=== PATIENT | male | born 1955 | race Caucasian/White ===

== ENCOUNTER → 2017-09-24 09:44 | Outpatient (CLI) | payer OTHER, SELFPAY ==
--- NOTE | 2017-09-24 09:49 | RAD_ITS ---
STUDY: X-RAY - ABDOMEN/PELVIS REASON FOR EXAM: Male, 62 years old. Follow-up of bilateral kidney stones. TECHNIQUE: Single AP view of the abdomen / pelvis. COMPARISON: Abdomen/pelvis CT dated August 07, 2017. FINDINGS: Normal visualized lung bases. There is an unremarkable bowel gas pattern. There is no demonstrated free abdominal air. The visualized liver, spleen and kidneys are grossly normal in size and morphology. The 16 mm in diameter calcification in the inferior pole of the right kidney is stable. The small calcifications in the left kidney are not visualized. There is severe arthrosis of the left hip. There is a right total hip arthroplasty. RAD/Abdomen Single View IMPRESSION: Stable right renal calculus. Left calcifications not seen because they're so small. Moderate to severe arthrosis of the left hip. Electronically Signed: Aurelio Verduzco MD at 10:52 EST , Service support ,
== END ==
LOC: RAD.FUTURE 09:46 → RAD 09:48
PROVIDERS: Family Provider Internal Medicine; PCP Internal Medicine; Visit Provider Urology
DX: N20.0 Calculus of kidney (principal)
CPT/HCPCS: 74018

== ENCOUNTER → 2017-10-23 13:55 | Outpatient (CLI) | payer OTHER, SELFPAY ==
[2017-10-23 16:34] LABS: M R Staph aureus DNA By PCR POSITIVE (Negative); Probe Check PASS
== END ==
PROVIDERS: Family Provider Internal Medicine; PCP Internal Medicine; Visit Provider Internal Medicine
DX: Z86.14 Personal history of Methicillin resistant Staphylococcus aureus infection (principal)
CPT/HCPCS: 87641

== ENCOUNTER 2018-02-09 05:39 | Emergency (ER) | payer OTHER, SELFPAY ==
[2018-02-09 05:41] VITALS: BP 158/95; PULSE 79; RESP 17; TEMP 36.9; O2SAT 92; BMI 29.0
--- NOTE | 2018-02-09 05:52 | CT_ITS ---
STUDY: CT ABDOMEN AND PELVIS WITHOUT CONTRAST REASON FOR EXAM: Male, 62 years old. Right lower quadrant abdominal pain since last night, with nausea and vomitings. RADIATION DOSAGE (If Supplied By Facility): CTDIvol = ( 16.64 ) mGy, DLP = ( 896.18 ) mGycm TECHNIQUE: Transaxial images were obtained from the dome of the diaphragm to the symphysis pubis without oral contrast, and without intravenous contrast. Sagittal and coronal images were reconstructed. Individualized dose optimization techniques were used for this CT. COMPARISON: CT abdomen/pelvis: 08/07/2017 FINDINGS: The visualized lung bases demonstrate posteriorly linear areas of fibrotic atelectasis in both visualized lower lung lobes. There is a 7 mm noncalcified/nonspecific nodule present peripherally in the left lateral lower lobe. The visualized portion of the heart appears top normal in size. Superiorly in the right hepatic lobe and a 5 mm small low-density structures is seen, too small to characterize. There is diffuse mild fatty hepatic infiltration. There is non-visualization of the gallbladder, which may be secondary to either contraction or a prior cholecystectomy. Normal unenhanced spleen and pancreas. Normal bilateral adrenal glands. Again demonstrated multiple bilateral renal calculi, largest is 6.1 mm in the lower pole calyx of the right kidney. There is a 10.7 mm obstructing calculus seen in the proximal right ureter with moderate right hydronephrosis and with right perinephric stranding of the fat. There is no left hydronephrosis. There is a moderate size hiatal hernia. Normal small intestine. There is a left inguinoscrotal hernia with mild wall thickening of the distal descending herniated colon, possibly an incarcerated bowel. There are a few small sigmoid diverticula consistent with mild diverticulosis. There is non-visualization of the appendix. There is moderate atherosclerotic calcification of the abdominal aorta and branch vessels, without a demonstrated aneurysm. Normal inferior vena cava. Normal retroperitoneum. There are multiple small subcentimeter reactive mesenteric lymph nodes. Evaluation of the pelvis is hampered by metallic beam hardening artifact from patient's total right hip arthroplasty. There is a right side deviated urinary bladder. There is enlargement of the prostate gland(5.7 x 5.5 x 5.8 cm) with mass effect on the bladder.. There are bilateral inguinal hernias containing right side adipose tissue and left side larger hernia containing herniated distal descending and proximal sigmoid colon with wall thickening, increased in size since the prior exam with possible bowel incarceration. Moderately advanced degenerative disc/endplate disease changes are seen at L3-L4. Multilevel degenerative lumbar facet arthrosis. Moderately severe left hip osteoarthritis. Total right hip arthroplasty. CT/Abdomen/Pelvis without Cont IMPRESSION: 1. Bilateral nephrolithiasis. A right proximal ureter 10.7 mm obstructing calculus with moderate right hydronephrosis and right perinephric stranding of fat. 2. Moderate size hiatal hernia. 3. Bilateral inguinal hernias. Large-size left inguinoscrotal hernia containing colon with wall thickening is suggestive of incarceration. Clinical correlation is advised. 4. Enlarged prostrate gland. Correlation with serum PSA values is recommended. 5. Moderately severe left hip osteoarthritis. Total right hip arthroplasty. Electronically Signed: Yarelis Pepe MD at 7:21 EDT Tel , Service support ,
--- NOTE | 2018-02-09 05:54 | ED.DCSUM_ITS ---
- ER Visit Summary Date of Service: 02/09/18 Chief Complaint: [] Right lower abdominal pain History of Present Illness: The patient is a 62 M complaining of right lower abdominal pain since 930 suddenly last night continuous sharp pain. He has history of 2 kidney stones on the opposite side within the last year. He is 6 episodes of emesis. Still has his appendix but this came on quite suddenly. He tried Tylenol last night with minimal relief. His last 2 kidney stones had to be resected. Physical Examination: Vital signs reviewed General: Well-nourished well-developed Head: Normocephalic atraumatic Eyes: Pupils equal round and reactive to light extraocular movements intact ENT: TMs clear no hemotympanum no trauma Neck: Nontender full range of motion Cardiovascular: Regular rate rhythm no murmurs normal S1-S2 Respiratory: No distress clear to auscultation bilaterally chest nontender Abdomen: Soft very mild tenderness right lower quadrant without guarding or rebound. Nonsurgical abdomen. No significant tenderness over the appendix nondistended normal bowel sounds no masses Back: Nontender no CVA tenderness Extremities: Nontender active range of motion ?4 extremities no trauma Skin: Normal color no trauma Neuro alert oriented cranial nerves II through XII intact normal strength sensation reflexes Test Results: [] Emergency Department Course and Treatment: [] Patient given IV fluids Toradol Zofran and morphine. Lab work and CT abdomen pelvis obtained. Treatment Plan: [] Disposition: [] Impression: [] This note was generated with [employer] dictation software. It may contain incorrect words, spelling, and punctuation that were not noted in review of the chart prior to signing ED Disposition - Plan for ED Patient: Chief Complaint: Abd Pain Referrals: Linette Soares DO [Primary Care Provider] -
[2018-02-09] MEDS: morphine 8 MG/ML Syringe IV (06:01)
[2018-02-09] MEDS: Ondansetron 4 MG/2 ML Vial IV (06:01)
[2018-02-09] MEDS: Ketorolac 30 MG/ML Syringe IV (06:01)
[2018-02-09] MEDS: 0.9% Normal Saline 1,000 ML 1000 ML IV ×2 (06:01→07:37)
[2018-02-09 06:12] LABS: Absolute Lymphocyte Count 0.93 X10^3/ul (0.83-4.51); Absolute Neutrophil Count 11.3 X10^3/uL (2.0-7.7); Anion Gap 8 (5-15); BUN 20 mg/dL (7-18); BUN/Creat Ratio 13.2 RATIO (10-20); Basophil# 0.03 X10^3/uL; Basophil% 0.2 % (0-1); Calcium,Total 9.2 mg/dL (8.5-10.1); Chloride 109 mmol/L (98-107); Creatinine, Serum 1.51 mg/dL (0.70-1.30); EST Glomerular Filtration Rate 50 mL/min (>60); Est Glom Filt Rate - Afr Amer 60 mL/min (>60); Estimated Creatinine Clearance 54.96 ml/min; Glucose 146 mg/dL (74-106); Hemoglobin 16.3 g/dl (13.0-16.5); Lymphocyte # 0.93 X10^3/ul (4.0); Lymphocyte % 7.2 % (19-41); Mean Corp Hgb Conc 33.3 g/gl (32-36); Mean Corpuscular Volume 78.1 fL (80-94); Mean Platelet Vol. 10.3 fl (6.2-12.0); Monocyte# 0.58 X10^3/uL; Monocyte% 4.5 % (0-10); Neutrophil # 11.27 X10^3/uL (2.7-7.7); Neutrophil % 87.8 % (47-70); Platelet Count 338 K/mm3 (150-450); Potassium 4.3 mmol/L (3.5-5.1); RBC Distribution Width CV 17.6 % (11.6-14.6); RBC Distribution Width SD 49.2 fl (35.1-43.9); Red Blood Count 6.27 M/mm3 (4.6-6.2); Sodium Level 143 mmol/L (136-145); White Blood Count 12.9 K/mm3 (4.4-11.0)
[2018-02-09 06:21] LABS: POSITIVE COUNT NO; POSITIVE DIFFERENTIAL NO; POSITIVE MORPHOLOGY NO
--- NOTE | 2018-02-09 06:48 | DCINST.ED_ITS ---
ED Disposition - Plan for ED Patient: Disposition: Home or Assisted Living Chief Complaint: Abd Pain Instructions: ED Stone Renal W Colic Prescriptions: Oxycodone HCl/Acetaminophen [Percocet 5/325] 1 - 2 tab PO Q6H PRN PRN 5 Days # 15 tab PRN Reason: Pain Ondansetron [Zofran Odt] 4 mg PO Q8H PRN PRN #10 tab PRN Reason: Nausea Referrals: Linette Soares DO [Primary Care Provider] - Chris Jara MD [STAFF PHYSICIAN] - Willy Awad MD [STAFF PHYSICIAN] -
[2018-02-09 07:58] VITALS: BP 133/74; PULSE 66; O2SAT 95
[2018-02-09 08:24] LABS: Bacteria 0 SEEN /hpf (None Seen); Mucous, Urine 0 SEEN /hpf (<or=2+); Red Blood Cells-Urine 0 SEEN /hpf (0-5); Squamous Epithelial Cells - UA 0 SEEN /hpf (0-5); White Blood Cells 0 SEEN /hpf (0-5)
[2018-02-09] MEDS: Morphine 4 MG/ML Syringe IV (08:26)
[2018-02-09 08:29] VITALS: BP 145/86; PULSE 67; RESP 20; O2SAT 94
[2018-02-09 08:53] LABS: Color, Urine Yellow (Yellow); Glucose, Dipstick 1000 mg/dl (Normal); Ketone-Dipstick 5 mg/dl (Negative); Leukocyte Esterase-Dipstick Negative /ul (Negative); Nitrite-Dipstick Negative (Negative); Occult Blood-Urine 10 /ul (Negative); Protein-Dipstick 15 mg/dl (Negative); Specific Gravity, Urine 1.015 (1.002-1.030); Urine Bilirubin Dipstick Negative (Negative); Urine Clarity Clear (Clear); Urine Urobilinogen Normal (Normal)
[2018-02-09 09:10] VITALS: BP 135/76; PULSE 61; RESP 18; O2SAT 97
--- NOTE | 2018-02-09 09:20 | ED.RN ---
THIS NURSE REVIEWED D/C INSTRUCTIONS WITH PT. PT VERBALIZED UNDERSTANDING OF INSTRUCTIONS. IV D/C. IV CATHETER INTACT. PT TOLERATED WELL. PT DENIES FURTHER NEEDS OR QUESTIONS AT THIS TIME. PT AMBULATES FROM ROOM ON OWN WITHOUT ASSISTANCE FROM STAFF
== END 2018-02-09 09:21 | disposition home or self-care (01) ==
PROVIDERS: Emergency Medicine; Emergency Provider Emergency Medicine; Family Provider Internal Medicine; PCP Internal Medicine
DX: N13.2 Hydronephrosis with renal and ureteral calculous obstruction (principal); K40.20 Bilateral inguinal hernia, without obstruction or gangrene, not specified as recurrent; K44.9 Diaphragmatic hernia without obstruction or gangrene; N40.0 Benign prostatic hyperplasia without lower urinary tract symptoms; Z87.442 Personal history of urinary calculi; Z86.79 Personal history of other diseases of the circulatory system; Z90.49 Acquired absence of other specified parts of digestive tract
CPT/HCPCS: 74176; 80048; 81001; 85025; 96361; 96374; 96375; 96376; 99282; J7030; J2405

== ENCOUNTER → 2018-02-11 15:09 | Outpatient (CLI) | payer OTHER, SELFPAY ==
[2018-02-11 20:14] LABS: M R Staph aureus DNA By PCR POSITIVE (Negative); Probe Check PASS
== END ==
PROVIDERS: Family Provider Internal Medicine; PCP Internal Medicine; Visit Provider Internal Medicine
DX: Z86.14 Personal history of Methicillin resistant Staphylococcus aureus infection (principal)
CPT/HCPCS: 87641

== ENCOUNTER → 2018-02-13 14:01 | Outpatient (CLI) | payer OTHER, SELFPAY ==
--- NOTE | 2018-02-13 14:04 | RAD_ITS ---
STUDY: X-RAY STERNUM REASON FOR EXAM: Male, 62 years old. Sternal chest pain TECHNIQUE: 4 view(s) of the sternum were obtained. COMPARISON: None. FINDINGS: Normal bilateral sternoclavicular articulations. Normal manubrium. Normal sternomanubrial joint. There is a subacute healing fracture in the mid sternum best seen on the lateral films. Normal visualized anterior ribs. Normal visualized lungs. The soft tissue structures are unremarkable. RAD/Sternum min 2 Views IMPRESSION: Nondisplaced subacute healing fracture in the mid sternum with soft tissue swelling Electronically Signed: Bryon Lai MD at 14:51 EDT , Service support ,
== END ==
PROVIDERS: Family Provider Internal Medicine; PCP Internal Medicine; Visit Provider Internal Medicine
DX: R07.89 Other chest pain (principal)
CPT/HCPCS: 71120

== ENCOUNTER 2018-02-15 10:31 | Day surgery (SDC) | payer OTHER, SELFPAY ==
[2018-02-15] VITALS (7 sets, daily range): BP systolic 116–130; BP diastolic 75–86; PULSE 60–66; RESP 16–18; TEMP 36.2–36.7; O2SAT 92–96; BMI 28.0
--- NOTE | 2018-02-15 10:35 | RAD_ITS ---
STUDY: X-RAY - ABDOMEN/PELVIS REASON FOR EXAM: Male, 62 years old. Preoperative evaluation for lithotripsy. TECHNIQUE: Two AP supine views of the abdomen and pelvis. COMPARISON: Comparison is made with prior study dated February 09, 2018. FINDINGS: There is a moderate amount of colonic fecal material. There is a 1.1 cm triangular-shaped calcification overlying the transverse processes of the L3 vertebrae on the right side. This is suggestive of a right mid ureteral calculus. Tiny nonobstructive bilateral intrarenal calculi are seen. Normal soft tissue structures. There are diffuse degenerative changes of the visualized lumbar spine. Status post right total hip replacement. Marked degree of degenerative changes of the left hip joint. RAD/Abdomen Single View IMPRESSION: 1.1 cm triangular shaped calculus in the midportion of the right ureter. Nonobstructive bilateral intrarenal calculi. Electronically Signed: [employer] MD at 10:59 EDT Tel [phone], Service support ,
[2018-02-15 11:30] LABS: Bedside Glucose 98 mg/dL (70-110)
[2018-02-15] MEDS: Cefazolin 2 GM in 0.9% Normal Saline 100 ML IV (14:14)
--- NOTE | 2018-02-15 14:32 | CHAPLAIN ---
Type of Pastoral Visit _x__ Initial Visit ___ Follow-up Visit ___ On-call Visit ___ General Patient Visit ___ Spiritual Assessment ___ Family Conference ___ Bereavement ___ Rapid Response ___ Code Blue ___ Other (describe below) Pastoral Care Referral From _x__ Patient ___ Family ___ Nurse ___ Physician ___ Filler Mixer ___ [place] Boatman ___ Other (describe below) Sacrament/Intervention _x__ Active listening ___ Anointing ___ Denominational ___ Bereavement ___ Communion ___ Sun exploration ___ _x__ Life review _x__ Prayer ___ Reconciliation ___ Sacrament of Sick ___ Supportive presence ___ Wedding ___ Other (describe below) Pastoral Comments
--- NOTE | 2018-02-15 14:40 | PCM.DC.URO ---
Discharge Diet: Light diet - advance as tolerated Discharge Activity: Return to Normal Activity, May not drive while taking narcotic pain medications. Call your doctor if your incision/area has: Continuous Slow Oozing, Sudden Increased Bleeding, Increased Pain/ Swelling, Increased Redness, Foul Smelling Discharge, Swelling at the incision site Suture Line Care: Avoid Pulling/Pushing, Avoid Pinching/Bending Instructions: Shock Wave Lithotripsy Allergies/Adverse Reactions: Allergies hydrocodone bitartrate [From Vicodin] Adverse Reaction (Verified 02/09/18 05:40) Other Medications to take at Discharge Ondansetron [Zofran Odt] 4 mg PO Q8H PRN PRN #10 tab 02/09/18 Oxycodone HCl/Acetaminophen [Percocet 5/325] 1 - 2 tab PO Q6H PRN PRN 5 Days #15 tab 02/09/18 Ciprofloxacin [Cipro] 500 mg PO BID #6 tab 02/15/18 Hydrocodone/Acetaminophen [Anthony 5-325 Tablet] 1 ea PO Q4H PRN PRN 7 Days #14 tab 02/15/18 The following prescriptions were given: Hydrocodone/Acetaminophen [Anthony 5-325 Tablet] 1 ea PO Q4H PRN PRN 7 Days #14 tab PRN Reason: Pain Ciprofloxacin [Cipro] 500 mg PO BID #6 tab Primary Care Physician: Linette Soares DO [Primary Care Provider] - Please Follow Up With: Chris Jara MD When: call for an appt next week with xray to remove stent.
--- NOTE | 2018-02-15 15:18 | PCM.OPRPT ---
Report of Operation Date of Procedure: 02/15/18 Pre-Operative Diagnosis: Right ureteral calculi, proximal ureter and right renal calculi Post-Operative Diagnosis: Same Surgery/Procedure Performed:: Cystoscopy, right stent placement, right extracorporeal shockwave lithotripsy. Description of Surgical Findings:: 62-year-old male taken back to the operating room at the smooth induction of general anesthesia he is placed supine on the table in the in the dorsal lithotomy position the penis and testicles were prepped and draped in the usual sterile fashion went into the bladder with a 21 Chinese rigid cystourethroscope identified the right ureteral orifice with a Glidewire advanced a wire up into the kidney was a wire was in good position advanced stent and the stent coiled in the kidney and bladder good position left the string of the stent for easy extraction then drained the bladder and removed the cystoscope, we then positioned the lithotripter table and found the first on the proximal ureter total 3000 shockwaves were delivered to the stone up the power of 9 and then there is another 5 mm fragment in the kidney and another thousand shockwaves were delivered to the small fragment that broke up fairly well. At the end of the stones broke up fairly well left the stent in place plan to see him next week with an x-ray or prior remove the stent patient anesthetic is currently being reversed. Type of Anesthesia:: General Drains: stent. - Admit VTE Documentation VTE Present on Admission: No VTE Mechan Device Prophylaxis: SCD's VTE Pharm Prophylaxis ordered?: No
== END 2018-02-15 17:05 | disposition home or self-care (01) ==
LOC: SDC 10:33 → AC 10:34
PROVIDERS: Family Provider Internal Medicine; PCP Internal Medicine; Visit Provider Urology
PROC: (CPT 50590; principal; 2018-02-15 12:40)
DX: N20.1 Calculus of ureter (principal); N20.0 Calculus of kidney; N40.1 Benign prostatic hyperplasia with lower urinary tract symptoms; R35.1 Nocturia; Z87.442 Personal history of urinary calculi; Z79.82 Long term (current) use of aspirin; Z79.891 Long term (current) use of opiate analgesic; Z79.899 Other long term (current) drug therapy
CPT/HCPCS: 52325; 52332; 74018; 82962; J7120; C1769; C2617

== ENCOUNTER → 2018-02-20 15:58 | Outpatient (CLI) | payer OTHER, SELFPAY ==
--- NOTE | 2018-02-20 16:01 | RAD_ITS ---
STUDY: X-RAY - ABDOMEN/PELVIS REASON FOR EXAM: Male, 62 years old. Right kidney stones TECHNIQUE: Two AP supine views of the abdomen and pelvis. COMPARISON: 02/15/2018 FINDINGS: There is moderate stool within the right colon. There is no demonstrated free abdominal air. The visualized liver, spleen and kidneys are grossly normal in size and morphology. There is a new right ureteral stent in place. There is a 5 mm calcification adjacent to the proximal ureteral stent. A 6 mm calcification overlying the inferior pole of the right kidney. There are diffuse degenerative changes of the visualized lumbar spine. There has been a right total hip arthroplasty. Degenerative changes are seen within the left hip. RAD/Abdomen Single View IMPRESSION: New right ureteral stent. There is a calcification along the proximal aspect of the stent, and a right inferior pole calculus. Electronically Signed: Zeferino Wilburn DO at 10:00 EDT Tel , Service support ,
== END ==
PROVIDERS: Family Provider Internal Medicine; PCP Internal Medicine; Visit Provider Urology
DX: N20.0 Calculus of kidney (principal)
CPT/HCPCS: 74018

== ENCOUNTER → 2018-02-20 16:17 | Outpatient (CLI) | payer OTHER, SELFPAY ==
--- NOTE | 2018-02-20 16:19 | VDLE_ITS ---
Reason For Study: Swelling RIGHT LEFT GSV is normal. GSV is normal. CFV is compressible, spontaneous, phasic, CFV is compressible, spontaneous, phasic, competent and demonstrates normal competent, and demonstrates normal augmentation. augmentation. FV is compressible, spontaneous, phasic, FV is compressible, spontaneous, phasic, competent and demonstrates normal competent and demonstrates normal augmentation. augmentation. POP V is compressible, spontaneous, phasic, POP V is compressible, spontaneous, phasic, competent and demonstrates normal competent and demonstrates normal augmentation. augmentation. T/P Trunk is compressible. T/P Trunk is compressible. PTV is compressible. LT PerV is compressible. RT PerV is compressible. Lt PTV distal and Lt SoleusV are dilated and Rt anterior calf varicosity is dilated and non compressible consistent with acute DVT. non compressible consistent with acute SVT. Procedure Exam performed in department. A preliminary report was called and/or faxed to Dr. Awad. Patient sent for treatment in ED per Dr. Awad. Interpretation Summary Superficial thrombophlebitis right anterior calf varicosity. Left posterior tibial and soleus deep venous thrombosis. No evidence for proximal progression on the left Patent and compressible bilateral great saphenous veins. Ordering Physician: Willy Awad Referring Physician: Linette Soares Performed By: Evelyn Carson, RDCS, RVT
== END ==
PROVIDERS: Family Provider Internal Medicine; PCP Internal Medicine; Visit Provider Surgery
DX: I82.890 Acute embolism and thrombosis of other specified veins (principal); M79.606 Pain in leg, unspecified
CPT/HCPCS: 93970

== ENCOUNTER 2018-02-20 17:21 | Emergency (ER) | payer OTHER, SELFPAY ==
[2018-02-20 17:23] VITALS: BP 145/73; PULSE 73; RESP 18; TEMP 36.6; O2SAT 96; BMI 27.1
--- NOTE | 2018-02-20 17:59 | ED.VISSUMM ---
- ER Visit Summary Date of Service: 02/20/18 Chief Complaint: Patient sent from vascular lab because of DVT. History of Present Illness: The patient is a 62 M who is status post lithotripsy Thursday, February 15, [address] Jara. He had a outpatient venous Doppler to evaluate his bilateral leg pain to rule out DVT. Report indicates he has a superficial clot right leg and distal DVT left leg involving the posterior tibial and soleus vein. He denies fever, chills night sweats. He denies chest pain, palpitations or rapid heartbeat. He denies shortness of breath, cough, hemoptysis or dyspnea on exertion. He denies any paresthesia, anesthesia motor weakness of the right or left lower extremity. 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 Physical Examination: Vital signs are unremarkable. HEENT exam is unremarkable. Heart is regular without murmur, gallop or rub. S1 and S2 are normal. Lungs are clear to auscultation with good movement of air bilaterally. There is pain to palpation over the superficial clot right leg. There is minimal discomfort left calf. DP and PT pulses are palpable bilaterally. There is no evidence of cellulitis. 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 Literature would support not place him on an anticoagulation therapy since they are distal clots. Venous duplex study was ordered for February 23, February 28 and March 07. Reports to go to both Dr. Jara and Dr. Soares. Treatment Plan: Outpatient venous duplex studies Disposition: Discharged home with appropriate home-going instructions Impression: 1. DVT right lower extremity below the trifurcation 2. Superficial phlebitis right leg This note was generated with [employer] dictation software. It may contain incorrect words, spelling, and punctuation that were not noted in review of the chart prior to signing ED Disposition - Plan for ED Patient: Disposition: Home or Assisted Living Chief Complaint: Other, Pain/Inj Instructions: ED DVT Referrals: Linette Soares DO [Primary Care Provider] - As Needed Additional Instructions: You will need to call the vascular lab to set up outpatient venous duplex study for February 23, February 28 and March 07. If you develop chest pain and shortness of breath return to the emergency department immediately.
--- NOTE | 2018-02-20 18:03 | ED.DCSUM_ITS ---
- ER Visit Summary Date of Service: 02/20/18 Chief Complaint: Patient sent from vascular lab because of DVT. History of Present Illness: The patient is a 62 M who is status post lithotripsy Thursday, February 15, [address] Jara. He had a outpatient venous Doppler to evaluate his bilateral leg pain to rule out DVT. Report indicates he has a superficial clot right leg and distal DVT left leg involving the posterior tibial and soleus vein. He denies fever, chills night sweats. He denies chest pain, palpitations or rapid heartbeat. He denies shortness of breath, cough, hemoptysis or dyspnea on exertion. He denies any paresthesia, anesthesia motor weakness of the right or left lower extremity. 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 Physical Examination: Vital signs are unremarkable. HEENT exam is unremarkable. Heart is regular without murmur, gallop or rub. S1 and S2 are normal. Lungs are clear to auscultation with good movement of air bilaterally. There is pain to palpation over the superficial clot right leg. There is minimal discomfort left calf. DP and PT pulses are palpable bilaterally. There is no evidence of cellulitis. 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 Literature would support not place him on an anticoagulation therapy since they are distal clots. Venous duplex study was ordered for February 23, February 28 and March 07. Reports to go to both Dr. Jara and Dr. Soares. Treatment Plan: Outpatient venous duplex studies Disposition: Discharged home with appropriate home-going instructions Impression: 1. DVT right lower extremity below the trifurcation 2. Superficial phlebitis right leg This note was generated with [employer] dictation software. It may contain incorrect words, spelling, and punctuation that were not noted in review of the chart prior to signing ED Disposition - Plan for ED Patient: Disposition: Home or Assisted Living Chief Complaint: Other, Pain/Inj Instructions: ED DVT Referrals: Linette Soares DO [Primary Care Provider] - As Needed Additional Instructions: You will need to call the vascular lab to set up outpatient venous duplex study for February 23, February 28 and March 07. If you develop chest pain and shortness of breath return to the emergency department immediately.
[2018-02-20 18:15] VITALS: BP 132/90; PULSE 71; RESP 16; O2SAT 94
== END 2018-02-20 18:18 | disposition home or self-care (01) ==
LOC: ED 18:13
PROVIDERS: Emergency Provider Emergency Medicine; Family Provider Internal Medicine; PCP Internal Medicine
DX: I82.4Z1 Acute embolism and thrombosis of unspecified deep veins of right distal lower extremity (principal); I80.01 Phlebitis and thrombophlebitis of superficial vessels of right lower extremity; E11.9 Type 2 diabetes mellitus without complications
CPT/HCPCS: 99282

== ENCOUNTER → 2018-02-22 11:29 | Outpatient (CLI) | payer OTHER, SELFPAY ==
--- NOTE | 2018-02-22 11:33 | VDLE_ITS ---
Reason For Study: F/U LLE DVT Procedure LEFT Exam performed in department. GSV is normal. CFV is compressible, spontaneous, phasic, competent, and demonstrates normal augmentation. FV is compressible, spontaneous, phasic, competent and demonstrates normal augmentation. POP V is compressible, spontaneous, phasic, competent and demonstrates normal augmentation. T/P Trunk is compressible. LT PerV is compressible. Distal PTV is dilated and non-compressible for short segment Soleus v is now compressible. Interpretation Summary Persistent deep venous thrombosis left posterior tibial vein Patent and compressible left soleus vein Patent and compressible left great saphenous vein. Ordering Physician: Linus Swift Referring Physician: Linette Soares D.O. Performed By: Gricelda Escalante RVT
== END ==
PROVIDERS: Family Provider Internal Medicine; PCP Internal Medicine; Visit Provider Emergency Medicine
DX: I82.492 Acute embolism and thrombosis of other specified deep vein of left lower extremity (principal); I80.01 Phlebitis and thrombophlebitis of superficial vessels of right lower extremity
CPT/HCPCS: 93971

== ENCOUNTER → 2018-02-26 13:07 | Outpatient (CLI) | payer OTHER, SELFPAY ==
--- NOTE | 2018-02-26 13:10 | VDLE_ITS ---
Reason For Study: DVT Procedure LEFT Exam performed in department. GSV is normal. The exam was diagnostic. CFV is compressible, spontaneous, phasic, A preliminary report was called and/or competent, and demonstrates normal faxed to [facility] nurses voicemail. augmentation. FV is compressible, spontaneous, phasic, competent and demonstrates normal augmentation. POP V is compressible, spontaneous, phasic, competent and demonstrates normal augmentation. T/P Trunk is compressible. LT PerV is compressible. Soleus V is compressible. Distal PTV is still dilated and noncompressible. No significant change from previous study done 02/22/18. Interpretation Summary Persistent deep venous thrombosis left posterior tibial vein with no change from the previous exam of 02/22/18. Patent and compressible left great saphenous vein. Ordering Physician: Linette Soares Performed By: Charles Stone RVT
== END ==
PROVIDERS: Family Provider Internal Medicine; PCP Internal Medicine; Visit Provider Internal Medicine
DX: I82.409 Acute embolism and thrombosis of unspecified deep veins of unspecified lower extremity (principal)
CPT/HCPCS: 93971

== ENCOUNTER → 2018-03-07 10:17 | Outpatient (CLI) | payer OTHER, SELFPAY ==
--- NOTE | 2018-03-07 10:19 | VDLE_ITS ---
Reason For Study: F/U LLE DVT Procedure LEFT Exam performed in department. GSV is normal. A preliminary report was called and/or faxed CFV is compressible, spontaneous, phasic, to Dr. Soares. competent, and demonstrates normal augmentation. FV is compressible, spontaneous, phasic, competent and demonstrates normal augmentation. POP V is compressible, spontaneous, phasic, competent and demonstrates normal augmentation. T/P Trunk is compressible. LT PerV is compressible. PTV remains non-compressible for short segment distal calf. Interpretation Summary Deep venous thrombosis left posterior tibial vein. No evidence for proximal progression Patent and antegrade left great saphenous vein No change from 02/26/18 Ordering Physician: Linus Swift Referring Physician: Linette Soares D.O. Performed By: Gricelda Escalante RVT
== END ==
PROVIDERS: Family Provider Internal Medicine; PCP Internal Medicine; Visit Provider Emergency Medicine
DX: I82.402 Acute embolism and thrombosis of unspecified deep veins of left lower extremity (principal)
CPT/HCPCS: 93971

== ENCOUNTER → 2018-04-11 14:09 | Outpatient (CLI) | payer OTHER, SELFPAY | PROVIDERS: Family Provider Internal Medicine; PCP Internal Medicine; Visit Provider Urology | DX: N20.0 Calculus of kidney (principal) | CPT/HCPCS: 74018 ==

== ENCOUNTER → 2018-04-15 10:04 | Outpatient (CLI) | payer OTHER, SELFPAY | PROVIDERS: Family Provider Internal Medicine; PCP Internal Medicine; Visit Provider Internal Medicine | DX: I82.409 Acute embolism and thrombosis of unspecified deep veins of unspecified lower extremity (principal) | CPT/HCPCS: 93971 ==

== ENCOUNTER → 2018-07-04 12:47 | Outpatient (CLI) | payer SELFPAY ==
[2018-07-04 13:00] VITALS: BP 120/66; PULSE 62; RESP 14; TEMP 37.1; O2SAT 97; BMI 27.1
--- NOTE | 2018-07-04 13:09 | CT_ITS ---
STUDY: CARDIAC CALCIUM SCORING - CT CHEST REASON FOR EXAM: Male, 62 years old. SCREENING, HX-HTN,DB,NON SMOKER RADIATION DOSAGE (If Supplied By Facility): CTDIvol = ( 12.19 ) mGy, DLP = ( 292.55 ) mGycm TECHNIQUE: Axial non-enhanced images were acquired through the heart for the sole purpose of measuring coronary artery calcium. Individualized dose optimization techniques were used for this CT. COMPARISON: None. FINDINGS: Visualized surrounding anatomy: Normal. Left Main Coronary Artery: 13.7 Left Anterior Descending Artery: 145 Left Circumflex Artery: 13.1 Right Coronary Artery: 0 Other: 0 Total Calcium Score: 122 CT/Limited Chest CT w/CCTA IMPRESSION: A Calcium Score of 172 places the patient in the approximate 69 percentile, based on the EL data calculator. Please go to: [email or web address]-nhlbi.org/Calcium/input.aspx , for a description of the calculator. Electronically Signed: Letitia Edmond MD at 8:03 EST Tel , Service support ,
--- NOTE | 2018-07-06 08:53 | CA.SCORE ---
Calcium Scoring Date of Study:: 07/04/18 Coronary Calcium Scoring: Coronary calcium score. High-resolution computed tomographic images of the chest were performed on 07/04/2018. Particular attention was paid to the coronary arteries. Images from the examination were analyzed for the presence and extent of coronary artery calcification using the coronary calcifications software. The patient tolerated the procedure well there were no complications. The results of the calcification analysis demonstrated the following. Left main coronary calcium score 13.7. Left anterior descending artery calcium score 145. Left circumflex calcium score of 13. Right coronary calcium score of 0. Total Agagston score 172. The above suggest mild coronary calcification along the left anterior descending artery territory. This places the patient at a moderate plaque burden range.
== END ==
PROVIDERS: Family Provider Internal Medicine; PCP Internal Medicine; Referring Provider Internal Medicine; Visit Provider Internal Medicine
DX: I10 Essential (primary) hypertension (principal); Z13.9 Encounter for screening, unspecified
CPT/HCPCS: 75571; 76380

== ENCOUNTER → 2019-09-24 08:55 | Outpatient (CLI) | payer OTHER, SELFPAY ==
--- NOTE | 2019-09-24 09:13 | US_ITS ---
STUDY: THYROID ULTRASOUND REASON FOR EXAM: Male, 64 years old. Possible nodule TECHNIQUE: Ultrasound evaluation of the thyroid was performed with real-time and static jones-scale imaging. COMPARISON: None. FINDINGS: RIGHT LOBE: The right lobe of the thyroid gland measures 4.6 cm x 1.9 cm -1.4 cm. There is a homogeneous echotexture. There are no demonstrated solid, cystic or complex lesions. LEFT LOBE: The left lobe of the thyroid gland measures 4.2 cm x 1.4 cm x 1.5 cm. There is a homogeneous echotexture. There are no demonstrated solid, cystic or complex lesions. ISTHMUS: The isthmus measures 3 mm. The regional lymph nodes are normal. US/Thyroid IMPRESSION: Normal ultrasound examination of the thyroid. Electronically Signed: [facility] [employer], at 15:31 EST , Service support ,
== END ==
PROVIDERS: PCP Internal Medicine; Referring Provider Internal Medicine; Visit Provider Internal Medicine
DX: E04.1 Nontoxic single thyroid nodule (principal)
CPT/HCPCS: 76536

== ENCOUNTER 2020-02-02 11:42 | Day surgery (SDC) | payer MEDICARE, OTHER, SELFPAY ==
[2020-01-26 14:29] VITALS: BMI 27.1
[2020-02-02] VITALS (10 sets, daily range): BP systolic 113–141; BP diastolic 70–83; PULSE 55–87; RESP 15–18; TEMP 36.1–37; O2SAT 93–100; BMI 29.5
--- NOTE | 2020-02-02 12:17 | EKG12_ITS ---
Test Reason : ABD PAIN Blood Pressure : / mmHG Vent. Rate : 060 BPM Atrial Rate : 060 BPM P-R Int : 146 ms QRS Dur : 108 ms QT Int : 438 ms P-R-T Axes : 018 064 052 degrees QTc Int : 438 ms Normal sinus rhythm Incomplete right bundle branch block Nonspecific T wave abnormality Abnormal ECG Confirmed by TROY NICKERSON, GARDENIA ([id number]), editor book TANIA SMITH ([id number]) on 02/03/2020 10:00:33 AM Referred By: PILAR Confirmed By:GARDENIA SIMMONS MD
--- NOTE | 2020-02-02 12:18 | ED.DCSUM_ITS ---
History of Present Illness Chief Complaint: Abd Pain Informant: Patient Narrative: Patient has a history of left inguinal hernia, over the past 2 days he has had worsening pain in his left inguinal and scrotal region, now he has abdominal pain and an episode of vomiting. He was scheduled for an elective hernia repair in a few weeks. He denies any fever chills no diarrhea or constipation. He has been n.p.o. for 6 hours. No urinary symptoms Past Medical History - Allergies and Home Meds Allergies/Adverse Reactions: Allergies acetaminophen [From Percocet] Allergy (Severe, Verified 02/02/20 11:45) unknown oxycodone [From Percocet] Allergy (Severe, Verified 02/02/20 11:45) unknown hydrocodone bitartrate [From Vicodin] Adverse Reaction (Verified 02/02/20 11:45) Other Primary Care Physician: Linette Soares DO [Primary Care Provider] - Past Medical History: - - Hypertension, hypercholesterolemia Smoking Status: Never smoker Review of Systems All systems negative except as indicated General: Denies: Fever Cardiovascular: Denies: Chest pain Respiratory: Denies: Dyspnea, Cough Gastrointestinal: Reports: Abdominal pain, Nausea, Vomiting Genitourinary: Reports: - - Left scrotal pain Musculoskeletal: Denies: Myalgias, Arthralgias Skin: Denies: Rash Neurological: Denies: Headache Psych: Denies: Depression Hematologic: Denies: Easy bruising Allergy: Denies: Swelling of the mouth Physical Exam Vital Signs/Narrative: Vital Signs Temp Pulse Resp BP Pulse Ox 02/02/20 11:43 98.6 F 64 18 141/83 H 95 General: - - He appears in some distress Head: Normocephalic ENT: Moist mucous membranes Neck: Supple Cardiovascular: Regular rate, Regular rhythm Respiratory: No distress, CTA bilaterally Abdomen: Soft, - - There is tenderness throughout but mostly lower abdomen. There is a bulging inguinal hernia and to the left scrotal region. I cannot reduce it. : - - Hernia as above Back: Normal Inspection. Negative for: CVA tenderness Extremities: Nontender, No edema Skin: Normal color Neurological: Normal Strength, Normal Sensation Diagnostic/Tx/Re-eval - Medical Decision Making I cannot reduce the hernia I called surgery, they will evaluate the patient at the bedside. Blood work and EKG were obtained patient was given an analgesia. He will be made n.p.o. He will go to the operating room. ED Disposition - Plan for ED Patient: Disposition: [facility] Diagnosis: Incarcerated hernia Referrals: Linette Soares DO [Primary Care Provider] -
--- NOTE | 2020-02-02 12:42 | PCM.HP.STD ---
Problem List (1) Incarcerated hernia Status: Acute History of Present Illness Date of Admission: 02/02/20 The patient is a 64 year old M who presents to the emergency department with an incarcerated strangulated left inguinal hernia with nausea and vomiting. Patient states that when he woke up this morning it was quite a bit more tender swollen started developed nausea and vomiting the car ride and was extremely painful. While being in the emergency department he was given some analgesics he no longer feels nauseated and he says the firmness has gone down. Patient has had this for many years and was actually going to get treatment for it but then developed a pulmonary and embolus and was needing treatment for that. He presents today for further evaluation and definitive treatment of his left inguinal hernia. Bulge will go out to be very hard at times at nighttime it will partially reduce. The total time that it was strangulated was probably in the vicinity of 6 hours. Past Medical History Past Medical History (Chronic Problems): Chronic Problems (Last Reviewed 02/02/20 @ 12:[address] Maurilio De Paz MD) Ventricular premature depolarization (Chronic) Nonrheumatic mitral (valve) insufficiency (Chronic) Hypertension (Chronic) Recurrent right inguinal hernia (Chronic) Superficial thrombophlebitis of right leg (Chronic) Left inguinal hernia (Chronic) Calculus of kidney and ureter (Chronic) Diabetes mellitus (Chronic) BPH w urinary obs/LUTS (Chronic) Medical History: Medical History (Last Reviewed 02/02/20 @ 12:[address] Maurilio De Paz MD) Ventricular premature depolarization (Chronic) I49.3 Nonrheumatic mitral (valve) insufficiency (Chronic) I34.0 Hypertension (Chronic) I10 Ventricular tachycardia, non-sustained (Resolved) I47.2 Recurrent right inguinal hernia (Chronic) K40.91 Superficial thrombophlebitis of right leg (Chronic) I80.01 Left inguinal hernia (Chronic) K40.90 Calculus of kidney and ureter (Chronic) N20.2 Diabetes mellitus (Chronic) E11.9 BPH w urinary obs/LUTS (Chronic) N40.1, N13.8 Allergies acetaminophen [From Percocet] Allergy (Severe, Verified 02/02/20 11:45) unknown oxycodone [From Percocet] Allergy (Severe, Verified 02/02/20 11:45) unknown hydrocodone bitartrate [From Vicodin] Adverse Reaction (Verified 02/02/20 11:45) Other Home Medications: Ambulatory Orders Medication Instructions Recorded naproxen sodium 220 mg tablet 220 mg PO BID PRN 03/28/18 amlodipine 5 mg tablet 5 mg PO DAILY 01/26/20 aspirin 81 mg tablet,delayed 81 mg PO DAILY 01/26/20 release cholecalciferol (vitamin D3) 100 100 mcg PO DAILY 01/26/20 mcg (4,000 unit) capsule rosuvastatin 5 mg tablet 5 mg PO DAILY 01/26/20 Surgical History: Surgical History (Last Reviewed 02/02/20 @ 12:[address] Maurilio De Paz MD) History of colonoscopy (Resolved) Z98.890 History of open reduction and internal fixation (ORIF) procedure (Resolved) Z98.890 left foot History of back surgery (Resolved) Z98.890 lumbar disc History of tonsillectomy (Resolved) Z90.89 Hx of cholecystectomy (Resolved) Onset Date: 02/09/17 Z90.49 01/2017 Hx of lithotripsy (Resolved) Z98.890 X2 - 07/2017 & 02/15/18 History of right hip replacement (Resolved) Z96.641 06/2017 Smoking Status: Never smoker Review of Systems Constitutional: Reports: Anorexia Cardiovascular: Denies: Chest Pain, Chest Pressure, Chest Tightness, Palpitations Respiratory: Denies: Cough, Hemoptysis, Shortness of breath at rest, Shortness of breath upon exertion, Wheezing Gastrointestinal: Reports: Abdominal Pain, Nausea, Vomiting VTE Information - Inpt Only VTE Present on Admission: No VTE Mechan Device Prophylaxis: SCD's VTE Pharm Prophylaxis ordered?: No Reason prophylaxis not ordered:: Treatment Not Indicated Patient Problems: Active and Suspected Problems (Last Reviewed 02/02/20 @ 12:[address] Maurilio De Paz MD) Incarcerated hernia (Acute) - Physical Exam Vitals/I&O's: Vital Signs Temp Pulse Resp BP Pulse Ox 98.6 F 64 18 141/83 H 95 02/02/20 11:43 02/02/20 11:43 02/02/20 11:43 02/02/20 11:43 02/02/20 11:43 Oxygen Delivery Method Room Air Weight: 217 lb 9.54 oz Body Mass Index (BMI) 29.5 General: Alert, Oriented x3 Neck: Supple, No JVD Lungs: Clear to auscultation Cardiovascular: Regular rate, Regular Rhythm, No murmurs Abdomen: Distended, Tender - No rebound or guarding or peritoneal signs are identified but he has generalized tenderness to touch. His hernia feels soft I cannot reduce it , he is tender to touch over the area. Extremities: No clubbing, No cyanosis, No edema Skin: No rashes, No breakdown Laboratory Results 02/02/20 12:04: WBC Pending, RBC Pending, Hgb Pending, Hct Pending, MCV Pending, MCH Pending, MCHC Pending, RDW Std Deviation Pending, RDW Coeff of Carlos A Pending, Plt Count Pending, Neut % (Auto) Pending, Absolute Neuts (auto) Pending 02/02/20 12:04: Sodium Pending, Potassium Pending, Chloride Pending, Carbon Dioxide Pending, Anion Gap Pending, BUN Pending, Creatinine Pending, Est GFR (MDRD) Af Amer Pending, Est GFR (MDRD) Non-Af Pending, BUN/Creatinine Ratio Pending, Glucose Pending, Calcium Pending, Total Bilirubin Pending, AST Pending, ALT Pending, Alkaline Phosphatase Pending, Total Protein Pending, Albumin Pending, Lipase Pending Assessment/Plan All Active Problems (Last Reviewed 02/02/20 @ 12:[address] Maurilio De Paz MD) Incarcerated hernia (Acute) History of colonoscopy (Resolved) History of open reduction and internal fixation (ORIF) procedure (Resolved) History of back surgery (Resolved) History of tonsillectomy (Resolved) Ventricular tachycardia, non-sustained (Resolved) Hx of cholecystectomy (Resolved 02/09/17) Hx of lithotripsy (Resolved) History of right hip replacement (Resolved) He has an incarcerated hernia and I believe that it was probably strangulated this morning. I am concerned that he may have some underlying ischemia of small intestine that has reduced back into the abdominal area. In this setting I believe the best course of action is to do a laparoscopic left inguinal hernia repair and inspect the small bowel at the same time. This is a larger hernia he does understand that he does have a higher incidence of #1 recurrence #2 bleeding postoperatively. And this being done in an emergent case with his previous history of blood clots those are certainly a risk at this setting as well. I have discussed with him again blood clots heart attacks pneumonia strokes up to and including . I do not think observation in this setting is in his best interest. Procedure Criteria Procedure Type: Essential Procedure Essential: Yes Criteria Statement: On 11/11/2019 the [facility] [place] of [facility] ([facility]) Public Order signed by [facility] Director Dunia Gorman M.D., regarding the Management of Non-Essential Surgeries and Procedures for the purpose of preserving Personal Protective Equipment (PPE) and critical hospital capacity and resources within [place] went into effect as of 11/12/2019 at 5:00PM. According to the [facility] Public Order: This action will remain in full force and effect until the State of Emergency declared by the Governor no longer exists or the Director of the [facility] rescinds or modifies this Order. This [facility] order stated all non-essential or elective surgeries and procedures that utilize PPE should be delayed unless there is undue risk to the current or future health of a patient. After reviewing the aforementioned [facility] Public Order and the patient's clinical case, I have determined that the scheduled procedure meets the criteria to go forward. Risk to Patient if Procedure Delayed: Risk of rapidly worsening to severe symptoms if delayed Office Visits / Consults: [id number] IP Consult L4 - Modifier 57
[2020-02-02 12:43] LABS: AST(SGOT) 23 U/L (15-37); Alanine Aminotransfer ALT/SGPT 37 U/L (16-61); Albumin, Serum 3.9 g/dL (3.2-5.0); Alkaline Phosphatase 59 U/L (45-117); Anion Gap 6 (5-15); BUN 19 mg/dL (7-18); BUN/Creat Ratio 16.1 RATIO (10-20); Chloride 110 mmol/L (98-107); Creatinine, Serum 1.18 mg/dL (0.70-1.30); EST Glomerular Filtration Rate 66 mL/min (>60); Est Glom Filt Rate - Afr Amer 80 mL/min (>60); Glucose 136 mg/dL (74-106); Lipase 102 U/L (73-393); Potassium 4.5 mmol/L (3.5-5.1); Protein, Total 7.9 g/dL (6.4-8.2); Sodium Level 142 mmol/L (136-145)
[2020-02-02 12:48] LABS: Absolute Lymphocyte Count 0.98 X10^3/uL (0.83-4.51); Absolute Neutrophil Count 9.1 X10^3/uL (2.0-7.7); Basophil# 0.03 X10^3/uL; Basophil% 0.3 % (0-1); Eosinophil# 0.02 X10^3/uL; Eosinophils% 0.2 % (0-5); Hematocrit 53.5 % (40-54); Hemoglobin 16.5 g/dL (13.0-16.5); Lymphocyte # 0.98 X10^3/ul (4.0); Lymphocyte % 9.3 % (19-41); Mean Corp Hgb Conc 30.8 g/dL (32-36); Mean Corpuscular Volume 84.3 fL (80-94); Mean Platelet Vol. 10.4 fl (6.2-12.0); Monocyte# 0.38 X10^3/uL; Monocyte% 3.6 % (0-10); NRBC Flagged by Analyzer 0 % (0-5); Neutrophil # 9.14 X10^3/uL (2.7-7.7); Neutrophil % 86.2 % (47-70); Platelet Count 305 K/mm3 (150-450); RBC Distribution Width CV 17.3 % (11.6-14.6); RBC Distribution Width SD 48.8 fl (35.1-43.9); Red Blood Count 6.35 M/mm3 (4.6-6.2); White Blood Count 10.6 K/mm3 (4.4-11.0)
[2020-02-02] MEDS: Ondansetron 4 MG/2 ML Vial IV (13:00)
[2020-02-02] MEDS: Morphine 4 MG/ML Syringe IV (13:00)
--- NOTE | 2020-02-02 13:59 | PCM.OPRPT ---
Problem List (1) Incarcerated hernia Status: Acute Report of Operation Date of Procedure: 02/02/20 Pre-Operative Diagnosis: Incarcerated left inguinal hernia Post-Operative Diagnosis: Same Surgery/Procedure Performed:: Laparoscopic repair of an incarcerated left inguinal hernia Type of Anesthesia:: General Anesthesiologist: Kris Zheng Specimen's removed: none Estimated Blood Loss (mL): <25cc Description of Procedure: Patient was brought into the operating room. Placed in the supine position. Under excellent general trach intubation Holder catheter was placed the abdomen was sterilely prepped and draped in usual fashion. Local was injected supraumbilically. Dissection was carried down to the fascia the fascia grasped with a Sarah. Varies needle was placed inside the abdomen. The abdomen was insufflated 15 torr. A 10/12 trocar was placed. It was flank by 2 #5 trochars placed under direct visualization without injury to underlying structures. The patient was placed in the headdown and rotated to the right position. With the induction of anesthesia incarceration reduced itself spontaneously. I scored the peritoneum on the left. I dissected down to Duncan's ligament. I dissected laterally dissecting the cord and vessel structures free. And I dissected further laterally. I placed a 3D max mesh into the wound. I tacked it to Duncan's ligament with a pro-tacker. I tacked it superiorly and laterally with some sparing tacks. I reperitonealized the area covering the mesh completely. Right side appeared to be stable. I remove the trochars under direct visualization good mistakes was noted. To close the fascia the umbilical port with a [id number] stitch of 0 Vicryl. Skin incisions were closed with subcuticular stitches of 4-0 Monocryl. Steri-Strips were applied. Sterile dressings were applied. The patient tolerated the procedure well. - Admit VTE Documentation VTE Present on Admission: No VTE Mechan Device Prophylaxis: SCD's VTE Pharm Prophylaxis ordered?: No Reason prophylaxis not ordered:: Treatment Not Indicated [id number]: [id number] Lap ing hernia repair init
[2020-02-02] MEDS: Bupivacaine Mpf 0.5% 30 ML VIAL (14:19)
--- NOTE | 2020-02-02 15:13 | DCINST_ITS ---
Discharge Diet: Light diet - advance as tolerated Discharge Activity: Return to Normal Activity, May Drive - when you are no longer taking narcotic pain medications., May Shower - with the bandage in place 1-2 days after surgery. Lifting Restrictions: 20 pounds for 8 weeks. Additional Activity Instructions:: Climbing stairs is fine, walking is encouraged. Sitting in bed may be uncomfortable. Sitting up using your lateral muscles (sitting up sideways) is usually more comfortable. Do not drive, work heavy equipment of sign legal documents for 24 hours. If your hernia repair was an ingunial repair, you may have scrotal swelling, an ice pack and/or athletic support can provide more comfort. Pain medications may cause nausea, you should typically eat light foods as you take your pain medications. Pain medications may also cause constipation. If you have difficulty with this, discuss with your doctor. Call your doctor if your incision/area has: Continuous Slow Oozing, Sudden Increased Bleeding, Increased Pain/ Swelling, Increased Redness, Foul Smelling Discharge Call your doctor if you observe: Fever of 101 or Higher Suture Line Care: Avoid Pulling/Pushing, Avoid Pinching/Bending Additional Dressing/Incision Instructions:: Leave the operative bandage on for 2-3 days. When you remove the bandage, leave the steri-strips on place until your follow up appointment or they fall off. Allergies/Adverse Reactions: Allergies acetaminophen [From Percocet] Allergy (Severe, Verified 02/02/20 11:45) unknown oxycodone [From Percocet] Allergy (Severe, Verified 02/02/20 11:45) unknown hydrocodone bitartrate [From Vicodin] Adverse Reaction (Verified 02/02/20 11:45) Other Medications to take at Discharge naproxen sodium 220 mg tablet 220 mg PO BID PRN 03/28/18 amlodipine 5 mg tablet 5 mg PO DAILY 01/26/20 aspirin 81 mg tablet,delayed release 81 mg PO DAILY 01/26/20 cholecalciferol (vitamin D3) 100 mcg (4,000 unit) capsule 100 mcg PO DAILY 01/26/20 rosuvastatin 5 mg tablet 5 mg PO DAILY 01/26/20 Acetaminophen/Codeine #3 [Tylenol#3] 1 - 2 tablet PO Q4H PRN PRN 6 Days #30 tablet 02/02/20 The following prescriptions were given: Acetaminophen/Codeine #3 [Tylenol#3] 1 - 2 tablet PO Q4H PRN PRN 6 Days #30 tablet PRN Reason: Pain Transmission Status: Sent to [id number] Primary Care Physician: Linette Soares DO [Primary Care Provider] - Test Results: Test results from this visit will be discussed in further detail at your follow- up appointment, if applicable. Please Follow Up With: Maurilio De Paz MD - [phone] When: Plan to have a follow up appointment in 7 days. Call to schedule.
[2020-02-02] MEDS: Lactated Ringers 1,000 ML 100 ML IV (15:48)
--- NOTE | 2020-02-02 15:55 | CHAPLAIN ---
Type of Pastoral Visit _x__ Initial Visit ___ Follow-up Visit ___ On-call Visit ___ General Patient Visit ___ Spiritual Assessment ___ Family Conference ___ Bereavement ___ Rapid Response ___ Code Blue ___ Other (describe below) Pastoral Care Referral From _x__ Patient ___ Family ___ Nurse ___ Physician ___ Cleaner Laboratory Equipment ___ Marketing Designer ___ Other (describe below) Sacrament/Intervention _x__ Active listening ___ Anointing ___ Advent ___ Bereavement ___ Communion ___ Sun exploration ___ ___ Life review _x__ Prayer ___ Reconciliation ___ Sacrament of Sick ___ Supportive presence ___ Wedding ___ Other (describe below) Pastoral Comments pre surgery prayer
== END 2020-02-02 18:11 | disposition home or self-care (01) ==
LOC: ED 12:31 → SDC 12:36 → ACINP 12:37
PROVIDERS: Emergency Provider Emergency Medicine; PCP Internal Medicine; Visit Provider Surgery
PROC: (CPT 49650; principal; 2020-02-02 13:25)
DX: K40.30 Unilateral inguinal hernia, with obstruction, without gangrene, not specified as recurrent (principal); N40.0 Benign prostatic hyperplasia without lower urinary tract symptoms; I10 Essential (primary) hypertension; I34.0 Nonrheumatic mitral (valve) insufficiency; E11.9 Type 2 diabetes mellitus without complications; E78.00 Pure hypercholesterolemia, unspecified; Z87.442 Personal history of urinary calculi; Z86.711 Personal history of pulmonary embolism; Z79.82 Long term (current) use of aspirin; Z79.899 Other long term (current) drug therapy
CPT/HCPCS: 00840; 49650; 80053; 83690; 85025; 93005; 99284; J7030; J7120; A4216; C1781; J2405; J3490

== ENCOUNTER → 2020-04-20 12:40 | Outpatient (CLI) | payer MEDICARE, OTHER, SELFPAY ==
[2020-02-02 12:49] VITALS: BMI 29.5
--- NOTE | 2020-04-20 12:47 | CT_ITS ---
STUDY: CT ABDOMEN AND PELVIS WITHOUT CONTRAST REASON FOR EXAM: Male, 64 years old. HEMATURIA and low abd pain. Hx of kidney stones, cholecystectomy and HTN RADIATION DOSAGE (If Supplied By Facility): CTDIvol = ( 17.09 ) mGy, DLP = ( 837.09 ) mGycm TECHNIQUE: Transaxial images were obtained from the dome of the diaphragm to the symphysis pubis without oral contrast, and without intravenous contrast. Sagittal and coronal images were reconstructed. Individualized dose optimization techniques were used for this CT. COMPARISON: Comparison is made with prior study dated 02/09/2018. FINDINGS: Stable noncalcified 7 mm nodule in the peripheral lateral aspect of the left lower lobe. The visualized portions of the heart are within normal limits. There is decreased attenuation of the liver consistent with steatosis. Normal gallbladder and extrahepatic biliary system. Normal spleen. Normal pancreas. Stable nodularity of the adrenal glands bilaterally. Stable bilateral nonobstructive intrarenal calculi. There is a moderate-sized hiatal hernia. Normal small intestine. There is diverticulosis, with thickening of the colon wall, and pericolonic inflammation changes consistent with acute diverticulitis. The appendix is visualized and appears normal. There is diffuse atherosclerotic calcification of the abdominal aorta, without a demonstrated aneurysm. Normal inferior vena cava. Normal retroperitoneum. Normal urinary bladder. Prior left inguinal hernia repair. There are diffuse degenerative changes of the visualized lumbar spine. Stable 1.2 cm sclerotic focus along the superior posterior aspect of the L4 vertebrae on the left side. Prior right total hip replacement. CT/Abdomen/Pelvis without Cont IMPRESSION: Findings in keeping with a noncomplicated acute sigmoid diverticulitis. The remainder of the examination is unchanged. Electronically Signed: [employer], at 13:59 EDT , Service support ,
[2020-04-20 13:24] LABS: Squamous Epithelial Cells - UA 0 SEEN /hpf (0-5)
[2020-04-20 13:34] LABS: Absolute Lymphocyte Count 2.43 X10^3/uL (0.83-4.51); Absolute Neutrophil Count 10.1 X10^3/uL (2.0-7.7); Basophil# 0.05 X10^3/uL; Basophil% 0.4 % (0-1); Color, Urine Amber (Yellow); Eosinophil# 0.12 X10^3/uL; Eosinophils% 0.9 % (0-5); Glucose, Dipstick Normal (Normal); Hematocrit 50.4 % (40-54); Ketone-Dipstick 5 mg/dl (Negative); Leukocyte Esterase-Dipstick 25 /ul (Negative); Lymphocyte # 2.43 X10^3/ul (4.0); Lymphocyte % 17.5 % (19-41); Mean Corp Hgb Conc 31.7 g/dL (32-36); Monocyte# 1.13 X10^3/uL; Monocyte% 8.1 % (0-10); NRBC Flagged by Analyzer 0 % (0-5); Neutrophil # 10.07 X10^3/uL (2.7-7.7); Neutrophil % 72.3 % (47-70); Nitrite-Dipstick Negative (Negative); Occult Blood-Urine 25 /ul (Negative); Platelet Count 396 K/mm3 (150-450); Protein-Dipstick 15 mg/dl (Negative); RBC Distribution Width CV 15.6 % (11.6-14.6); RBC Distribution Width SD 44.8 fl (35.1-43.9); Red Blood Count 6.15 M/mm3 (4.6-6.2); Specific Gravity, Urine 1.025 (1.002-1.030); Urine Clarity Clear (Clear); Urine Urobilinogen 4 mg/dl (Normal); White Blood Count 13.9 K/mm3 (4.4-11.0)
[2020-04-20 13:39] LABS: Urine Bilirubin Dipstick 1 mg/dL (Negative)
[2020-04-20 13:40] LABS: Bacteria 2+ /hpf (None Seen); Mucous, Urine 3+ /hpf (<or=2+); Red Blood Cells-Urine 0-5 SEEN /hpf (0-5); White Blood Cells 0-5 SEEN /hpf (0-5)
[2020-04-20 13:41] LABS: Amorphous Sediment 1+; Hyaline Cast 0-5 SEEN /lpf (0-5)
[2020-04-20 14:10] LABS: ALB/GLOB Ratio 0.9 RATIO (0.9-2.4); AST(SGOT) 16 U/L (15-37); Alanine Aminotransfer ALT/SGPT 26 U/L (16-61); Albumin, Serum 3.7 g/dL (3.2-5.0); Alkaline Phosphatase 72 U/L (45-117); Anion Gap 7 (5-15); BUN 21 mg/dL (7-18); BUN/Creat Ratio 17.4 RATIO (10-20); Chloride 105 mmol/L (98-107); Creatinine, Serum 1.21 mg/dL (0.70-1.30); EST Glomerular Filtration Rate 64 mL/min (>60); Est Glom Filt Rate - Afr Amer 77 mL/min (>60); Globulin 4.2 g/dL (2.2-4.2); Glucose 89 mg/dL (74-106); Potassium 4.5 mmol/L (3.5-5.1); Protein, Total 7.9 g/dL (6.4-8.2); Sodium Level 137 mmol/L (136-145); Thyroid Stim Hormone (TSH) 1.54 uIU/mL (0.358-3.74)
== END ==
PROVIDERS: PCP Internal Medicine; Referring Provider Internal Medicine; Visit Provider Internal Medicine
DX: R31.9 Hematuria, unspecified (principal); R35.0 Frequency of micturition; K59.00 Constipation, unspecified
CPT/HCPCS: 74176; 80053; 81001; 84443; 85025; 87086; 87088

== ENCOUNTER → 2020-10-06 14:14 | Outpatient (CLI) | payer MEDICARE, SELFPAY ==
[2020-02-02 12:49] VITALS: BMI 29.5
--- NOTE | 2020-10-06 14:18 | CT_ITS ---
STUDY: CT CHEST WITHOUT CONTRAST REASON FOR EXAM: Male, 65 years old. LUNG NODULE FOLLOW UP RADIATION DOSAGE (If Supplied By Facility): CTDIvol = ( 15.76 ) mGy, DLP = ( 586.65 ) mGycm TECHNIQUE: Transaxial imaging was performed without the administration of intravenous contrast material. Multiplanar coronal and sagittal images were reformatted. Individualized dose optimization techniques were used for this CT. COMPARISON: Comparison is made with prior examination 04/20/2020 and 07/04/2018. FINDINGS: Stable 7 mm nodule in the peripheral lateral aspect of the left lower lobe as seen on axial image #93. There is no demonstrated pleural abnormality. There are calcifications of the coronary arteries. There are multiple small lymph nodes within the mediastinum, which are normal in size and morphology most compatible with reactive lymph hyperplasia. Normal hilar regions. Normal unenhanced pulmonary arteries. There is atherosclerotic calcification of the aortic arch . There are mild degenerative changes of the thoracic spine. There is no demonstrated abnormality of the visualized upper abdomen. CT/Chest without Contrast IMPRESSION: Stable examination. Routine follow-up is recommended. Electronically Signed: [employer] MD at 14:40 EST , Service support ,
== END ==
PROVIDERS: PCP Internal Medicine; Referring Provider Internal Medicine; Visit Provider Internal Medicine
DX: R91.1 Solitary pulmonary nodule (principal)
CPT/HCPCS: 71250

== ENCOUNTER → 2021-07-04 | Outpatient (CLI) | payer MEDICARE, SELFPAY ==
[2021-07-04 13:29] LABS: Absolute Lymphocyte Count 1.62 X10^3/uL (0.83-4.51); Absolute Neutrophil Count 6.1 X10^3/uL (2.0-7.7); Basophil# 0.06 X10^3/uL; Basophil% 0.7 % (0-1); Eosinophil# 0.24 X10^3/uL; Eosinophils% 2.7 % (0-5); Hematocrit 46.9 % (40-54); Hemoglobin 15.6 g/dL (13.0-16.5); Lymphocyte # 1.62 X10^3/ul (0.83-4.51); Lymphocyte % 18.3 % (19-41); Mean Corp Hgb Conc 33.3 g/dL (32-36); Mean Corpuscular Hgb 25.7 pg (27.0-32.0); Mean Corpuscular Volume 77.3 fL (80-94); Mean Platelet Vol. 11.7 fl (6.2-12.0); Monocyte# 0.79 X10^3/uL; Monocyte% 8.9 % (0-10); NRBC Flagged by Analyzer 0 % (0-5); Neutrophil # 6.12 X10^3/uL (2.7-7.7); Neutrophil % 68.9 % (47-70); Platelet Count 361 K/mm3 (150-450); RBC Distribution Width CV 15.6 % (11.6-14.6); RBC Distribution Width SD 41.6 fl (35.1-43.9); Red Blood Count 6.07 M/mm3 (4.6-6.2); White Blood Count 8.9 K/mm3 (4.4-11.0)
[2021-07-04 13:42] LABS: Erythrocyte Sedimentation Rate 53 mm/hr (0-20)
[2021-07-04 13:52] LABS: ALB/GLOB Ratio 0.9 RATIO (0.9-2.4); AST(SGOT) 458 U/L (15-37); Alanine Aminotransfer ALT/SGPT 1085 U/L (16-61); Albumin, Serum 3.5 g/dL (3.2-5.0); Alkaline Phosphatase 756 U/L (45-117); Amylase 148 U/L (25-115); Anion Gap 6 (5-15); BUN 29 mg/dL (7-18); BUN/Creat Ratio 25.7 RATIO (10-20); Calcium,Total 10.1 mg/dL (8.5-10.1); Chloride 98 mmol/L (98-107); Creatinine, Serum 1.13 mg/dL (0.70-1.30); EST Glomerular Filtration Rate 69 mL/min (>60); Est Glom Filt Rate - Afr Amer 83 mL/min (>60); Globulin 3.9 g/dL (2.2-4.2); Glucose 162 mg/dL (74-106); Lipase 2491 U/L (73-393); Potassium 4.3 mmol/L (3.5-5.1); Protein, Total 7.4 g/dL (6.4-8.2); Sodium Level 135 mmol/L (136-145)
== END | disposition home or self-care (01) ==
LOC: LABSPEC 13:07
PROVIDERS: PCP Internal Medicine; Referring Provider Internal Medicine; Visit Provider Internal Medicine
DX: R10.13 Epigastric pain (principal)
CPT/HCPCS: 80053; 82150; 83690; 85025; 85652; 86140

== ENCOUNTER → 2021-07-05 11:13 | Outpatient (CLI) | payer MEDICARE, SELFPAY ==
--- NOTE | 2021-07-05 11:18 | CT_ITS ---
STUDY: CT ABDOMEN AND PELVIS WITH CONTRAST REASON FOR EXAM: Male, 65 years old. ELEVATED PANCREATIC ENZ/WT LOSS/ELEVATED LIVER ENZYMES. 20 pound weight loss. Loss of appetite. RADIATION DOSAGE (If Supplied By Facility): CTDIvol = ( 14.31 ) mGy, DLP = ( 1985.83 ) mGycm TECHNIQUE: Transaxial images were obtained from the dome of the diaphragm to the symphysis pubis with oral contrast. Oral and amp; IV Gastrografin and amp; 100mL Isovue-300 was administered. Sagittal and coronal images were reconstructed. Individualized dose optimization techniques were used for this CT. COMPARISON: Comparison is made with prior examination dated 04/20/2020. FINDINGS: The visualized lung bases are unremarkable. The visualized portions of the heart are within normal limits. There now is evidence of dilated intrahepatic biliary ducts both in the right and left lobes of the liver. The patient is status post cholecystectomy. Normal spleen. There now is evidence of a new 3.4 cm x 3.3 cm x 5.7 cm complex solid and cystic mass in the head and uncinate process of the pancreas. Mild dilatation of the pancreatic duct. There is also dilatation of the common bile duct with a transverse dimension of 1.7 cm. A pancreatic neoplastic process should be ruled out. Normal bilateral adrenal glands. There is a 1.4 cm cyst in the mid aspect of the right kidney. Stable 6 mm nonobstructive calculus in the lower pole calyx of the right kidney. Stable tiny cysts in the left kidney with stable left intrarenal calculi. There is a moderate-sized hiatal hernia. Normal small intestine. Normal colon. The appendix is visualized and appears normal. There is diffuse atherosclerotic calcification of the abdominal aorta, without a demonstrated aneurysm. Normal inferior vena cava. There is borderline retroperitoneal lymphadenopathy with enlarged nodes no greater than 10mm in the short axis diameter. Normal urinary bladder. There is enlargement of the prostate gland. The prostate measures 5.3 cm by 6 cm. This causes an indentation at the bladder base. Normal abdominal wall. There are degenerative changes of the visualized lumbar spine. Stable 1.2 cm sclerotic focus along the superior posterior aspect of the L4 vertebrae. Status post right total hip replacement. CT/Abdomen/Pelvis WITH Contrast IMPRESSION: New 3.4 cm x 3.3 cm x 5.7 ERIN COPPOCK solid and cystic mass in the head and uncinate process of the pancreas causing intrahepatic and extrahepatic biliary ductal dilatation. There is also evidence of dilatation of the pancreatic duct. A neoplastic process should BE ruled out. Stable small bilateral renal cysts and nonobstructive bilateral intrarenal calculi. Prostatic enlargement. Electronically Signed: Home Live MD at 14:28 EST , Service support ,
[2021-07-05 12:50] LABS: ALB/GLOB Ratio 0.7 RATIO (0.9-2.4); AST(SGOT) 378 U/L (15-37); Alanine Aminotransfer ALT/SGPT 948 U/L (16-61); Albumin, Serum 3.3 g/dL (3.2-5.0); Alkaline Phosphatase 755 U/L (45-117); Anion Gap 10 (5-15); BUN 20 mg/dL (7-18); BUN/Creat Ratio 19.8 RATIO (10-20); Chloride 96 mmol/L (98-107); Creatinine, Serum 1.01 mg/dL (0.70-1.30); EST Glomerular Filtration Rate 78 mL/min (>60); Est Glom Filt Rate - Afr Amer 95 mL/min (>60); Globulin 4.6 g/dL (2.2-4.2); Glucose 187 mg/dL (74-106); Lipase 2842 U/L (73-393); Potassium 3.3 mmol/L (3.5-5.1); Protein, Total 7.9 g/dL (6.4-8.2); Sodium Level 135 mmol/L (136-145)
== END ==
PROVIDERS: PCP Internal Medicine; Referring Provider Internal Medicine; Visit Provider Internal Medicine
DX: R79.89 Other specified abnormal findings of blood chemistry (principal); R10.9 Unspecified abdominal pain
CPT/HCPCS: 36415; 74177; 80053; 83690; Q9967

== ENCOUNTER → 2021-07-06 13:19 | Outpatient (CLI) | payer MEDICARE, SELFPAY ==
[2021-07-06 14:13] LABS: ALB/GLOB Ratio 0.8 RATIO (0.9-2.4); AST(SGOT) 307 U/L (15-37); Alanine Aminotransfer ALT/SGPT 847 U/L (16-61); Albumin, Serum 3.5 g/dL (3.2-5.0); Alkaline Phosphatase 834 U/L (45-117); Anion Gap 10 (5-15); BUN 20 mg/dL (7-18); BUN/Creat Ratio 19.6 RATIO (10-20); Calcium,Total 10.3 mg/dL (8.5-10.1); Chloride 94 mmol/L (98-107); Creatinine, Serum 1.02 mg/dL (0.70-1.30); EST Glomerular Filtration Rate 78 mL/min (>60); Est Glom Filt Rate - Afr Amer 94 mL/min (>60); Globulin 4.2 g/dL (2.2-4.2); Glucose 163 mg/dL (74-106); Lipase 2481 U/L (73-393); Potassium 4.1 mmol/L (3.5-5.1); Protein, Total 7.7 g/dL (6.4-8.2); Sodium Level 135 mmol/L (136-145)
[2021-07-08 13:48] LABS: AFP, Tumor Marker 4.5 ng/mL (0.0-8.3); ANTINUCLEAR ANTIBODIES DIRECT Negative (Negative); Carbohydrate AG 19-9 1105 U/mL (0-35); Carcinoembryonic Antigen 10.2 ng/mL (0.0-4.7); Immunoglobulin G 1422 mg/dL (603-1613)
== END ==
PROVIDERS: PCP Internal Medicine; Visit Provider Internal Medicine
DX: R10.9 Unspecified abdominal pain (principal); K86.89 Other specified diseases of pancreas
CPT/HCPCS: 80053; 82105; 82378; 82784; 83690; 86038; 86301

== ENCOUNTER 2021-07-12 14:05 | Day surgery (SDC) | payer MEDICARE, SELFPAY ==
--- NOTE | 2021-07-12 14:23 | EKG12_ITS ---
Test Reason : PRE OP Blood Pressure : / mmHG Vent. Rate : 084 BPM Atrial Rate : 084 BPM P-R Int : 130 ms QRS Dur : 114 ms QT Int : 426 ms P-R-T Axes : 053 019 065 degrees QTc Int : 503 ms Sinus rhythm with Premature atrial complexes or Fusion complexes Nonspecific ST abnormality Prolonged QT Abnormal ECG Confirmed by MARIAM NICKERSON, POP ([id number]), content editor PARIS LAW ([id number]) on 07/15/2021 2:24:55 P M Referred By: Linette Soares Confirmed By:NICHO BECERRA MD
[2021-07-12 14:38] VITALS: BP 121/77; PULSE 71; RESP 16; TEMP 36.4; O2SAT 98; BMI 26.2
[2021-07-12 14:41] LABS: Bedside Glucose 139 mg/dL (70-110)
[2021-07-12] MEDS: Lactated Ringers 1,000 ML 15 ML IV (15:09)
[2021-07-12] MEDS: Metoclopramide 10 MG/2 ML Vial IV (15:21)
--- NOTE | 2021-07-12 15:30 | FLU_PTH ---
PATIENT: SVITLANA SOMERS LOC: EN U#:[id number] AGE/SX: 65/M ROOM: RE07/12/[address]: Dr. Farrukh Kelsey DO : 1955 BED: DIS: 07/12/2021 SPEC #: [id number] RECD: 07/12/21 18:48 STATUS: TIP REBobby #: [id number] KAILA: 07/12/21 15:[address]: Farrukh Kelsey DEPT: CYTOLOGY RECD BY: Viky Marshall ENTERED: 07/13/21 13:07 SP TYPE: Fluid OTHR DR: Dr. Linette Soares DO Tissues: A - Bile duct, NOS B - Bile duct, NOS C - Bile duct, NOS Procedures: Special Stain Group II Surgery Specimen Level IV Cytospin Fluid Cytology Other HEADER OPERATION: ERCP with spyglass PRE-OP DIAGNOSIS: Biliary obstruction, pancreatic head mass, jaundice, pancreatitis TISSUE SUBMITTED: A - Bile duct aspirate, B - Biliary/bile duct brush tip, C - Biliary/bile duct brushings DIAGNOSIS CYTOLOGY A. Aspiration of bile duct (cytospin and cell block): Negative for malignant cells. B. Biliary duct brushings: Negative for malignant cells. C. Biliary duct brushings (smears): Negative for malignant cells. AM:skyla 07/14/2021 COMMENT Please refer to corresponding biopsy [id number]. CYTOLOGY STUDY Slides are reviewed. CYTOLOGY GROSS A - Received is 70 ml of red cloudy fluid labeled with the patient's name and and designated per the requisition as bile duct. Submitted for cytology preparation including cell block. B - Received is a metallic endoscopic cytobrush with adherent minute fragments of esquivel-red tissue brush in 2 ml of clear red fluid and labeled with the patient's name and and designated per the requisition as brush. The material is dislodged from the brush and submitted for cytology preparation including cell block. C - Received are three smears labeled with the patient's name and designated per the requisition as biliary/bile duct. Submitted for staining. / rg 07/13/2021 TC:5 CPT: 31988 o1, 01552, 64721 ADDENDUM ADDENDUM ADDENDUM ADDENDUM ADDENDUM ADDENDUM ADDENDUM ADDENDUM ADDENDUM ADDENDUM ADDENDUM ADDENDUM ADDENDUM ADDENDUM ADDENDUM ADDENDUM 07/22/2021 13:16 ADDENDUM 07/22/2021 13:16 ADDENDUM 07/22/2021 13:16 ADDENDUM 07/22/2021 13:16 ADDENDUM 07/22/2021 13:16 This addendum is added to incorporate an outside pathology consultation report. The case was examined at [facility] (#[id number]) and the following diagnosis was rendered. A. Aspiration of bile duct (cytospin and cell robin): Negative for malignant cells B and C. Biliary duct brushing and biliary duct smears: Rare atypical cells present. See comment Comment Part B. Optimal interpretation is limited due to presences of air-drying artifact. Case was reviewed in consultation with /dr. Trell Griffiths, who concurs. Please see complete above mentioned consultation report in EMR
--- NOTE | 2021-07-12 15:30 | TISS_PTH ---
PATIENT: SVITLANA SOMERS LOC: EN U#:[id number] AGE/SX: 65/M ROOM: RE07/12/[address]: Dr. Farrukh Kelsey DO : 1955 BED: DIS: 07/12/2021 SPEC #: [id number] RECD: 07/12/21 18:48 STATUS: TIP MODESTA #: [id number] KAILA: 07/12/21 15:[address]: Farrukh Kelsey DEPT: SURGICAL PATHOLOGY RECD BY: Viky Marshall ENTERED: 07/13/21 13:06 SP TYPE: Tissue Bx SUKH DR: Dr. Linette Soares DO Tissues: Bile duct, NOS Procedures: Surgery Specimen Level IV HEADER OPERATION: ERCP with spyglass PRE-OP DIAGNOSIS: Biliary obstruction, pancreatic head mass, jaundice, pancreatitis TISSUE SUBMITTED: Biliary stricture spyglass biopsy MICROSCOPIC DIAGNOSIS Biliary stricture, biopsy: Strips of benign glandular tissue. Fibrous tissue with minimal chronic inflammation. No evidence of malignancy. AM:skyla 07/14/2021 COMMENT Please refer to corresponding cytology [id number]. MICROSCOPIC DESCRIPTION Slides are reviewed. GROSS DESCRIPTION Received in fixative is one container labeled with the patient's name and designated biliary stricture spyglass biopsy. The specimen consists of multiple irregular fragments of esquivel soft tissue that in aggregate measure 0.5 x 0.1 x 0.1 cm. The specimen is totally submitted in one cassette. / SJ:skyla 07/13/21 TC:5 CPT: 19448 ADDENDUM ADDENDUM ADDENDUM ADDENDUM ADDENDUM ADDENDUM ADDENDUM ADDENDUM ADDENDUM ADDENDUM ADDENDUM 07/22/2021 13:19 ADDENDUM 07/22/2021 13:19 ADDENDUM 07/22/2021 13:19 ADDENDUM 07/22/2021 13:19 ADDENDUM 07/22/2021 13:19 This addendum is added to incorporate an outside pathology consultation report. The case was examined at [facility] (#[id number]) and the following diagnosis was rendered. Biliary stricture, biopsy: Inflamed bile duct with benign biliary epithelium -No evidence of malignancy Please see complete above mentioned consultation report in EMR
--- NOTE | 2021-07-12 15:30 | RAD_ITS ---
CLINICAL HISTORY: Male, 65 years old. PROCEDURE: ERCP. FLUOROSCOPY TIME (if supplied): 8 seconds TECHNIQUE: Fluoroscopic guidance was provided in the OR during the performance of an ERCP. 11 images were presented for interpretation. The study demonstrates an endoscope in the duodenum with cannulization of the cystic duct. Injection of contrast demonstrates irregular area of narrowing in the mid duct with dilatation proximally. There is narrowing near the confluence of right and left intrahepatic ducts with marked dilatation proximally. Images demonstrate balloon dilatation of the area of stenosis with placement of a stent. Last image demonstrates the metal stent in the distal talk with complete drainage of the proximal ductal system. Please refer to the procedural report for further details. RAD/ERCP Biliary Only IMPRESSION: Fluoroscopy provided in the OR during an ERCP. Electronically Signed: Edi Angelo DO at 20:56 EST Tel [phone], Service support ,
--- NOTE | 2021-07-12 16:07 | PCM.HP.BLA ---
History and Physical Date of Admission: 07/12/21 65 yo gentleman who presented as an outpatient with worsening abdominal pain and discovered to have significant jaundice. His bilirubin initially was 8. He had rechecked approximately 5 days later and it went up to 15.8. I was called for management after a CT scan had shown a pancreatic head mass along with severe intra and extrahepatic ductal dilation. There was also pancreatic ductal dilation. He has no previous history of pancreatitis. Past Medical History Past Medical History (Chronic Problems): Chronic Problems (Last Reviewed 02/02/20 @ 12:[address] Maurilio De Paz MD) Ventricular premature depolarization (Chronic) Nonrheumatic mitral (valve) insufficiency (Chronic) Hypertension (Chronic) Recurrent right inguinal hernia (Chronic) Superficial thrombophlebitis of right leg (Chronic) Left inguinal hernia (Chronic) Calculus of kidney and ureter (Chronic) Diabetes mellitus (Chronic) BPH w urinary obs/LUTS (Chronic) Medical History: Medical History (Last Reviewed 02/02/20 @ 12:[address] Maurilio De Paz MD) Ventricular premature depolarization (Chronic) I49.3 Nonrheumatic mitral (valve) insufficiency (Chronic) I34.0 Hypertension (Chronic) I10 Ventricular tachycardia, non-sustained (Resolved) I47.2 Recurrent right inguinal hernia (Chronic) K40.91 Superficial thrombophlebitis of right leg (Chronic) I80.01 Left inguinal hernia (Chronic) K40.90 Calculus of kidney and ureter (Chronic) N20.2 Diabetes mellitus (Chronic) E11.9 BPH w urinary obs/LUTS (Chronic) N40.1, N13.8 Allergies acetaminophen [From Percocet] Allergy (Severe, Verified 02/02/20 11:45) unknown oxycodone [From Percocet] Allergy (Severe, Verified 02/02/20 11:45) unknown hydrocodone bitartrate [From Vicodin] Adverse Reaction (Verified 02/02/20 11:45) Other Home Medications: Ambulatory Orders Medication Instructions Recorded naproxen sodium 220 mg tablet 220 mg PO BID PRN 03/28/18 amlodipine 5 mg tablet 5 mg PO DAILY 01/26/20 aspirin 81 mg tablet,delayed 81 mg PO DAILY 01/26/20 release cholecalciferol (vitamin D3) 100 100 mcg PO DAILY 01/26/20 mcg (4,000 unit) capsule rosuvastatin 5 mg tablet 5 mg PO DAILY 01/26/20 Surgical History: Surgical History (Last Reviewed 02/02/20 @ 12:[address] Maurilio De Paz MD) History of colonoscopy (Resolved) Z98.890 History of open reduction and internal fixation (ORIF) procedure (Resolved) Z98.890 left foot History of back surgery (Resolved) Z98.890 lumbar disc History of tonsillectomy (Resolved) Z90.89 Hx of cholecystectomy (Resolved) Onset Date: 02/09/17 Z90.49 01/2017 Hx of lithotripsy (Resolved) Z98.890 X2 - 07/2017 & 02/15/18 History of right hip replacement (Resolved) Z96.641 06/2017 Smoking Status: Never smoker Review of Systems Constitutional: Reports: Anorexia Cardiovascular: Denies: Chest Pain, Chest Pressure, Chest Tightness, Palpitations Respiratory: Denies: Cough, Hemoptysis, Shortness of breath at rest, Shortness of breath upon exertion, Wheezing Gastrointestinal: Reports: Abdominal Pain, Nausea, Vomiting VTE Information - Inpt Only VTE Present on Admission: No VTE Mechan Device Prophylaxis: SCD's VTE Pharm Prophylaxis ordered?: No Reason prophylaxis not ordered:: Treatment Not Indicated Patient Problems: Active and Suspected Problems (Last Reviewed 02/02/20 @ 12:[address] Maurilio De Paz MD) Incarcerated hernia (Acute) - Physical Exam Vitals/I&O's: Vital Signs Temp Pulse Resp BP Pulse Ox 98.6 F 64 18 141/83 H 95 02/02/20 11:43 02/02/20 11:43 02/02/20 11:43 02/02/20 11:43 02/02/20 11:43 Oxygen Delivery Method Room Air Weight: 217 lb 9.54 oz Body Mass Index (BMI) 29.5 General: Alert, Oriented x3 Neck: Supple, No JVD Lungs: Clear to auscultation Cardiovascular: Regular rate, Regular Rhythm, No murmurs Abdomen: Distended, Tender - No rebound or guarding or peritoneal signs are identified but he has generalized tenderness to touch. His hernia feels soft I cannot reduce it , he is tender to touch over the area. Extremities: No clubbing, No cyanosis, No edema Skin: No rashes, No breakdown Laboratory Results 02/02/20 12:04: WBC Pending, RBC Pending, Hgb Pending, Hct Pending, MCV Pending, MCH Pending, MCHC Pending, RDW Std Deviation Pending, RDW Coeff of Carlos A Pending, Plt Count Pending, Neut % (Auto) Pending, Absolute Neuts (auto) Pending 02/02/20 12:04: Sodium Pending, Potassium Pending, Chloride Pending, Carbon Dioxide Pending, Anion Gap Pending, BUN Pending, Creatinine Pending, Est GFR (MDRD) Af Amer Pending, Est GFR (MDRD) Non-Af Pending, BUN/Creatinine Ratio Pending, Glucose Pending, Calcium Pending, Total Bilirubin Pending, AST Pending, ALT Pending, Alkaline Phosphatase Pending, Total Protein Pending, Albumin Pending, Lipase Pending Assessment/Plan All Active Problems Biliary obstruction Pancreatic head mass Jaundice Pancreatitis I suspect that all of his symptoms at this time are secondary to a pancreatic head mass. He will need to undergo ERCP with decompression of the common bile duct stent placement. We will also do biopsies of the biliary stricture and hopefully get a tissue diagnosis. He was explained alternatives, risk, benefits including not withstanding bleeding, infection, sepsis, perforation, need for emergency to . He would have an ASA of 3.
--- NOTE | 2021-07-12 17:20 | CHAPLAIN ---
Type of Pastoral Visit _x__ Initial Visit ___ Follow-up Visit ___ On-call Visit ___ General Patient Visit ___ Spiritual Assessment ___ Family Conference ___ Bereavement ___ Rapid Response ___ Code Blue ___ Other (describe below) Pastoral Care Referral From _x__ Patient _x__ Family ___ Nurse ___ Physician ___ Business Teacher ___ Account Executive [employer] ___ Other (describe below) Sacrament/Intervention _x__ Active listening ___ Anointing ___ Pentecostalism ___ Bereavement ___ Communion ___ Sun exploration ___ _x__ Life review _x__ Prayer ___ Reconciliation ___ Sacrament of Sick _x__ Supportive presence ___ Wedding ___ Other (describe below) Pastoral Comments patient is known to this community engagement specialist; patient and family requested support prior to biopsy; met with patient and spouse prior and offered support and prayer; later met with spouse in waiting area to offer presence and support;
[2021-07-12 18:20] VITALS: BP 121/77; BP 129/77; PULSE 64; RESP 16; TEMP 36.1; O2SAT 95
--- NOTE | 2021-07-12 18:26 | OP.ERCP_ITS ---
Patient Name: Dada Lawrence Procedure Date: 07/12/2021 4:30 PM Date of : 1955 Age: 65 Procedure: ERCP Indications: Jaundice, Elevated liver enzymes, Acute pancreatitis Providers: Farrukh Kelsey DO Medicines: See the Anesthesia note for documentation of the administered medications Patient Profile: This is a 65 year old male. Refer to note in patient chart for documentation of history and physical. Patient has symptoms of acute jaundice. The symptoms first began June. This patient has no history of previous ERCP. Complications: No immediate complications. Procedure: Pre-Anesthesia Assessment: - Prior to the procedure, a History and Physical was performed, and patient medications and allergies were reviewed. The patient is competent. The risks and benefits of the procedure and the sedation options and risks were discussed with the patient. All questions were answered and informed consent was obtained. Patient identification and proposed procedure were verified by the physician in the pre-procedure area. Mental Status Examination: alert and oriented. Airway Examination: normal oropharyngeal airway and neck mobility. Respiratory Examination: clear to auscultation. CV Examination: normal. Prophylactic Antibiotics: The patient does not require prophylactic antibiotics. Prior Anticoagulants: The patient has taken no previous anticoagulant or antiplatelet agents. ASA Grade Assessment: II - A patient with mild systemic disease. After reviewing the risks and benefits, the patient was deemed in satisfactory condition to undergo the procedure. The anesthesia plan was to use moderate sedation / analgesia (conscious sedation). Immediately prior to administration of medications, the patient was re-assessed for adequacy to receive sedatives. The heart rate, respiratory rate, oxygen saturations, blood pressure, adequacy of pulmonary ventilation, and response to care were monitored throughout the procedure. The physical status of the patient was re-assessed after the procedure. After obtaining informed consent, the scope was passed under direct vision. Throughout the procedure, the patient's blood pressure, pulse, and oxygen saturations were monitored continuously. The duodenoscope was introduced through the mouth, and advanced to the duodenum and used to inject contrast into the bile duct. The ERCP was accomplished without difficulty. The ERCP was somewhat difficult due to challenging cannulation. The patient tolerated the procedure well. Moderate Sedation: Moderate (conscious) sedation was administered by the endoscopy nurse and supervised by the endoscopist. The patient's oxygen saturation, heart rate, blood pressure and response to care were monitored. Total physician intraservice time was 15 minutes. Scope In: 4:40:12 PM Scope Out: 6:04:34 PM Total Procedure Duration Time 1 hour 24 minutes 22 seconds Findings: The marketing content specialist film was normal. The scope was advanced to a normal major papilla in the descending duodenum. Examination of the pharynx, larynx and associated structures, and upper GI tract was normal. The minor papilla was not seen. The major papilla was normal. A straight Roadrunner wire was passed into the biliary tree. The bile duct was then deeply cannulated over the guidewire. Contrast was injected. I personally interpreted the bile duct images. There was brisk flow of contrast through the ducts. Image quality was excellent. Contrast extended to the hepatic ducts. The common bile duct, common hepatic duct and right and left intrahepatic branches (but not the right or left hepatic ducts) were markedly dilated, with an obstruction. The largest diameter was 18 mm. The middle third of the main bile duct was [Completeness] obstructed by extrinsic compression with the biliary stricture [Appearance]. The upper third of the main bile duct contained a single segmental stenosis 5 mm in length. The biliary sphincterotomy was extended to a total of 4 mm in length with a monofilament sphincterotome using ERBE electrocautery. Severe bleeding from the sphincterotomy continued for over 5 minutes. To discover objects, the biliary tree was swept with a 15 mm balloon starting at the upper third of the main bile duct. Clots were swept from the duct. Debris was swept from the duct. Mucus was swept from the duct. Sludge was swept from the duct. Dilation of the lower third of the main bile duct with a 6-7-8 mm balloon (to a maximum balloon size of 8 mm) dilator resulted in 90 percent obliteration of the waist. The lower third of the main bile duct was biopsied with a cold forceps for histology. Cells for cytology were obtained by brushing in the middle third of the main bile duct. Fluid aspiration for cytology and histology was performed in the entire biliary tree. One 10 mm by 6 cm covered metal stent was placed 6 cm into the common bile duct. Bile flowed through the stent. The stent was in good position. Impression: - Minor papilla not seen. - The major papilla appeared normal. - A single segmental biliary stricture was found in the upper third of the main bile duct. The stricture was indeterminate. - The right and left intrahepatic branches (but not the right or left hepatic ducts), common bile duct and common hepatic duct were markedly dilated, with an obstruction. - A biliary sphincterotomy was performed. - The biliary tree was swept and clots, debris, mucus and sludge were found. - The lower third of the main bile duct was successfully dilated. - Biopsy was performed in the lower third of the main duct. - Cells for cytology obtained in the middle third of the main bile duct. - Fluid aspiration was performed. - One covered metal stent was placed into the common bile duct. - Acute duodenitis with hemorrhage. Injected. - - One non-obstructing oozing duodenal ulcer with a visible vessel. Pancreatitis induced etiology. [All Maneuvers]. Recommendation: - Clear liquid diet today. - Avoid aspirin and nonsteroidal anti-inflammatory medicines for 13 days. - Use a proton pump inhibitor PO BID for 4 weeks. - Await cytology results, await path results and await tumor markers. - Return to my office in 2 weeks. Procedure Code(s): --- Professional --- 10843, 59, Endoscopic retrograde cholangiopancreatography (ERCP); with placement of endoscopic stent into biliary or pancreatic duct, including pre- and post-dilation and guide wire passage, when performed, including sphincterotomy, when performed, each stent [id number], Endoscopic retrograde cholangiopancreatography (ERCP); with removal of calculi/debris from biliary/pancreatic duct(s) 06652, 59, Endoscopic retrograde cholangiopancreatography (ERCP); with biopsy, single or multiple G0500, Moderate sedation services provided by the same physician or other qualified health care manager cna performing a gastrointestinal endoscopic service that sedation supports, requiring the presence of an independent trained observer to assist in the monitoring of the patient's level of consciousness and physiological status; initial 15 minutes of intra-service time; patient age 5 years or older (additional time may be reported with 28246, as appropriate) Diagnosis Code(s): --- Professional --- K83.1, Obstruction of bile duct K29.81, Duodenitis with bleeding K26.4, Chronic or unspecified duodenal ulcer with hemorrhage R17, Unspecified jaundice R74.8, Abnormal levels of other serum enzymes K85.90, Acute pancreatitis without necrosis or infection, unspecified CPT copyright 2017 [employer]. All rights reserved. The codes documented in this report are preliminary and upon flower stripper review may be revised to meet current compliance requirements. Farrukh Kelsey DO 07/12/2021 6:25:37 PM This report has been signed electronically. Number of Addenda: 0 Note Initiated On: 07/12/2021 4:30 PM
--- NOTE | 2021-07-12 18:26 | OP.CCLET_ITS ---
07/12/2021 Linette Soares Re : ERCP procedure for Dada Soares This procedure was performed on Monday, July 12, 2021. My impressions and recommendations are as follows: Impressions : - Minor papilla not seen. - The major papilla appeared normal. - A single segmental biliary stricture was found in the upper third of the main bile duct. The stricture was indeterminate. - The right and left intrahepatic branches (but not the right or left hepatic ducts), common bile duct and common hepatic duct were markedly dilated, with an obstruction. - A biliary sphincterotomy was performed. - The biliary tree was swept and clots, debris, mucus and sludge were found. - The lower third of the main bile duct was successfully dilated. - Biopsy was performed in the lower third of the main duct. - Cells for cytology obtained in the middle third of the main bile duct. - Fluid aspiration was performed. - One covered metal stent was placed into the common bile duct. - Acute duodenitis with hemorrhage. Injected. - - One non-obstructing oozing duodenal ulcer with a visible vessel. Pancreatitis induced etiology. [All Maneuvers]. Recommendations : - Clear liquid diet today. - Avoid aspirin and nonsteroidal anti-inflammatory medicines for 13 days. - Use a proton pump inhibitor PO BID for 4 weeks. - Await cytology results, await path results and await tumor markers. - Return to my office in 2 weeks. My findings are described in the full procedure note, which is enclosed. If I can be of further assistance, please feel free to contact me at . Sincerely, Farrukh Kelsey DO 07/12/2021 6:25:37 PM This report has been signed electronically.
[2021-07-12 18:30] VITALS: BP 121/77; BP 123/82; PULSE 66; RESP 16; O2SAT 100
[2021-07-12 18:45] VITALS: BP 121/77; BP 138/83; PULSE 66; RESP 16; O2SAT 100
[2021-07-12 19:03] VITALS: BP 121/77; BP 140/85; PULSE 66; RESP 16; TEMP 36.1; O2SAT 98
[2021-07-12 19:35] VITALS: BP 121/77; BP 143/82; PULSE 68; RESP 16; TEMP 36.2; O2SAT 97
--- NOTE | 2022-11-10 16:51 | OP.CCLET_ITS ---
11/10/2022 Linette Soares Re : ERCP procedure for Dada Soares This procedure was performed on Thursday, November 10, 2022. My impressions and recommendations are as follows: Impressions : - Malignant duodenal mass. - A biliary tract obstruction secondary to what appeared to be a mass was found in the common hepatic duct. - A biliary sphincterotomy was performed. - The biliary tree was swept and mucus, debris, sludge and clots were found. - Common bile duct was successfully dilated. Recommendations : My findings are described in the full procedure note, which is enclosed. If I can be of further assistance, please feel free to contact me at . Sincerely, Farrukh Kelsey, 11/10/2022 4:51:13 PM This report has been signed electronically.
--- NOTE | 2022-11-10 16:51 | OP.ERCP_ITS ---
Patient Name: Dada Lawrence Procedure Date: 11/10/2022 2:24 PM Date of : 1955 Age: 67 Procedure: ERCP Indications: Jaundice, Malignant tumor of the head of pancreas Providers: Farrukh Kelsey DO Medicines: Monitored Anesthesia Care Patient Profile: This is a 67 year old male. Refer to note in patient chart for documentation of history and physical. Patient has symptoms of acute dyspepsia and acute jaundice. He is status post EGD for stent placement, ERCP for biliary evaluation, ERCP for ductoscopy and ERCP for stent one year ago. Complications: No immediate complications. Procedure: Pre-Anesthesia Assessment: - Prior to the procedure, a History and Physical was performed, and patient medications and allergies were reviewed. The patient is competent. The risks and benefits of the procedure and the sedation options and risks were discussed with the patient. All questions were answered and informed consent was obtained. Patient identification and proposed procedure were verified by the physician. Mental Status Examination: normal. Airway Examination: normal oropharyngeal airway and neck mobility. Respiratory Examination: clear to auscultation. Prophylactic Antibiotics: The patient does not require prophylactic antibiotics. Prior Anticoagulants: The patient has taken no previous anticoagulant or antiplatelet agents. After reviewing the risks and benefits, the patient was deemed in satisfactory condition to undergo the procedure. The anesthesia plan was to use general anesthesia. Immediately prior to administration of medications, the patient was re-assessed for adequacy to receive sedatives. The heart rate, respiratory rate, oxygen saturations, blood pressure, adequacy of pulmonary ventilation, and response to care were monitored throughout the procedure. The physical status of the patient was re-assessed after the procedure. After obtaining informed consent, the scope was passed under direct vision. Throughout the procedure, the patient's blood pressure, pulse, and oxygen saturations were monitored continuously. The Duodenoscope was introduced through the mouth, and advanced to the duodenum and used to inject contrast into the bile duct. The ERCP was accomplished without difficulty. The patient tolerated the procedure well. Scope In: 2:49:37 PM Scope Out: 4:11:24 PM Total Procedure Duration Time 1 hour 21 minutes 47 seconds Findings: The sewage disposal worker film was normal. The esophagus was successfully intubated under direct vision. The scope was advanced to a normal major papilla in the descending duodenum without detailed examination of the pharynx, larynx and associated structures, and upper GI tract. The upper GI tract was grossly normal. The bile duct was deeply cannulated with the short-nosed traction sphincterotome. Contrast was injected. I personally interpreted the bile duct images. The flow of contrast through the ducts was poor. Image quality was suboptimal. Contrast extended to the main bile duct. Opacification of the main bile duct was successful. The maximum diameter of the ducts was 10 mm. The common hepatic duct was partially obstructed by what appeared to be a mass. Placement of a long 0.025 inch Jagwire into the biliary tree was attempted. This would not pass. A 5 mm biliary sphincterotomy was made with a traction (standard) sphincterotome using ERBE electrocautery. Moderate bleeding from the sphincterotomy stopped within 5 minutes. To discover objects, the biliary tree was swept with a 15 mm balloon starting at the bifurcation. Mucus was swept from the duct. Debris was swept from the duct. Sludge was swept from the duct. Clots were swept from the duct. Dilation of the common bile duct with a 10-11-12 mm balloon (to a maximum balloon size of 10 mm) dilator was successful. A standard esophagogastroduodenoscopy scope was used for the examination of the upper gastrointestinal tract. The scope was passed under direct vision through the upper GI tract. A large infiltrative mass with bleeding was found in the first portion of the duodenum and in the second portion of the duodenum. The bile duct was explored endoscopically using the SpRubyRidelass direct visualization system. The SpyScope was advanced to the lower third of the main duct. Visibility with the scope was good. The lower third of the main bile duct contained a infiltrative mass. The lower third of the main bile duct contained one covered metal stent. The stent was visibly occluded. Impression: - Malignant duodenal mass. - A biliary tract obstruction secondary to what appeared to be a mass was found in the common hepatic duct. - A biliary sphincterotomy was performed. - The biliary tree was swept and mucus, debris, sludge and clots were found. - Common bile duct was successfully dilated. Procedure Code(s): --- Professional --- 32588, 59, Endoscopic retrograde cholangiopancreatography (ERCP); with trans-endoscopic balloon dilation of biliary/pancreatic duct(s) or of ampulla (sphincteroplasty), including sphincterotomy, when performed, each duct 18944, Endoscopic retrograde cholangiopancreatography (ERCP); with removal of calculi/debris from biliary/pancreatic duct(s) 04727, Endoscopic cannulation of papilla with direct visualization of pancreatic/common bile duct(s) (List separately in addition to code(s) for primary procedure) 03490, 26, Endoscopic catheterization of the biliary ductal system, radiological supervision and interpretation CPT copyright 2017 [employer]. All rights reserved. The codes documented in this report are preliminary and upon diver pumper review may be revised to meet current compliance requirements. Farrukh Kelsey DO 11/10/2022 4:51:13 PM This report has been signed electronically. Number of Addenda: 0 Note Initiated On: 11/10/2022 2:24 PM
== END 2021-07-12 19:35 ==
LOC: EN 14:07 → AC 14:15
PROVIDERS: PCP Internal Medicine; Referring Provider Internal Medicine; Visit Provider Internal Medicine Gastroenterology
PROC: (CPT 43260; principal; 2021-07-12 15:00)
DX: K83.1 Obstruction of bile duct (principal); K29.81 Duodenitis with bleeding; K85.90 Acute pancreatitis without necrosis or infection, unspecified; K26.9 Duodenal ulcer, unspecified as acute or chronic, without hemorrhage or perforation; I10 Essential (primary) hypertension; I34.0 Nonrheumatic mitral (valve) insufficiency; I47.2 Ventricular tachycardia; N40.1 Benign prostatic hyperplasia with lower urinary tract symptoms; N13.8 Other obstructive and reflux uropathy; E11.9 Type 2 diabetes mellitus without complications; E78.00 Pure hypercholesterolemia, unspecified; Z87.442 Personal history of urinary calculi; Z86.718 Personal history of other venous thrombosis and embolism; Z79.82 Long term (current) use of aspirin; Z79.899 Other long term (current) drug therapy
CPT/HCPCS: 43255; 43261; 43264; 43274; 74328; 76000; 82962; 88108; 88161; 88305; 88313; 93005; J7120; C1726; J2405

== ENCOUNTER 2021-09-05 10:39 | Inpatient (IN) | payer MEDICARE, SELFPAY ==
[2021-09-05 10:40] VITALS: BP 101/76; PULSE 114; RESP 16; TEMP 35.9; O2SAT 97; BMI 22.8
[2021-09-05 11:28] VITALS: BP 101/76; PULSE 114; RESP 16; TEMP 35.9; O2SAT 97
[2021-09-05 11:37] LABS: Hemoglobin 14.9 g/dL (13.0-16.5); Mean Corp Hgb Conc 31.7 g/dL (32-36); Mean Corpuscular Hgb 25.1 pg (27.0-32.0); Mean Corpuscular Volume 79.3 fL (80-94); Mean Platelet Vol. 9.8 fl (6.2-12.0); POSITIVE COUNT YES; POSITIVE MORPHOLOGY YES; Platelet Count 209 K/mm3 (150-450); RBC Distribution Width CV 17.6 % (11.6-14.6); RBC Distribution Width SD 45.9 fl (35.1-43.9); Red Blood Count 5.93 M/mm3 (4.6-6.2)
[2021-09-05 11:38] LABS: Differential Indicated MANUAL DIFF
--- NOTE | 2021-09-05 11:58 | CT_ITS ---
STUDY: CT ABDOMEN AND PELVIS WITHOUT CONTRAST REASON FOR EXAM: Male, 66 years old. LLQ pain RADIATION DOSAGE (If Supplied By Facility): CTDIvol = ( 7.70 ) mGy, DLP = ( 374.17 ) mGycm TECHNIQUE: Transaxial images were obtained from the dome of the diaphragm to the symphysis pubis without oral contrast, and without intravenous contrast. Sagittal and coronal images were reconstructed. Individualized dose optimization techniques were used for this CT. COMPARISON: Comparison is made with prior examination dated 07/05/2021. FINDINGS: Findings suggestive of minimal linear atelectasis in the peripheral lateral aspect of the right lung base. The visualized portions of the heart are within normal limits. Mild degree of the pneumobilia is seen in the left bile ducts. The stent is seen within the common bile duct with the distal tip in the region of the second portion of the duodenum. The patient is status post cholecystectomy. Normal spleen. Persistent masses seen in the head of the pancreas. This mass measures approximately 3.1 cm x 2.6 cm. This has decreased in size as compared to prior study. Normal bilateral adrenal glands. Stable nonobstructive right intrarenal calculi. There is also evidence of a 4 mm calculus in the proximal portion of the right ureter. 2 nonobstructive calculi are seen in the upper pole calyx of the left kidney. The larger measures 6 mm. Is also evidence of a 6 mm nonobstructing within the upper pole of the left kidney. Mild degree of left hydronephrosis and left hydroureter due to a 3.6 mm calculus in the proximal portion of the left ureter. There is a small hiatal hernia. Normal small intestine. Normal colon. The appendix is visualized and appears normal. There is scattered atherosclerotic calcification of the abdominal aorta, without a demonstrated aneurysm. Normal inferior vena cava. Normal retroperitoneum. Normal urinary bladder. There is enlargement of the prostate gland. The prostate measures 6.1 sinus by 5.4 cm. This causes indentation at the bladder base. Normal abdominal wall. There are degenerative changes of the visualized lumbar spine. The patient is status post right total hip replacement. CT/Abdomen/Pelvis without Cont IMPRESSION: Obstructive calculi seen in the proximal portions of the both ureters slightly worse on the left side. Nonobstructive bilateral intrarenal calculi. Marked enlargement of the prostate gland. Electronically Signed: Home Live MD at 13:07 EST , Service support ,
[2021-09-05 11:59] LABS: ALB/GLOB Ratio 0.6 RATIO (0.9-2.4); AST(SGOT) 19 U/L (15-37); Alanine Aminotransfer ALT/SGPT 40 U/L (16-61); Albumin, Serum 2.2 g/dL (3.2-5.0); Alkaline Phosphatase 124 U/L (45-117); Anion Gap 9 (5-15); BUN 17 mg/dL (7-18); BUN/Creat Ratio 14.5 RATIO (10-20); Calcium,Total 8.6 mg/dL (8.5-10.1); Chloride 106 mmol/L (98-107); Creatinine, Serum 1.17 mg/dL (0.70-1.30); EST Glomerular Filtration Rate 66 mL/min (>60); Est Glom Filt Rate - Afr Amer 80 mL/min (>60); Estimated Creatinine Clearance 66.04 ml/min; Glucose 178 mg/dL (74-106); Potassium 3.4 mmol/L (3.5-5.1); Protein, Total 6.2 g/dL (6.4-8.2); Sodium Level 142 mmol/L (136-145)
--- NOTE | 2021-09-05 11:59 | EX.ED.DYSGE1 ---
HPI History of Present Illness Chief Complaint: Abd Pain Informant: patient Onset/Context/Timing Onset: Today Context: Gradual Onset Timing: Waxes and wanes Current Severity: Moderate Maximum Severity: Moderate Narrative Narrative: Patient presents secondary to left lower quadrant abdominal pain. He is currently undergoing chemotherapy, last treatment 2 weeks ago. He woke this morning with left lower quad abdominal pain. Last bowel movement was at 3 AM this morning. No fever or chills. He did have some vomiting secondary to pain. He took Reglan and Ativan prior to arrival. [facility] Medical History (Updated 09/05/21 @ 15:[address] Maryam Hannon MD) Arthritis BPH w urinary obs/LUTS Calculus of kidney and ureter Cardiology follow-up encounter Diabetes Diabetes mellitus Dietary restriction DVT (deep venous thrombosis) High cholesterol History of echocardiogram History of Holter monitoring History of stress test Hypertension Hypertension Jaundice Left inguinal hernia Liver failure Non-smoker Nonrheumatic mitral (valve) insufficiency Pancreatic cancer Recurrent right inguinal hernia Superficial thrombophlebitis of right leg Ventricular premature depolarization Ventricular tachycardia, non-sustained Wears partial dentures Home Medications amlodipine 5 mg tablet 5 mg PO DAILY 01/26/20 [History Last Taken 07/05/21] aspirin 81 mg tablet,delayed release 81 mg PO DAILY 01/26/20 [History Last Taken 07/05/21] rosuvastatin 5 mg tablet 5 mg PO DAILY 01/26/20 [History Last Taken 07/05/11] acetaminophen-codeine [Tylenol-Codeine #3] 1 tab PO Q6H PRN 07/07/21 [History Last Taken Unknown] ascorbic acid (vitamin C) [Vitamin C] 1 cap PO DAILY 07/07/21 [History Last Taken 07/05/21] hydrochlorothiazide 25 mg PO DAILY 07/07/21 [History Last Taken 07/05/21] metformin 500 mg PO DAILY 07/07/21 [History Last Taken 07/04/21] zinc 50 mg PO DAILY 07/07/21 [History Last Taken 07/05/21] insulin detemir U-100 [Levemir U-100 Insulin] 4 unit SUBCUT DAILY 07/12/21 [History Last Taken Unknown] pantoprazole 40 mg tablet,delayed release 40 mg PO BID #60 tab 07/14/21 [Rx Last Taken Unknown] Allergy/AdvReac Type Severity Reaction Status Date / Time acetaminophen [From Percocet] Allergy Severe unknown Verified 09/05/21 10:42 oxycodone [From Percocet] Allergy Severe unknown Verified 09/05/21 10:42 hydrocodone bitartrate AdvReac Other Verified 09/05/21 10:42 [From Vicodin] Family History Father , Age 73 Heart disease Myocardial infarction CAD (coronary artery disease) Mother Hypertension Cancer Skin cancer CVA (cerebral vascular accident) Surgical History History of back surgery History of colonoscopy History of open reduction and internal fixation (ORIF) procedure History of right hip replacement History of tonsillectomy Hx of cholecystectomy (02/09/17) Hx of lithotripsy s/p Laparoscopic incarcerated left inguinal hernia repair (~02/02/20) Social History Smoking Status: Never smoker second hand exposure: No alcohol intake: never substance use type: does not use caffeine: Yes what type of physical activity do you participate in: 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: 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 seatbelt use: always ROS ROS ED Constitutional Constitutional ED: Denies chills or fever(s) Eyes Eyes: Denies change in vision ENT ENT ED: Denies sore throat Cardiovascular Cardiovascular: Denies chest pain Respiratory/Chest Respiratory/Chest: Denies cough or dyspnea Gastrointestinal Gastrointestinal: Reports abdominal pain, nausea and vomiting; Denies diarrhea Genitourinary Genitourinary ED: Denies dysuria Musculoskeletal Musculoskeletal: Denies back pain Integumentary Denies rash Neurologic Neurologic: Denies headache(s) or weakness Allergic/Immunologic Allergic/Immunologic ED: Denies urticaria EXAM Physical Exam Const Vital Signs: 09/05/21 10:40 09/05/21 11:28 09/05/21 13:34 Temperature 96.7 F L 96.7 F L Temperature Source Temporal Temporal Pulse Rate 114 H 114 H 87 Respiratory Rate 16 16 18 Blood Pressure 101/76 101/76 151/78 H Blood Pressure Mean 84 84 102 Pulse Ox 97 97 99 Oxygen Delivery Method Room Air Room Air Positive well nourished and well developed General Appearance ED: well developed HEENT Reports moist mucous membranes Eyes PERRL and EOMs intact bilaterally Neck supple Chest Wall inspection of chest normal and palpation of chest normal Resp normal respiratory effort and clear to auscultation bilaterally Cardio regular rate and regular rhythm GI Auscultation: hypoactive bowel sounds Palpation: soft and tender LLQ (Minimal tenderness in the left lower quadrant. No guarding or rebound.) Extremity normal to inspection Neuro oriented x3 Sensorium / Orientation: alert Psych mental status grossly normal Skin no rashes or lesions noted MDM MDM MDM Narrative Medical decision making narrative: Lab work, urinalysis, CT flank obtained. Patient initially given small dose of morphine secondary to borderline blood pressure. IV fluids given. Lab Data Attestation: I reviewed the patient's lab results. Labs: Laboratory Results - last 24 hr 09/05/21 09/05/21 09/05/21 11:18 11:18 13:15 WBC 19.0 H RBC 5.93 Hgb 14.9 Hct 47.0 MCV 79.3 L MCH 25.1 L MCHC 31.7 L RDW Std Deviation 45.9 H RDW Coeff of Carlos A 17.6 H Plt Count 209 MPV 9.8 Neut % (Auto) Not Reportable Absolute Neuts (auto) 12.9 H Absolute Lymphs (auto) 1.90 Total Counted 100 Neutrophils % (Manual) 62 Band Neutrophils % 6 H Lymphocytes % (Manual) 10 L Monocytes % (Manual) 5 Metamyelocytes % 10 H Myelocytes % 7 H Diff Path Review May foll Sodium 142 Potassium 3.4 L Chloride 106 Carbon Dioxide 27.0 Anion Gap 9 BUN 17 Creatinine 1.17 Estim Creat Clear Calc 66.04 Est GFR (MDRD) Af Amer 80 Est GFR (MDRD) Non-Af 66 BUN/Creatinine Ratio 14.5 Glucose 178 H Calcium 8.6 Total Bilirubin 0.50 AST 19 ALT 40 Alkaline Phosphatase 124 H Total Protein 6.2 L Albumin 2.2 L Globulin 4.0 Albumin/Globulin Ratio 0.6 L Urine Color Yellow Urine Clarity Cloudy Urine pH 5.0 Ur Specific [place] 1.025 Urine Protein 30 H Urine Glucose (UA) 50 H Urine Ketones 5 H Urine Occult Blood 250 H Urine Nitrite Negative Urine Bilirubin 1 H Urine Urobilinogen Normal Ur Leukocyte Esterase 25 H Urine RBC 50-100 SEEN Urine WBC 5-10 SEEN Ur Squamous Epith Cells 0-5 SEEN Calcium Oxalate Crystal 1+ Urine Bacteria 2+ Urine Mucus 1+ Radiography Diagnostic Testing: Clinical Impression(s) from Imaging Studies Abdomen/Pelvis CT 09/05/21 11:58 IMPRESSION: Obstructive calculi seen in the proximal portions of the both ureters slightly worse on the left side. Nonobstructive bilateral intrarenal calculi. Marked enlargement of the prostate gland. Electronically Signed: Home Live MD at 13:07 EST , Service support , Treatment and Re-Evaluation Comments:: After returning from CT patient was given Toradol, morphine, Zofran. Lab work reviewed. White count is elevated at 19. Chemistry studies reveal stable creatinine at 1.17. Urinalysis does show blood. He does have 2+ bacteria with no nitrates. CT flank reveals bilateral ureteral calculi, 4 mm proximal ureter on the right and 3.6 mm proximal ureter on the left. I spoke with Dr. Jara. He advised that with the patient having bilateral stones we prefer the patient be watched in the hospital to ensure his renal function does not worsen. He would be able to place a stent on Sunday if he has not passed the stones at that time. I did submit him as she and updated him as well. I will speak with hospitalist. Discharge Plan Triage Chief Complaint: Abd Pain ED Provider: Maryam Hannon Dx/Rx/DC Orders Clinical Impression: Bilateral ureteral calculi, Pancreatic cancer Prescriptions: No Action aspirin [Adult Aspirin Regimen] 81 mg tablet,delayed release (DR/EC) 81 mg PO DAILY RF: 0 rosuvastatin 5 mg tablet 5 mg PO DAILY RF: 0 amlodipine 5 mg tablet 5 mg PO DAILY RF: 0 metformin 500 mg Tablet 500 mg PO DAILY RF: 0 acetaminophen-codeine [Tylenol-Codeine #3] 300-30 mg Tablet 1 tab PO Q6H PRN (Reason: Pain) RF: 0 hydrochlorothiazide 25 mg Tablet 25 mg PO DAILY RF: 0 zinc 50 mg Tablet 50 mg PO DAILY RF: 0 Vitamin C 1,000 mg Capsule, Extended Release 1 cap PO DAILY RF: 0 Levemir U-100 Insulin 100 unit/mL Solution 4 unit SUBCUT DAILY RF: 0 pantoprazole [Protonix] 40 mg tablet,delayed release (DR/EC) 40 mg PO BID Qty: 60 RF: 0 Primary Care Provider: Linette Soares Referrals: Linette Soares DO [Primary Care Provider] - Disposition Disposition: Acute Care Hospital [facility]
[2021-09-05 12:08] LABS: Neutrophil-Band 6 % (0-5); Neutrophil-Segmented 62 % (47-70); Total Cells Counted 100 (MANUAL DIFF)
[2021-09-05 12:09] LABS: Lymphocyte 10 % (19-41); Metamyelocyte 10 % (0-1); Monocyte 5 % (0-10); Myelocyte 7 % (0-0)
[2021-09-05] MEDS: Morphine 2 MG/ML Syringe IV (12:12)
[2021-09-05] MEDS: Ondansetron 4 MG/2 ML Vial IV ×2 (12:12→13:32)
[2021-09-05 12:30] LABS: Absolute Neutrophil Count 12.9 X10^3/uL (2.0-7.7)
[2021-09-05 13:22] LABS: Color, Urine Yellow (Yellow); Glucose, Dipstick 50 mg/dl (Normal); Ketone-Dipstick 5 mg/dl (Negative); Leukocyte Esterase-Dipstick 25 /ul (Negative); Nitrite-Dipstick Negative (Negative); Occult Blood-Urine 250 /ul (Negative); Protein-Dipstick 30 mg/dl (Negative); Specific Gravity, Urine 1.025 (1.002-1.030); Urine Bilirubin Dipstick 1 mg/dL (Negative); Urine Clarity Cloudy (Clear); Urine Urobilinogen Normal (Normal)
[2021-09-05 13:29] LABS: Red Blood Cells-Urine 50-100 SEEN /hpf (0-5)
[2021-09-05 13:30] LABS: Bacteria 2+ /hpf (None Seen); Calcium Oxalate Crystals Ur 1+ /hpf (<or=2+); Mucous, Urine 1+ /hpf (<or=2+); Squamous Epithelial Cells - UA 0-5 SEEN /hpf (0-5); White Blood Cells 5-10 SEEN /hpf (0-5)
[2021-09-05] MEDS: Morphine 4 MG/ML Syringe IV (13:31)
[2021-09-05] MEDS: Ketorolac 30 MG/ML Syringe 15 MG IV (13:31)
[2021-09-05 13:34] VITALS: BP 151/78; PULSE 87; RESP 18; O2SAT 99
--- NOTE | 2021-09-05 15:20 | HP.PCM.HOS_ITS ---
HPI - General General Date of Admission: 09/05/21 Date of Service: 09/05/21 Chief Complaint: Abdominal pain HPI Narrative The patient is a 66 y/o M w/ PMHx: Pancreatic cancer with ongoing chemotherapy with last treatment 2 weeks prior following w/ Dr. Valencia, HTN, HLD, Hx VTE, Diabetes mellitus type II, BPH, Hx VTE who presents to the [facility] ED on 09/05/21 with history of onset left lower abdominal pain which has been waxing and waning, moderate in severity starting on a.m. of day of presentation, pain rated as initially sharp and severe 8 out of 10 in severity with last bowel movement approximately 3 AM with no associated fevers or chills but nausea as well as emesis with self administration of Reglan and Ativan prior to arrival. Dr. Valencia had held off his treatment for the current weak as patient notable fatigue, malaise, GI side effects following his first two rounds. Following ED intervention patient currently now rating pain 1 out of 10. Work-up in the ED included T 96.7 Temporally, heart rate 114, BP initially 101/76 with repeat 151/78, respiratory rate 16, 97% on room air, CBC with WBC 19, hemoglobin 14.9, platelet 209 with increased bands, CMP with potassium 3.4, glucose 178, total bilirubin 0.50, AST/ALT 19/40, alk phos 124, urinalysis with evidence of urinary tract infection, CT abdomen and pelvis with a stable nonobstructive right intrarenal calculi, evidence of a 4 mm calculus in the proximal portion of the right ureter, nonobstructive calculi in the upper pole calyx of the left kidney measuring at its largest 6 mm as well as a 6 mm nonobstructing stone within the upper pole of the left kidney, mild degree left hydronephrosis and left hydroureter due to 3.6 mm calculus in the proximal portion of the left ureter, marked enlargement of the prostate. In the ED patient ministered Zofran, morphine and Toradol therapy. ED did discuss case with urology who advised that given patient bilateral stones better to be watched in the hospital to ensure appropriate renal function and if necessary potential stent placement Sunday if it is not passed at that time. [facility] Medical History (Updated 09/05/21 @ 15:[address] Maryam Hannon MD) Arthritis BPH w urinary obs/LUTS Calculus of kidney and ureter Cardiology follow-up encounter Diabetes Diabetes mellitus Dietary restriction DVT (deep venous thrombosis) High cholesterol History of echocardiogram History of Holter monitoring History of stress test Hypertension Hypertension Jaundice Left inguinal hernia Liver failure Non-smoker Nonrheumatic mitral (valve) insufficiency Pancreatic cancer Recurrent right inguinal hernia Superficial thrombophlebitis of right leg Ventricular premature depolarization Ventricular tachycardia, non-sustained Wears partial dentures Home Medications acetaminophen 1,000 mg PO Q6H PRN 09/05/21 [History Last Taken 09/05/21 06:00] lorazepam 0.5 mg PO DAILY PRN 09/05/21 [History Last Taken 09/05/21] metoclopramide HCl 10 mg PO TIDCM 09/05/21 [History Last Taken 09/05/21] olanzapine 10 mg PO QHS 09/05/21 [History Last Taken 09/04/21] Allergy/AdvReac Type Severity Reaction Status Date / Time acetaminophen [From Percocet] Allergy Severe unknown Verified 09/05/21 10:42 oxycodone [From Percocet] Allergy Severe unknown Verified 09/05/21 10:42 hydrocodone bitartrate AdvReac Other Verified 09/05/21 10:42 [From Vicodin] Family History Father , Age 73 Heart disease Myocardial infarction CAD (coronary artery disease) Mother Hypertension Cancer Skin cancer CVA (cerebral vascular accident) Surgical History History of back surgery History of colonoscopy History of open reduction and internal fixation (ORIF) procedure History of right hip replacement History of tonsillectomy Hx of cholecystectomy (02/09/17) Hx of lithotripsy s/p Laparoscopic incarcerated left inguinal hernia repair (~02/02/20) Social History (Updated 09/05/21 @ 17:[address] 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 HEENT: Eyes: No visual loss, blurred vision, double vision or yellow sclerae. Ears, Nose, Throat: No hearing loss, sneezing, congestion, runny nose or sore throat. SKIN: No rash or itching, lesions, wounds. CARDIOVASCULAR: No chest pain, chest pressure or chest discomfort, palpitations, edema, orthopnea, syncopal events. RESPIRATORY: No shortness of breath, cough or sputum, wheezing, hemoptysis. GASTROINTESTINAL: + anorexia, nausea, vomiting, diarrhea, abdominal pain, No melena, BRBPR. GENITOURINARY: No dysuria, frequency, urgency or retention. NEUROLOGICAL: No headache, dizziness, syncope, paralysis, ataxia, numbness or tingling in the extremities, focal weakness, change in bowel or bladder control, seizure. MUSCULOSKELETAL: + muscle, back pain, joint pain or stiffness. HEMATOLOGIC: No anemia, bleeding or bruising. LYMPHATICS: No enlarged nodes. No history of splenectomy. PSYCHIATRIC: No history of depression or anxiety. ENDOCRINOLOGIC: No reports of sweating, cold or heat intolerance. No polyuria or polydipsia. ALLERGIES: No history of asthma, hives, eczema or rhinitis. Vital Signs Vital Signs Vital Signs: 09/05/21 10:40 09/05/21 11:28 09/05/21 13:34 Temperature 96.7 F L 96.7 F L Temperature Source Temporal Temporal Pulse Rate 114 H 114 H 87 Respiratory Rate 16 16 18 Blood Pressure 101/76 101/76 151/78 H Blood Pressure Mean 84 84 102 Pulse Ox 97 97 99 Oxygen Delivery Method Room Air Room Air Weight Weight: 168 lb Body Mass Index (BMI) 22.8 Physical Exam Narrative Physical Examination: General: Awake, alert, oriented x 3 and cooperative, laying in the ED bed, fatigued, notes pain improved currently. Skin: Normal color, normal turgor, no icterus, no cyanosis. HEENT: AT/NC, EOMI, PERRLA, moderately dry MM, no carotid bruits or JVD noted. Lungs: CTA bilaterally, moderate effort, mild decrease BL bases, no rales, ronchi or wheezing. Heart: Regular rate and rhythm; no gallop, rub audible. Abdomen: Soft, mild left lower quadrant tenderness to palpation with no rebound or guarding, no obvious distention, mildly distant hypoactive bowel sounds, no obvious HSM. Extremities: No cyanosis, clubbing, or edema. Neurological: Patient awake, alert, oriented x 3, cognitive function intact; pupils equally reactive to light and accommodation, cranial nerves II-XII grossly normal, moving all 4 extremities, no focal deficits, strength mildly to moderately go decree secondary to acute complaints. Psychiatric: Affect appears fatigued otherwise normal, no acute evidence of depressive or anxiety feelings. Results Lab / Micro Data Result Diagrams: 09/05/21 11:18 09/05/21 11:18 Labs: Laboratory Results - last 24 hr 09/05/21 11:18: WBC 19.0 H, RBC 5.93, Hgb 14.9, Hct 47.0, MCV 79.3 L, MCH 25.1 L , MCHC 31.7 L, RDW Std Deviation 45.9 H, RDW Coeff of Carlos A 17.6 H, Plt Count 209, MPV 9.8, Neut % (Auto) Not Reportable, Absolute Neuts (auto) 12.9 H, Absolute Lymphs (auto) 1.90, Total Counted 100, Neutrophils % (Manual) 62, Band Neutrophils % 6 H, Lymphocytes % (Manual) 10 L, Monocytes % (Manual) 5, Metam yelocytes % 10 H, Myelocytes % 7 H, Diff Path Review December09/05/21 11:18: Sodium 142, Potassium 3.4 L, Chloride 106, Carbon Dioxide 27.0, Anion Gap 9, BUN 17, Creatinine 1.17, Estim Creat Clear Calc 66.04, Est GFR (M DRD) Af Amer 80, Est GFR (MDRD) Non-Af 66, BUN/Creatinine Ratio 14.5, Glucose 178 H, Calcium 8.6, Total Bilirubin 0.50, AST 19, ALT 40, Alkaline Phosphatase 124 H, Total Protein 6.2 L, Albumin 2.2 L, Globulin 4.0, Albumin/Globulin Ratio 0.6 L 09/05/21 13:15: Urine Color Yellow, Urine Clarity Cloudy, Urine pH 5.0, Ur Specific [place] 1.025, Urine Protein 30 H, Urine Glucose (UA) 50 H, Urine Ketones 5 H, Urine Occult Blood 250 H, Urine Nitrite Negative, Urine Bilirubin 1 H, Urine Urobilinogen Normal, Ur Leukocyte Esterase 25 H, Urine RBC 50-100 SEEN, Urine WBC 5-10 SEEN, Ur Squamous Epith Cells 0-5 SEEN, Calcium Oxalate Crystal 1+, Urine Bacteria 2+, Urine Mucus 1+ Radiology Impression Abdomen/Pelvis CT 09/05/21 11:58 IMPRESSION: Obstructive calculi seen in the proximal portions of the both ureters slightly worse on the left side. Nonobstructive bilateral intrarenal calculi. Marked enlargement of the prostate gland. Electronically Signed: Home Live MD at 13:07 EST , Service support , Assessment & Plan Assessment/Plan (1) Bilateral ureteral calculi: PLAN: The patient is a 66 y/o M w/ PMHx: Pancreatic cancer with ongoing chemotherapy with last treatment 2 weeks prior following w/ Dr. Valencia, HTN, HLD, Hx VTE, Diabetes mellitus type II, BPH, Hx VTE who presents to the [facility] ED on 09/05/21 with history of onset left lower abdominal pain which has been waxing and waning, moderate in severity starting on a.m. of day of presentation, pain rated as initially sharp and severe 8 out of 10 in severity with last bowel movement approximately 3 AM with no associated fevers or chills but nausea as well as emesis. #1. Acute Abdominal Pain secondary to Acute bilateral ureteral calculi with questionable Acute UTI: Will admit to [facility], maintain on aggressive hydration, maintain on IV Rocephin antiobiotic therapy, IV/Oral transition once symptoms improved, PRN anti-emetics, monitor I&Os. Given size of calculus may pass, will strain urine, continue Urology consultation and possible stent Sunday if not passed. #2. Hypokalemia: Admission K+ 3.4, magnesium level requested, supplementation given, repeat level in AM. #3. Recently diagnosed pancreatic cancer: Patient with ongoing chemotherapy, received recently 2 treatments, skipped this prior week secondary to side effects with recent treatments, following with Dr. Valencia, will obtain magnesium and phosphorus levels given treatments recently. #4. Diabetes mellitus type II: Hold oral home regimen, continue home insulin regimen, ADA diet, accu checks w/ ISS. #5. History of VTE: Not on a regimen currently, given underlying cancer diagnosis patient is high risk certainly, will have patient on chemoprophylaxis with hold if necessity for OR. #6. Anxiety and depression: We will continue patient home Ativan, olanzapine regimen. #7. Hypertension: Patient with prior listed diagnosis of hypertension, not on any regimen, BP currently normal range, closely monitor and add oral regimen if appropriate, as needed IV hydralazine in interim. #8. Hyperlipidemia: Not on statin therapy, defer to outpatient. #9. DVT prophylaxis: SCDs, Lovenox. #10. CODE status: Patient does not have healthcare power of criminal attorney nor living will in place. Given underlying comorbidities and recent pancreatic cancer diagnosis strongly encourage patient to set up healthcare power criminal attorney and living will. He does note that he and his have an upcoming appointment. Noted that they wanted more information while inpatient they could discuss these items also with case management/social work to assist in setting things things up once they consult with their bottle tester. Discussed CODE status at length inclu ding difference between FULL code, DNR-CCA and DNR-CC status. Following discussions about the differences in these status, requested Full Code. Advanced Care Planning Face to Face Time: 16 minutes. Charges/Coding Visit Charges Inpatient E&M: 03839 Init Hosp L2 Procedures Hospitalists Procedures: 14588 Advncd Care Plan 30 Min
[2021-09-05 15:35] VITALS: BP 123/87; PULSE 81; RESP 12; TEMP 36.4; O2SAT 96
[2021-09-05 17:01] LABS: Magnesium 2.1 mg/dL (1.6-2.6); Phosphorus 4.7 mg/dL (2.5-4.9)
[2021-09-05 17:29] VITALS: BMI 19.4
[2021-09-05 17:32] VITALS: BP 111/66; PULSE 83; RESP 18; TEMP 36.5; O2SAT 97
[2021-09-05] MEDS: 0.9% Normal Saline 1,000 ML 125 ML IV (18:04)
[2021-09-05] MEDS: Potassium Chloride Oral Tablet 20 MEQ 40 MEQ PO (18:10)
[2021-09-05] MEDS: Insulin Lispro 100 UNIT/ML INSULN.PEN SC ×2 (18:10→21:41)
[2021-09-05 18:11] LABS: Bedside Glucose 171 mg/dL (70-110)
[2021-09-05] MEDS: Ceftriaxone 1 GM/50 ML BAG IV (18:13)
[2021-09-05 19:05] LABS: Troponin-I HS 15 pg/mL (3.0-78.0)
--- NOTE | 2021-09-05 19:26 | CON.PCM.UR_ITS ---
Assessment & Plan Assessment/Plan (1) Bilateral ureteral calculi: (2) Pancreatic cancer: HPI Consult Data Date of Consult: 09/05/21 HPI Narrative HPI Narrative: SVITLANA SOMERS, is a 66 M who presents from the emergency room for admission to the hospital with bilateralobstruction of both kidneys with a 6 mm stone on the left side and a 4 mm stone on the right side his creatinine is slightly elevated. He's being treated for pancreatic cancer with the treatment is on hold his current situation with nausea upset stomach and pain from these kidney stones. He was admitted will continue with observation hydration see if he can pass he stones. plan the check a KUB in the morning continue with hydration if he fails to progress then will plan for surgical intervention with stents probably on Sunday if the failed to pass the stones [facility] Medical History Arthritis BPH w urinary obs/LUTS Calculus of kidney and ureter Cardiology follow-up encounter Diabetes Diabetes mellitus Dietary restriction DVT (deep venous thrombosis) High cholesterol History of echocardiogram History of Holter monitoring History of stress test Hypertension Hypertension Jaundice Left inguinal hernia Liver failure Non-smoker Nonrheumatic mitral (valve) insufficiency Pancreatic cancer Recurrent right inguinal hernia Superficial thrombophlebitis of right leg Ventricular premature depolarization Ventricular tachycardia, non-sustained Wears partial dentures Home Medications acetaminophen 1,000 mg PO Q6H PRN 09/05/21 [History Last Taken 09/05/21 06:00] lorazepam 0.5 mg PO DAILY PRN 09/05/21 [History Last Taken 09/05/21] metoclopramide HCl 10 mg PO TIDCM 09/05/21 [History Last Taken 09/05/21] olanzapine 10 mg PO QHS 09/05/21 [History Last Taken 09/04/21] Allergy/AdvReac Type Severity Reaction Status Date / Time acetaminophen [From Percocet] Allergy Severe unknown Verified 09/05/21 10:42 oxycodone [From Percocet] Allergy Severe unknown Verified 09/05/21 10:42 hydrocodone bitartrate AdvReac Other Verified 09/05/21 10:42 [From Vicodin] Family History Father , Age 73 Heart disease Myocardial infarction CAD (coronary artery disease) Mother Hypertension Cancer Skin cancer CVA (cerebral vascular accident) Surgical History History of back surgery History of colonoscopy History of open reduction and internal fixation (ORIF) procedure History of right hip replacement History of tonsillectomy Hx of cholecystectomy (02/09/17) Hx of lithotripsy s/p Laparoscopic incarcerated left inguinal hernia repair (~02/02/20) Social History (Updated 09/05/21 @ 17:[address] 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 ROS Constitutional Constitutional: Denies chills, fever(s) or malaise Eyes Eyes: Denies blurry vision or change in vision ENT HEENT: Reports none Cardiovascular Cardiovascular: Denies chest pain or palpitations Respiratory/Chest Respiratory/Chest: Denies cough or shortness of breath with exertion Gastrointestinal Gastrointestinal: Denies abdominal pain, constipation or diarrhea Musculoskeletal Musculoskeletal: Denies back pain, joint stiffness or joint swelling Integumentary Integumentary: Denies dry skin, jaundice, lesions or rash Neurologic Neurologic: Denies confusion, syncope or weakness Psychiatric Psychiatric: Reports none; Denies anxiety or depression Endocrine Endocrinology: Denies excessive sweating, fatigue or flushing Hematologic/Lymphatic Hematologic/Lymphatic: Denies anemia, easy bleeding or easy bruising Physical Exam Const alert and oriented x3 General Appearance: cooperative HEENT normocephalic, head/scalp atraumatic, EAC's normal and TM's normal bilaterally Eyes PERRL and EOMs intact bilaterally Pupil: sluggish Neck no lymphadenopathy, supple and no JVD General: trachea midline Lymph Lymphatic: no lymphadenopathy noted, lymphedema and lymphadenopathy Resp normal respiratory effort, normal air movement and clear to auscultation bilaterally Cardio regular rate, regular rhythm and peripheral pulses 2+ throughout GI soft to palpation, non-tender and non-distended Extremity normal capillary refill and no clubbing, cyanosis or edema General Extremity: no tenderness to palpation of joints or extremities Skin no rashes or lesions noted General Skin Exam: turgor normal Lesions: no lesions Rashes: no rashes Neuro CN's II-XII intact bilaterally Speech: speech normal Motor Exam: strength 5/5 throughout; Negative for general weakness Psych thought process normal, cooperative and affect normal Appearance: appropriate Lab / Micro Data Result Diagrams: 09/05/21 11:18 09/05/21 11:18 Labs: Laboratory Results - last 24 hr 09/05/21 11:18: WBC 19.0 H, RBC 5.93, Hgb 14.9, Hct 47.0, MCV 79.3 L, MCH 25.1 L , MCHC 31.7 L, RDW Std Deviation 45.9 H, RDW Coeff of Carlos A 17.6 H, Plt Count 209, MPV 9.8, Neut % (Auto) Not Reportable, Absolute Neuts (auto) 12.9 H, Absolute Lymphs (auto) 1.90, Total Counted 100, Neutrophils % (Manual) 62, Band Neutrophils % 6 H, Lymphocytes % (Manual) 10 L, Monocytes % (Manual) 5, Metamyelocytes % 10 H, Myelocytes % 7 H, Diff Path Review December09/05/21 11:18: Sodium 142, Potassium 3.4 L, Chloride 106, Carbon Dioxide 27.0, Anion Gap 9, BUN 17, Creatinine 1.17, Estim Creat Clear Calc 66.04, Est GFR (MDRD) Af Amer 80, Est GFR (MDRD) Non-Af 66, BUN/Creatinine Ratio 14.5, Glucose 178 H, Calcium 8.6, Total Bilirubin 0.50, AST 19, ALT 40, Alkaline Phosphatase 124 H, Total Protein 6.2 L, Albumin 2.2 L, Globulin 4.0, Albumin/Globulin Ratio 0.6 L 09/05/21 11:18: Phosphorus 4.7, Magnesium 2.1 09/05/21 13:15: Urine Color Yellow, Urine Clarity Cloudy, Urine pH 5.0, Ur Sp ecific [place] 1.025, Urine Protein 30 H, Urine Glucose (UA) 50 H, Urine Ketones 5 H, Urine Occult Blood 250 H, Urine Nitrite Negative, Urine Bilirubin 1 H, Urine Urobilinogen Normal, Ur Leukocyte Esterase 25 H, Urine RBC 50-100 SEEN, Urine WBC 5-10 SEEN, Ur Squamous Epith Cells 0-5 SEEN, Calcium Oxalate Crystal 1+, Urine Bacteria 2+, Urine Mucus 1+ 09/05/21 18:01: POC Glucose 171 H 09/05/21 18:15: Troponin I High Sens 15 Radiology Impression Abdomen/Pelvis CT 09/05/21 11:58 IMPRESSION: Obstructive calculi seen in the proximal portions of the both ureters slightly worse on the left side. Nonobstructive bilateral intrarenal calculi. Marked enlargement of the prostate gland. Electronically Signed: Home Live MD at 13:07 EST , Service support ,
[2021-09-05 20:18] VITALS: BP 121/70; PULSE 80; RESP 16; TEMP 36.7; O2SAT 96
[2021-09-05 20:40] LABS: Troponin-I HS 13 pg/mL (3.0-78.0)
[2021-09-05] MEDS: Famotidine 20 MG Tablet PO (21:38)
[2021-09-05 22:31] LABS: Bedside Glucose 192 mg/dL (70-110)
--- NOTE | 2021-09-06 00:28 | PCS.PANDOC ---
PANDEMIC DOCUMENTATION INITIATED: Date: 04/11/2021 Time: 190
[2021-09-06 00:50] LABS: Troponin-I HS 14 pg/mL (3.0-78.0)
[2021-09-06 02:04] VITALS: BP 109/77; PULSE 81; RESP 16; TEMP 36.4; O2SAT 95
[2021-09-06] MEDS: 0.9% Normal Saline 1,000 ML 125 ML IV ×3 (02:07→18:25)
[2021-09-06 06:08] LABS: Hematocrit 38.3 % (40-54); Hemoglobin 12.5 g/dL (13.0-16.5); Mean Corp Hgb Conc 32.6 g/dL (32-36); Mean Corpuscular Volume 79.8 fL (80-94); Mean Platelet Vol. 9.7 fl (6.2-12.0); POSITIVE COUNT YES; POSITIVE MORPHOLOGY YES; Platelet Count 203 K/mm3 (150-450); RBC Distribution Width CV 17.2 % (11.6-14.6); RBC Distribution Width SD 46.4 fl (35.1-43.9); White Blood Count 14.6 K/mm3 (4.4-11.0)
[2021-09-06 06:11] LABS: Differential Indicated MANUAL DIFF
[2021-09-06 06:36] LABS: ALB/GLOB Ratio 0.5 RATIO (0.9-2.4); AST(SGOT) 18 U/L (15-37); Alanine Aminotransfer ALT/SGPT 31 U/L (16-61); Albumin, Serum 1.7 g/dL (3.2-5.0); Alkaline Phosphatase 92 U/L (45-117); Anion Gap 5 (5-15); BUN 14 mg/dL (7-18); BUN/Creat Ratio 14.3 RATIO (10-20); Calcium,Total 7.8 mg/dL (8.5-10.1); Chloride 113 mmol/L (98-107); Creatinine, Serum 0.98 mg/dL (0.70-1.30); EST Glomerular Filtration Rate 81 mL/min (>60); Est Glom Filt Rate - Afr Amer 98 mL/min (>60); Estimated Creatinine Clearance 80.18 ml/min; Globulin 3.3 g/dL (2.2-4.2); Glucose 115 mg/dL (74-106); Potassium 3.8 mmol/L (3.5-5.1); Sodium Level 143 mmol/L (136-145)
[2021-09-06 06:41] LABS: Absolute Neutrophil Count 8.3 X10^3/uL (2.0-7.7); Metamyelocyte 0 % (0-1); Neutrophil-Band 6 % (0-5); Neutrophil-Segmented 51 % (47-70); Total Cells Counted 100 (MANUAL DIFF)
[2021-09-06 06:41] LABS: Bedside Glucose 115 mg/dL (70-110)
[2021-09-06 06:42] LABS: Anisocytosis 1+; Atypical Lymphocyte 2+ %; Blast 0 % (0-0); Eosinophil 1 % (0-5); Lymphocyte 33 % (19-41); Monocyte 2 % (0-10); Myelocyte 7 % (0-0); Platelet Estimate ADEQUATE (ADEQ); Promyelocyte 0 % (0-0); Red Cell Morphology NORM C+C NORMAL (NORM C&C)
[2021-09-06 07:22] VITALS: O2SAT 94
--- NOTE | 2021-09-06 07:28 | RAD_ITS ---
STUDY: X-RAY - ABDOMEN/PELVIS REASON FOR EXAM: Male, 66 years old. History of bilateral kidney stones. TECHNIQUE: Single AP view of the abdomen / pelvis. COMPARISON: None. FINDINGS: There is a moderate amount of colonic fecal material. Punctate bilateral renal calculi. There is a 6.9 mm calculus overlying the transverse process of the L4 vertebrae on the right side. A biliary stent is seen. Evidence of prior left inguinal hernia repair. There are diffuse degenerative changes of the visualized lumbar spine. Status post right total hip replacement. Marked degree of osteoarthritis of the left hip joint. RAD/Abdomen Single View IMPRESSION: Punctate bilateral intrarenal calculi. 6.9 mm calculus overlying the transverse process of the L4 vertebrae on the right side. Electronically Signed: Home Live MD at 11:51 EST , Service support ,
[2021-09-06 08:00] VITALS: BP 119/81; PULSE 81; RESP 16; TEMP 36.6; O2SAT 97
[2021-09-06] MEDS: Ceftriaxone 1 GM/50 ML BAG IV (09:49)
[2021-09-06] MEDS: Famotidine 20 MG Tablet PO ×2 (09:50→20:12)
[2021-09-06] MEDS: Enoxaparin 40 MG/0.4 ML Syringe SC (09:50)
[2021-09-06] MEDS: HYDROmorphone 0.5 MG/0.5 ML SYRINGE IV ×2 (09:53→15:13)
--- NOTE | 2021-09-06 10:30 | CASEMGMT ---
RN CM Face to Face with patient for initial transition planning/care coordination assessment. RN CM introduced self and role at [facility]. Patient lying in bed, alert and oriented, at bedside. Patient willing to participate in assessment and is able to answer all questions appropriately. Care providers, pharmacy, and demographics verified. Patient wishes to discharge home, denies need for home health at this time. Patient states he has no further needs or concerns at this time. CM to follow for discharge planning needs that may arise. PCP: Rodger Specialists: Annie oncologist Preferred Pharmacy: [facility] Insurance: [facility] Prescription Benefit: yes Living Will/HPOA: none LNOK: Living Arrangements: Patient lives with in a 2 story home with bed and bath on first floor. Patient states he is independent at home. Transportation: self, DME/HHC: Patient states he has shower chair and raised toilet. Patient interested in walker at discharge, no preferences on DME. No previous HHC or SNF. CM to assist in setting up walker prior to discharge Disposition Plan: Patient to discharge home with family support and follow-up plans in place. Elida KELLEYN, RN, CM
[2021-09-06 11:05] LABS: Bedside Glucose 176 mg/dL (70-110)
[2021-09-06] MEDS: Insulin Lispro 100 UNIT/ML INSULN.PEN SC (11:44)
[2021-09-06 14:09] VITALS: BP 142/87; PULSE 69; RESP 16; TEMP 36.5; O2SAT 96
--- NOTE | 2021-09-06 16:08 | CHAPLAIN ---
Type of Pastoral Visit _x__ Initial Visit ___ Follow-up Visit ___ On-call Visit ___ General Patient Visit ___ Spiritual Assessment ___ Family Conference ___ Bereavement ___ Rapid Response ___ Code Blue ___ Other (describe below) Pastoral Care Referral From _x__ Patient _x__ Family ___ Nurse ___ Physician ___ Dairy Nutrition Consultant ___ Learning And Development Officer ___ Other (describe below) Sacrament/Intervention _x__ Active listening ___ Anointing ___ Moravian ___ Bereavement ___ Communion _x__ Sun exploration ___ ___ Life review _x__ Prayer ___ Reconciliation ___ Sacrament of Sick _x__ Supportive presence ___ Wedding ___ Other (describe below) Pastoral Comments 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
[2021-09-06 16:15] LABS: Bedside Glucose 115 mg/dL (70-110)
[2021-09-06] MEDS: HYDROmorphone 1 MG/ML Syringe IV ×2 (18:33→23:45)
--- NOTE | 2021-09-06 18:39 | PCM.PN.HOSP ---
Subjective Subjective Patient was seen and examined today, his is in the room at the time of my examination, patient continues to complain of abdominal discomfort at times, I agreed to increase his pain medication. Patient has had a past history of kidney stones. He has 2 proximal ureteral stones at this point, it appears that the plan is going to be to repeat the patient's KUB tomorrow and if the stones are still there he will go for stent placement. Patient also has a history of pancreatic cancer which was diagnosed in June 2021, it is nonresectable and he is receiving chemotherapy. Objective Data Objective Data Vital Signs: Vital Signs Temp Pulse Resp BP Pulse Ox 97.7 F L 69 16 142/87 H 96 09/06/21 14:09/06/21 14:09/06/21 14:09/06/21 14:09/06/21 14:09 Oxygen Delivery Method Room Air Weight: 77.5 kg Body Mass Index (BMI) 19.4 Intake & Output: Intake and Output for Last 24 Hours 09/04/21 09/05/21 09/06/21 23:59 23:59 23:59 Intake Total 568.75 / 568.75 3625.00 / 3625.00 Output Total 1750 / 1750 Balance 568.75 / 568.75 1875.00 / 1875.00 Lab / Micro Data Result Diagrams: 09/06/21 05:12 09/06/21 05:12 Labs: Laboratory Results - last 24 hr 09/05/21 18:15: Troponin I High Sens 15 09/05/21 20:15: Troponin I High Sens 13 09/05/21 21:40: POC Glucose 192 H 09/06/21 00:26: Troponin I High Sens 14 09/06/21 05:12: WBC 14.6 H, RBC 4.80, Hgb 12.5 L, Hct 38.3 L, MCV 79.8 L, MCH 26.0 L, MCHC 32.6, RDW Std Deviation 46.4 H, RDW Coeff of Carlos A 17.2 H, Plt Count 203, MPV 9.7, Neut % (Auto) Not Reportable, Absolute Neuts (auto) 8.3 H, Absolute Lymphs (auto) 4.80 H, Total Counted 100, Neutrophils % (Manual) 51, Band Neutrophils % 6 H, Lymphocytes % (Manual) 33, Monocytes % (Manual) 2, Eosinophils % (Manual) 1, Metamyelocytes % 0, Myelocytes % 7 H, Promyelocytes % 0, Blast Cells % 0, Diff Path Review May foll, Atypical Lymphocytes 2+, Platelet Estimate ADEQUATE, RBC Morphology NORM C+C, Anisocytosis 1+ 09/06/21 05:12: Sodium 143, Potassium 3.8, Chloride 113 H, Carbon Dioxide 25.0, Anion Gap 5, BUN 14, Creatinine 0.98, Estim Creat Clear Calc 80.18, Est GFR (MDRD) Af Amer 98, Est GFR (MDRD) Non-Af 81, BUN/Creatinine Ratio 14.3, Glucose 115 H, Calcium 7.8 L, Total Bilirubin 0.40, AST 18, ALT 31, Alkaline Phosphatase 92, Total Protein 5.0 L, Albumin 1.7 L, Globulin 3.3, Albumin/Globulin Ratio 0.5 L 09/06/21 05:40: POC Glucose 115 H 09/06/21 11:02: POC Glucose 176 H 09/06/21 16:13: POC Glucose 115 H Radiography Diagnostic Testing: Radiology Impression KUB X-Ray 09/06/21 07:28 IMPRESSION: Punctate bilateral intrarenal calculi. 6.9 mm calculus overlying the transverse process of the L4 vertebrae on the right side. Electronically Signed: Home Live MD at 11:51 EST , Service support , Physical Exam Const alert, oriented x3, no apparent distress and healthy appearing General Appearance: cooperative, well kempt and well developed Orientation / Consciousness: awake, oriented to person, oriented to place and oriented to time HEENT normocephalic and moist oral mucous membranes Eyes PERRL, EOMs intact bilaterally and conjunctivae normal Neck nuchal rigidity, supple, no JVD and thyroid normal General: trachea midline Resp normal respiratory effort, no retractions, no use of accessory muscles and clear to auscultation bilaterally Auscultation: Negative for rales, rhonchi or wheezes Cardio regular rate, regular rhythm, S1 normal heart sound, S2 normal heart sound, no murmurs, no rub and no gallops GI normal to inspection, nondistended, normoactive bowel sounds, soft to palpation, non-tender and non-distended Extremity no clubbing, cyanosis or edema Skin no rashes or lesions noted General Skin Exam: no breakdown Neuro oriented x3, CN's II-XII intact bilaterally, no focal motor deficits and no sensory deficits noted Sensorium / Orientation: awake and alert Speech: speech normal Psych thought process normal and affect normal Assessment & Plan Assessment/Plan (1) Bilateral ureteral calculi: PLAN: 1. Bilateral ureteral calculi-patient is currently on IV fluids and IV pain medications, urology is seeing the patient and most probably will have to place a stent tomorrow and both ureters. #2 acute pyelonephritis-patient is currently on IV antibiotics #3 pancreatic cancer-patient is being treated with chemotherapy as an outpatient #4 hypokalemia-resolved, potassium supplementation was given #5 chronic anxiety and depression, patient is on his home medications for these problems #6 type 2 diabetes-patient will have fingerstick blood sugars performed with sliding scale insulin coverage #7 nonobstructing bilateral intrarenal calculi-this will be addressed by urology Charges/Coding Visit Charges Inpatient E&M: 98130 Subs Hosp L2
[2021-09-06 20:03] VITALS: BP 130/77; PULSE 74; RESP 16; TEMP 36.5; O2SAT 95
[2021-09-06 20:21] LABS: Bedside Glucose 131 mg/dL (70-110)
[2021-09-07] VITALS (11 sets, daily range): BP systolic 117–139; BP diastolic 69–86; PULSE 67–89; RESP 16–18; TEMP 35.9–36.7; O2SAT 94–97; BMI 23.6
[2021-09-07] MEDS: 0.9% Normal Saline 1,000 ML 125 ML IV ×3 (01:45→21:36)
--- NOTE | 2021-09-07 05:55 | RAD_ITS ---
STUDY: X-RAY - ABDOMEN/PELVIS REASON FOR EXAM: Male, 66 years old. Ureteral stones TECHNIQUE: Single AP view of the abdomen / pelvis. COMPARISON: Comparison is made with prior study dated 09/06/2021. FINDINGS: There is a moderate amount of colonic fecal material. The previously seen calculus overlying the transverse process of the L4 vertebra is now seen in the right hemipelvis overlying the lower aspect of the right sacroiliac joint. A 6 mm calculus is also seen overlying the inferior aspect of the left sacroiliac joints. Stable small bilateral intrarenal calculi. Prior repair of a left inguinal hernia. Status post right hip replacement. Marked degree of joint space scarring of the left hip joint. RAD/Abdomen Single View IMPRESSION: Ureteral calculi now seen in the distal portion of both ureters. Electronically Signed: Home Live MD at 9:09 EST , Service support ,
--- NOTE | 2021-09-07 06:00 | EKG12_ITS ---
Test Reason : AM EKG Blood Pressure : / mmHG Vent. Rate : 070 BPM Atrial Rate : 070 BPM P-R Int : 112 ms QRS Dur : 104 ms QT Int : 426 ms P-R-T Axes : 045 018 036 degrees QTc Int : 460 ms Normal sinus rhythm Nonspecific ST and T wave abnormality Prolonged QT Abnormal ECG When compared with ECG of 12-JUL-2021 14:28, Fusion complexes are no longer Present Confirmed by MARIAM NICKERSON, POP ([id number]), editor farm journal [employer] ([id number]) on 09/08/2021 1:50:32 PM Referred By: VIDYA Confirmed By:NICHO BECERRA MD
[2021-09-07 06:31] LABS: Bedside Glucose 125 mg/dL (70-110)
[2021-09-07 08:09] LABS: Hemoglobin A1c 7.6 % (3.8-5.6)
--- NOTE | 2021-09-07 08:09 | CT_ITS ---
STUDY: CT ABDOMEN AND PELVIS WITHOUT CONTRAST REASON FOR EXAM: Male, 66 years old. KIDNEY STONE SURGICAL PLANNING. History of pancreatic carcinoma. RADIATION DOSAGE (If Supplied By Facility): CTDIvol = ( 7.20 ) mGy, DLP = ( 370.40 ) mGycm TECHNIQUE: Transaxial images were obtained from the dome of the diaphragm to the symphysis pubis without oral contrast, and without intravenous contrast. Sagittal and coronal images were reconstructed. Individualized dose optimization techniques were used for this CT. COMPARISON: Comparison is made with prior study dated 09/05/2021. FINDINGS: Mild degree of linear markings at the lung bases suggestive of atelectasis. Coronary artery calcification. Once again, there is evidence of air within the left biliary ducts. A biliary stent is seen in situ. The patient is status post cholecystectomy. Normal spleen. Stable appearance of the pancreatic mass. Normal bilateral adrenal glands. Moderate degree of right hydronephrosis and hydroureter. There is evidence of a right perinephric stranding and periureteric stranding. The previously seen calculus in the proximal portion of the right ureter is now in the distal portion. This calculus measures 7 mm. Stable nonobstructive calculus in the lower pole calyx of the right kidney. Mild degree of left hydronephrosis and hydroureter. The previously seen calculus in the proximal portion of the left ureter is now seen in the distal portion of the left ureter proximal to the left ureterovesical junction. Mild degree of left perinephric and periureteric stranding. Normal visualized stomach. Normal small intestine. Normal colon. The appendix is visualized and appears normal. There is diffuse atherosclerotic calcification of the abdominal aorta, without a demonstrated aneurysm. Normal inferior vena cava. Normal retroperitoneum. Normal urinary bladder. There is enlargement of the prostate gland. There is evidence of prior left inguinal hernia repair. There are diffuse degenerative changes of the visualized lumbar spine. CT/Abdomen/Pelvis without Cont IMPRESSION: Bilateral hydronephrosis and hydroureter worse on the right side. The previously seen obstructive calculi in the proximal portions of both ureters are now in the distal portions of both ureters. Electronically Signed: Home Live MD at 8:50 EST , Service support ,
--- NOTE | 2021-09-07 08:10 | PCM.CONS.B ---
Consult Date of Consult: 09/07/21 planning for surgical intervention but on KUB stone has moved, hard to see, will do ct scan to see if passed stone and may be able to cancel case is so.
[2021-09-07 09:52] LABS: Pathologist Review Reviewed
[2021-09-07] MEDS: Ceftriaxone 1 GM/50 ML BAG IV (09:52)
[2021-09-07 10:01] LABS: Pathologist Review Reviewed
--- NOTE | 2021-09-07 11:01 | CASEMGMT ---
Addendum entered by Theresa Jimenez 09/07/21 11:52: HHC SOC slated for Sunday Addendum entered by Theresa Jimenez 09/07/21 11:52: Valentina @ [facility] states they are able to accept pt. Pt and made aware. Addendum entered by Theresa Jimenez 09/07/21 11:42: Upon further discussion, pt and agreeable to SN. Order placed for HHC: SN, PT and OT Original Note: KEVON GUILLEN NOTE: Per Dr Johnson, anticipate d/c home either later today or tomorrow. Script for FWW faxed to [facility]. TC to Tegan @ [facility]. She states they will deliver the walker to pt's room today. KEVON GUILLEN to room to talk w/pt and who is at bedside. They were notified FWW will be delivered to room today so pt has to take home @ d/c. states she has also picked up a raised toilet seat. Discussed option of HHC and discussed requirements of being homebound for HHC. states pt has been weak and she does have to assist him w/getting in/out of vehicle. Pt was provided with list of HHC providers including quality and resource use data and consistent with the patient's preferred geographic region, medical needs, and insurance network. They choose [facility] and do not feel SN or aide will be needed, just therapy. They deny having other needs or concerns @ discharge. Order placed for HHC: PT/OT. TC to Valentina @ [facility]. VM left re: referral. Awaiting call back. Jelani HERNÁNDEZ RN CM
[2021-09-07 12:11] LABS: Bedside Glucose 119 mg/dL (70-110)
--- NOTE | 2021-09-07 16:45 | CHAPLAIN ---
Type of Pastoral Visit ___ Initial Visit _x__ Follow-up Visit ___ On-call Visit ___ General Patient Visit ___ Spiritual Assessment ___ Family Conference ___ Bereavement ___ Rapid Response ___ Code Blue ___ Other (describe below) Pastoral Care Referral From _x__ Patient _x__ Family ___ Nurse ___ Physician ___ Cryptographic Center Specialist ___ Plastics Fitter ___ Other (describe below) Sacrament/Intervention _x__ Active listening ___ Anointing ___ Protestant ___ Bereavement ___ Communion ___ Sun exploration ___ ___ Life review _x__ Prayer ___ Reconciliation ___ Sacrament of Sick _x__ Supportive presence ___ Wedding ___ Other (describe below) Pastoral Comments Met with patient and spouse before his scheduled procedure; more affirmation of sun and personal support; prayer given; will continue to be available to this patient and family on the cancer journey
--- NOTE | 2021-09-07 17:31 | PCM.PN.HOSP ---
Subjective Subjective Patient was seen and examined today, I briefly talked with urology about his care, patient was supposed to go for removal of ureteral stones and stent placement today. Patient is not complaining of any more abdominal pain Objective Data Objective Data Vital Signs: Vital Signs Temp Pulse Resp BP Pulse Ox 97.5 F L 89 16 139/74 H 95 09/07/21 15:35 09/07/21 15:35 09/07/21 15:35 09/07/21 15:35 09/07/21 15:35 Oxygen Delivery Method Room Air Weight: 79.2 kg Body Mass Index (BMI) 23.6 Intake & Output: Intake and Output for Last 24 Hours 09/05/21 09/06/21 09/07/21 23:59 23:59 23:59 Intake Total 568.75 / 568.75 3625.00 / 3625.00 1965. / 1965. Output Total 1750 / 1750 Balance 568.75 / 568.75 1875.00 / 1875.00 1965. / Lab / Micro Data Result Diagrams: 09/06/21 05:12 09/06/21 05:12 Labs: Laboratory Results - last 24 hr 09/05/21 11:18: Diff Path Review Reviewed 09/06/21 05:12: Diff Path Review Reviewed 09/06/21 20:11: POC Glucose 131 H 09/07/21 04:57: Hemoglobin A1c 7.6 H 09/07/21 06:23: POC Glucose 125 H 09/07/21 12:00: POC Glucose 119 H Micro: Microbiology 09/05/21 13:15 Urine, Clean Catch Urine Culture - Final Mixed Gram Pos & Gram Neg Org Radiography Diagnostic Testing: Radiology Impression KUB X-Ray 09/07/21 05:55 IMPRESSION: Ureteral calculi now seen in the distal portion of both ureters. Electronically Signed: Home Live MD at 9:09 EST , Service support , Abdomen/Pelvis CT 09/07/21 08:09 IMPRESSION: Bilateral hydronephrosis and hydroureter worse on the right side. The previously seen obstructive calculi in the proximal portions of both ureters are now in the distal portions of both ureters. Electronically Signed: Home Live MD at 8:50 EST , Service support , Physical Exam Const alert, oriented x3, no apparent distress and healthy appearing General Appearance: cooperative, well kempt and well developed Orientation / Consciousness: awake, oriented to person, oriented to place and oriented to time HEENT normocephalic and moist oral mucous membranes Eyes PERRL, EOMs intact bilaterally and conjunctivae normal Neck nuchal rigidity, supple, no JVD and thyroid normal General: trachea midline Resp normal respiratory effort, no retractions, no use of accessory muscles and clear to auscultation bilaterally Auscultation: Negative for rales, rhonchi or wheezes Cardio regular rate, regular rhythm, S1 normal heart sound, S2 normal heart sound, no murmurs, no rub and no gallops GI normal to inspection, nondistended, normoactive bowel sounds, soft to palpation, non-tender and non-distended Extremity no clubbing, cyanosis or edema Skin no rashes or lesions noted General Skin Exam: no breakdown Neuro oriented x3, CN's II-XII intact bilaterally, no focal motor deficits and no sensory deficits noted Sensorium / Orientation: awake and alert Speech: speech normal Psych thought process normal and affect normal Assessment & Plan Assessment/Plan (1) Bilateral ureteral calculi: PLAN: 1. Bilateral ureteral calculi-patient is currently on IV fluids and IV pain medications, urology was due to take the patient for removal of stones and placement of stents. #2 acute pyelonephritis-patient is currently on IV antibiotics, cultures are only growing out mixed gram-positive and negative organisms. #3 pancreatic cancer-patient is being treated with chemotherapy as an outpatient #4 hypokalemia-resolved, potassium supplementation was given to correct his hypokalemia #5 chronic anxiety and depression, patient is on his home medications for these problems #6 type 2 diabetes-patient will have fingerstick blood sugars performed with sliding scale insulin coverage #7 nonobstructing bilateral intrarenal calculi-this will be addressed by urology Labs were ordered for the a.m. Charges/Coding Visit Charges Inpatient E&M: 29952 Subs Hosp L2
--- NOTE | 2021-09-07 17:44 | PCM.OPRPT ---
Report of Operation Date of Procedure: 09/07/21 Pre-Operative Diagnosis: Bilateral ureteral calculi Post-Operative Diagnosis: The same Surgery/Procedure Performed:: Right extracorporeal shockwave lithotripsy and cystoscopy and right stent placement, left extracorporeal shockwave lithotripsy. Description of Surgical Findings:: Patient presents to the hospital for treatment of a kidney stone with shockwave lithotripsy. In the preoperative area and x-ray was done to confirm the location of the stone. The x-ray was reviewed and the stone location was reviewed. In the preoperative setting I spoke with the patient regarding the treatment of the stone how the treatment would be conducted and the expectations after surgery. The patient understands there is a risk of bleeding and infection. Also discussed the very rare risk of hematoma or damage to the kidney. We also discussed the risk that the shockwave machine will fail to break the stone adequately and that the patient may need other surgical procedures. We also discussed the possibility that the patient may need a stent after the procedure. After reviewing the procedure with the patient, the patient is signed the consent form all the patient's questions were addressed and was taken back to the operating room for treatment of a kidney stone. Patient was taken back to the operating room, patient was identified by the nursing staff, we identified the side of the treatment and the patient side of treatment had been marked by my initials. The patient underwent general anesthetic and was placed supine on the lithotripter table. We then used fluoroscopy to identify the stone on the RIGHT side. The urethra and genitals were prepped and draped in usual sterile fashion. Using a 21 [place] rigid cystourethroscope the entire length of the urethra was normal then went into the bladder. Identified the trigone the left and right ureteral orifice. I then cannulated the right orifice and advanced a wire up into the kidney. I then backloaded a 5 [place] open ended catheter over the wire and injected contrast to delineate the anatomy. After the retrograde was performed I then used fluoroscopic images and guidance to advanced a wire up into the kidney and over the 0.038 glidewire I advanced a 6 [place] by 26 cm double pigtail stent. I then pulled the 0.038 Glidewire off and the stent coiled in the kidney bladder good position. The bladder was then drained. We confirmed the position of the stent by fluoroscopy. We then positioned the patient under the lithotripter and we used triangulation technique to identify the location of the stone and then we made sure that the stone was engaged in the F2 focal point of F2 Donier lithoprior machine. Once the patient was positioned appropriately and the stone was identified and placed in the F2 focal point of the lithotripter machine we then proceeded with shockwave lithotripsy. In the beginning the shockwave was delivered at a rate of 90 shocks per minute, we monitor the EKG for any ectopy. The power was slowly increased to 5 kV and subsequently at the 7 kV. We then proceeded with the treatment we move the therapy had around during the treatment to make sure the stone stayed in the F2 focal point during the entire treatment and after 3000 shockwaves were delivered to the stone under fluoroscopic guidance the treatment was completed. We then identified the LEFT side of the treatment. We then used fluoroscopy to identify the stone on the LEFT side. We then positioned the patient under the lithotripter and we used triangulation technique to identify the location of the stone and then we made sure that the stone was engaged in the F2 focal point of F2 Donier lithoprior machine. Once the patient was positioned appropriately and the stone was identified and placed in the F2 focal point of the lithotripter machine we then proceeded with shockwave lithotripsy. In the beginning the shockwave was delivered at a rate of 90 shocks per minute, we monitor the EKG for any ectopy. The power was slowly increased to 5 kV and subsequently at the 7 kV. We then proceeded with the treatment we move the therapy had around during the treatment to make sure the stone stayed in the F2 focal point during the entire treatment and after 3000 shockwaves were delivered to the stone under fluoroscopic guidance the treatment was completed. The patient was given instructions to call the office to make an a follow-up appointment with an xray to evaluate the success of the treatment, pateint understands that its possible the stones may need another procedure. At this point the patient's anesthetic was reversed patient was extubated and taken back to the PACU in stable condition. The patient was given instructions to call the office to make an a follow-up appointment with an xray to evaluate the success of the treatment, pateint understands that its possible the stones may need another procedure.At this point the patient's anesthetic was reversed patient was extubated and taken back to the PACU in stable condition. Surgeon: Marek Type of Anesthesia: General Drains: Right Stent Admit VTE Documentation VTE Present on Admission: No VTE Mechan Device Prophylaxis: SCD's VTE Pharm Prophylaxis ordered?: No
[2021-09-07] MEDS: Famotidine 20 MG Tablet PO (19:48)
[2021-09-07] MEDS: Insulin Lispro 100 UNIT/ML INSULN.PEN SC (21:34)
[2021-09-07 21:45] LABS: Bedside Glucose 270 mg/dL (70-110)
[2021-09-08 03:12] VITALS: BP 119/84; PULSE 88; RESP 18; TEMP 36.8; O2SAT 94
[2021-09-08] MEDS: 0.9% Normal Saline 1,000 ML 125 ML IV (05:39)
[2021-09-08 05:59] LABS: Hematocrit 37.6 % (40-54); Hemoglobin 12.3 g/dL (13.0-16.5); Mean Corp Hgb Conc 32.7 g/dL (32-36); Mean Corpuscular Hgb 26.1 pg (27.0-32.0); Mean Corpuscular Volume 79.7 fL (80-94); POSITIVE COUNT YES; POSITIVE MORPHOLOGY YES; Platelet Count 323 K/mm3 (150-450); RBC Distribution Width CV 17.6 % (11.6-14.6); RBC Distribution Width SD 47.8 fl (35.1-43.9); Red Blood Count 4.72 M/mm3 (4.6-6.2); White Blood Count 16.3 K/mm3 (4.4-11.0)
[2021-09-08 06:00] LABS: Differential Indicated MANUAL DIFF
[2021-09-08 06:24] LABS: Absolute Lymphocyte Count 1.46 X10^3/uL (0.83-4.51); Absolute Neutrophil Count 13.2 X10^3/uL (2.0-7.7); Lymphocyte 9 % (19-41); Monocyte 7 % (0-10); Myelocyte 3 % (0-0); Neutrophil-Band 7 % (0-5); Neutrophil-Segmented 74 % (47-70); Platelet Estimate ADEQUATE (ADEQ); Red Cell Morphology NORM C+C NORMAL (NORM C&C); Total Cells Counted 100 (MANUAL DIFF)
[2021-09-08] MEDS: Insulin Lispro 100 UNIT/ML INSULN.PEN SC (06:33)
[2021-09-08 06:41] LABS: Bedside Glucose 221 mg/dL (70-110)
[2021-09-08 06:43] LABS: Anion Gap 4 (5-15); BUN 18 mg/dL (7-18); BUN/Creat Ratio 13.6 RATIO (10-20); Calcium,Total 8.1 mg/dL (8.5-10.1); Chloride 111 mmol/L (98-107); Creatinine, Serum 1.32 mg/dL (0.70-1.30); EST Glomerular Filtration Rate 58 mL/min (>60); Est Glom Filt Rate - Afr Amer 70 mL/min (>60); Glucose 272 mg/dL (74-106); Potassium 4.4 mmol/L (3.5-5.1); Sodium Level 139 mmol/L (136-145)
[2021-09-08 07:20] VITALS: O2SAT 95
--- NOTE | 2021-09-08 07:37 | PCM.PN.BLA ---
Progress Note Status post shockwave lithotripsy and right stent placement he needs a follow-up in my office to have the stent removed and this was instructed to the patient.
[2021-09-08 08:04] VITALS: BP 129/87; PULSE 77; RESP 18; TEMP 36.5; O2SAT 96
[2021-09-08 08:05] VITALS: O2SAT 94
[2021-09-08] MEDS: Famotidine 20 MG Tablet PO (09:10)
[2021-09-08] MEDS: Ceftriaxone 1 GM/50 ML BAG IV (09:10)
--- NOTE | 2021-09-08 11:01 | PCM.DC ---
Discharge Instructions Diet Discharge Diet: 1800 Calorie Control Diet Activity Discharge Activity: Return to Normal Activity Weight Bearing Status: Full weight bearing Follow Up Care Test Results: Test results from this visit will be discussed in further detail at your follow-up appointment, if applicable. Discharge Plan Admission Admit Date/Time: 09/05/21 15:47 Primary Reason for Your Visit: ureteral stone Attending Provider: Norbert Johnson Primary Care Provider: Linette Soares Consulting Providers: Chris Jara Discharge Orders/Prescriptions Prescriptions: New levofloxacin 500 mg tablet 500 mg PO DAILY Qty: 3 RF: 0 Continued olanzapine 10 mg tablet 10 mg PO QHS RF: 0 acetaminophen 500 mg Tablet 1,000 mg PO Q6H PRN (Reason: Pain) RF: 0 lorazepam 0.5 mg Tablet 0.5 mg PO DAILY PRN (Reason: ANXIETY/NAUSEA) RF: 0 metoclopramide HCl 10 mg tablet 10 mg PO TIDCM RF: 0 Referrals / Follow Up: Linette Soares DO [Primary Care Provider] - Chris Jara MD [STAFF PHYSICIAN] - See Referral Note (in 2 weeks) Disposition Disposition (needs filled in before D/C Order can be placed): Home, Self Care
--- NOTE | 2021-09-08 11:16 | PCM.DC.SUM ---
Providers Date of Admission: 09/05/21 Date of Discharge: 09/08/21 Primary Care Physician: Dr. Linette Soares, DO Consultations 09/05/21 17:29 Consult: Urology Routine Consulting Provider: Chris Jara Reason for Consult: Calculi EMERGENT Consult: No MD Notified: Yes Date Notified: 09/05/21 Time Notified: 15:47 Method of Notification: called per ED. Reason For Visit: CALCULI, MILD HYDRO, UTI Diagnosis Discharge Diagnosis (1) Bilateral ureteral calculi: Status: Acute Code(s): N20.1 - Calculus of ureter Plan: 1. Bilateral ureteral calculi #2 acute pyelonephritis #3 pancreatic cancer-present on admission #4 hypokalemia #5 chronic anxiety and depression #6 type 2 diabetes #7 nonobstructing bilateral intrarenal calculi Medications at Discharge Home Medications acetaminophen 1,000 mg PO Q6H PRN 09/05/21 lorazepam 0.5 mg PO DAILY PRN 09/05/21 metoclopramide HCl 10 mg PO TIDCM 09/05/21 olanzapine 10 mg PO QHS 09/05/21 levofloxacin 500 mg PO DAILY #3 tab 09/08/21 Hospital Course Operations - (Right extracorporal shockwave lithotripsy and cystoscopy and right stent placement, left extracorporal shockwave lithotripsy) Procedures None Summary of Care Provided Minutes Spent on Discharge: 32 Hospital Course: This 66-year-old white male was seen in the emergency room at [facility] with a chief complaint of left lower quadrant abdominal pain, patient also had some vomiting secondary to the pain. Work-up in the emergency room included a CBC which showed an elevated white blood cell count, chemistry panel showed elevated glucose at 178, potassium was 3.4, urinalysis showed 50-100 RBCs, 5-10 WBCs, and +[address] of the abdomen and pelvis showed no obstructive calculi seen in the proximal portions of both ureters, there is also noted to be intrarenal calculi. Patient was admitted to [place] [id number], IV antibiotics were started as well as fluids, patient was given IV analgesics and antiemetics. Patient was seen in consultation by urology, he underwent right ureteral stent placement with shockwave lithotripsy of stones in both ureters. Patient had no complications during his hospitalization. On 09/08/2021, patient was seen and examined: On examination he appeared in good health and spirits. Vital signs as documented. Skin warm and dry and without overt rashes. Neck without JVD, neck was supple, trachea midline, thyroid was normal. Lungs clear bilaterally, normal air movement was noted. Heart exam notable for regular rhythm, normal sounds and absence of murmurs, rubs or gallops. Abdomen unremarkable and without evidence of organomegaly, masses, or abdominal aortic enlargement. Bowel sounds are present, abdomen is not distended. Extremities nonedematous, no cyanosis was noted, no clubbing was noted. Neuro: Cranial nerves II through XII are grossly intact, no focal motor deficits were noted, sensation to light touch and pinprick intact, motor exam 5/5 throughout. Psych: Patient is alert and oriented x3, he does not appear anxious or depressed, he does not appear agitated. On 09/08/2021, patient was seen and examined and felt to be stable for discharge home. Weight / BMI Weight Weight: 78.4 kg Body Mass Index (BMI) 23.6 ABG / Lab / Microbiology Data Result Diagrams: 09/08/21 04:57 09/08/21 04:57 Laboratory: Laboratory Results - last 24 hr 09/07/21 12:00: POC Glucose 119 H 09/07/21 21:33: POC Glucose 270 H 09/08/21 04:57: WBC 16.3 H, RBC 4.72, Hgb 12.3 L, Hct 37.6 L, MCV 79.7 L, MCH 26.1 L, MCHC 32.7, RDW Std Deviation 47.8 H, RDW Coeff of Carlos A 17.6 H, Plt Count 323, MPV 10.0, Neut % (Auto) Not Reportable, Absolute Neuts (auto) 13.2 H, Absolute Lymphs (auto) 1.46, Total Counted 100, Neutrophils % (Manual) 74 H, Band Neutrophils % 7 H, Lymphocytes % (Manual) 9 L, Monocytes % (Manual) 7, Myelocytes % 3 H, Diff Path Review December, Platelet Estimate ADEQUATE, RBC Morphology NORM C+C 09/08/21 04:57: Sodium 139, Potassium 4.4, Chloride 111 H, Carbon Dioxide 24.0, Anion Gap 4 L, BUN 18, Creatinine 1.32 H, Estim Creat Clear Calc 59.60, Est GFR (MDRD) Af Amer 70, Est GFR (MDRD) Non-Af 58 L, BUN/Creatinine Ratio 13.6, Glucose 272 H, Calcium 8.1 L 09/08/21 06:32: POC Glucose 221 H Microbiology: Microbiology 09/05/21 13:15 Urine, Clean Catch Urine Culture - Final Mixed Gram Pos & Gram Neg Org D/C Instructions Discharge Diet: 1800 Calorie Control Diet Weight Bearing Status: Full weight bearing Meaningful Use Info Meaningful Use Diagnoses (Choose all that apply): None applicable Discharge Plan Admission Admit Date/Time: 09/05/21 15:47 Primary Reason for Your Visit: ureteral stone Attending Provider: Norbert Johnson Primary Care Provider: Linette Soares Consulting Providers: Chris Jara Discharge Orders/Prescriptions Prescriptions: New levofloxacin 500 mg tablet 500 mg PO DAILY Qty: 3 RF: 0 Continued olanzapine 10 mg tablet 10 mg PO QHS RF: 0 acetaminophen 500 mg Tablet 1,000 mg PO Q6H PRN (Reason: Pain) RF: 0 lorazepam 0.5 mg Tablet 0.5 mg PO DAILY PRN (Reason: ANXIETY/NAUSEA) RF: 0 metoclopramide HCl 10 mg tablet 10 mg PO TIDCM RF: 0 Referrals / Follow Up: Linette Soares DO [Primary Care Provider] - Chris Jara MD [STAFF PHYSICIAN] - See Referral Note (in 2 weeks) Disposition Disposition (needs filled in before D/C Order can be placed): Home, Self Care Charges/Coding Visit Charges Inpatient E&M: 68942 Disch Hosp
--- NOTE | 2021-09-08 11:33 | CHAPLAIN ---
Type of Pastoral Visit ___ Initial Visit ___ Follow-up Visit ___ On-call Visit ___ General Patient Visit ___ Spiritual Assessment ___ Family Conference ___ Bereavement ___ Rapid Response ___ Code Blue ___ Other (describe below) Pastoral Care Referral From ___ Patient ___ Family ___ Nurse ___ Physician ___ Senior Oracle Dba ___ Tack Coverer ___ Other (describe below) Sacrament/Intervention ___ Active listening ___ Anointing ___ Shinto ___ Bereavement ___ Communion ___ Sun exploration ___ ___ Life review ___ Prayer ___ Reconciliation ___ Sacrament of Sick ___ Supportive presence ___ Wedding ___ Other (describe below) Pastoral Comments patient is being discharged at this time; best wishes expressed to patient; pt and spouse express thanks for support
[2021-09-08 11:35] VITALS: BP 115/78; PULSE 83; RESP 18; O2SAT 97
[2021-09-08 13:07] LABS: Pathologist Review Reviewed
== END 2021-09-08 11:40 | disposition home or self-care (01) | DRG 660 ==
LOC: ED 15:31 → MS2 16:08
PROVIDERS: Anesthesiology; Urology; Admitting Provider Family Medicine; Emergency Provider Emergency Medicine; PCP Internal Medicine; Visit Provider Internal Medicine
PROC: 0T768DZ Dilation of Right Ureter with Intraluminal Device, Via Natural or Artificial Opening Endoscopic (ICD-10-PCS; CPT 50590; principal; 2021-09-07 15:40)
DX: N20.1 Calculus of ureter (principal); C25.9 Malignant neoplasm of pancreas, unspecified; N13.2 Hydronephrosis with renal and ureteral calculous obstruction; N10 Acute pyelonephritis; E11.9 Type 2 diabetes mellitus without complications; E78.00 Pure hypercholesterolemia, unspecified; I10 Essential (primary) hypertension; E87.6 Hypokalemia; E78.5 Hyperlipidemia, unspecified; F41.9 Anxiety disorder, unspecified; N40.1 Benign prostatic hyperplasia with lower urinary tract symptoms; Z80.8 Family history of malignant neoplasm of other organs or systems; F32.A Depression, unspecified; Z66 Do not resuscitate; Z86.718 Personal history of other venous thrombosis and embolism
CPT/HCPCS: 36415; 74018; 74176; 80048; 80053; 81001; 82962; 83036; 83735; 84100; 84484; 85025; 87086; 87088; 93005; 97110; 97161; 97165; 97530; 97535; 99251; 99285; J7030; A4216; C1769; C2617; G0463; J2405

== ENCOUNTER → 2021-12-26 | Outpatient (CLI) | payer MEDICARE, SELFPAY ==
--- NOTE | 2021-12-26 14:00 | RAD_ITS ---
STUDY: X-RAY - ABDOMEN/PELVIS REASON FOR EXAM: Male, 66 years old. CALCULUS OF KIDNEY TECHNIQUE: Two AP supine views of the abdomen and pelvis. COMPARISON: CT abdomen and pelvis dated 09/07/2021 FINDINGS: Normal visualized lung bases. Biliary stent in place There is an abundance of fecal material throughout the colon. There is no demonstrated free abdominal air. The visualized liver, spleen and kidneys are grossly normal in size and morphology. Normal soft tissue structures. There are diffuse degenerative changes of the visualized lumbar spine. Right hip arthroplasty. Prior hernia repair with mesh in the lower pelvic region. RAD/Abdomen Single View IMPRESSION: Moderate to severe fecal retention throughout the colon. No definitive evidence of urolithiasis. Biliary stent in place Electronically Signed: Angel Rogers DO at 5:46 EDT ,
== END | disposition home or self-care (01) ==
LOC: RAD 13:55
PROVIDERS: PCP Internal Medicine; Referring Provider Urology; Visit Provider Urology
DX: N20.0 Calculus of kidney (principal)
CPT/HCPCS: 74018

== ENCOUNTER 2022-01-13 15:07 | Outpatient (CLI) | payer MEDICARE, SELFPAY ==
[2022-01-13 15:26] VITALS: BP 121/75; PULSE 65; RESP 16; TEMP 37.1; O2SAT 95; BMI 23.0
[2022-01-13] MEDS: 0.9% Saline Lock 10 ML Syringe IV ×2 (15:31→15:39)
[2022-01-13] MEDS: BEBTELOVIMAB 175 MG/2 ML VIAL IV (15:39)
[2022-01-13 16:13] VITALS: BP 107/59; PULSE 62; RESP 16; TEMP 37.1; O2SAT 97
[2022-01-13 16:37] VITALS: BP 127/65; PULSE 61; RESP 16; TEMP 37.1; O2SAT 97
== END 2022-01-13 16:40 | disposition home or self-care (01) ==
LOC: MS3OUT 15:08 → MS3 15:08
PROVIDERS: PCP Internal Medicine; Referring Provider Nurse Practitioner Adult Health; Visit Provider Nurse Practitioner Adult Health
DX: U07.1 COVID-19 (principal)
CPT/HCPCS: M0222; A4216

== ENCOUNTER 2022-02-21 09:28 | Observation (INO) | payer MEDICARE, SELFPAY ==
[2022-02-21 09:29] VITALS: BP 103/71; PULSE 76; RESP 18; TEMP 36.6; O2SAT 98; BMI 21.8
--- NOTE | 2022-02-21 09:48 | EKG12_ITS ---
Test Reason : Blood Pressure : / mmHG Vent. Rate : 069 BPM Atrial Rate : 069 BPM P-R Int : 124 ms QRS Dur : 100 ms QT Int : 412 ms P-R-T Axes : 049 016 027 degrees QTc Int : 441 ms Normal sinus rhythm Normal ECG Confirmed by LISSETT NICKERSON, SVITLANA ([id number]), social media editor PARIS LAW ([id number]) on 02/23/2022 10:56:43 AM Referred By: KANE Confirmed By:SVITLANA GALEANA MD
--- NOTE | 2022-02-21 09:49 | ED.VIS.GI ---
HPI HPI - GI History of Present Illness Chief Complaint: Abd Pain Detail of Chief Complaint: Abdominal pain x2 weeks Informant: patient Narrative Narrative: Patient presents to the emergency department complaint of abdominal pain for the last 2 weeks. Patient is lost 8 pounds in the last week. Patient has history of pancreatic cancer and is being treated with chemotherapy which she last had about 2 weeks ago. Patient was sent in by his oncologist today for admission. Patient had a low blood pressure in the office today in the 90 systolic. Patient complains of epigastric pain with eating. Patient had a CAT scan of the abdomen pelvis 5 days ago that showed peripancreatic inflammation. It is believed patient has pancreatitis. Patient states currently the pain is mild. He has had nausea intermittently but no vomiting. Patient has no appetite. Prior similar symptoms: No PFSH PFSH Medical History (Reviewed 01/12/22 @ 11:11 by Cassidy Sabillon TRACK VEHICLE REPAIRER, TRACK VEHICLE REPAIRER-C) Arthritis BPH w urinary obs/LUTS Calculus of kidney and ureter Cardiology follow-up encounter Diabetes Diabetes mellitus Dietary restriction DVT (deep venous thrombosis) High cholesterol History of echocardiogram History of Holter monitoring History of stress test Hypertension Hypertension Jaundice Left inguinal hernia Liver failure Non-smoker Nonrheumatic mitral (valve) insufficiency Pancreatic cancer Recurrent right inguinal hernia Superficial thrombophlebitis of right leg Ventricular premature depolarization Ventricular tachycardia, non-sustained Wears partial dentures Home Medications lorazepam 0.5 mg tablet 0.5 mg PO BID PRN Anxiety 09/05/21 [History Last Taken 09/05/21] olanzapine 10 mg tablet 10 mg PO QHS 09/05/21 [History Last Taken 09/04/21] apixaban 5 mg tablet 5 mg PO BID 02/21/22 [History Last Taken Unknown] cholecalciferol (vitamin D3) 25 mcg (1,000 unit) chewable tablet 25 mcg PO DAILY 02/21/22 [History Last Taken Unknown] citalopram 20 mg tablet 20 mg PO DAILY 02/21/22 [History Last Taken Unknown] insulin detemir U-100 100 unit/mL subcutaneous solution 10 unit subcut TID 02/21/22 [History Last Taken Unknown] lidocaine-prilocaine 2.5 %-2.5 % topical cream 1 applic topical PRN PRN port access 02/21/22 [History Last Taken Unknown] pfmrlb-djkmbhap-gwhusyu 24,000-76,000-120,000 unit capsule,delayed rel (Creon) 2 cap PO TID 02/21/22 [History Last Taken Unknown] loperamide 2 mg capsule 2 mg PO Q4H PRN Diarrhea 02/21/22 [History Last Taken Unknown] loratadine 10 mg capsule 10 mg PO DAILY PRN Allergy Symptoms 02/21/22 [History Last Taken Unknown] magnesium oxide 400 mg PO BID 02/21/22 [History Last Taken Unknown] megestrol 400 mg/10 mL (40 mg/mL) oral suspension 800 mg PO DAILY 02/21/22 [History Last Taken Unknown] nystatin 100,000 unit/mL oral suspension 500,000 unit PO DAILY 02/21/22 [History Last Taken Unknown] ondansetron 8 mg disintegrating tablet 8 mg PO Q8H PRN Nausea 02/21/22 [History Last Taken Unknown] Allergy/AdvReac Type Severity Reaction Status Date / Time oxycodone [From Percocet] Allergy Severe unknown Verified 02/21/22 09:30 hydrocodone bitartrate AdvReac Other Verified 02/21/22 09:30 [From Vicodin] Family History Father , Age 73 Heart disease Myocardial infarction CAD (coronary artery disease) Mother Hypertension Cancer Skin cancer CVA (cerebral vascular accident) Surgical History History of back surgery History of colonoscopy History of open reduction and internal fixation (ORIF) procedure History of right hip replacement History of tonsillectomy Hx of cholecystectomy (02/09/17) Hx of lithotripsy s/p Laparoscopic incarcerated left inguinal hernia repair (~02/02/20) Social History (Updated 09/05/21 @ 17:[address] 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 seatbelt use: always ROS ROS ED Review of Systems ROS Unobtainable: other Constitutional Constitutional ED: Reports lethargy; Denies chills, fever(s), sweats or weight loss Eyes Eyes: Denies blurry vision, change in vision or diplopia ENT ENT ED: Denies rhinorrhea or sore throat Cardiovascular Cardiovascular: Reports chest pain and racing heartbeat; Denies orthopnea Respiratory/Chest Respiratory/Chest: Reports dyspnea and dyspnea on exertion; Denies cough, orthopnea or sputum Gastrointestinal Gastrointestinal: Reports abdominal pain and nausea; Denies diarrhea or vomiting Genitourinary Genitourinary ED: Denies dysuria, hematuria or urinary frequency Musculoskeletal Musculoskeletal: Denies arthralgias, back pain, myalgias or neck pain Integumentary Denies abscess, Abrasions or rash Neurologic Neurologic: Denies headache(s) or weakness Psychiatric Psychiatric: Denies anxiety, depression or suicidal thoughts Endocrine Endocrinology: Denies polydipsia, polyphagia or polyuria Hematologic/Lymphatic Hematologic/Lymphatic: Denies easy bleeding, easy bruising or lymphadenopathy Allergic/Immunologic Allergic/Immunologic ED: Denies mouth swelling, tongue swelling or urticaria EXAM Physical Exam Const Vital Signs: 02/21/22 09:29 02/21/22 11:52 02/21/22 11:58 Temperature 97.9 F 98.2 F Temperature Source Temporal Temporal Pulse Rate 76 72 Pulse Rate [Lying] 65 Pulse Rate [Sitting (for 1 minute prior to obtaining)] 72 Pulse Rate [Standing (for 1 minute prior to obtaining)] 79 Respiratory Rate 18 16 Blood Pressure 103/71 111/77 Blood Pressure [Lying] 105/70 Blood Pressure [Sitting (for 1 minute prior to obtaining)] 94/61 Blood Pressure [Standing (for 1 minute prior to obtaining)] 91/67 Blood Pressure Mean 81 88 Blood Pressure Mean [Lying] 81 Blood Pressure Mean [Sitting (for 1 minute prior to obtaining)] 72 Blood Pressure Mean [Standing (for 1 minute prior to obtaining)] 75 Pulse Ox 98 96 Oxygen Delivery Method Room Air Room Air Positive well nourished and well developed General Appearance ED: well developed and NAD HEENT Reports TM's clear and moist mucous membranes normocephalic and atraumatic; Negative for trauma or tenderness Tympanic Membrane ED: Yes TM's clear Eyes PERRL and EOMs intact bilaterally General Eye ED: Negative for pale conjunctiva or scleral icterus Neck no lymphadenopathy, supple and no JVD General: Negative for tenderness Chest Wall inspection of chest normal and palpation of chest normal Chest: Negative for tenderness Resp normal respiratory effort and clear to auscultation bilaterally Effort and Inspection: Negative for respiratory distress or pain with movement Auscultation: Negative for rhonchi, wheezes or diminished lung sounds Cardio regular rate, regular rhythm, S1 normal heart sound, S2 normal heart sound and no murmurs Peripheral Pulses: pulses 2+ throughout GI soft to palpation, non-distended and no masses GI Narrative: Mild tenderness palpation over the epigastric region with some mild guarding. There is no rebound, rigidity, or peritoneal signs. Back/Spine no CVA tenderness and no thoracic nor lumbar tenderness Extremity normal to inspection General Extremety ED: Negative for edema General Extremity: Negative for edema Neuro oriented x3, CN's II-XII intact bilaterally, no sensory deficits noted and gait normal Sensorium / Orientation: awake, alert, oriented to person, oriented to place and oriented to time Motor Exam: strength 5/5 throughout and strength abnormal Psych mental status grossly normal Skin no rashes or lesions noted and no wounds MDM MDM MDM Narrative Medical decision making narrative: IV line established on arrival. Patient was ordered a liter fluid bolus. Lab work-up was significant for an elevated lipase of 868. Chemistries were unremarkable. Urinalysis was positive for nitrites and 10-25 WBCs as well as +2 bacteria and a urine culture was sent. Patient was started on Rocephin 1 g IV. Case discussed with hospitalist will evaluate patient for admission Lab Data Attestation: I reviewed the patient's lab results. Labs: Laboratory Results - last 24 hr 02/21/22 02/21/22 02/21/22 10:10 10:10 11:25 WBC 10.0 RBC 3.37 L Hgb 9.1 L Hct 29.6 L MCV 87.8 MCH 27.0 MCHC 30.7 L RDW Std Deviation 49.9 H RDW Coeff of Carlos A 15.7 H Plt Count 345 MPV 9.5 Immature Gran % (Auto) 2.700 H Neut % (Auto) 70.7 H Lymph % (Auto) 13.7 L [place] % (Auto) 8.8 Eos % (Auto) 3.7 Baso % (Auto) 0.4 Absolute Neuts (auto) 7.1 Absolute Lymphs (auto) 1.37 Nucleated RBC % 0 Sodium 135 L Potassium 4.2 Chloride 101 Carbon Dioxide 26.0 Anion Gap 8 BUN 15 Creatinine 0.75 Estim Creat Clear Calc 74.04 Est GFR (MDRD) Af Amer 134 Est GFR (MDRD) Non-Af 111 BUN/Creatinine Ratio 20.1 H Glucose 194 H Calcium 9.0 Total Bilirubin 0.30 AST 7 L ALT 11 L Alkaline Phosphatase 107 Troponin I High Sens 6 Total Protein 6.8 Albumin 2.5 L Globulin 4.3 H Albumin/Globulin Ratio 0.6 L Lipase 868 H Urine Color Yellow Urine Clarity Sl. Cloudy Urine pH 5.0 Ur Specific [place] 1.020 Urine Protein 15 H Urine Glucose (UA) 250 H Urine Ketones Negative Urine Occult Blood 50 H Urine Nitrite Positive H Urine Bilirubin Negative Urine Urobilinogen Normal Ur Leukocyte Esterase 100 H Urine RBC 0-5 SEEN Urine WBC 10-25 SEEN Ur Squamous Epith Cells 0 SEEN Urine Bacteria 2+ Urine Mucus 0 SEEN EKG Initial EKG: Attestation: I personally reviewed and interpreted this EKG as follows: Comments: Sinus rhythm with a rate of 69 bpm with no acute ST segment changes Discharge Plan Triage Chief Complaint: Abd Pain ED Provider: Saúl Stewart Dx/Rx/DC Orders Clinical Impression: Abdominal pain, Pancreatic cancer, Acute pancreatitis Prescriptions: No Action olanzapine 10 mg tablet 10 mg PO QHS Label Comments: TAKE 1 TABLET BY MOUTH ONCE DAILY AT BEDTIME lorazepam 0.5 mg Tablet 0.5 mg PO BID PRN (Reason: Anxiety) megestrol [Megace] 400 mg/10 mL (40 mg/mL) Suspension 800 mg PO DAILY nystatin 100,000 unit/mL Suspension 500,000 unit PO DAILY Rx Instructions: administer 1/2 of dose in each side of the mouth loperamide 2 mg Capsule 2 mg PO Q4H PRN (Reason: Diarrhea) Rx Instructions: administer after each loose stool until symptoms controlled; do not exceed 8 mg per 24 hrs ondansetron 8 mg Tablet,Disintegrating 8 mg PO Q8H PRN (Reason: Nausea) lidocaine-prilocaine [Emla] 2.5-2.5 % Cream 1 applic topical PRN PRN (Reason: port access) citalopram 20 mg Tablet 20 mg PO DAILY insulin detemir U-100 100 unit/mL Solution 10 unit SUBCUT TID Rx Instructions: sliding scale Creon 24,000-76,000 -120,000 unit Capsule,Delayed Release(Dr/Ec) 2 cap PO TID Rx Instructions: administer with meals and/or snacks cholecalciferol (vitamin D3) 25 mcg (1,000 unit) Tablet,Chewable 25 mcg PO DAILY loratadine 10 mg Capsule 10 mg PO DAILY PRN (Reason: Allergy Symptoms) magnesium oxide 400 mg magnesium Capsule 400 mg PO BID apixaban 5 mg Tablet 5 mg PO BID Primary Care Provider: Linette Soares Referrals: Linette Soares DO [Primary Care Provider] - Disposition Disposition: Acute Care Hospital [facility]
[2022-02-21 10:15] LABS: Absolute Lymphocyte Count 1.37 X10^3/uL (0.83-4.51); Absolute Neutrophil Count 7.1 X10^3/uL (2.0-7.7); Basophil# 0.04 X10^3/uL; Basophil% 0.4 % (0-1); Eosinophil# 0.37 X10^3/uL; Eosinophils% 3.7 % (0-5); Hematocrit 29.6 % (40-54); Hemoglobin 9.1 g/dL (13.0-16.5); Lymphocyte # 1.37 X10^3/ul (0.83-4.51); Lymphocyte % 13.7 % (19-41); Mean Corp Hgb Conc 30.7 g/dL (32-36); Mean Corpuscular Volume 87.8 fL (80-94); Mean Platelet Vol. 9.5 fl (6.2-12.0); Monocyte# 0.88 X10^3/uL; Monocyte% 8.8 % (0-10); NRBC Flagged by Analyzer 0 % (0-5); Neutrophil % 70.7 % (47-70); Platelet Count 345 K/mm3 (150-450); RBC Distribution Width CV 15.7 % (11.6-14.6); RBC Distribution Width SD 49.9 fl (35.1-43.9); Red Blood Count 3.37 M/mm3 (4.6-6.2)
[2022-02-21 10:41] LABS: ALB/GLOB Ratio 0.6 RATIO (0.9-2.4); AST(SGOT) 7 U/L (15-37); Alanine Aminotransfer ALT/SGPT 11 U/L (16-61); Albumin, Serum 2.5 g/dL (3.2-5.0); Alkaline Phosphatase 107 U/L (45-117); Anion Gap 8 (5-15); BUN 15 mg/dL (7-18); BUN/Creat Ratio 20.1 RATIO (10-20); Chloride 101 mmol/L (98-107); Creatinine, Serum 0.75 mg/dL (0.70-1.30); EST Glomerular Filtration Rate 111 mL/min (>60); Est Glom Filt Rate - Afr Amer 134 mL/min (>60); Estimated Creatinine Clearance 74.04 ml/min; Globulin 4.3 g/dL (2.2-4.2); Glucose 194 mg/dL (74-106); Lipase 868 U/L (73-393); Potassium 4.2 mmol/L (3.5-5.1); Protein, Total 6.8 g/dL (6.4-8.2); Sodium Level 135 mmol/L (136-145); Troponin-I HS 6 pg/mL (3.0-78.0)
[2022-02-21 11:32] LABS: Mucous, Urine 0 SEEN /hpf (<or=2+); Squamous Epithelial Cells - UA 0 SEEN /hpf (0-5)
[2022-02-21 11:34] LABS: Color, Urine Yellow (Yellow); Glucose, Dipstick 250 mg/dl (Normal); Ketone-Dipstick Negative (Negative); Leukocyte Esterase-Dipstick 100 /ul (Negative); Nitrite-Dipstick Positive (Negative); Occult Blood-Urine 50 /ul (Negative); Protein-Dipstick 15 mg/dl (Negative); Urine Bilirubin Dipstick Negative (Negative); Urine Clarity Sl. Cloudy (Clear); Urine Urobilinogen Normal (Normal)
[2022-02-21] MEDS: 0.9% Normal Saline 1,000 ML 1000 ML IV (11:49)
[2022-02-21 11:52] VITALS: BP 111/77; PULSE 72; RESP 16; TEMP 36.8; O2SAT 96
[2022-02-21 11:52] LABS: Red Blood Cells-Urine 0-5 SEEN /hpf (0-5); White Blood Cells 10-25 SEEN /hpf (0-5)
[2022-02-21 11:53] LABS: Bacteria 2+ /hpf (None Seen)
[2022-02-21 11:58] VITALS: BP 105/70; BP 91/67; BP 94/61; PULSE 65; PULSE 72; PULSE 79
--- NOTE | 2022-02-21 11:59 | CHAPLAIN ---
Type of Pastoral Visit _x__ Initial Visit ___ Follow-up Visit ___ On-call Visit ___ General Patient Visit ___ Spiritual Assessment ___ Family Conference ___ Bereavement ___ Rapid Response ___ Code Blue ___ Other (describe below) Pastoral Care Referral From _x__ Patient _x__ Family ___ Nurse ___ Physician ___ Train Master ___ Inventory And Pricing Associate ___ Other (describe below) Sacrament/Intervention _x__ Active listening ___ Anointing ___ Lutheran ___ Bereavement ___ Communion _x__ Sun exploration ___ ___ Life review _x__ Prayer ___ Reconciliation ___ Sacrament of Sick _x__ Supportive presence ___ Wedding ___ Other (describe below) Pastoral Comments
[2022-02-21] MEDS: Ceftriaxone 1 GM/50 ML BAG IV (12:47)
[2022-02-21 12:48] VITALS: BP 111/77; PULSE 72; RESP 16; TEMP 36.8; O2SAT 96
[2022-02-21 12:53] VITALS: BMI 21.7
--- NOTE | 2022-02-21 13:09 | HP.PCM.HOS_ITS ---
HPI - General General Date of Admission: 02/21/22 HPI Glenn SOMERS, is a 66 M who presents to the hospital with mild pancreatitis. He has a history of metastatic pancreatic cancer is currently undergoing chemotherapy. This was diagnosed last June. He does have a biliary stent in place but no gallbladder. He has been having abdominal pain and bloating for the last 2 weeks and has had about an 8 pound weight loss. He had a CT scan done in the [facility] system which showed peripancreatic inflammation lipase here is less than the thousand and he denies any significant abdominal pain other than an ill inability to eat. Does not appear to be overly dehydrated with a creatinine of 1.75. FORMERLY [facility] Medical History Arthritis BPH w urinary obs/LUTS Calculus of kidney and ureter Cardiology follow-up encounter Diabetes Diabetes mellitus Dietary restriction DVT (deep venous thrombosis) High cholesterol History of echocardiogram History of Holter monitoring History of stress test Hypertension Hypertension Jaundice Left inguinal hernia Liver failure Non-smoker Nonrheumatic mitral (valve) insufficiency Pancreatic cancer Recurrent right inguinal hernia Superficial thrombophlebitis of right leg Ventricular premature depolarization Ventricular tachycardia, non-sustained Wears partial dentures Home Medications lorazepam 0.5 mg tablet 0.5 mg PO BID PRN Anxiety 09/05/21 [History Last Taken 09/05/21] olanzapine 10 mg tablet 10 mg PO QHS 09/05/21 [History Last Taken 09/04/21] apixaban 5 mg tablet 5 mg PO BID 02/21/22 [History Last Taken Unknown] cholecalciferol (vitamin D3) 25 mcg (1,000 unit) chewable tablet 25 mcg PO DAILY 02/21/22 [History Last Taken Unknown] citalopram 20 mg tablet 20 mg PO DAILY 02/21/22 [History Last Taken Unknown] insulin detemir U-100 100 unit/mL subcutaneous solution 10 unit subcut TID 02/21/22 [History Last Taken Unknown] lidocaine-prilocaine 2.5 %-2.5 % topical cream 1 applic topical PRN PRN port access 02/21/22 [History Last Taken Unknown] btcysj-thykiejv-dyzphgd 24,000-76,000-120,000 unit capsule,delayed rel (Creon) 2 cap PO TID 02/21/22 [History Last Taken Unknown] loperamide 2 mg capsule 2 mg PO Q4H PRN Diarrhea 02/21/22 [History Last Taken Unknown] loratadine 10 mg capsule 10 mg PO DAILY PRN Allergy Symptoms 02/21/22 [History Last Taken Unknown] magnesium oxide 400 mg PO BID 02/21/22 [History Last Taken Unknown] megestrol 400 mg/10 mL (40 mg/mL) oral suspension 800 mg PO DAILY 02/21/22 [History Last Taken Unknown] nystatin 100,000 unit/mL oral suspension 500,000 unit PO DAILY 02/21/22 [History Last Taken Unknown] ondansetron 8 mg disintegrating tablet 8 mg PO Q8H PRN Nausea 02/21/22 [History Last Taken Unknown] Allergy/AdvReac Type Severity Reaction Status Date / Time oxycodone [From Percocet] Allergy Severe unknown Verified 02/21/22 09:30 hydrocodone bitartrate AdvReac Other Verified 02/21/22 09:30 [From Vicodin] Family History Father , Age 73 Heart disease Myocardial infarction CAD (coronary artery disease) Mother Hypertension Cancer Skin cancer CVA (cerebral vascular accident) Surgical History History of back surgery History of colonoscopy History of open reduction and internal fixation (ORIF) procedure History of right hip replacement History of tonsillectomy Hx of cholecystectomy (02/09/17) Hx of lithotripsy s/p Laparoscopic incarcerated left inguinal hernia repair (~02/02/20) Social History (Updated 09/05/21 @ 17:[address] 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 use: always ROS Constitutional Constitutional: Denies chills, fatigue, fever(s) or malaise Eyes Eyes: Denies blurry vision ENT HEENT: Denies headache(s) or nasal discharge Cardiovascular Cardiovascular: Denies chest pain, dyspnea on exertion or syncope Respiratory/Chest Respiratory/Chest: Denies cough, shortness of breath at rest or shortness of breath with exertion Gastrointestinal Gastrointestinal: Reports abdominal pain and bloating; Denies constipation, diarrhea, nausea or vomiting Genitourinary Genitourinary: Denies dysuria Neurologic Neurologic: Denies focal weakness, numbness or tremor(s) Psychiatric Psychiatric: Denies anxiety or depression Vital Signs Vital Signs Vital Signs: 02/21/22 09:29 02/21/22 11:52 02/21/22 11:58 Temperature 97.9 F 98.2 F Temperature Source Temporal Temporal Pulse Rate 76 72 Pulse Rate [Lying] 65 Pulse Rate [Sitting (for 1 minute prior to obtaining)] 72 Pulse Rate [Standing (for 1 minute prior to obtaining)] 79 Respiratory Rate 18 16 Blood Pressure 103/71 111/77 Blood Pressure [Lying] 105/70 Blood Pressure [Sitting (for 1 minute prior to obtaining)] 94/61 Blood Pressure [Standing (for 1 minute prior to obtaining)] 91/67 Blood Pressure Mean 81 88 Blood Pressure Mean [Lying] 81 Blood Pressure Mean [Sitting (for 1 minute prior to obtaining)] 72 Blood Pressure Mean [Standing (for 1 minute prior to obtaining)] 75 Pulse Ox 98 96 Oxygen Delivery Method Room Air Room Air 02/21/22 12:48 Temperature 98.2 F Temperature Source Temporal Pulse Rate 72 Pulse Rate [Lying] Pulse Rate [Sitting (for 1 minute prior to obtaining)] Pulse Rate [Standing (for 1 minute prior to obtaining)] Respiratory Rate 16 Blood Pressure 111/77 Blood Pressure [Lying] Blood Pressure [Sitting (for 1 minute prior to obtaining)] Blood Pressure [Standing (for 1 minute prior to obtaining)] Blood Pressure Mean Blood Pressure Mean [Lying] Blood Pressure Mean [Sitting (for 1 minute prior to obtaining)] Blood Pressure Mean [Standing (for 1 minute prior to obtaining)] Pulse Ox 96 Oxygen Delivery Method Room Air Weight Weight: 161 lb Body Mass Index (BMI) 21.8 Physical Exam Const alert, oriented x3 and no apparent distress General Appearance: cooperative HEENT normocephalic and moist oral mucous membranes Eyes PERRL, EOMs intact bilaterally and conjunctivae normal Neck supple and no JVD Resp normal respiratory effort, no retractions, no use of accessory muscles and clear to auscultation bilaterally Auscultation: Negative for crackles, rales, rhonchi or wheezes Cardio regular rate, regular rhythm, S1 normal heart sound, S2 normal heart sound and no murmurs GI soft to palpation, non-tender and non-distended; Negative for hepatosplenomegaly Extremity no clubbing, cyanosis or edema Skin no rashes or lesions noted Neuro no focal motor deficits and no sensory deficits noted Psych affect normal Appearance: appropriate Results Lab / Micro Data Result Diagrams: 02/21/22 10:10 02/21/22 10:10 Labs: Laboratory Results - last 24 hr 02/21/22 10:10: WBC 10.0, RBC 3.37 L, Hgb 9.1 L, Hct 29.6 L, MCV 87.8, MCH 27.0, MCHC 30.7 L, RDW Std Deviation 49.9 H, RDW Coeff of Carlos A 15.7 H, Plt Count 345, MPV 9.5, Immature Gran % (Auto) 2.700 H, Neut % (Auto) 70.7 H, Lymph % (Auto) 13.7 L, [place] % (Auto) 8.8, Eos % (Auto) 3.7, Baso % (Auto) 0.4, Absolute Neuts (auto) 7.1, Absolute Lymphs (auto) 1.37, Nucleated RBC % 0 02/21/22 10:10: Sodium 135 L, Potassium 4.2, Chloride 101, Carbon Dioxide 26.0, Anion Gap 8, BUN 15, Creatinine 0.75, Estim Creat Clear Calc 74.04, Est GFR (MDRD) Af Amer 134, Est GFR (MDRD) Non-Af 111, BUN/Creatinine Ratio 20.1 H, Glucose 194 H, Calcium 9.0, Total Bilirubin 0.30, AST 7 L, ALT 11 L, Alkaline Phosphatase 107, Troponin I High Sens 6, Total Protein 6.8, Albumin 2.5 L, Globulin 4.3 H, Albumin/Globulin Ratio 0.6 L, Lipase 868 H 02/21/22 11:25: Urine Color Yellow, Urine Clarity Sl. Cloudy, Urine pH 5.0, Ur Specific [place] 1.020, Urine Protein 15 H, Urine Glucose (UA) 250 H, Urine Ketones Negative, Urine Occult Blood 50 H, Urine Nitrite Positive H, Urine Bilirubin Negative, Urine Urobilinogen Normal, Ur Leukocyte Esterase 100 H, Urine RBC 0-5 SEEN, Urine WBC 10-25 SEEN, Ur Squamous Epith Cells 0 SEEN, Urine Bacteria 2+, Urine Mucus 0 SEEN Assessment & Plan Assessment/Plan (1) Acute pancreatitis: PLAN: Plan 1. Mild pancreatitis with UTI ? We will make him n.p.o. and start him on gentle IV fluids ? If he has improvement in his abdominal pain tomorrow concerned on a low-fat diet ? Continue with as needed morphine ?UA consistent with UTI, culture pending. Received a dose of Rocephin in the ER, he is asymptomatic but given his cancer and chemotherapy will continue on Rocephin 2. Metastatic pancreatic cancer leading to associated diabetes ? Continue with his home insulin will place him on Accu-Cheks every 6 hours with sliding scale insulin ? Can sinew with his Eliquis as well as his Creon ? Continue with his Imodium 3. Anxiety/depression ? Continue with his Ativan and and citalopram ? Continue with olanzapine DVT: Eliquis Charges/Coding Visit Charges OBSV E&M: 11623 Initial observation care L2
[2022-02-21 13:30] VITALS: BP 104/69; PULSE 86; RESP 16; TEMP 36.6; O2SAT 98
[2022-02-21] MEDS: 0.9% Normal Saline 1,000 ML 100 ML IV ×2 (13:38→22:19)
[2022-02-21 13:51] LABS: Bedside Glucose 115 mg/dL (74-106)
[2022-02-21] MEDS: Creon 24,000 unit DR Capsule 2 CAP PO (17:05)
[2022-02-21 17:10] LABS: Bedside Glucose 110 mg/dL (74-106)
[2022-02-21] MEDS: APIXABAN 5 MG TABLET PO (22:18)
[2022-02-21] MEDS: Magnesium Chloride 64 MG Delay Rel.Tablet 128 MG PO (22:18)
[2022-02-21] MEDS: OLANZapine 10 MG Tablet PO (22:18)
[2022-02-21 22:28] VITALS: BP 104/72; PULSE 72; RESP 16; TEMP 37.1; O2SAT 97
[2022-02-21 23:16] LABS: Bedside Glucose 99 mg/dL (74-106)
[2022-02-22 03:29] VITALS: BP 100/68; PULSE 67; RESP 16; TEMP 36.9; O2SAT 97
[2022-02-22 05:21] LABS: Bedside Glucose 90 mg/dL (74-106)
[2022-02-22 05:26] LABS: Absolute Lymphocyte Count 1.78 X10^3/uL (0.83-4.51); Absolute Neutrophil Count 6.5 X10^3/uL (2.0-7.7); Basophil# 0.04 X10^3/uL; Basophil% 0.4 % (0-1); Eosinophil# 0.31 X10^3/uL; Eosinophils% 3.3 % (0-5); Hematocrit 29.3 % (40-54); Hemoglobin 9.1 g/dL (13.0-16.5); Lymphocyte # 1.78 X10^3/ul (0.83-4.51); Lymphocyte % 18.8 % (19-41); Mean Corp Hgb Conc 31.1 g/dL (32-36); Mean Corpuscular Hgb 26.9 pg (27.0-32.0); Mean Corpuscular Volume 86.7 fL (80-94); Mean Platelet Vol. 9.7 fl (6.2-12.0); Monocyte# 0.74 X10^3/uL; Monocyte% 7.8 % (0-10); NRBC Flagged by Analyzer 0 % (0-5); Neutrophil # 6.53 X10^3/uL (2.7-7.7); Neutrophil % 68.8 % (47-70); Platelet Count 340 K/mm3 (150-450); RBC Distribution Width CV 15.7 % (11.6-14.6); RBC Distribution Width SD 49.7 fl (35.1-43.9); Red Blood Count 3.38 M/mm3 (4.6-6.2); White Blood Count 9.5 K/mm3 (4.4-11.0)
[2022-02-22 05:54] LABS: Anion Gap 8 (5-15); BUN 10 mg/dL (7-18); BUN/Creat Ratio 17.7 RATIO (10-20); Chloride 108 mmol/L (98-107); Creatinine, Serum 0.56 mg/dL (0.70-1.30); EST Glomerular Filtration Rate 153 mL/min (>60); Est Glom Filt Rate - Afr Amer 185 mL/min (>60); Estimated Creatinine Clearance 73.54 ml/min; Glucose 90 mg/dL (74-106); Sodium Level 139 mmol/L (136-145)
[2022-02-22] MEDS: 0.9% Normal Saline 1,000 ML 100 ML IV (07:26)
--- NOTE | 2022-02-22 08:09 | ONC.CONSULT ---
Assessment & Plan Assessment/Plan (1) Acute pancreatitis: Status: Acute Code(s): K85.90 - Acute pancreatitis without necrosis or infection, unspecified (2) Pancreatic cancer: Status: Acute Code(s): C25.9 - Malignant neoplasm of pancreas, unspecified Plan: Impression: --Metastatic pancreas cancer radiographically responding to frontline chemotherapy. -Recent increase in CA 19-9 despite radiographic response. -Radiographic findings of acute pancreatitis corroborated increase in lipase and postprandial pain. -Has metal stent. Plan: -Continue NPO. -IV hydration. -MRCP. -Consider GI consultation based on results of MRCP. -Plans for subsequent chemotherapy pending outcome of above. HPI Consult Data Date of Service:: 02/22/22 PCP / Referring Provider: Dr. Linette Soares DO Attending: Dr. Eben Verdin MD Chief Complaint Chief Complaint: Pancreatitis History of Present Illness History of Present Illness: Oncologic problem(s): 1) Metastatic pancreas cancer. ? HPI: The patient is a 66-year-old male with a past medical history significant for ? Patient developed weight loss totaling about 20 pounds and then developed painless jaundice. Chemistry panel on 07/04/2021 revealed total bilirubin of 8.5 mg/dL. AST and ALT were 458 and 1085 respectively. Alkaline phosphatase was 756 units/L. Amylase was elevated at 148 units/L and the lipase was 2491 units/L. ? CT abdomen pelvis 07/05/2021. The study was compared to a CT dated 04/20/2020. There was evidence of dilated intrahepatic biliary ducts both the right and left lobes of liver. Patient was status post cholecystectomy. Spleen appeared normal. There was a 3.4 x 3.3 x 5.7 cm complex solid and cystic mass in the head and uncinate process of the pancreas. Mild pancreatic ductal dilation was observed. There was also dilation of the common bile duct with a transverse dimension of 1.7 cm. Other findings included a 1.4 cm cyst in the mid aspect of the right kidney. There was a stable 6 mm nonobstructive calculus in the lower pole of the right kidney. Tiny stable cysts were noted in the left kidney. There was a moderate size hiatal hernia. Diffuse atherosclerotic calcification of the abdominal aorta was observed. There was no aneurysm. There were borderline retroperitoneal lymph nodes with enlarged nodes measuring no more than 10 mm in short axis diameter. Prostate was noted to be enlarged measuring 5.3 x 6 cm. Degenerative changes of the visualized lumbar spine were observed. There was a stable 1.2 cm sclerotic focus along the superior posterior aspect of the L4 vertebrae. ? Patient underwent ERCP on 07/12/2021. The minor papilla was not observed. The major papilla was normal. Wire was passed into the biliary tree. Bile duct was then deeply cannulated over a guidewire. Brisk flow of contrast was noted through the ducts. Image quality was excellent. Contrast extended into the hepatic ducts. The common bile duct common hepatic duct and right and left intrahepatic branches but not the right or left hepatic ducts were markedly dilated. Largest measured 18 mm. The middle third of the main bile duct was obstructed by extrinsic compression. Upper third of the main bile duct contained a single segmental stenosis 5 mm in length. Biliary sphincterotomy extended to a total 4 mm length with a monofilament sphincterotome severe bleeding continued for 5 minutes. The biliary tree was swept with a 15 mm balloon starting at the upper third of the main bile duct. Clots were swept from the duct. Debris was swept from the duct. Mucus was swept from the duct sludge was swept from the duct dilation lower third of the main bile duct with a 6-7-8 millimeters balloon was achieved. Lower third of the main bile duct was biopsied with cold forceps for histology. 110 mm x 6 cm covered metal stent was placed 6 cm into the common bile duct. Bile flow was observed through the stent. The impression was a single segmental biliary stricture found at the upper third of the main bile duct. Biliary sphincterotomy was performed. ? Pathology was non-diagnostic. ? 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 He denies nausea. Says he has been eating fairly well. Upper abdominal pain fairly well controlled with Tylenol and codeine prescribed by his PCP. Denies indigestion. endorses that jaundice overall appears better. Bowels have been moving on a somewhat regular basis but he had developed constipation due to pain medication. He is taking senna for this and it helps. ? Presents for ongoing oncologic management. ? Interim history: He underwent EGD/EUS with FNA of the pancreatic head mass on 07/19/2021. ? Pathology: -PANCREAS FINE NEEDLE ASPIRATION??- PANCREATIC HEAD MASS ?Positive for malignant cells. ?-Adenocarcinoma. ?-See comment. ? ? Repeat CT scan on 08/02/2021. Enlarging pancreatic head mass. Evidence of malignant upper abdominal adenopathy and liver metastases. ? Previous therapy: 1) FOLFIRINOX x9 cycles. ? Current therapy: 1) FOLFIRI. Recent CT A/P 02/17/2022: IMPRESSION: 1. ?There is new fat stranding and trace fluid adjacent to the pancreas which may be due to pancreatitis. ?Correlation with amylase and lipase levels is recommended. 2. ?Previously described 5 mm hypodense lesion in the inferior right lobe of the liver is not visualized on the current study. ?Other subcentimeter low-density lesions in the liver have not appreciably changed in size. 3. ?Heterogeneous appearance of the pancreatic head consistent with patient's history of a pancreatic mass. ?There is dilatation of the main pancreatic duct with cut off at the level of the pancreatic head. Yesterday, he was complaining of postprandial pain without nausea. Appetite has been poor. Weight has been declining. Lipase moderately elevated. This morning he offers no complaints. Still has some abdominal tenderness with palpation but no pain at rest. No nausea. Advanced Directives Power of Stretch Box Tender: Yes Living Will: Yes [facility] Medical History (Updated 02/21/22 @ 17:32 by Eben Bhatt, [facility]) Arthritis BPH w urinary obs/LUTS Calculus of kidney and ureter Cardiology follow-up encounter Diabetes Diabetes mellitus Dietary restriction DVT (deep venous thrombosis) High cholesterol History of echocardiogram History of Holter monitoring History of stress test Hypertension Hypertension Inguinal hernia, incarcerated Jaundice Left inguinal hernia Liver failure Non-smoker Nonrheumatic mitral (valve) insufficiency Pancreatic cancer Recurrent right inguinal hernia Superficial thrombophlebitis of right leg Ventricular premature depolarization Ventricular tachycardia, non-sustained Wears partial dentures Home Medications lorazepam 0.5 mg tablet 0.5 mg PO BID PRN Anxiety 09/05/21 [History Last Taken 02/20/22] olanzapine 10 mg tablet 10 mg PO QHS 09/05/21 [History Last Taken 09/04/21] apixaban 5 mg tablet 5 mg PO BID blood thinner 02/21/22 [History Last Taken 02/21/22] cholecalciferol (vitamin D3) 25 mcg (1,000 unit) chewable tablet 25 mcg PO DAILY supplement 02/21/22 [History Last Taken 02/21/22] citalopram 20 mg tablet 20 mg PO DAILY depression 02/21/22 [History Last Taken 02/21/22] insulin detemir U-100 100 unit/mL subcutaneous solution 0 unit subcut BID dm 02/21/22 [History Last Taken Unknown] lidocaine-prilocaine 2.5 %-2.5 % topical cream 1 applic topical PRN PRN port access 02/21/22 [History Last Taken Unknown] jtzyaz-cwpceizo-dgsecww 24,000-76,000-120,000 unit capsule,delayed rel (Creon) 1 cap PO TID supplement 02/21/22 [History Last Taken 02/21/22] loperamide 2 mg capsule 2 mg PO Q4H PRN Diarrhea 02/21/22 [History Last Taken Unknown] loratadine 10 mg capsule 10 mg PO DAILY PRN Allergy Symptoms 02/21/22 [History Last Taken 02/20/22] magnesium oxide 400 mg PO BID supplement 02/21/22 [History Last Taken 02/21/22] megestrol 400 mg/10 mL (40 mg/mL) oral suspension 800 mg PO DAILY increase apatite 02/21/22 [History Last Taken 02/20/22] nystatin 100,000 unit/mL oral suspension 500,000 unit PO DAILY thrush 02/21/22 [History Last Taken Unknown] ondansetron 8 mg disintegrating tablet 8 mg PO Q8H PRN Nausea 02/21/22 [History Last Taken 02/14/22] Allergy/AdvReac Type Severity Reaction Status Date / Time oxycodone [From Percocet] Allergy Severe unknown Verified 02/21/22 09:30 hydrocodone bitartrate AdvReac Other Verified 02/21/22 09:30 [From Vicodin] Family History (Reviewed 01/12/22 @ 11:11 by Cassidy Sabillon ALL AROUND PATTERNMAKER, ALL AROUND PATTERNMAKER-C) Father , Age 73 Heart disease Myocardial infarction CAD (coronary artery disease) Mother Hypertension Cancer Skin cancer CVA (cerebral vascular accident) Surgical History (Updated 02/21/22 @ 17:32 by Eben Bhatt [facility]) History of back surgery History of colonoscopy History of open reduction and internal fixation (ORIF) procedure History of right hip replacement History of tonsillectomy Hx of cholecystectomy (02/09/17) Hx of lithotripsy Social History (Updated 09/05/21 @ 17:[address] 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 EYES: Sclerae are anicteric bilaterally. LYMPHATIC: There is no palpable cervical or supraclavicular adenopathy. RESPIRATORY: Inspiratory breath sounds are of normal intensity in all fall. CARDIOVASCULAR: Rhythm is regular. ABDOMEN: The abdomen is nondistended. There remains only mild tenderness in the upper abdomen. There is fullness. Extremities: No swelling or edema. SKIN: No jaundice or rash. No petechiae. NEUROLOGIC: oxygen equipment aide II-XII are grossly intact. No focal motor weakness Vital Signs Temperature 98.4 F 02/22/22 03:29 Temperature Source Oral 02/22/22 03:29 Pulse Rate 67 02/22/22 03:29 Respiratory Rate 16 02/22/22 03:29 Respiratory Effort Non-Labored 02/22/22 00:00 Respiratory Depth Normal 02/21/22 12:53 Respiratory Pattern Normal 02/21/22 12:53 Blood Pressure 100/68 02/22/22 03:29 Blood Pressure Mean 78 02/22/22 03:29 Blood Pressure Source Monitor 02/22/22 03:29 Blood Pressure Position Semi-Fowlers 02/21/22 13:30 Blood Pressure Location Right Arm 02/21/22 13:30 Pulse Ox 97 02/22/22 03:29 Oxygen Delivery Method Room Air 02/22/22 03:29 Laboratory Results - last 24 hr 02/21/22 10:10: WBC 10.0, RBC 3.37 L, Hgb 9.1 L, Hct 29.6 L, MCV 87.8, MCH 27.0, MCHC 30.7 L, RDW Std Deviation 49.9 H, RDW Coeff of Carlos A 15.7 H, Plt Count 345, MPV 9.5, Immature Gran % (Auto) 2.700 H, Neut % (Auto) 70.7 H, Lymph % (Auto) 13.7 L, [place] % (Auto) 8.8, Eos % (Auto) 3.7, Baso % (Auto) 0.4, Absolute Neuts (auto) 7.1, Absolute Lymphs (auto) 1.37, Nucleated RBC % 0 02/21/22 10:10: Sodium 135 L, Potassium 4.2, Chloride 101, Carbon Dioxide 26.0, Anion Gap 8, BUN 15, Creatinine 0.75, Estim Creat Clear Calc 74.04, Est GFR (MDRD) Af Amer 134, Est GFR (MDRD) Non-Af 111, BUN/Creatinine Ratio 20.1 H, Glucose 194 H, Calcium 9.0, Total Bilirubin 0.30, AST 7 L, ALT 11 L, Alkaline Phosphatase 107, Troponin I High Sens 6, Total Protein 6.8, Albumin 2.5 L, Globulin 4.3 H, Albumin/Globulin Ratio 0.6 L, Lipase 868 H 02/21/22 11:25: Urine Color Yellow, Urine Clarity Sl. Cloudy, Urine pH 5.0, Ur Specific [place] 1.020, Urine Protein 15 H, Urine Glucose (UA) 250 H, Urine Ketones Negative, Urine Occult Blood 50 H, Urine Nitrite Positive H, Urine Bilirubin Negative, Urine Urobilinogen Normal, Ur Leukocyte Esterase 100 H, Urine RBC 0-5 SEEN, Urine WBC 10-25 SEEN, Ur Squamous Epith Cells 0 SEEN, Urine Bacteria 2+, Urine Mucus 0 SEEN 02/21/22 13:43: POC Glucose 115 H 02/21/22 17:03: POC Glucose 110 H 02/21/22 23:12: POC Glucose 99 02/22/22 05:08: WBC 9.5, RBC 3.38 L, Hgb 9.1 L, Hct 29.3 L, MCV 86.7, MCH 26.9 L, MCHC 31.1 L, RDW Std Deviation 49.7 H, RDW Coeff of Carlos A 15.7 H, Plt Count 340, MPV 9.7, Immature Gran % (Auto) 0.900, Neut % (Auto) 68.8, Lymph % (Auto) 18.8 L, [place] % (Auto) 7.8, Eos % (Auto) 3.3, Baso % (Auto) 0.4, Absolute Neuts (auto) 6.5, Absolute Lymphs (auto) 1.78, Nucleated RBC % 0 02/22/22 05:08: Sodium 139, Potassium 4.0, Chloride 108 H, Carbon Dioxide 23.0, Anion Gap 8, BUN 10, Creatinine 0.56 L, Estim Creat Clear Calc 73.54, Est GFR (MDRD) Af Amer 185, Est GFR (MDRD) Non-Af 153, BUN/Creatinine Ratio 17.7, Glucose 90, Calcium 9.0 02/22/22 05:16: POC Glucose 90
[2022-02-22] MEDS: Citalopram 20 MG Tablet PO (08:48)
[2022-02-22] MEDS: Cholecalciferol (VIT D3) 25 MCG TABLET (1,000 UNITS) PO (08:48)
[2022-02-22] MEDS: Creon 24,000 unit DR Capsule 2 CAP PO ×3 (08:49→18:06)
[2022-02-22] MEDS: APIXABAN 5 MG TABLET PO ×2 (08:49→22:01)
[2022-02-22] MEDS: Magnesium Chloride 64 MG Delay Rel.Tablet 128 MG PO ×2 (08:49→22:00)
--- NOTE | 2022-02-22 09:24 | MRI_ITS ---
INDICATION: Pancreatic mass EXAMINATION: MRI - MR MRCP W/O Contrast TECHNIQUE: Multiplanar and multisequence MR images of the abdomen were obtained with MRCP sequence. Three-dimensional post-processing reconstructions were performed. IV Contrast Dosage and Agent: None. COMPARISON: CT abdomen pelvis 09/07/2021 FINDINGS: Evaluation limited due to motion. LIVER: Hyperintense fluid signal hepatic lesions measuring up to 2.1 cm. Normal morphology. GALLBLADDER AND BILIARY TREE: Left hepatic lobe pneumobilia and CBD stent again noted. Debris and gas in the CBD stent. Small retroperitoneal fluid. PANCREAS: Severely dilated pancreatic duct from the neck through the tail. Infiltration into the mesentery arising from the pancreatic tail measuring approximately 5.5 x 3.4 cm. SPLEEN: Enlarged measuring 13.2 cm. ADRENAL GLANDS: No nodules. KIDNEYS: Normal renal size and position. No hydronephrosis. Cystic changes in the kidneys.. LYMPH NODES: No enlarged periportal or retroperitoneal lymph nodes. PERITONEUM: No ascites or fluid collection. VESSELS: Aorta is non-dilated. LOWER CHEST: No pleural effusion. MRI/MRCP Abdomen without Contrast IMPRESSION: 1. Evaluation limited due to motion. 2. Severe pancreatic ductal dilatation with 5.5 cm peripancreatic infiltration extending into the adjacent mesentery, differential includes infiltrating malignancy versus focal pancreatitis. 3. CBD stent and pneumobilia, similar compared to the prior. 4. Cystic changes in the liver and kidneys. 5. Splenomegaly. Electronically Signed: Rodolfo Antoine MD at 0:26 EDT ,
--- NOTE | 2022-02-22 09:25 | PN.HOSP_ITS ---
Subjective Subjective Denies any abdominal pain. No issues overnight, Objective Data Objective Data Vital Signs: Vital Signs Temp Pulse Resp BP Pulse Ox 98.4 F 67 16 100/68 97 02/22/22 03:29 02/22/22 03:29 02/22/22 03:29 02/22/22 03:29 02/22/22 03:29 Oxygen Delivery Method Room Air Weight: 159 lb 14.385 oz Body Mass Index (BMI) 21.7 Intake & Output: Intake and Output for Last 24 Hours 02/21/22 02/22/22 02/23/22 03:59 03:59 03:59 Intake Total / 911.67 / 911.67 Balance / 911.67 / 911.67 Medical Nutrition Assessment Dietitian: Malnutrition Criteria Met Start: 02/21/22 15:34 Freq: Status: Active Protocol: Document 02/21/22 15:34 AG (Rec: 02/21/22 15:34 [id number]) Nutrition Malnutrition Evidence of Malnutrition Exists Yes Malnutrition (severe): Chronic Evidenced By Suboptimal Energy Intake ( Severe),Weight Loss (Severe) Clinical Problem Chronic Disease or Condition Related Malnutrition Etiology severe, chronic malnutrition r /t inadequate energy intake w/ increased energy needs d/t pancreatic cancer Signs/Symptoms as evidenced by unintentional wt loss of 40.1#/20% x 7 months, estimated PO intake meeting <75% of estimated energy needs >3 months Status Active Problem Recommendation Dietitian Recommendations/Changes recommend regular/fat restricted diet as tolerated; ensure clear 120mL 4x/day w/ medpass when PO diet is advanced Lab / Micro Data Result Diagrams: 02/22/22 05:08 02/22/22 05:08 Labs: Laboratory Results - last 24 hr 02/21/22 10:10: WBC 10.0, RBC 3.37 L, Hgb 9.1 L, Hct 29.6 L, MCV 87.8, MCH 27.0, MCHC 30.7 L, RDW Std Deviation 49.9 H, RDW Coeff of Carlos A 15.7 H, Plt Count 345, MPV 9.5, Immature Gran % (Auto) 2.700 H, Neut % (Auto) 70.7 H, Lymph % (Auto) 13.7 L, [place] % (Auto) 8.8, Eos % (Auto) 3.7, Baso % (Auto) 0.4, Absolute Neuts (auto) 7.1, Absolute Lymphs (auto) 1.37, Nucleated RBC % 0 02/21/22 10:10: Sodium 135 L, Potassium 4.2, Chloride 101, Carbon Dioxide 26.0, Anion Gap 8, BUN 15, Creatinine 0.75, Estim Creat Clear Calc 74.04, Est GFR (MDRD) Af Amer 134, Est GFR (MDRD) Non-Af 111, BUN/Creatinine Ratio 20.1 H, Glucose 194 H, Calcium 9.0, Total Bilirubin 0.30, AST 7 L, ALT 11 L, Alkaline Ph osphatase 107, Troponin I High Sens 6, Total Protein 6.8, Albumin 2.5 L, Globulin 4.3 H, Albumin/Globulin Ratio 0.6 L, Lipase 868 H 02/21/22 11:25: Urine Color Yellow, Urine Clarity Sl. Cloudy, Urine pH 5.0, Ur Specific [place] 1.020, Urine Protein 15 H, Urine Glucose (UA) 250 H, Urine Ketones Negative, Urine Occult Blood 50 H, Urine Nitrite Positive H, Urine Bilirubin Negative, Urine Urobilinogen Normal, Ur Leukocyte Esterase 100 H, Urine RBC 0-5 SEEN, Urine WBC 10-25 SEEN, Ur Squamous Epith Cells 0 SEEN, Urine Bacteria 2+, Urine Mucus 0 SEEN 02/21/22 13:43: POC Glucose 115 H 02/21/22 17:03: POC Glucose 110 H 02/21/22 23:12: POC Glucose 99 02/22/22 05:08: WBC 9.5, RBC 3.38 L, Hgb 9.1 L, Hct 29.3 L, MCV 86.7, MCH 26.9 L , MCHC 31.1 L, RDW Std Deviation 49.7 H, RDW Coeff of Carlos A 15.7 H, Plt Count 340, MPV 9.7, Immature Gran % (Auto) 0.900, Neut % (Auto) 68.8, Lymph % (Auto) 18.8 L , [place] % (Auto) 7.8, Eos % (Auto) 3.3, Baso % (Auto) 0.4, Absolute Neuts (auto) 6.5, Absolute Lymphs (auto) 1.78, Nucleated RBC % 0 02/22/22 05:08: Sodium 139, Potassium 4.0, Chloride 108 H, Carbon Dioxide 23.0, Anion Gap 8, BUN 10, Creatinine 0.56 L, Estim Creat Clear Calc 73.54, Est GFR (MDRD) Af Amer 185, Est GFR (MDRD) Non-Af 153, BUN/Creatinine Ratio 17.7, Glucose 90, Calcium 9.0 02/22/22 05:16: POC Glucose 90 Physical Exam Const alert, oriented x3 and no apparent distress General Appearance: cooperative HEENT normocephalic and moist oral mucous membranes Eyes PERRL, EOMs intact bilaterally and conjunctivae normal Neck supple and no JVD Resp normal respiratory effort, no retractions, no use of accessory muscles and clear to auscultation bilaterally Auscultation: Negative for crackles, rales, rhonchi or wheezes Cardio regular rate, regular rhythm, S1 normal heart sound, S2 normal heart sound and no murmurs GI soft to palpation, non-tender and non-distended; Negative for hepatosplenomegaly Extremity no clubbing, cyanosis or edema Skin no rashes or lesions noted Neuro no focal motor deficits and no sensory deficits noted Psych affect normal Appearance: appropriate Assessment & Plan Assessment/Plan (1) Acute pancreatitis: PLAN: Plan 1. Mild pancreatitis with UTI ? We will make him n.p.o. and start him on gentle IV fluids ? We will obtain an MRCP today to better delineate the head of his pancreas as well as his liver and also location of his biliary stent. If necessary can consult GI ? Depending on the findings of the MRCP can potentially start him on a diet a fterwards ? Continue with as needed morphine ?UA consistent with UTI, culture pending. Received a dose of Rocephin in the ER, he is asymptomatic but given his cancer and chemotherapy will continue on Rocephin 2. Metastatic pancreatic cancer leading to associated diabetes ? Continue with his home insulin will place him on Accu-Cheks every 6 hours with sliding scale insulin ? Continue with his Eliquis as well as his Creon ? Continue with his Imodium 3. Anxiety/depression ? Continue with his Ativan and and citalopram ? Continue with olanzapine DVT: Eliquis Charges/Coding Visit Charges OBSV E&M: 12099 Subsequent observation care L2
[2022-02-22 09:29] VITALS: BP 95/60; PULSE 69; RESP 16; TEMP 36.7; O2SAT 94
[2022-02-22] MEDS: Ceftriaxone 1 GM/50 ML BAG IV (09:44)
[2022-02-22 11:06] LABS: Bedside Glucose 76 mg/dL (74-106)
[2022-02-22] MEDS: 0.9% Saline Lock 10 ML Syringe IV (12:58)
--- NOTE | 2022-02-22 13:59 | CHAPLAIN ---
Type of Pastoral Visit ___ Initial Visit _x__ Follow-up Visit ___ On-call Visit ___ General Patient Visit ___ Spiritual Assessment ___ Family Conference ___ Bereavement ___ Rapid Response ___ Code Blue ___ Other (describe below) Pastoral Care Referral From _x__ Patient ___ Family ___ Nurse ___ Physician ___ Back Grinder ___ Stage Manager ___ Other (describe below) Sacrament/Intervention _x__ Active listening ___ Anointing ___ Druze ___ Bereavement ___ Communion ___ Sun exploration ___ ___ Life review _x__ Prayer ___ Reconciliation ___ Sacrament of Sick _x__ Supportive presence ___ Wedding ___ Other (describe below) Pastoral Comments patient had another guest with him visiting at this time; pt states he had an MRI and waiting the results to see what that shows; pt says he is feeling just a bit better today; spouse was having lunch break at this time but is available to pt;
[2022-02-22 15:36] LABS: Bedside Glucose 67 mg/dL (74-106)
[2022-02-22 15:45] VITALS: BP 102/65; PULSE 74; RESP 15; TEMP 36.5; O2SAT 96
[2022-02-22] MEDS: Dextrose 5%/0.9% NaCl 1,000 ML 100 ML IV (15:55)
[2022-02-22 18:15] LABS: Bedside Glucose 100 mg/dL (74-106)
[2022-02-22 21:50] VITALS: BP 109/69; PULSE 72; RESP 16; TEMP 37.2; O2SAT 96
[2022-02-22] MEDS: OLANZapine 10 MG Tablet PO (22:01)
[2022-02-23 01:15] LABS: Bedside Glucose 208 mg/dL (74-106)
[2022-02-23] MEDS: Insulin Lispro 100 UNIT/ML INSULN.PEN SC ×4 (01:18→18:02)
[2022-02-23] MEDS: Dextrose 5%/0.9% NaCl 1,000 ML 100 ML IV (01:34)
[2022-02-23 04:35] VITALS: BP 97/62; PULSE 71; RESP 16; TEMP 37.4; O2SAT 95
[2022-02-23 05:31] LABS: Absolute Lymphocyte Count 1.25 X10^3/uL (0.83-4.51); Absolute Neutrophil Count 6.8 X10^3/uL (2.0-7.7); Basophil# 0.04 X10^3/uL; Basophil% 0.4 % (0-1); Eosinophil# 0.22 X10^3/uL; Eosinophils% 2.4 % (0-5); Hematocrit 27.5 % (40-54); Hemoglobin 8.6 g/dL (13.0-16.5); Lymphocyte # 1.25 X10^3/ul (0.83-4.51); Lymphocyte % 13.7 % (19-41); Mean Corp Hgb Conc 31.3 g/dL (32-36); Mean Corpuscular Volume 86.5 fL (80-94); Mean Platelet Vol. 9.8 fl (6.2-12.0); Monocyte# 0.71 X10^3/uL; Monocyte% 7.8 % (0-10); NRBC Flagged by Analyzer 0 % (0-5); Neutrophil # 6.79 X10^3/uL (2.7-7.7); Neutrophil % 74.6 % (47-70); Platelet Count 379 K/mm3 (150-450); RBC Distribution Width CV 15.8 % (11.6-14.6); Red Blood Count 3.18 M/mm3 (4.6-6.2); White Blood Count 9.1 K/mm3 (4.4-11.0)
[2022-02-23 06:00] LABS: Anion Gap 8 (5-15); BUN 10 mg/dL (7-18); BUN/Creat Ratio 14.9 RATIO (10-20); Calcium,Total 8.6 mg/dL (8.5-10.1); Chloride 105 mmol/L (98-107); Creatinine, Serum 0.67 mg/dL (0.70-1.30); EST Glomerular Filtration Rate 125 mL/min (>60); Est Glom Filt Rate - Afr Amer 152 mL/min (>60); Estimated Creatinine Clearance 73.54 ml/min; Glucose 197 mg/dL (74-106); Potassium 3.6 mmol/L (3.5-5.1); Sodium Level 136 mmol/L (136-145)
[2022-02-23 06:51] LABS: Bedside Glucose 189 mg/dL (74-106)
[2022-02-23] MEDS: Creon 24,000 unit DR Capsule 2 CAP PO ×3 (09:07→18:01)
[2022-02-23 09:55] VITALS: BP 95/60; PULSE 68; RESP 16; TEMP 36.7; O2SAT 95
[2022-02-23] MEDS: Cholecalciferol (VIT D3) 25 MCG TABLET (1,000 UNITS) PO (10:04)
[2022-02-23] MEDS: Ceftriaxone 1 GM/50 ML BAG IV (10:04)
[2022-02-23] MEDS: APIXABAN 5 MG TABLET PO (10:05)
[2022-02-23] MEDS: Magnesium Chloride 64 MG Delay Rel.Tablet 128 MG PO (10:05)
[2022-02-23] MEDS: Citalopram 20 MG Tablet PO (10:05)
[2022-02-23 11:56] LABS: Bedside Glucose 208 mg/dL (74-106)
--- NOTE | 2022-02-23 12:34 | CASEMGMT ---
According to [employer]'s website, the following tertiary facilities are in network: [facility], [place], [facility], [facility], [facility], [facility] and . Hospitalist notified.
[2022-02-23] MEDS: 0.9% Normal Saline 1,000 ML 75 ML IV (14:55)
[2022-02-23 14:57] VITALS: BP 108/69; PULSE 73; RESP 18; TEMP 37.2; O2SAT 93
--- NOTE | 2022-02-23 16:15 | CASEMGMT ---
RN CM in to discuss HURLEY form with patient. RN CM explained HURLEY form, patient voiced understanding. Pt signed form and filed in chart. Pt provided with a copy of signed HURLEY form. Patient had no further questions or concerns at this time. Pt at bedside.
[2022-02-23 16:25] LABS: Bedside Glucose 183 mg/dL (74-106)
--- NOTE | 2022-02-23 17:36 | DCINST_ITS ---
Discharge Instructions Diet Discharge Diet: No restrictions Activity Discharge Activity: Return to Normal Activity Weight Bearing Status: Full weight bearing Follow Up Care Test Results: Test results from this visit will be discussed in further detail at your follow- up appointment, if applicable. Discharge Plan Admission Admit Date/Time: 02/21/22 13:00 Primary Reason for Your Visit: pancreatitis Attending Provider: Norbert Johnson Primary Care Provider: Linette Soares Consulting Providers: Eben Verdin Discharge Orders/Prescriptions Prescriptions: New cephalexin 500 mg capsule 500 mg PO TID Qty: 16 0RF acetaminophen-codeine 300-30 mg tablet 1 tab PO Q4H PRN (Reason: pain) Qty: 40 0RF Rx Instructions: one or two every four hours as needed for pain Continued olanzapine 10 mg tablet 10 mg PO QHS Label Comments: TAKE 1 TABLET BY MOUTH ONCE DAILY AT BEDTIME lorazepam 0.5 mg Tablet 0.5 mg PO BID PRN (Reason: Anxiety) megestrol 400 mg/10 mL (40 mg/mL) Suspension 800 mg PO DAILY nystatin 100,000 unit/mL Suspension 500,000 unit PO DAILY Rx Instructions: administer 1/2 of dose in each side of the mouth loperamide 2 mg Capsule 2 mg PO Q4H PRN (Reason: Diarrhea) Rx Instructions: administer after each loose stool until symptoms controlled; do not exceed 8 mg per 24 hrs ondansetron 8 mg Tablet,Disintegrating 8 mg PO Q8H PRN (Reason: Nausea) lidocaine-prilocaine 2.5-2.5 % Cream 1 applic topical PRN PRN (Reason: port access) citalopram 20 mg Tablet 20 mg PO DAILY insulin detemir U-100 100 unit/mL Solution 0 unit SUBCUT BID Rx Instructions: sliding scale, ppt txt dr daily to fine out how much insulin to give Creon 24,000-76,000 -120,000 unit Capsule,Delayed Release(Dr/Ec) 1 cap PO TID Rx Instructions: administer with meals and/or snacks cholecalciferol (vitamin D3) 25 mcg (1,000 unit) Tablet,Chewable 25 mcg PO DAILY loratadine 10 mg Capsule 10 mg PO DAILY PRN (Reason: Allergy Symptoms) magnesium oxide 400 mg magnesium Capsule 400 mg PO BID apixaban 5 mg Tablet 5 mg PO BID Referrals / Follow Up: Linette Soares, [Primary Care Provider] - See Referral Note (at next scheduled appointment) Noelle Maravilla MD [STAFF PHYSICIAN] - Within 1 Week (call for appointment if office does not contact you) Disposition Disposition (needs filled in before D/C Order can be placed): Home, Self Care
[2022-02-23 18:04] VITALS: BP 116/75; PULSE 71; RESP 18; TEMP 36.4; O2SAT 94
[2022-02-23] MEDS: 0.9% Saline Lock 10 ML Syringe IV (18:08)
--- NOTE | 2022-02-23 19:40 | PCM.DC.SUM ---
Providers Date of Admission: 02/21/22 Date of Discharge: 02/23/22 Primary Care Physician: Dr. Linette Soares, DO Consultations 02/23/22 09:01 Consult: Gastroenterology Routine Consulting Provider: [facility] Reason for Consult: pancreatic duct obstruction EMERGENT Consult: No MD Notified: Yes Date Notified: 02/23/22 Time Notified: 09:01 Method of Notification: Verbal Reason For Visit: PANCREATITIS, WEAKNESS, DEHYDRATION Diagnosis Discharge Diagnosis (1) Acute pancreatitis: Status: Acute Code(s): K85.90 - Acute pancreatitis without necrosis or infection, unspecified Plan 1. Acute pancreatitis #2 acute cystitis with E. coli #3 metastatic pancreatic cancer #4 chronic anxiety/depression #5 pancreatic ductal dilatation-exact etiology unclear #6 severe chronic protein and caloric malnutrition-as evidenced by unintentional weight loss of 40.1 pounds over 7 months, Ensure clear 4 times a day was administered with Cubiez, patient was seen by nutritional services Medications at Discharge Home Medications lorazepam 0.5 mg tablet 0.5 mg PO BID PRN Anxiety 09/05/21 olanzapine 10 mg tablet 10 mg PO QHS 09/05/21 apixaban 5 mg tablet 5 mg PO BID blood thinner 02/21/22 cholecalciferol (vitamin D3) 25 mcg (1,000 unit) chewable tablet 25 mcg PO DAILY supplement 02/21/22 citalopram 20 mg tablet 20 mg PO DAILY depression 02/21/22 insulin detemir U-100 100 unit/mL subcutaneous solution 0 unit subcut BID dm 02/21/22 lidocaine-prilocaine 2.5 %-2.5 % topical cream 1 applic topical PRN PRN port access 02/21/22 [id number] 24,000-76,000-120,000 unit capsule,delayed rel (Creon) 1 cap PO TID supplement 02/21/22 loperamide 2 mg capsule 2 mg PO Q4H PRN Diarrhea 02/21/22 loratadine 10 mg capsule 10 mg PO DAILY PRN Allergy Symptoms 02/21/22 magnesium oxide 400 mg PO BID supplement 02/21/22 megestrol 400 mg/10 mL (40 mg/mL) oral suspension 800 mg PO DAILY increase apatite 02/21/22 nystatin 100,000 unit/mL oral suspension 500,000 unit PO DAILY thrush 02/21/22 ondansetron 8 mg disintegrating tablet 8 mg PO Q8H PRN Nausea 02/21/22 acetaminophen 300 mg-codeine 30 mg tablet 1 tab PO Q4H PRN pain #40 tabs 02/23/22 cephalexin 500 mg capsule 500 mg PO TID #16 caps 02/23/22 Hospital Course Operations None Procedures None Summary of Care Provided Minutes Spent on Discharge: 30 Hospital Course: This 66-year-old white male was admitted through the emergency room at [facility] with a chief complaint of abdominal pain time was 2 weeks. Patient had an outpatient CT done at the [facility] which showed peripancreatic inflammation, labs were done in the emergency room which showed a lipase of 868, patient was mildly tender in the mid abdomen on examination. Patient was placed in observation status on MedSurg, he was given IV fluids and IV pain medications, he had an MRCP performed which showed dilation of the pancreatic duct. I talked informally with gastroenterology here who stated there was not equipment at this facility to cannulate the pancreatic duct, it was recommended the patient be transferred to another hospital for evaluation, I called 6 different hospitals and there were no beds available for the patient to be transferred. [facility] gastroenterology talked with me over the phone and told me that they would not recommend any cannulation of the pancreatic duct and they felt that the dilatation of the duct was probably caused by pancreatic cancer. Patient was given the opportunity to either be discharged home or be put on a waiting list to be admitted to one of the hospitals-after discussion with the patient and the patient's , the patient decided that he would be discharged home. On 02/23/2022, patient was seen and examined: On examination he appeared in good health and spirits. Vital signs as documented. Skin warm and dry and without overt rashes. Neck without JVD, neck was supple, trachea midline, thyroid was normal. Lungs clear bilaterally, normal air movement was noted. Heart exam notable for regular rhythm, normal sounds and absence of murmurs, rubs or gallops. Abdomen unremarkable and without evidence of organomegaly, masses, or abdominal aortic enlargement. Bowel sounds are present, abdomen is not distended. Extremities nonedematous, no cyanosis was noted, no clubbing was noted. Neuro: Cranial nerves II through XII are grossly intact, no focal motor deficits were noted, sensation to light touch and pinprick intact, motor exam 5/5 throughout. Psych: Patient is alert and oriented x3, he does not appear anxious or depressed, he does not appear agitated. Patient was stable for discharge home on 02/23/2022. Weight / BMI Weight Weight: 72.529 kg Body Mass Index (BMI) 21.7 ABG / Lab / Microbiology Data Result Diagrams: 02/23/22 05:07 02/23/22 05:07 Laboratory: Laboratory Results - last 24 hr 02/23/22 01:06: POC Glucose 208 H 02/23/22 05:07: WBC 9.1, RBC 3.18 L, Hgb 8.6 L, Hct 27.5 L, MCV 86.5, MCH 27.0, MCHC 31.3 L, RDW Std Deviation 50.0 H, RDW Coeff of Carlos A 15.8 H, Plt Count 379, MPV 9.8, Immature Gran % (Auto) 1.100 H, Neut % (Auto) 74.6 H, Lymph % (Auto) 13.7 L, [place] % (Auto) 7.8, Eos % (Auto) 2.4, Baso % (Auto) 0.4, Absolute Neuts (auto) 6.8, Absolute Lymphs (auto) 1.25, Nucleated RBC % 0 02/23/22 05:07: Sodium 136, Potassium 3.6, Chloride 105, Carbon Dioxide 23.0, Anion Gap 8, BUN 10, Creatinine 0.67 L, Estim Creat Clear Calc 73.54, Est GFR (MDRD) Af Amer 152, Est GFR (MDRD) Non-Af 125, BUN/Creatinine Ratio 14.9, Glucose 197 H, Calcium 8.6 02/23/22 06:43: POC Glucose 189 H 02/23/22 11:46: POC Glucose 208 H 02/23/22 16:18: POC Glucose 183 H Microbiology: Microbiology 02/21/22 11:25 Urine, Clean Catch Urine Culture - Final Escherichia coli Radiography Diagnostic Testing: Radiology Impression MRCP 02/22/22 09:24 IMPRESSION: 1. Evaluation limited due to motion. 2. Severe pancreatic ductal dilatation with 5.5 cm peripancreatic infiltration extending into the adjacent mesentery, differential includes infiltrating malignancy versus focal pancreatitis. 3. CBD stent and pneumobilia, similar compared to the prior. 4. Cystic changes in the liver and kidneys. 5. Splenomegaly. Electronically Signed: Rodolfo Antoine MD at 0:26 EDT , D/C Instructions Discharge Diet: No restrictions Weight Bearing Status: Full weight bearing Meaningful Use Info Meaningful Use Diagnoses (Choose all that apply): None applicable Discharge Plan Admission Admit Date/Time: 02/21/22 13:00 Primary Reason for Your Visit: pancreatitis Attending Provider: Norbert Johnson Primary Care Provider: Linette Soares Consulting Providers: Eben Verdin Discharge Orders/Prescriptions Prescriptions: New cephalexin 500 mg capsule 500 mg PO TID Qty: 16 0RF acetaminophen-codeine 300-30 mg tablet 1 tab PO Q4H PRN (Reason: pain) Qty: 40 0RF Rx Instructions: one or two every four hours as needed for pain Continued olanzapine 10 mg tablet 10 mg PO QHS Label Comments: TAKE 1 TABLET BY MOUTH ONCE DAILY AT BEDTIME lorazepam 0.5 mg Tablet 0.5 mg PO BID PRN (Reason: Anxiety) megestrol 400 mg/10 mL (40 mg/mL) Suspension 800 mg PO DAILY nystatin 100,000 unit/mL Suspension 500,000 unit PO DAILY Rx Instructions: administer 1/2 of dose in each side of the mouth loperamide 2 mg Capsule 2 mg PO Q4H PRN (Reason: Diarrhea) Rx Instructions: administer after each loose stool until symptoms controlled; do not exceed 8 mg per 24 hrs ondansetron 8 mg Tablet,Disintegrating 8 mg PO Q8H PRN (Reason: Nausea) lidocaine-prilocaine 2.5-2.5 % Cream 1 applic topical PRN PRN (Reason: port access) citalopram 20 mg Tablet 20 mg PO DAILY insulin detemir U-100 100 unit/mL Solution 0 unit SUBCUT BID Rx Instructions: sliding scale, ppt txt dr daily to fine out how much insulin to give Creon 24,000-76,000 -120,000 unit Capsule,Delayed Release(Dr/Ec) 1 cap PO TID Rx Instructions: administer with meals and/or snacks cholecalciferol (vitamin D3) 25 mcg (1,000 unit) Tablet,Chewable 25 mcg PO DAILY loratadine 10 mg Capsule 10 mg PO DAILY PRN (Reason: Allergy Symptoms) magnesium oxide 400 mg magnesium Capsule 400 mg PO BID apixaban 5 mg Tablet 5 mg PO BID Referrals / Follow Up: Linette Soares DO [Primary Care Provider] - See Referral Note (at next scheduled appointment) Noelle Maravilla MD [STAFF PHYSICIAN] - Within 1 Week (call for appointment if office does not contact you) Disposition Disposition (needs filled in before D/C Order can be placed): Home, Self Care Charges/Coding Visit Charges OBSV E&M: 44052 Observation care discharge
== END 2022-02-23 18:45 | disposition home or self-care (01) ==
LOC: ED 12:23 → MS3 12:50
PROVIDERS: Admitting Provider Family Medicine; Emergency Provider Emergency Medicine; PCP Internal Medicine; Visit Provider Internal Medicine
DX: K85.90 Acute pancreatitis without necrosis or infection, unspecified (principal); C79.9 Secondary malignant neoplasm of unspecified site; C25.9 Malignant neoplasm of pancreas, unspecified; E43 Unspecified severe protein-calorie malnutrition; Z79.4 Long term (current) use of insulin; E08.9 Diabetes mellitus due to underlying condition without complications; N30.00 Acute cystitis without hematuria; Z79.899 Other long term (current) drug therapy; N40.1 Benign prostatic hyperplasia with lower urinary tract symptoms; N13.8 Other obstructive and reflux uropathy; I10 Essential (primary) hypertension; M19.90 Unspecified osteoarthritis, unspecified site; Z79.01 Long term (current) use of anticoagulants; F32.A Depression, unspecified; F41.9 Anxiety disorder, unspecified; B96.20 Unspecified Escherichia coli [E. coli] as the cause of diseases classified elsewhere; K86.89 Other specified diseases of pancreas; Z68.21 Body mass index [BMI] 21.0-21.9, adult
CPT/HCPCS: 36415; 36591; 74181; 80048; 80053; 81001; 82962; 83690; 84484; 85025; 87077; 87086; 87088; 87186; 93005; 96361; 96365; 96366; 96375; 97802; 99218; 99285; J7030; A4216; G0378

== ENCOUNTER 2022-02-28 13:08 | Emergency (ER) | payer MEDICARE, SELFPAY ==
[2022-02-28 13:09] VITALS: BP 128/88; PULSE 60; RESP 16; TEMP 36.6; O2SAT 99; BMI 21.9
[2022-02-28 13:14] VITALS: BP 131/76; PULSE 68; RESP 10; O2SAT 98
[2022-02-28] MEDS: 0.9% Normal Saline 1,000 ML 1000 ML IV ×2 (13:40→14:41)
--- NOTE | 2022-02-28 13:47 | EDS_ITS ---
HPI History of Present Illness Chief Complaint: Syncope Informant: patient and spouse/S.O. Narrative Narrative: 66-year-old male presents to the emergency room following a syncopal episode. He states that this occurred when he was getting out of bed this morning. He denies any chest pain or palpitations. He denies any sweating or being pale. He was admitted last week for pancreatitis and UTI. He is still on antibiotics. Patient states that he went to his primary care doctor's office and they did orthostatic vital signs which were normal and an EKG. He states that they wanted to give him some IV fluids but were unable to get an IV so they sent him to the emergency department for IV fluids. Patient has a history of metastatic pancreatic cancer is currently undergoing chemotherapy with [facility]. He states that he is urinating normally. He currently denies any injury from the fall. [facility] Medical History Arthritis BPH w urinary obs/LUTS Calculus of kidney and ureter Cardiology follow-up encounter Diabetes Diabetes mellitus Dietary restriction DVT (deep venous thrombosis) High cholesterol History of echocardiogram History of Holter monitoring History of stress test Hypertension Hypertension Inguinal hernia, incarcerated Jaundice Left inguinal hernia Liver failure Non-smoker Nonrheumatic mitral (valve) insufficiency Pancreatic cancer Recurrent right inguinal hernia Superficial thrombophlebitis of right leg Ventricular premature depolarization Ventricular tachycardia, non-sustained Wears partial dentures Home Medications lorazepam 0.5 mg tablet 0.5 mg PO BID PRN Anxiety 09/05/21 [History Last Taken 02/20/22] olanzapine 10 mg tablet 10 mg PO QHS 09/05/21 [History Last Taken 09/04/21] apixaban 5 mg tablet 5 mg PO BID blood thinner 02/21/22 [History Last Taken 02/21/22] cholecalciferol (vitamin D3) 25 mcg (1,000 unit) chewable tablet 25 mcg PO DAILY supplement 02/21/22 [History Last Taken 02/21/22] citalopram 20 mg tablet 20 mg PO DAILY depression 02/21/22 [History Last Taken 02/21/22] insulin detemir U-100 100 unit/mL subcutaneous solution 0 unit subcut BID dm 02/21/22 [History Last Taken Unknown] lidocaine-prilocaine 2.5 %-2.5 % topical cream 1 applic topical PRN PRN port access 02/21/22 [History Last Taken Unknown] fexdne-hmjhuuvy-bbhvqdo 24,000-76,000-120,000 unit capsule,delayed rel (Creon) 1 cap PO TID supplement 02/21/22 [History Last Taken 02/21/22] loperamide 2 mg capsule 2 mg PO Q4H PRN Diarrhea 02/21/22 [History Last Taken Unknown] loratadine 10 mg capsule 10 mg PO DAILY PRN Allergy Symptoms 02/21/22 [History Last Taken 02/20/22] magnesium oxide 400 mg PO BID supplement 02/21/22 [History Last Taken 02/21/22] megestrol 400 mg/10 mL (40 mg/mL) oral suspension 800 mg PO DAILY increase apatite 02/21/22 [History Last Taken 02/20/22] nystatin 100,000 unit/mL oral suspension 500,000 unit PO DAILY thrush 02/21/22 [ History Last Taken Unknown] ondansetron 8 mg disintegrating tablet 8 mg PO Q8H PRN Nausea 02/21/22 [History Last Taken 02/14/22] acetaminophen 300 mg-codeine 30 mg tablet 1 tab PO Q4H PRN pain #40 tabs 02/23/22 [Rx Last Taken Unknown] cephalexin 500 mg capsule 500 mg PO TID #16 caps 02/23/22 [Rx Last Taken Unknown] Allergy/AdvReac Type Severity Reaction Status Date / Time oxycodone [From Percocet] Allergy Severe unknown Verified 02/28/22 13:12 hydrocodone bitartrate AdvReac Other Verified 02/28/22 13:12 [From Vicodin] Family History Father , Age 73 Heart disease Myocardial infarction CAD (coronary artery disease) Mother Hypertension Cancer Skin cancer CVA (cerebral vascular accident) Surgical History History of back surgery History of colonoscopy History of open reduction and internal fixation (ORIF) procedure History of right hip replacement History of tonsillectomy Hx of cholecystectomy (02/09/17) Hx of lithotripsy Social History household members: spouse Smoking Status: Never smoker second hand exposure: No alcohol intake: never substance use type: does not use caffeine: Yes what type of physical activity do you participate in: 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: 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 ROS ROS ED Constitutional Constitutional ED: Denies chills or weight loss Eyes Eyes: Denies change in vision or diplopia ENT ENT ED: Denies ear pain, rhinorrhea or sore throat Cardiovascular Cardiovascular: Reports other Details: Syncope ; Denies chest pain, orthopnea, palpitations or racing heartbeat Respiratory/Chest Respiratory/Chest: Denies cough, dyspnea or orthopnea Gastrointestinal Gastrointestinal: Reports abdominal pain; Denies diarrhea, nausea or vomiting Genitourinary Genitourinary ED: Denies dysuria, hematuria or urinary frequency Musculoskeletal Musculoskeletal: Denies arthralgias or myalgias Integumentary Denies abscess or rash Neurologic Neurologic: Denies headache(s) or weakness Psychiatric Psychiatric: Denies anxiety, depression, suicidal ideation or suicidal thoughts Endocrine Endocrinology: Denies polydipsia, polyphagia or polyuria Allergic/Immunologic Allergic/Immunologic ED: Denies mouth swelling, tongue swelling or urticaria EXAM Physical Exam Const Vital Signs: 02/28/22 13:09 02/28/22 13:14 02/28/22 13:46 Temperature 97.9 F Temperature Source Temporal Pulse Rate 60 68 Respiratory Rate 16 10 L Respiratory Effort Normal Respiratory Pattern Normal Blood Pressure 128/88 H 131/76 H Blood Pressure Mean 101 94 Pulse Ox 99 98 Oxygen Delivery Method Room Air Room Air Positive well nourished and well developed General Appearance ED: well developed HEENT Reports normocephalic, head/scalp atraumatic and moist mucous membranes Eyes PERRL and EOMs intact bilaterally Neck no lymphadenopathy, supple and no JVD Resp normal respiratory effort and clear to auscultation bilaterally Cardio regular rate, regular rhythm and no murmurs GI normal to inspection, nondistended, normoactive bowel sounds and non-tender Palpation: soft Back/Spine no CVA tenderness and normal ROM Extremity normal to inspection General Extremety ED: Negative for edema General Extremity: Negative for edema Neuro oriented x3 and CN's II-XII intact bilaterally Sensorium / Orientation: alert Motor Exam: strength 5/5 throughout Psych mental status grossly normal Mood & Affect: Negative for depressed or tearful Skin no rashes or lesions noted and no wounds MDM MDM MDM Narrative Medical decision making narrative: CBC and BMP were normal with a glucose of 204 and a troponin of 9. Patient received 2 L of IV fluids. Patient will be discharged home return if worsening or concerns Lab Data Attestation: I reviewed the patient's lab results. Labs: Laboratory Results - last 24 hr 02/28/22 02/28/22 13:40 13:40 WBC 9.3 RBC 3.51 L Hgb 9.4 L Hct 31.1 L MCV 88.6 MCH 26.8 L MCHC 30.2 L RDW Std Deviation 52.5 H RDW Coeff of Carlos A 16.3 H Plt Count 422 MPV 9.2 Immature Gran % (Auto) 1.000 H Neut % (Auto) 66.2 Lymph % (Auto) 23.9 [place] % (Auto) 6.1 Eos % (Auto) 2.3 Baso % (Auto) 0.5 Absolute Neuts (auto) 6.2 Absolute Lymphs (auto) 2.22 Nucleated RBC % 0 Sodium 139 Potassium 3.8 Chloride 107 Carbon Dioxide 25.0 Anion Gap 7 BUN 17 Creatinine 0.72 Estim Creat Clear Calc 74.50 Est GFR (MDRD) Af Amer 141 Est GFR (MDRD) Non-Af 116 BUN/Creatinine Ratio 23.7 H Glucose 204 H Calcium 9.1 Troponin I High Sens 9 EKG Initial EKG: Attestation: I personally reviewed and interpreted this EKG as follows: Comments: Sinus rhythm with a short DE interval ventricular rate of 60 bpm Discharge Plan Triage Chief Complaint: Syncope ED Provider: Maurilio Porter Dx/Rx/DC Orders Clinical Impression: Syncope and collapse, Pancreatic cancer Instructions: ED Fainting, Uncertain Cause Prescriptions: No Action olanzapine 10 mg tablet 10 mg PO QHS Label Comments: TAKE 1 TABLET BY MOUTH ONCE DAILY AT BEDTIME lorazepam 0.5 mg Tablet 0.5 mg PO BID PRN (Reason: Anxiety) megestrol 400 mg/10 mL (40 mg/mL) Suspension 800 mg PO DAILY nystatin 100,000 unit/mL Suspension 500,000 unit PO DAILY Rx Instructions: administer 1/2 of dose in each side of the mouth loperamide 2 mg Capsule 2 mg PO Q4H PRN (Reason: Diarrhea) Rx Instructions: administer after each loose stool until symptoms controlled; do not exceed 8 mg per 24 hrs ondansetron 8 mg Tablet,Disintegrating 8 mg PO Q8H PRN (Reason: Nausea) lidocaine-prilocaine 2.5-2.5 % Cream 1 applic topical PRN PRN (Reason: port access) citalopram 20 mg Tablet 20 mg PO DAILY insulin detemir U-100 100 unit/mL Solution 0 unit SUBCUT BID Rx Instructions: sliding scale, ppt txt dr daily to fine out how much insulin to give Creon 24,000-76,000 -120,000 unit Capsule,Delayed Release(Dr/Ec) 1 cap PO TID Rx Instructions: administer with meals and/or snacks cholecalciferol (vitamin D3) 25 mcg (1,000 unit) Tablet,Chewable 25 mcg PO DAILY loratadine 10 mg Capsule 10 mg PO DAILY PRN (Reason: Allergy Symptoms) magnesium oxide 400 mg magnesium Capsule 400 mg PO BID apixaban 5 mg Tablet 5 mg PO BID cephalexin 500 mg capsule 500 mg PO TID Qty: 16 0RF acetaminophen-codeine 300-30 mg tablet 1 tab PO Q4H PRN (Reason: pain) Qty: 40 0RF Rx Instructions: one or two every four hours as needed for pain Primary Care Provider: Linette Soares Referrals: Linette Soares, DO [Primary Care Provider] - As Needed Disposition Disposition: Home, Self Care
[2022-02-28 13:53] LABS: Absolute Lymphocyte Count 2.22 X10^3/uL (0.83-4.51); Absolute Neutrophil Count 6.2 X10^3/uL (2.0-7.7); Basophil# 0.05 X10^3/uL; Basophil% 0.5 % (0-1); Eosinophil# 0.21 X10^3/uL; Eosinophils% 2.3 % (0-5); Hematocrit 31.1 % (40-54); Hemoglobin 9.4 g/dL (13.0-16.5); Lymphocyte # 2.22 X10^3/ul (0.83-4.51); Lymphocyte % 23.9 % (19-41); Mean Corp Hgb Conc 30.2 g/dL (32-36); Mean Corpuscular Hgb 26.8 pg (27.0-32.0); Mean Corpuscular Volume 88.6 fL (80-94); Mean Platelet Vol. 9.2 fl (6.2-12.0); Monocyte# 0.57 X10^3/uL; Monocyte% 6.1 % (0-10); NRBC Flagged by Analyzer 0 % (0-5); Neutrophil # 6.15 X10^3/uL (2.7-7.7); Neutrophil % 66.2 % (47-70); Platelet Count 422 K/mm3 (150-450); RBC Distribution Width CV 16.3 % (11.6-14.6); RBC Distribution Width SD 52.5 fl (35.1-43.9); Red Blood Count 3.51 M/mm3 (4.6-6.2); White Blood Count 9.3 K/mm3 (4.4-11.0)
--- NOTE | 2022-02-28 14:05 | EKG12_ITS ---
Test Reason : SYNCOPE Blood Pressure : / mmHG Vent. Rate : 060 BPM Atrial Rate : 060 BPM P-R Int : 110 ms QRS Dur : 096 ms QT Int : 438 ms P-R-T Axes : -14 008 039 degrees QTc Int : 438 ms Sinus rhythm with short SD Otherwise normal ECG Confirmed by LISSETT NICKERSON, SVITLANA ([id number]), sound editor PARIS LAW ([id number]) on 03/02/2022 8:55:18 AM Referred By: TARA/VARINDER Confirmed By:SVITLANA GALEANA MD
[2022-02-28 14:10] LABS: Anion Gap 7 (5-15); BUN 17 mg/dL (7-18); BUN/Creat Ratio 23.7 RATIO (10-20); Calcium,Total 9.1 mg/dL (8.5-10.1); Chloride 107 mmol/L (98-107); Creatinine, Serum 0.72 mg/dL (0.70-1.30); EST Glomerular Filtration Rate 116 mL/min (>60); Est Glom Filt Rate - Afr Amer 141 mL/min (>60); Glucose 204 mg/dL (74-106); Potassium 3.8 mmol/L (3.5-5.1); Sodium Level 139 mmol/L (136-145); Troponin-I HS 9 pg/mL (3.0-78.0)
[2022-02-28 14:53] VITALS: BP 125/88; PULSE 63; RESP 16; O2SAT 97
[2022-02-28 15:00] VITALS: BP 144/93; PULSE 64; RESP 18; O2SAT 97
== END 2022-02-28 15:59 | disposition home or self-care (01) ==
PROVIDERS: Emergency Provider Emergency Medicine; PCP Internal Medicine; Visit Provider Emergency Medicine
DX: R55 Syncope and collapse (principal); C25.9 Malignant neoplasm of pancreas, unspecified; E11.9 Type 2 diabetes mellitus without complications; Z79.4 Long term (current) use of insulin; I10 Essential (primary) hypertension; E78.00 Pure hypercholesterolemia, unspecified; M19.90 Unspecified osteoarthritis, unspecified site; Z87.442 Personal history of urinary calculi; N40.0 Benign prostatic hyperplasia without lower urinary tract symptoms; Z86.718 Personal history of other venous thrombosis and embolism; Z79.899 Other long term (current) drug therapy; Z79.01 Long term (current) use of anticoagulants; Z87.440 Personal history of urinary (tract) infections
CPT/HCPCS: 36591; 80048; 80053; 84484; 85025; 93005; 96360; 96361; 99285; J7030

== ENCOUNTER → 2022-02-28 | Outpatient (CLI) | payer MEDICARE, SELFPAY ==
[2022-02-28 12:33] LABS: Absolute Lymphocyte Count 2.44 X10^3/uL (0.83-4.51); Absolute Neutrophil Count 6.9 X10^3/uL (2.0-7.7); Basophil# 0.08 X10^3/uL; Basophil% 0.8 % (0-1); Eosinophil# 0.26 X10^3/uL; Eosinophils% 2.5 % (0-5); Hematocrit 34.1 % (40-54); Hemoglobin 10.1 g/dL (13.0-16.5); Lymphocyte # 2.44 X10^3/ul (0.83-4.51); Lymphocyte % 23.6 % (19-41); Mean Corp Hgb Conc 29.6 g/dL (32-36); Mean Corpuscular Hgb 26.2 pg (27.0-32.0); Mean Corpuscular Volume 88.3 fL (80-94); Mean Platelet Vol. 9.8 fl (6.2-12.0); Monocyte# 0.56 X10^3/uL; Monocyte% 5.4 % (0-10); NRBC Flagged by Analyzer 0 % (0-5); Neutrophil # 6.91 X10^3/uL (2.7-7.7); Neutrophil % 66.7 % (47-70); Platelet Count 520 K/mm3 (150-450); RBC Distribution Width CV 16.2 % (11.6-14.6); Red Blood Count 3.86 M/mm3 (4.6-6.2); White Blood Count 10.4 K/mm3 (4.4-11.0)
[2022-02-28 12:59] LABS: ALB/GLOB Ratio 0.6 RATIO (0.9-2.4); AST(SGOT) 13 U/L (15-37); Alanine Aminotransfer ALT/SGPT 16 U/L (16-61); Alkaline Phosphatase 113 U/L (45-117); Anion Gap 7 (5-15); BUN 17 mg/dL (7-18); BUN/Creat Ratio 23.4 RATIO (10-20); Calcium,Total 9.4 mg/dL (8.5-10.1); Chloride 106 mmol/L (98-107); Creatinine, Serum 0.73 mg/dL (0.70-1.30); EST Glomerular Filtration Rate 115 mL/min (>60); Est Glom Filt Rate - Afr Amer 139 mL/min (>60); Globulin 4.7 g/dL (2.2-4.2); Glucose 184 mg/dL (74-106); Potassium 4.3 mmol/L (3.5-5.1); Protein, Total 7.7 g/dL (6.4-8.2); Sodium Level 139 mmol/L (136-145); Total Bilirubin < 0.10 mg/dL (0.20-1.00); Troponin-I HS 9 pg/mL (3.0-78.0)
== END | disposition home or self-care (01) ==
LOC: LABSPEC 12:20
PROVIDERS: PCP Internal Medicine; Referring Provider Internal Medicine; Visit Provider Internal Medicine
DX: E86.0 Dehydration (principal); R55 Syncope and collapse
CPT/HCPCS: 80053; 84484; 85025

== ENCOUNTER 2022-04-06 05:29 | Day surgery (SDC) | payer MEDICARE, SELFPAY ==
[2022-04-06] VITALS (8 sets, daily range): BP systolic 98–125; BP diastolic 64–75; PULSE 58–125; RESP 15–18; TEMP 36.2–36.7; O2SAT 96–98; BMI 20.5
[2022-04-06] MEDS: Lactated Ringers 1,000 ML 15 ML IV (06:14)
--- NOTE | 2022-04-06 06:34 | PCM.HP.STD ---
HPI - General General Chief Complaint: pancreatic cancer HPI Narrative SVITLANA SOMERS, is a 66 M who presents from home with a diagnosis of an outlet obstruction. ? Patient developed weight loss totaling about 20 pounds and then developed painless jaundice.? Chemistry panel on 07/04/2021 revealed total bilirubin of 8.5 mg/dL.? AST and ALT were 458 and 1085 respectively.? Alkaline phosphatase was 756 units/L.? Amylase was elevated at 148 units/L and the lipase was 2491 units/L. ? CT abdomen pelvis 07/05/2021.? The study was compared to a CT dated 04/20/2020.? There was evidence of dilated intrahepatic biliary ducts both the right and left lobes of liver.? Patient was status post cholecystectomy.? Spleen appeared normal.? There was a 3.4 x 3.3 x 5.7 cm complex solid and cystic mass in the head and uncinate process of the pancreas.? Mild pancreatic ductal dilation was observed.? There was also dilation of the common bile duct with a transverse dimension of 1.7 cm.? Other findings included a 1.4 cm cyst in the mid aspect of the right kidney.? There was a stable 6 mm nonobstructive calculus in the lower pole of the right kidney.? Tiny stable cysts were noted in the left kidney.? There was a moderate size hiatal hernia.? Diffuse atherosclerotic calcification of the abdominal aorta was observed.? There was no aneurysm.? There were borderline retroperitoneal lymph nodes with enlarged nodes measuring no more than 10 mm in short axis diameter.? Prostate was noted to be enlarged measuring 5.3 x 6 cm.? Degenerative changes of the visualized lumbar spine were observed.? There was a stable 1.2 cm sclerotic focus along the superior posterior aspect of the L4 vertebrae. ? Patient underwent ERCP on 07/12/2021.? The minor papilla was not observed.? The major papilla was normal.? Wire was passed into the biliary tree.? Bile duct was then deeply cannulated over a guidewire.? Brisk flow of contrast was noted through the ducts.? Image quality was excellent.? Contrast extended into the hepatic ducts.? The common bile duct common hepatic duct and right and left intrahepatic branches but not the right or left hepatic ducts were markedly dilated.? Largest measured 18 mm.? The middle third of the main bile duct was obstructed by extrinsic compression.? Upper third of the main bile duct contained a single segmental stenosis 5 mm in length.? Biliary sphincterotomy extended to a total 4 mm length with a monofilament sphincterotome severe bleeding continued for 5 minutes.? The biliary tree was swept with a 15 mm balloon starting at the upper third of the main bile duct.? Clots were swept from the duct.? Debris was swept from the duct.? Mucus was swept from the duct sludge was swept from the duct dilation lower third of the main bile duct with a 6-7-8 millimeters balloon was achieved.? Lower third of the main bile duct was biopsied with cold forceps for histology.? 110 mm x 6 cm covered metal stent was placed 6 cm into the common bile duct.? Bile flow was observed through the stent.? The impression was a single segmental biliary stricture found at the upper third of the main bile duct.? Biliary sphincterotomy was performed. ? Pathology was non-diagnostic. ? He underwent EGD/EUS with FNA of the pancreatic head mass on 07/19/2021. ? Pathology: -PANCREAS FINE NEEDLE ASPIRATION??- PANCREATIC HEAD MASS ?Positive for malignant cells. ?-Adenocarcinoma. ?-See comment. ? ? Repeat CT scan on 08/02/2021.? Enlarging pancreatic head mass.? Evidence of malignant upper abdominal adenopathy and liver metastases. ? [facility] Medical History (Updated 04/06/22 @ 06:[address] Chadwick Friend, DO) Anxiety Arthritis Blackout BPH w urinary obs/LUTS Calculus of kidney and ureter Cardiology follow-up encounter Diabetes Diabetes Diabetes mellitus Dietary restriction DVT (deep venous thrombosis) High cholesterol History of echocardiogram History of Holter monitoring History of irregular heartbeat History of stress test History of ulceration Hypertension Hypertension Inguinal hernia, incarcerated Insulin dependent diabetes mellitus Jaundice Left inguinal hernia Liver failure Non-smoker Nonrheumatic mitral (valve) insufficiency Pancreatic cancer Recurrent right inguinal hernia Superficial thrombophlebitis of right leg Ventricular premature depolarization Ventricular tachycardia, non-sustained Wears partial dentures Home Medications lorazepam 0.5 mg tablet 0.5 mg PO BID PRN Anxiety 09/05/21 [History Last Taken 02/20/22] olanzapine 10 mg tablet 10 mg PO QHS 09/05/21 [History Last Taken 09/04/21] apixaban 5 mg tablet 5 mg PO BID blood thinner 02/21/22 [History Last Taken 04/05/22 06:10] cholecalciferol (vitamin D3) 25 mcg (1,000 unit) chewable tablet 25 mcg PO BID supplement 02/21/22 [History Last Taken 02/21/22] citalopram 20 mg tablet 20 mg PO DAILY depression 02/21/22 [History Last Taken 02/21/22] insulin detemir U-100 100 unit/mL subcutaneous solution 0 unit subcut BID dm 02/21/22 [History Last Taken Unknown] lidocaine-prilocaine 2.5 %-2.5 % topical cream 1 applic topical PRN PRN port access 02/21/22 [History Last Taken Unknown] dxhskz-fwdspkbp-zqpuhga 24,000-76,000-120,000 unit capsule,delayed rel (Creon) 1 cap PO TID supplement 02/21/22 [History Last Taken 02/21/22] loperamide 2 mg capsule (Imodium A-D) 2 mg PO Q4H PRN Diarrhea 02/21/22 [History Last Taken Unknown] loratadine 10 mg capsule 10 mg PO DAILY PRN Allergy Symptoms 02/21/22 [History Last Taken 02/20/22] magnesium oxide 400 mg PO BID supplement 02/21/22 [History Last Taken 02/21/22] megestrol 400 mg/10 mL (40 mg/mL) oral suspension 20 mg PO DAILY increase apatite 02/21/22 [History Last Taken 02/20/22] ondansetron 8 mg disintegrating tablet 8 mg PO Q8H PRN Nausea 02/21/22 [History Last Taken 02/14/22] Allergy/AdvReac Type Severity Reaction Status Date / Time oxycodone [From Percocet] Allergy Severe unknown Verified 04/06/22 06:09 hydrocodone bitartrate AdvReac Other Verified 04/06/22 06:09 [From Vicodin] Family History Father , Age 73 Heart disease Myocardial infarction CAD (coronary artery disease) Mother Hypertension Cancer Skin cancer CVA (cerebral vascular accident) Surgical History (Updated 04/04/22 @ 08:21 by Victoria Richardson) History of back surgery History of colonoscopy History of open reduction and internal fixation (ORIF) procedure History of right hip replacement History of tonsillectomy Hx of cholecystectomy (02/09/17) Hx of cystoscopy Hx of lithotripsy Social History household members: spouse Smoking Status: Never smoker second hand exposure: No alcohol intake: never substance use type: does not use caffeine: Yes what type of physical activity do you participate in: 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: 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 ROS Constitutional Constitutional: Denies chills, fatigue, fever(s) or malaise Eyes Eyes: Denies blurry vision ENT HEENT: Denies headache(s) or nasal discharge Cardiovascular Cardiovascular: Denies chest pain, dyspnea on exertion or syncope Respiratory/Chest Respiratory/Chest: Denies cough, shortness of breath at rest or shortness of breath with exertion Gastrointestinal Gastrointestinal: Reports abdominal pain and bloating; Denies constipation, diarrhea, nausea or vomiting Genitourinary Genitourinary: Denies dysuria Neurologic Neurologic: Denies focal weakness, numbness or tremor(s) Psychiatric Psychiatric: Denies anxiety or depression Vital Signs Vital Signs Vital Signs: 04/06/22 06:10 04/06/22 06:10 Temperature 97.3 F L Temperature Source Temporal Pulse Rate 58 L Respiratory Rate 16 Respiratory Pattern Normal Blood Pressure 98/64 Blood Pressure Mean 75 Blood Pressure Source Monitor Blood Pressure Position Semi-Fowlers Blood Pressure Location Right Arm Pulse Ox 97 Oxygen Delivery Method Room Air Weight Weight: 151 lb Body Mass Index (BMI) 20.5 Physical Exam Const alert, oriented x3 and no apparent distress General Appearance: cooperative HEENT normocephalic and moist oral mucous membranes Eyes PERRL, EOMs intact bilaterally and conjunctivae normal Neck supple and no JVD Resp normal respiratory effort, no retractions, no use of accessory muscles and clear to auscultation bilaterally Auscultation: Negative for crackles, rales, rhonchi or wheezes Cardio regular rate, regular rhythm, S1 normal heart sound, S2 normal heart sound and no murmurs GI soft to palpation, non-tender and non-distended; Negative for hepatosplenomegaly Extremity no clubbing, cyanosis or edema Skin no rashes or lesions noted Neuro no focal motor deficits and no sensory deficits noted Psych affect normal Appearance: appropriate Assessment & Plan Assessment/Plan (1) Pancreatic cancer: PLAN: He is status post ERCP with permanent stent. We will evaluate the patency of the stent and clear out the stent if possible. He was explained alternatives, risk, benefits including not withstanding bleeding, infection, sepsis, perforation, need for emergent . He will have an ASA of 3. (2) Gastric outlet obstruction: PLAN: We will also place a duodenal stent to relieve gastric outlet obstruction due to extrinsic compression of the pancreatic head mass. He was explained alternatives, risk, benefits include not withstanding bleeding, infection, sepsis, perforation, need for emergent . Have an ASA of 3.
[2022-04-06 06:35] LABS: Bedside Glucose 134 mg/dL (74-106)
--- NOTE | 2022-04-06 07:48 | OP.CCLET_ITS ---
04/06/2022 Linette Soares Re : ERCP procedure for Dada Soares This procedure was performed on March. My impressions and recommendations are as follows: Impressions : - Dilation performed in the duodenum. - Duodenal stent placed. - A single localized biliary stricture was found in the lower third of the main bile duct. The stricture was malignant appearing. - The upper third of the main bile duct was dilated, with extrinsic compression causing an obstruction. - A biliary sphincterotomy was performed. - The biliary tree was swept and sludge was found. Recommendations : My findings are described in the full procedure note, which is enclosed. If I can be of further assistance, please feel free to contact me at . Sincerely, Farrukh Kelsey, 04/06/2022 7:47:35 AM This report has been signed electronically.
--- NOTE | 2022-04-06 07:48 | OP.ERCP_ITS ---
Patient Name: Dada Lawrence Procedure Date: 04/06/2022 6:21 AM Date of : 1955 Age: 66 Procedure: ERCP Indications: Malignant tumor of the head of pancreas Providers: Farrukh Kelsey DO Medicines: General Anesthesia Patient Profile: This is a 66 year old male. Refer to note in patient chart for documentation of history and physical. Patient has symptoms. The symptoms first began August. He is status post ERCP for biliary evaluation, ERCP for sphincterotomy and ERCP for stent within the past three months. Complications: No immediate complications. Procedure: Pre-Anesthesia Assessment: - Prior to the procedure, a History and Physical was performed, and patient medications and allergies were reviewed. The patient is competent. The risks and benefits of the procedure and the sedation options and risks were discussed with the patient. All questions were answered and informed consent was obtained. Patient identification and proposed procedure were verified. Mental Status Examination: alert and oriented. Airway Examination: normal oropharyngeal airway and neck mobility. Respiratory Examination: clear to auscultation. CV Examination: normal. Prophylactic Antibiotics: The patient does not require prophylactic antibiotics. Prior Anticoagulants: The patient has taken no previous anticoagulant or antiplatelet agents. ASA Grade Assessment: II - A patient with mild systemic disease. After reviewing the risks and benefits, the patient was deemed in satisfactory condition to undergo the procedure. The anesthesia plan was to use moderate sedation / analgesia (conscious sedation). Immediately prior to administration of medications, the patient was re-assessed for adequacy to receive sedatives. The heart rate, respiratory rate, oxygen saturations, blood pressure, adequacy of pulmonary ventilation, and response to care were monitored throughout the procedure. The physical status of the patient was re-assessed after the procedure. After obtaining informed consent, the scope was passed under direct vision. Throughout the procedure, the patient's blood pressure, pulse, and oxygen saturations were monitored continuously. The Duodenoscope was introduced through the mouth, and advanced to the duodenum and used to inject contrast into the bile duct. The Colonoscope was introduced through the and advanced to the duodenum. The ERCP was accomplished without difficulty. The patient tolerated the procedure well. Scope In: 6:56:11 AM Scope Out: 7:36:24 AM Total Procedure Duration Time 0 hours 40 minutes 13 seconds Findings: The prototype sewer film was normal. The esophagus was successfully intubated under direct vision. The scope was advanced to a normal major papilla in the descending duodenum without detailed examination of the pharynx, larynx and associated structures, and upper GI tract. The upper GI tract was grossly normal. The bile duct was deeply cannulated with the short-nosed traction sphincterotome. Contrast was injected. I personally interpreted the bile duct images. There was brisk flow of contrast through the ducts. Opacification of the lower third of the main bile duct was successful. The maximum diameter of the ducts was 10 mm. The lower third of the main bile duct contained a single localized stenosis 6 mm in length. The upper third of the main bile duct was diffusely dilated, with extrinsic compression causing an obstruction. The largest diameter was 6 mm. A straight Roadrunner wire was passed into the biliary tree. A 5 mm biliary sphincterotomy was made with a traction (standard) sphincterotome using ERBE electrocautery. There was no post-sphincterotomy bleeding. The biliary tree was swept with a 15 mm balloon starting at the bifurcation. Sludge was swept from the duct. A TTS dilator was passed through the scope. Dilation with a 19 mm balloon dilator was performed in the duodenum. This was stented with a 22 mm x 9 cm Evolution controlled-release uncovered stent under fluoroscopic guidance. Impression: - Dilation performed in the duodenum. - Duodenal stent placed. - A single localized biliary stricture was found in the lower third of the main bile duct. The stricture was malignant appearing. - The upper third of the main bile duct was dilated, with extrinsic compression causing an obstruction. - A biliary sphincterotomy was performed. - The biliary tree was swept and sludge was found. Procedure Code(s): --- Professional --- 63523, Endoscopic retrograde cholangiopancreatography (ERCP); with removal of calculi/debris from biliary/pancreatic duct(s) 48309, 51, Endoscopic retrograde cholangiopancreatography (ERCP); with sphincterotomy/papillotomy 12409, Esophagogastroduodenoscopy, flexible, transoral; with placement of endoscopic stent (includes pre- and post-dilation and guide wire passage, when performed) 00693, 26, Endoscopic catheterization of the biliary ductal system, radiological supervision and interpretation 97463, 26,59, Intraluminal dilation of strictures and/or obstructions (eg, esophagus), radiological supervision and interpretation CPT copyright 2017 [employer]. All rights reserved. The codes documented in this report are preliminary and upon film or videotape editor review may be revised to meet current compliance requirements. Farrukh Kelsey DO 04/06/2022 7:47:35 AM This report has been signed electronically. Number of Addenda: 0 Note Initiated On: 04/06/2022 6:21 AM
[2022-04-06 08:41] LABS: Bedside Glucose 152 mg/dL (74-106)
[2022-04-06] MEDS: 0.9% Saline Lock 10 ML Syringe IV (09:17)
== END 2022-04-06 09:26 | disposition home or self-care (01) ==
LOC: EN 05:30 → AC 05:31
PROVIDERS: PCP Internal Medicine; Referring Provider Internal Medicine; Visit Provider Internal Medicine Gastroenterology
PROC: (CPT 43260; principal; 2022-04-06 06:10)
DX: C25.9 Malignant neoplasm of pancreas, unspecified (principal); E11.9 Type 2 diabetes mellitus without complications; Z79.4 Long term (current) use of insulin; F41.9 Anxiety disorder, unspecified; N40.1 Benign prostatic hyperplasia with lower urinary tract symptoms; Z86.718 Personal history of other venous thrombosis and embolism; E78.00 Pure hypercholesterolemia, unspecified; I10 Essential (primary) hypertension; I34.0 Nonrheumatic mitral (valve) insufficiency; Z87.442 Personal history of urinary calculi; Z79.01 Long term (current) use of anticoagulants; Z79.899 Other long term (current) drug therapy; K31.1 Adult hypertrophic pyloric stenosis; N13.8 Other obstructive and reflux uropathy; Z86.16 Personal history of COVID-19
CPT/HCPCS: 43274; 43264; 76000; 82962; J7120; A4216; J2405

== ENCOUNTER 2022-05-31 11:52 | Emergency (ER) | payer MEDICARE, SELFPAY ==
[2022-05-31 11:55] VITALS: BP 125/88; PULSE 58; RESP 12; TEMP 35.6; O2SAT 95; BMI 21.7
--- NOTE | 2022-05-31 12:26 | CT_ITS ---
STUDY: CT BRAIN WITHOUT CONTRAST REASON FOR EXAM: Male, 66 years old. Confusion RADIATION DOSAGE (If Supplied By Facility): CTDIvol = ( 44.99 ) mGy, DLP = ( 796.11 ) mGycm TECHNIQUE: Transaxial CT imaging of the brain was performed without administration of intravenous contrast material. Individualized dose optimization techniques were used for this CT. COMPARISON: No relevant priors. FINDINGS: Normal soft tissue structures. Normal calvarium. There is mild cerebral atrophy with widening of the extra-axial spaces and ventricular dilatation. Normal white matter tracts of the cerebral hemispheres. Normal basal ganglia and thalami. Normal brainstem. Normal cerebellum. There is no intracranial hemorrhage. There are no findings of an acute ischemic infarction. Mild degree of mucosal thickening along the posterior aspect of the ethmoid sinuses. CT/Brain/Head without Contrast IMPRESSION: Chronic involutional changes of the brain. Electronically Signed: [facility] MD at 13:57 EDT ,
[2022-05-31 12:57] LABS: Absolute Lymphocyte Count 0.97 X10^3/uL (0.83-4.51); Absolute Neutrophil Count 2.6 X10^3/uL (2.0-7.7); Basophil# 0.03 X10^3/uL; Basophil% 0.7 % (0-1); Eosinophil# 0.18 X10^3/uL; Eosinophils% 4.2 % (0-5); Hematocrit 34.1 % (40-54); Hemoglobin 10.4 g/dL (13.0-16.5); Lymphocyte # 0.97 X10^3/ul (0.83-4.51); Lymphocyte % 22.7 % (19-41); Mean Corp Hgb Conc 30.5 g/dL (32-36); Mean Corpuscular Hgb 24.9 pg (27.0-32.0); Mean Corpuscular Volume 81.8 fL (80-94); Mean Platelet Vol. 8.8 fl (6.2-12.0); Monocyte# 0.46 X10^3/uL; Monocyte% 10.7 % (0-10); NRBC Flagged by Analyzer 0 % (0-5); Neutrophil # 2.62 X10^3/uL (2.7-7.7); Neutrophil % 61.2 % (47-70); Platelet Count 713 K/mm3 (150-450); RBC Distribution Width CV 19.8 % (11.6-14.6); RBC Distribution Width SD 57.2 fl (35.1-43.9); Red Blood Count 4.17 M/mm3 (4.6-6.2); White Blood Count 4.3 K/mm3 (4.4-11.0)
--- NOTE | 2022-05-31 13:20 | RAD_ITS ---
STUDY: X-RAY CHEST REASON FOR EXAM: Male, 66 years old. Altered mental status TECHNIQUE: Single AP portable view of the chest. COMPARISON: None. FINDINGS: EKG electrodes are seen. A left-sided PICC line is seen with the tip at the junction of the superior vena cava and right atrium. Hyperinflation. The lungs are clear. There is no demonstrated pleural abnormality. Normal size heart. Normal mediastinum and violeta. Normal visualized pulmonary arteries. Normal visualized aortic arch and descending thoracic aorta. Normal visualized thoracic spine. Normal visualized ribs, clavicles, and shoulders. There is no demonstrated abnormality of the visualized soft tissue structures of the upper abdomen. RAD/Chest 1 View (Portable) IMPRESSION: Hyperinflation. The lungs are clear. The left-sided PICC line catheter is in situ and the tip is at the junction of the superior vena cava and right atrium. Electronically Signed: [facility] MD at 13:44 EDT ,
[2022-05-31 13:24] LABS: ALB/GLOB Ratio 0.6 RATIO (0.9-2.4); AST(SGOT) 14 U/L (15-37); Alanine Aminotransfer ALT/SGPT 21 U/L (16-61); Albumin, Serum 2.9 g/dL (3.2-5.0); Alkaline Phosphatase 87 U/L (45-117); Anion Gap 7 (5-15); BUN 17 mg/dL (7-18); BUN/Creat Ratio 27.9 RATIO (10-20); Calcium,Total 9.2 mg/dL (8.5-10.1); Chloride 107 mmol/L (98-107); Creatinine, Serum 0.61 mg/dL (0.70-1.30); EST Glomerular Filtration Rate 140 mL/min (>60); Est Glom Filt Rate - Afr Amer 170 mL/min (>60); Estimated Creatinine Clearance 73.58 ml/min; Globulin 4.8 g/dL (2.2-4.2); Glucose 136 mg/dL (74-106); Potassium 4.2 mmol/L (3.5-5.1); Protein, Total 7.7 g/dL (6.4-8.2); Sodium Level 138 mmol/L (136-145)
[2022-05-31 14:24] VITALS: BP 100/73; PULSE 69; RESP 14; TEMP 36.9; O2SAT 95
[2022-05-31 14:30] LABS: Bacteria 0 SEEN /hpf (None Seen); Mucous, Urine 0 SEEN /hpf (<or=2+); Red Blood Cells-Urine 0 SEEN /hpf (0-5); Squamous Epithelial Cells - UA 0 SEEN /hpf (0-5); White Blood Cells 0 SEEN /hpf (0-5)
[2022-05-31 14:35] LABS: Color, Urine Yellow (Yellow); Glucose, Dipstick 100 mg/dl (Normal); Ketone-Dipstick Negative (Negative); Leukocyte Esterase-Dipstick Negative /ul (Negative); Nitrite-Dipstick Negative (Negative); Occult Blood-Urine 10 /ul (Negative); Protein-Dipstick Negative (Negative); Urine Bilirubin Dipstick Negative (Negative); Urine Clarity Clear (Clear); Urine Urobilinogen Normal (Normal)
[2022-05-31 15:05] LABS: Amphetamine Urine VISTA NEGATIVE (<1000 ng/mL); Barbiturate Urine VISTA NEGATIVE (< 200 ng/mL); Benzodiazepine Urine VISTA NEGATIVE (< 200 ng/mL); Cocaine Urine VISTA NEGATIVE (< 300 ng/mL); Ecstacy Urine VISTA NEGATIVE (< 500 ng/mL); Methadone Urine VISTA NEGATIVE (< 300 ng/mL); PCP Urine VISTA NEGATIVE (< 25 ng/mL); THC Urine VISTA POSITIVE (< 50 ng/mL); Vista UDS pH Range 5
--- NOTE | 2022-05-31 15:27 | EX.ED.DYSGE1 ---
HPI History of Present Illness Chief Complaint: Weakness Narrative Narrative: 66-year-old male presenting for evaluation of tremor and generalized weakness as well as some intermittent confusion. Patient currently continued by Dr. Valencia. Patient has pancreatic cancer with metastatic lesions to the liver. He did chemotherapy yesterday. Has not had a fever, chills. No nausea or vomiting. He is not in any pain. His just states he is off. She notes a tremor that he has intermittently. When he has this tremor he is awake and alert although he is just not himself reportedly. [facility] Medical History Pancreatic cancer Allergy/AdvReac Type Severity Reaction Status Date / Time acetaminophen [From Percocet] AdvReac Vomiting Verified 05/31/22 11:54 hydrocodone [From Vicodin] AdvReac Vomiting Verified 05/31/22 11:54 oxycodone [From Percocet] AdvReac Vomiting Verified 05/31/22 11:54 Social History Smoking Status: Unknown if ever smoked ROS ROS ED Constitutional Constitutional ED: Denies chills or fever(s) Eyes Eyes: Denies change in vision or diplopia ENT ENT ED: Denies rhinorrhea or sore throat Cardiovascular Cardiovascular: Denies chest pain or palpitations Respiratory/Chest Respiratory/Chest: Denies cough or dyspnea Gastrointestinal Gastrointestinal: Denies abdominal pain, nausea or vomiting Genitourinary Genitourinary ED: Denies dysuria or hematuria Musculoskeletal Musculoskeletal: Denies arthralgias Neurologic Neurologic: Reports other Details: Resting tremor ; Denies headache(s) or paresthesias Psychiatric Psychiatric: Denies anxiety or depression EXAM Physical Exam Const Vital Signs: 05/31/22 11:55 05/31/22 12:55 05/31/22 14:24 Temperature 96.1 F L 98.5 F Temperature Source Temporal Oral Pulse Rate 58 L 69 Respiratory Rate 12 14 Respiratory Effort Normal Non-Labored Respiratory Pattern Normal Blood Pressure 125/88 H 100/73 Blood Pressure Mean 100 82 Pulse Ox 95 95 Oxygen Delivery Method Room Air Room Air Positive well nourished General Appearance ED: NAD; Negative for pallor HEENT Reports moist mucous membranes Eyes PERRL and EOMs intact bilaterally General Eye ED: Negative for pale conjunctiva or scleral icterus Chest Wall inspection of chest normal and palpation of chest normal Resp normal respiratory effort and clear to auscultation bilaterally Auscultation: Negative for rales or rhonchi Cardio regular rhythm Rate: bradycardia GI normal to inspection, nondistended, normoactive bowel sounds Extremity normal to inspection Neuro oriented x3 and CN's II-XII intact bilaterally Sensorium / Orientation: alert Motor Exam: general weakness Psych mental status grossly normal Mood & Affect: Negative for depressed or anxious Skin no rashes or lesions noted and no wounds General Skin Exam: Negative for jaundice or pallor MDM MDM MDM Narrative Medical decision making narrative: 66-year-old male with history of pancreatic cancer with mets to the liver presenting with a tremor and some generalized weakness. His states he just not acting himself. They were sent to the ER by Dr. Valencia. Blood work is obtained and his CBC shows he is leukopenic today at 4.3. On 05/29/2022 his white blood cell count was 5.9. Hemoglobin today is 10.4 and previously noted to be 9.7. Platelets were 611 and today they are 713. Liver enzymes are all normal. Renal function electrolytes within normal limits. Ammonia level is normal. Urinalysis negative for infection. Dr. Valencia requested a urine drug screen to be performed so he knows what drugs he is actually taking because he is prescribed pain medication. He also takes medical marijuana Gummies. His urine drug screen is positive for cannabinoids. EtOH within normal limits. Dr. Valencia also requested a CT brain which was negative. Chest x-ray on my interpretation does not show any acute cardiopulmonary process. Radiologist does agree. Discussed lab findings and imaging with him. At this point he recommends discharge home. He is unsure whether the chemotherapy is causing the tremor but can follow-up with palpation. Impression: 1. History of metastatic pancreatic cancer 2. Generalized weakness 3. Resting tremor Lab Data Attestation: I reviewed the patient's lab results. Labs: Laboratory Results - last 24 hr 05/31/22 05/31/22 05/31/22 12:52 12:52 12:52 WBC 4.3 L RBC 4.17 L Hgb 10.4 L Hct 34.1 L MCV 81.8 MCH 24.9 L MCHC 30.5 L RDW Std Deviation 57.2 H RDW Coeff of Carlos A 19.8 H Plt Count 713 H MPV 8.8 Immature Gran % (Auto) 0.500 Neut % (Auto) 61.2 Lymph % (Auto) 22.7 Randolph % (Auto) 10.7 H Eos % (Auto) 4.2 Baso % (Auto) 0.7 Absolute Neuts (auto) 2.6 Absolute Lymphs (auto) 0.97 Nucleated RBC % 0 Sodium 138 Potassium 4.2 Chloride 107 Carbon Dioxide 24.0 Anion Gap 7 BUN 17 Creatinine 0.61 L Estim Creat Clear Calc 73.58 Est GFR (MDRD) Af Amer 170 Est GFR (MDRD) Non-Af 140 BUN/Creatinine Ratio 27.9 H Glucose 136 H Calcium 9.2 Total Bilirubin 0.20 AST 14 L ALT 21 Alkaline Phosphatase 87 Ammonia Total Protein 7.7 Albumin 2.9 L Globulin 4.8 H Albumin/Globulin Ratio 0.6 L Urine Color Urine Clarity Urine pH Ur Specific [place] Urine Protein Urine Glucose (UA) Urine Ketones Urine Occult Blood Urine Nitrite Urine Bilirubin Urine Urobilinogen Ur Leukocyte Esterase Urine RBC Urine WBC Ur Squamous Epith Cells Urine Bacteria Urine Mucus Urine Opiates Screen Urine Methadone Screen Ur Barbiturates Screen Ur Phencyclidine Scrn Ur Amphetamines Screen MDMA (Ecstasy) Screen U Benzodiazepines Scrn Urine Cocaine Screen U Cannabinoids Screen Ur Drug Screen Comment Ethyl Alcohol 3.0 05/31/22 05/31/22 05/31/22 12:52 14:20 14:20 WBC RBC Hgb Hct MCV MCH MCHC RDW Std Deviation RDW Coeff of Carlos A Plt Count MPV Immature Gran % (Auto) Neut % (Auto) Lymph % (Auto) Randolph % (Auto) Eos % (Auto) Baso % (Auto) Absolute Neuts (auto) Absolute Lymphs (auto) Nucleated RBC % Sodium Potassium Chloride Carbon Dioxide Anion Gap BUN Creatinine Estim Creat Clear Calc Est GFR (MDRD) Af Amer Est GFR (MDRD) Non-Af BUN/Creatinine Ratio Glucose Calcium Total Bilirubin AST ALT Alkaline Phosphatase Ammonia 21.0 Total Protein Albumin Globulin Albumin/Globulin Ratio Urine Color Yellow Urine Clarity Clear Urine pH 5.0 Ur Specific [place] 1.020 Urine Protein Negative Urine Glucose (UA) 100 H Urine Ketones Negative Urine Occult Blood 10 H Urine Nitrite Negative Urine Bilirubin Negative Urine Urobilinogen Normal Ur Leukocyte Esterase Negative Urine RBC 0 SEEN Urine WBC 0 SEEN Ur Squamous Epith Cells 0 SEEN Urine Bacteria 0 SEEN Urine Mucus 0 SEEN Urine Opiates Screen NEGATIVE Urine Methadone Screen NEGATIVE Ur Barbiturates Screen NEGATIVE Ur Phencyclidine Scrn NEGATIVE Ur Amphetamines Screen NEGATIVE MDMA (Ecstasy) Screen NEGATIVE U Benzodiazepines Scrn NEGATIVE Urine Cocaine Screen NEGATIVE U Cannabinoids Screen POSITIVE H Ur Drug Screen Comment Ethyl Alcohol Radiography Diagnostic Testing: Clinical Impression(s) from Imaging Studies Brain CT 05/31/22 12:26 IMPRESSION: Chronic involutional changes of the brain. Electronically Signed: [facility] [employer] MD at 13:57 EDT , Chest X-Ray 05/31/22 13:20 IMPRESSION: Hyperinflation. The lungs are clear. The left-sided PICC line catheter is in situ and the tip is at the junction of the superior vena cava and right atrium. Electronically Signed: [facility] MD at 13:44 EDT , Discharge Plan Triage Chief Complaint: Weakness ED Provider: Alvarez Cisneros Dx/Rx/DC Orders Primary Care Provider: Linette Soares Referrals: Linette Soares, [Primary Care Provider] -
--- NOTE | 2022-05-31 15:31 | CHAPLAIN ---
Type of Pastoral Visit _x__ Initial Visit ___ Follow-up Visit ___ On-call Visit ___ General Patient Visit ___ Spiritual Assessment ___ Family Conference ___ Bereavement ___ Rapid Response ___ Code Blue ___ Other (describe below) Pastoral Care Referral From ___ Patient _x__ Family ___ Nurse ___ Physician ___ Portrait Consultant ___ Front End Developer Designer ___ Other (describe below) Sacrament/Intervention ___ Active listening ___ Anointing ___ Samaritan ___ Bereavement ___ Communion ___ Sun exploration ___ ___ Life review _x__ Prayer ___ Reconciliation ___ Sacrament of Sick _x__ Supportive presence ___ Wedding ___ Other (describe below) Pastoral Comments patient has been seen before in previous admissions and welcomes spiritual care support; support available and offered to spouse who is very attentive to husbands' situation; pt has pancreatic cancer and getting treatments; pt has had tests run; prayer and presence given
--- NOTE | 2022-05-31 16:13 | ED.RN ---
called KEVON Simons at Dr. Valencia's office to inform that pt's port did not get flushed with heparin at [place]
== END 2022-05-31 15:52 | disposition home or self-care (01) ==
PROVIDERS: Emergency Provider Student in an Organized Health Care Education/Training Program; PCP Internal Medicine; Visit Provider Student in an Organized Health Care Education/Training Program
DX: R53.1 Weakness (principal); C78.7 Secondary malignant neoplasm of liver and intrahepatic bile duct; C25.9 Malignant neoplasm of pancreas, unspecified; G25.2 Other specified forms of tremor; R41.0 Disorientation, unspecified; Z79.899 Other long term (current) drug therapy; Z92.21 Personal history of antineoplastic chemotherapy
CPT/HCPCS: 36591; 70450; 71045; 80053; 80307; 81001; 82077; 82140; 85025; 93005; 99284; A4216

== ENCOUNTER 2022-10-13 16:37 | Emergency (ER) | payer MEDICARE, SELFPAY ==
[2022-10-13 16:38] VITALS: BP 108/71; PULSE 91; RESP 16; TEMP 36.1; O2SAT 97; BMI 23.6
--- NOTE | 2022-10-13 18:22 | EDS_ITS ---
HPI HPI - GI History of Present Illness Chief Complaint: Abd Pain Informant: patient and spouse/S.O. Narrative Narrative: 3-day history right abdominal pain with nausea. Spouse currently present. Pancreatic cancer diagnosed 15 months ago followed by Dr. Valencia. He had biliary stent placed at that time. In this past January may have had a duodenal stent. Cholecystectomy 3 years ago. On chemotherapy last treatment this past Sunday. No fevers. Treatment would be weekly x2 with 1 week off. Denies urinary symptoms. Denies vomiting. Feels more distended. Reports bowel movement yesterday positive flatus. PFSH PFSH Medical History Pancreatic cancer Home Medications amoxicillin 875 mg-potassium clavulanate 125 mg tablet 875 mg PO Q12H #20 TABLETS 10/13/22 [Rx Last Taken Unknown] apixaban 5 mg tablet (Eliquis) 5 mg PO BID 10/13/22 [History Last Taken Unknown] cholecalciferol (vitamin D3) 25 mcg (1,000 unit) tablet (Vitamin D3) 25 mcg PO DAILY 10/13/22 [History Last Taken Unknown] duloxetine 30 mg capsule,delayed release 30 mg PO DAILY 10/13/22 [History Last Taken Unknown] gabapentin 300 mg capsule 600 mg PO QHS 10/13/22 [History Last Taken Unknown] [id number] 36,000-114,000-180,000 unit capsule,delay rel (Creon) 1 cap PO 4X/DAY 10/13/22 [History Last Taken Unknown] ondansetron 8 mg disintegrating tablet 8 mg PO Q8H PRN PRN Nausea 10/13/22 [History Last Taken Unknown] Allergy/AdvReac Type Severity Reaction Status Date / Time acetaminophen [From Percocet] AdvReac Vomiting Verified 10/13/22 16:38 hydrocodone [From Vicodin] AdvReac Vomiting Verified 10/13/22 16:38 oxycodone [From Percocet] AdvReac Vomiting Verified 10/13/22 16:38 Social History Smoking Status: Never smoker ROS ROS ED Constitutional Constitutional ED: Denies chills, fever(s) or sweats Eyes Eyes: Denies change in vision ENT ENT ED: Denies dysphagia or sore throat Cardiovascular Cardiovascular: Denies chest pain, leg edema, palpitations or racing heartbeat Respiratory/Chest Respiratory/Chest: Denies cough, dyspnea or dyspnea on exertion Gastrointestinal Gastrointestinal: Reports abdominal pain and nausea; Denies diarrhea or vomiting Genitourinary Genitourinary ED: Denies dysuria, hematuria or urinary frequency Musculoskeletal Musculoskeletal: Denies back pain, extremity pain or neck pain Integumentary Denies rash or wounds Neurologic Neurologic: Denies headache(s), paresthesias or weakness EXAM Physical Exam Const Vital Signs: 10/13/22 16:38 10/13/22 21:11 10/13/22 21:11 Temperature 97 F L 97.6 F L Temperature Source Temporal Temporal Pulse Rate 91 74 Respiratory Rate 16 15 Blood Pressure 108/71 130/74 H Blood Pressure Mean 83 92 Pulse Ox 97 99 Oxygen Delivery Method Room Air Room Air Room Air Positive well nourished and well developed General Appearance ED: well developed and NAD HEENT Reports moist mucous membranes normocephalic and atraumatic Eyes PERRL, EOMs intact bilaterally and conjunctivae normal Eyes Narrative: Mild scleral icterus General Eye ED: Yes normal appearance of both eyes Neck no lymphadenopathy and supple General: Negative for tenderness Chest Wall Chest: Negative for tenderness Resp normal respiratory effort and normal air movement Effort and Inspection: symmetric chest movement; Negative for respiratory distress Cardio regular rate, regular rhythm and no murmurs Peripheral Pulses: pulses 2+ throughout GI GI Narrative: Slight distention of abdomen right-sided tenderness hypoactive bowel sounds Palpation: Negative for guarding or rebound tenderness present Back/Spine no CVA tenderness and no thoracic nor lumbar tenderness Extremity normal to inspection General Extremety ED: Negative for edema or tenderness General Extremity: Negative for edema Neuro oriented x3 and no sensory deficits noted Sensorium / Orientation: awake and alert Skin no rashes or lesions noted and no wounds MDM MDM MDM Narrative Medical decision making narrative: Interventions / MDM: Differential diagnosis: Appendicitis, biliary obstruction, colitis Diagnosis considered but do not suspect: N/A My EKG interpretation: N/A Imaging independently reviewed and interpreted by myself: CT abdomen pelvis IV contrast reviewed and read by radiology noted being mild intra by dilatation and there was noted stents duodenum and biliary with known pancreatic neoplasm with invasion into duodenum. External documents reviewed: N/A Test considered but not ordered:N/A ED course: Patient nontoxic and nausea symptoms he declines any pain medicines. They are concerned pain and history of obstruction with stenting placed. He is followed by Dr. Kelsey. I did check abdominal labs White count 14.9 hemoglobin 8.3 which was stable from previous. Creatinine 0.68. Lipase 31 liver enzymes elevated alk phos of 122 normal AST ALT and bilirubin. With the findings on CT I discussed with Dr. Kelsey. Reports labs are not showing obstructive concerns. The intrahepatic dilatation is normal with the pancreatic cancer. He did recommend with the leukocytosis of 14.9 to be placed on Augmentin. Discussed this plan of care with patient and spouse. Also reach out to oncology spoke with covering oncologist Dr. Emery, discussed patient's history and recommendations by GI. She will relay the message to Dr. Valencia. Return precautions discussed if he develops fevers or worsening vomiting. All questions were answered. Re-evaluation: stable Disposition discussed with patient/family/significant other: Patient and significant other Case discussed with consulting clinician: GI Dr. Kelsey, oncology Dr. Franco Lab Data Attestation: I reviewed the patient's lab results. Labs: Laboratory Results - last 24 hr 10/13/22 10/13/22 18:55 18:55 WBC 14.9 H RBC 3.47 L Hgb 8.3 L Hct 27.2 L MCV 78.4 L MCH 23.9 L MCHC 30.5 L RDW Std Deviation 59.0 H RDW Coeff of Carlos A 21.2 H Plt Count 462 H MPV 9.6 Immature Gran % (Auto) 0.900 Neut % (Auto) 89.3 H Lymph % (Auto) 7.5 L [place] % (Auto) 1.1 Eos % (Auto) 1.1 Baso % (Auto) 0.1 Absolute Neuts (auto) 13.3 H Absolute Lymphs (auto) 1.12 Nucleated RBC % 0 Differential Comment SCANNED Sodium 137 Potassium 3.8 Chloride 103 Carbon Dioxide 24.0 Anion Gap 10 BUN 19 H Creatinine 0.68 L Estim Creat Clear Calc 77.60 Est GFR (MDRD) Af Amer 149 Est GFR (MDRD) Non-Af 123 BUN/Creatinine Ratio 27.9 H Glucose 165 H Calcium 9.1 Total Bilirubin 0.60 Direct Bilirubin 0.21 AST 26 ALT 28 Alkaline Phosphatase 122 H Total Protein 7.0 Albumin 2.0 L Globulin 5.0 H Lipase 31 L Radiography Diagnostic Testing: Clinical Impression(s) from Imaging Studies Abdomen/Pelvis CT 10/13/22 20:00 IMPRESSION: (NOT LISTED IN ORDER OF SIGNIFICANCE) . Soft tissue mass surrounding the biliary stent and duodenal stent. This is likely the known pancreatic neoplasm. Duodenal invasion is likely given placement of the stent. Metastatic disease to the liver. Intrahepatic ductal dilation is noted predominantly in the left lobe of the liver. Constipation. Other findings as above. Electronically Signed: Alejandro Braxton MD at 20:18 EST , Discharge Plan Triage Chief Complaint: Abd Pain ED Provider: Abhinav Morales Dx/Rx/DC Orders Clinical Impression: Abdominal pain, Leukocytosis, History of pancreatic cancer Instructions: Abdominal Pain Prescriptions: New amoxicillin-pot clavulanate [amoxicillin-pot clavulanate] 875-125 mg tablet 875 mg PO Q12H Qty: 20 0RF No Action ondansetron 8 mg tablet,disintegrating 8 mg PO Q8H PRN PRN (Reason: Nausea) Label Comments: DISSOLVE 1 TABLET IN MOUTH EVERY 8 HOURS NEEDED FOR NAUSEA AND VOMITING gabapentin 300 mg capsule 600 mg PO QHS Label Comments: TAKE 2 CAPSULES BY MOUTH ONCE DAILY AT BEDTIME duloxetine 30 mg capsule,delayed release(DR/EC) 30 mg PO DAILY Label Comments: TAKE 1 CAPSULE BY MOUTH ONCE DAILY cholecalciferol (vitamin D3) [Vitamin D3] 25 mcg (1,000 unit) Tablet 25 mcg PO DAILY Eliquis 5 mg Tablet 5 mg PO BID Creon 36,000-114,000- 180,000 unit capsule,delayed release(DR/EC) 1 cap PO 4X/DAY Label Comments: TAKE 2 CAPSULES BY MOUTH 4 TIMES DAILY Primary Care Provider: Linette Soares Referrals: Dada Valencia DO [Med Staff - Active Staff] - Keep Gilberto appointment Linette Soares DO [Primary Care Provider] - Activity Restrictions/Additional Instructions: Labs White count 14.9 normal lipase. Liver enzymes alk phos of 122. Normal bilirubin AST and ALT. Lipase 31. Your scan notes stents are in place. There is mild intrahepatic duct dilatation. I discussed with GI Dr. Friend, this is normal with your history. There is no obstruction for any required intervention. Take antibiotic as prescribed. Return if worsening symptoms or fevers develop. Otherwise keep your follow-up with Dr. Valencia. Disposition Disposition: Home, Self Care Discharge Date/Time: 10/13/22 21:36
[2022-10-13] MEDS: 0.9% Normal Saline 1,000 ML 125 ML IV (18:54)
[2022-10-13] MEDS: Ondansetron 4 MG/2 ML Vial IV (18:54)
[2022-10-13 19:04] LABS: Absolute Lymphocyte Count 1.12 X10^3/uL (0.83-4.51); Absolute Neutrophil Count 13.3 X10^3/uL (2.0-7.7); Basophil# 0.02 X10^3/uL; Basophil% 0.1 % (0-1); Eosinophil# 0.16 X10^3/uL; Eosinophils% 1.1 % (0-5); Hematocrit 27.2 % (40-54); Hemoglobin 8.3 g/dL (13.0-16.5); Lymphocyte # 1.12 X10^3/ul (0.83-4.51); Lymphocyte % 7.5 % (19-41); Mean Corp Hgb Conc 30.5 g/dL (32-36); Mean Corpuscular Hgb 23.9 pg (27.0-32.0); Mean Corpuscular Volume 78.4 fL (80-94); Mean Platelet Vol. 9.6 fl (6.2-12.0); Monocyte# 0.16 X10^3/uL; Monocyte% 1.1 % (0-10); NRBC Flagged by Analyzer 0 % (0-5); Neutrophil # 13.25 X10^3/uL (2.7-7.7); Neutrophil % 89.3 % (47-70); POSITIVE MORPHOLOGY YES; Platelet Count 462 K/mm3 (150-450); RBC Distribution Width CV 21.2 % (11.6-14.6); Red Blood Count 3.47 M/mm3 (4.6-6.2); White Blood Count 14.9 K/mm3 (4.4-11.0)
[2022-10-13 19:07] LABS: Differential Indicated SCAN CRITERIA MET
[2022-10-13 19:24] LABS: AST(SGOT) 26 U/L (15-37); Alanine Aminotransfer ALT/SGPT 28 U/L (16-61); Alkaline Phosphatase 122 U/L (45-117); Anion Gap 10 (5-15); BUN 19 mg/dL (7-18); BUN/Creat Ratio 27.9 RATIO (10-20); Bilirubin, Direct 0.21 mg/dL (0.00-0.30); Calcium,Total 9.1 mg/dL (8.5-10.1); Chloride 103 mmol/L (98-107); Creatinine, Serum 0.68 mg/dL (0.70-1.30); EST Glomerular Filtration Rate 123 mL/min (>60); Est Glom Filt Rate - Afr Amer 149 mL/min (>60); Glucose 165 mg/dL (74-106); Lipase 31 U/L (73-393); Potassium 3.8 mmol/L (3.5-5.1); Sodium Level 137 mmol/L (136-145)
[2022-10-13 19:33] LABS: Differential Comment SCANNED
--- NOTE | 2022-10-13 20:00 | CT_ITS ---
STUDY: CT Abdomen And Pelvis W/ Contrast Injection 10/13/2022 8:10 PM REASON FOR EXAM: Male, 67 years old. Abdominal pain abd pain -- History of pancreatic cancer, biliary stents, Individualized dose optimization techniques were used for this CT. COMPARISON: None. TECHNIQUE: CT Abdomen And Pelvis W/ Contrast Injection IV 100mL Isovue-300 FINDINGS: There are atherosclerotic calcifications of visualized coronary arteries. The visualized portions of the heart are within normal limits. There is intrahepatic ductal dilation. Scattered metastatic foci in the liver. Biliary stent in place. There is non-visualization of the gallbladder, which may be secondary to either contraction or a prior cholecystectomy. Normal spleen. Dilation and pancreatic duct. Soft tissue mass surrounding the biliary stent and duodenal stent. This is likely known pancreatic neoplasm. Normal bilateral adrenal glands. Non obstructive 2 mm right renal parenchymal stones. Non obstructive 2 mm left renal parenchymal stones. Duodenal stent in place. Normal small intestine. Stool throughout the colon. There is non-visualization of the appendix. There are calcifications of the abdominal aorta. This is consistent for atherosclerotic disease. There is NO abdominal aortic aneurysm. Vascular workup can be obtained based on clinical correlation. Normal inferior vena cava. Subcentimeter mesenteric lymph nodes. Normal urinary bladder. There are bilateral inguinal hernias containing fat. There is no bowel involvement. There is no incarceration. There is no findings suggesting that this is causing a bowel obstruction. There is an umbilical hernia containing fat. There are diffuse degenerative changes of the visualized lumbar spine. Total right hip arthroplasty. Degenerative findings of the left hip. CT/Abdomen/Pelvis W IV Cont ONLY IMPRESSION: (NOT LISTED IN ORDER OF SIGNIFICANCE) . Soft tissue mass surrounding the biliary stent and duodenal stent. This is likely the known pancreatic neoplasm. Duodenal invasion is likely given placement of the stent. Metastatic disease to the liver. Intrahepatic ductal dilation is noted predominantly in the left lobe of the liver. Constipation. Other findings as above. Electronically Signed: Alejandro Braxton MD at 20:18 EST ,
[2022-10-13 21:11] VITALS: BP 130/74; PULSE 74; RESP 15; TEMP 36.4; O2SAT 99
[2022-10-13] MEDS: Amox/Clavulanate 875 MG Tablet PO (21:35)
== END 2022-10-13 21:36 | disposition home or self-care (01) ==
PROVIDERS: Emergency Provider Emergency Medicine; PCP Internal Medicine; Visit Provider Emergency Medicine
DX: C25.9 Malignant neoplasm of pancreas, unspecified (principal); R11.0 Nausea; R10.9 Unspecified abdominal pain; D72.829 Elevated white blood cell count, unspecified; Z90.49 Acquired absence of other specified parts of digestive tract
CPT/HCPCS: 36591; 74177; 80048; 80076; 83690; 85025; 96374; 99283; J7030; Q9967; A4216; J2405

== ENCOUNTER 2022-11-06 11:30 | Outpatient (RCR) | payer MEDICARE, SELFPAY ==
--- NOTE | 2022-10-18 19:01 | HP.PTEVAL_ITS ---
Patient's Visit Information DADA SOMERS is a 67 year old M referred to Physical Therapy by Dr. 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 Date of Evaluation: 10/18/22 Physical Therapist: CESAR Landry - Visit Plan Frequency: 2-3x /Week Duration: 3 Months Plan: Pt is on chemo for the last 15 months and is very weak. 2-3X/ week for 12 weeks for LE strength, endurance, gait training, balance with HEP - Subjective Pt is on chemo and getting pretty weak and neuropathy bad in his toes. He had an infection and thought that is why he was weak but his blood count was normal. He normally uses a cane but started to use the rollator because he is really weak and off balance. He is doing laps around the house X 6 a day equals about 1/2 block. He is anemic, full chemo, and infection. He is not dizzy. He is off and on nausea. He is sleeping 18-20 hours a day. He is on chemo forever due to Pancreatic cancer. He has a step from garage into the house with a railing and he does that ok with someone behind him. He needs help to get in and out of bed and has a railing to grap onto. He has a lift chair also. Sit to stand: pt is able to do it but needs arms to get up. 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 He was very active before all of this. He has been on Chemo for 15 months. - Objective Gait: Walks with a straight cane with increase veering. He has decreased step length and decrease heel to to gait pattern. Standing heel and toe raises X 10 (1/2 normal ROM with heel raises and not able to get toes off the ground with toe raises in standing with UE support). LE MMT: R hip flex 9,2# and L hip flex 8.7. R knee ext 22.6 and L 24.3. R knee flex 13.5 and L12.6. R hip abd 4.4 and L 3.6. FGA: 7. Sit to stand: used hands to stand up with some retro LOB. Stairs: not assessed due to time restraint and pt was tired after complete the eval thus far. - Balance/Special Test Scores Functional Gait Assessment Score: 7 % Disability: 76.6700 Lower Extremity Functional Score: 12 - Goals Goal 1:: I HEP Goal Time Frame: 8-12 Weeks Goal 2:: Increase LE strength (at time of the eval: LE MMT: R hip flex 9,2# and L hip flex 8.7. R knee ext 22.6 and L 24.3. R knee flex 13.5 and L12.6. R hip abd 4.4 and L 3.6) Goal Time Frame: 8-12 Weeks Goal 3:: Increase balance (FGA score was 7 at the eval) Goal Time Frame: 8-12 Weeks Goal 4:: Sit to stand 3 X 10 without using arms with full balance with SBA Goal Time Frame: 8-12 Weeks - Rehabilitation Potential Rehabilitation Potential: Good - Anticipated Interventions Patient/Client Instruction: Educate patient on: Condition, Plan of Care For the Purpose of:: To decrease pain, To increase ROM, To improve nutrient delivery to tissue, To improve muscle performance and motor function, To improve ability to perform ADL's, To increase tolerance to activity/condition/position, To improve performance and independence with ADL's, To decrease level of supervision to perform tasks, To improve ability of physical actions for home/community/work/leisure, To improve gait and locomotor functions, To improve health of tissue, To increase flexibility/ROM, To improve endurance, To improve balance Therapeutic Exercise to Include: Strength training, Balance training, Postural training, Flexibilty training, Gait and locomotor training, Neuromotor development, Active ROM, Dynamic Lumbar Stabilization For the Purpose of:: To decrease pain, To increase ROM, To improve nutrient delivery to tissue, To improve muscle performance and motor function, To improve ability to perform ADL's, To increase tolerance to activity/condition/position, To improve performance and independence with ADL's, To decrease level of supervision to perform tasks, To improve ability of physical actions for home/community/work/leisure, To improve gait and locomotor functions, To improve health of tissue, To decrease soft tissue restriction, To increase flexibility/ROM, To improve endurance, To improve balance, To improve safety with gait, To assume or resume ADL's Functional Training to Include: Gait training For the Purpose of:: To improve gait and locomotor functions, To improve safety with gait Thank you for the opportunity to evaluate your patient. For Medicare and Medicare HMO plans, please review the plan of care and approve it. It will need to be FAXED BACK to us at [phone] for Medicare purposes. For Medicare only, by signing this I certify the plan of care. Please let me know if there are questions or concerns regarding this plan of care. Physician Signature: Date:
== END 2022-11-06 19:00 | disposition home or self-care (01) ==
LOC: PT 11:30
PROVIDERS: PCP Internal Medicine; Referring Provider Internal Medicine Hematology & Oncology; Visit Provider Internal Medicine Hematology & Oncology
DX: G62.0 Drug-induced polyneuropathy (principal); T45.1X5D Adverse effect of antineoplastic and immunosuppressive drugs, subsequent encounter; R26.9 Unspecified abnormalities of gait and mobility
CPT/HCPCS: 97110; 97116; 97161

== ENCOUNTER 2022-11-08 16:22 | Inpatient (IN) | payer MEDICARE, SELFPAY ==
[2022-11-08 16:26] VITALS: BP 130/77; PULSE 84; RESP 16; TEMP 36.6; O2SAT 98; BMI 22.8
--- NOTE | 2022-11-08 17:21 | ED.VIS.GI ---
HPI HPI - GI History of Present Illness Chief Complaint: Abd Pain Narrative Narrative: 67-year-old male patient of Dr. Valencia with metastatic pancreatic cancer. He is presenting with abdominal pain. He states has had this for about 3 weeks now. He complains of nausea vomiting which is worse at night and after eating. Patient states that he is currently not nauseous but had multiple episodes last evening. He had blood work and imaging done at a [facility] facility yesterday and today. He states he had a CT, right upper quadrant ultrasound, MRCP. This resolved at [facility] facility. Apparently he was sent to see Dr. Kelsey who he has seen in the past. [facility] Medical History Diabetes Pancreatic cancer Home Medications apixaban 5 mg tablet (Eliquis) 5 mg PO BID Check with primary doctor 10/13/22 [History Last Taken 11/07/22] cholecalciferol (vitamin D3) 25 mcg (1,000 unit) tablet (Vitamin D3) 25 mcg PO DAILY Check with primary doctor 10/13/22 [History Last Taken 11/07/22] duloxetine 30 mg capsule,delayed release 30 mg PO DAILY Check with primary doctor 10/13/22 [History Last Taken 11/07/22] gabapentin 300 mg capsule 600 mg PO QHS Check with primary doctor 10/13/22 [History Last Taken 11/07/22] ludwmx-ptuxkzkb-dtbcbqq 36,000-114,000-180,000 unit capsule,delay rel (Creon) 2 cap PO TID Check with primary doctor 10/13/22 [History Last Taken 11/08/22] ondansetron 8 mg disintegrating tablet 8 mg PO Q8H PRN PRN Nausea 10/13/22 [History Last Taken Unknown] magnesium oxide 400 mg (241.3 mg magnesium) tablet 400 mg PO BID Check with primary doctor 11/08/22 [History Last Taken 11/07/22] Allergy/AdvReac Type Severity Reaction Status Date / Time acetaminophen [From Percocet] AdvReac Vomiting Verified 11/08/22 16:25 hydrocodone [From Vicodin] AdvReac Vomiting Verified 11/08/22 16:25 oxycodone [From Percocet] AdvReac Vomiting Verified 11/08/22 16:25 Family History no significant family his Social History Smoking Status: Never smoker ROS ROS ED Constitutional Constitutional ED: Denies chills or fever(s) ENT ENT ED: Denies rhinorrhea Cardiovascular Cardiovascular: Denies chest pain or palpitations Respiratory/Chest Respiratory/Chest: Denies cough or dyspnea Gastrointestinal Gastrointestinal: Reports abdominal pain, nausea and vomiting Genitourinary Genitourinary ED: Denies dysuria or hematuria Musculoskeletal Musculoskeletal: Denies arthralgias Integumentary Denies abscess Neurologic Neurologic: Denies headache(s) or paresthesias Psychiatric Psychiatric: Denies anxiety or depression EXAM Physical Exam Const Vital Signs: 11/08/22 16:26 11/08/22 17:46 Temperature 97.8 F 97.4 F L Temperature Source Temporal Oral Pulse Rate 84 96 Respiratory Rate 16 16 Blood Pressure 130/77 H 118/76 Blood Pressure Mean 94 90 Pulse Ox 98 100 Oxygen Delivery Method Room Air Room Air Positive well nourished General Appearance ED: NAD; Negative for pallor HEENT Reports moist mucous membranes normocephalic and atraumatic Eyes PERRL and EOMs intact bilaterally Resp normal respiratory effort Cardio regular rate and regular rhythm GI non-tender and non-distended Neuro CN's II-XII intact bilaterally Sensorium / Orientation: alert, oriented to person, oriented to place and oriented to time Psych mental status grossly normal Skin General Skin Exam: Negative for jaundice or pallor MDM MDM MDM Narrative Medical decision making narrative: Patient presenting with resolved abdominal pain and nausea and vomiting. He is holding his chemotherapy currently because its been suspected that he had an infection. He has been on antibiotics but I am not sure what these are. Patient has not had any fevers or chills. He feels well currently. Discussed the case with Dr. Dada Valencia who stated that he has had some worsening of his metastasis on MRCP today. He states that he had spoken with Dr. Kelsey regarding concern for obstruction of his previous stenting. I spoke with Dr. Kelsey who did agree. I did obtain lab work today and his CBC shows a leukocytosis of 18.4. Hemoglobin 9.1 which is near baseline. Platelets 632 and his platelets are usually high. Lipase normal. AST 103, ALT 144, alkaline phosphatase 401, bilirubin within normal limits. Glucose elevated at [address] Kelsey recommends giving the patient Zosyn due to his white blood cell count is worsening liver profile. He plans to evaluate his stents in the morning. Did wish to have a CT of the abdomen pelvis done and I did order 1 with oral and IV contrast. Patient has soft tissue mass around the biliary stent and duodenal stent. This is believed to be part of his known pancreatic neoplasm. There is duodenal invasion likely and the biliary and duodenal stent lumens are filled with debris. There is thickening around the stomach and duodenum which has increased. There is metastatic lesions to the liver, L4 and L2 likely Metastasis. Intrahepatic ductal dilatation and constipation as well. Impression: 1. Obstructed duodenal stent 2. Obstructed biliary stent 3. Abdominal pain 4. Nausea/vomiting 5. History of metastatic pancreatic cancer 6. Leukocytosis Lab Data Attestation: I reviewed the patient's lab results. Labs: Laboratory Results - last 24 hr 11/08/22 11/08/22 17:35 17:35 WBC 18.4 H RBC 3.89 L Hgb 9.1 L Hct 30.2 L MCV 77.6 L MCH 23.4 L MCHC 30.1 L RDW Std Deviation 63.7 H RDW Coeff of Carlos A 23.5 H Plt Count 632 H MPV 8.8 Immature Gran % (Auto) 1.000 H Neut % (Auto) 82.0 H Lymph % (Auto) 10.9 L [place] % (Auto) 5.6 Eos % (Auto) 0.1 Baso % (Auto) 0.4 Absolute Neuts (auto) 15.1 H Absolute Lymphs (auto) 2.01 Nucleated RBC % 0 Differential Comment SCANNED Polychromasia RARE Anisocytosis 2+ Microcytosis 1+ Target Cells RARE Ovalocytes RARE Sodium 134 L Potassium 3.9 Chloride 98 Carbon Dioxide 29.0 Anion Gap 7 BUN 21 H Creatinine 1.06 Estim Creat Clear Calc 72.23 Est GFR (MDRD) Af Amer 89 Est GFR (MDRD) Non-Af 74 BUN/Creatinine Ratio 19.8 Glucose 285 H Calcium 9.1 Total Bilirubin 0.40 Direct Bilirubin 0.26 AST 103 H ALT 144 H Alkaline Phosphatase 401 H Total Protein 7.7 Albumin 2.3 L Globulin 5.4 H Lipase 95 Radiography Diagnostic Testing: CT/Abdomen/Pelvis WITH Contrast IMPRESSION:? (NOT LISTED IN ORDER OF SIGNIFICANCE) Soft tissue mass surrounding the biliary stent and duodenal stent. This is likely the known pancreatic neoplasm. Duodenal invasion is likely and therefore there has been placement of the stent. Both the biliary and duodenal stent lumen is filled with debris. The degree of thickening around the stomach and duodenum has increased suggesting worsening of disease. ? Metastatic disease to the liver. ? 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 ? Intrahepatic ductal dilation is worse. ? Constipation. ? There is esophagitis. Other findings as above. ? Discharge Plan Disposition Disposition: Acute Care Hospital [facility] Discharge Date/Time: 11/08/22 20:43
[2022-11-08 17:41] LABS: Absolute Lymphocyte Count 2.01 X10^3/uL (0.83-4.51); Absolute Neutrophil Count 15.1 X10^3/uL (2.0-7.7); Basophil# 0.07 X10^3/uL; Basophil% 0.4 % (0-1); Eosinophil# 0.02 X10^3/uL; Eosinophils% 0.1 % (0-5); Hematocrit 30.2 % (40-54); Hemoglobin 9.1 g/dL (13.0-16.5); Lymphocyte # 2.01 X10^3/ul (0.83-4.51); Lymphocyte % 10.9 % (19-41); Mean Corp Hgb Conc 30.1 g/dL (32-36); Mean Corpuscular Hgb 23.4 pg (27.0-32.0); Mean Corpuscular Volume 77.6 fL (80-94); Mean Platelet Vol. 8.8 fl (6.2-12.0); Monocyte# 1.03 X10^3/uL; Monocyte% 5.6 % (0-10); NRBC Flagged by Analyzer 0 % (0-5); Neutrophil # 15.07 X10^3/uL (2.7-7.7); POSITIVE MORPHOLOGY YES; Platelet Count 632 K/mm3 (150-450); RBC Distribution Width CV 23.5 % (11.6-14.6); RBC Distribution Width SD 63.7 fl (35.1-43.9); Red Blood Count 3.89 M/mm3 (4.6-6.2); White Blood Count 18.4 K/mm3 (4.4-11.0)
[2022-11-08 17:46] VITALS: BP 118/76; PULSE 96; RESP 16; TEMP 36.3; O2SAT 100
[2022-11-08 17:56] LABS: Differential Indicated SCAN CRITERIA MET
[2022-11-08 18:04] LABS: AST(SGOT) 103 U/L (15-37); Alanine Aminotransfer ALT/SGPT 144 U/L (16-61); Albumin, Serum 2.3 g/dL (3.2-5.0); Alkaline Phosphatase 401 U/L (45-117); Anion Gap 7 (5-15); BUN 21 mg/dL (7-18); BUN/Creat Ratio 19.8 RATIO (10-20); Bilirubin, Direct 0.26 mg/dL (0.00-0.30); Calcium,Total 9.1 mg/dL (8.5-10.1); Chloride 98 mmol/L (98-107); Creatinine, Serum 1.06 mg/dL (0.70-1.30); EST Glomerular Filtration Rate 74 mL/min (>60); Est Glom Filt Rate - Afr Amer 89 mL/min (>60); Estimated Creatinine Clearance 72.23 ml/min; Globulin 5.4 g/dL (2.2-4.2); Glucose 285 mg/dL (74-106); Lipase 95 U/L (73-393); Potassium 3.9 mmol/L (3.5-5.1); Protein, Total 7.7 g/dL (6.4-8.2); Sodium Level 134 mmol/L (136-145)
[2022-11-08] MEDS: 0.9% Normal Saline 1,000 ML 1000 ML IV (18:08)
--- NOTE | 2022-11-08 18:09 | NURSING ---
317 EMILIA ABD PAIN
[2022-11-08 18:11] LABS: Anisocytosis 2+; Differential Comment SCANNED; Microcytosis 1+
[2022-11-08 18:12] LABS: Ovalocyte RARE; Polychromasia RARE
[2022-11-08 18:13] LABS: Target Cells RARE
--- NOTE | 2022-11-08 18:21 | CON.PCM.GI_ITS ---
HPI Consult Data Date of Consult: 11/08/22 HPI Narrative Reason for Consultation: Intractable nausea vomiting HPI Narrative: SVITLANA SOMERS, is a 67 M who presents with nausea and vomiting. He is a patient of of Dr. Valencia with metastatic pancreatic cancer.? He is presenting with abdominal pain.? He states has had this for about 3 weeks now.? He complains of nausea vomiting which is worse at night and after eating.? Patient states that he is currently not nauseous but had multiple episodes last evening.? He had blood work and imaging done at a [facility] facility yesterday and today.? He states he had a CT, right upper quadrant ultrasound, MRCP.? I gotten home approximately a year and 3 months ago after diagnosing him with pancreatic cancer. He underwent ERCP with fully covered metal stent placement. Approximately 6 months later he developed a gastric outlet obstruction which required a duodenal stent placement. ?Reportedly has been having abdominal pain for 3 weeks with some nausea but it has been significantly worsening.? He followed with [facility] and had MRCP today and right upper quadrant yesterday as well as recent blood work but reportedly no acute reason was found.? He presented to the ED at the urging of his oncologist Dr. Valencia.? Hospitalist consulted for admission.? Patient evaluated with family member at bedside.? He reports to sitting there and this moment he is not feeling too bad however does endorse the 3 weeks of abdominal pain and reports early satiety with only taking several bites of food before he feels full and sometimes sick, had episodes of emesis last night but prior to that had primarily been nauseous.? Denies fever or chills, abdominal pain primarily in epigastric region.? Denies chest pain or shortness of breath, denies other complaints today.? Of note he has not had chemotherapy in 2 to 3 weeks due to an elevated white blood cell count. [facility] Medical History (Updated 11/09/22 @ 11:[address] Ama Yuen, ) Depression Diabetes History of DVT (deep vein thrombosis) Pancreatic cancer Vitamin D deficiency Home Medications apixaban 5 mg tablet (Eliquis) 5 mg PO BID Check with primary doctor 10/13/22 [History Last Taken 11/07/22] cholecalciferol (vitamin D3) 25 mcg (1,000 unit) tablet (Vitamin D3) 25 mcg PO DAILY Check with primary doctor 10/13/22 [History Last Taken 11/07/22] duloxetine 30 mg capsule,delayed release 30 mg PO DAILY Check with primary do ctor 10/13/22 [History Last Taken 11/07/22] gabapentin 300 mg capsule 600 mg PO QHS Check with primary doctor 10/13/22 [History Last Taken 11/07/22] hptqdi-qoupompb-egwelyo 36,000-114,000-180,000 unit capsule,delay rel (Creon) 2 cap PO TID Check with primary doctor 10/13/22 [History Last Taken 11/08/22] ondansetron 8 mg disintegrating tablet 8 mg PO Q8H PRN PRN Nausea 10/13/22 [History Last Taken Unknown] magnesium oxide 400 mg (241.3 mg magnesium) tablet 400 mg PO BID Check with primary doctor 11/08/22 [History Last Taken 11/07/22] Allergy/AdvReac Type Severity Reaction Status Date / Time acetaminophen [From Percocet] AdvReac Vomiting Verified 11/08/22 16:25 hydrocodone [From Vicodin] AdvReac Vomiting Verified 11/08/22 16:25 oxycodone [From Percocet] AdvReac Vomiting Verified 11/08/22 16:25 Family History no significant family his Social History Smoking Status: Never smoker ROS ROS Narrative General: Denies fever/chills HENT: Denies headache, denies stuffy nose, denies sore throat EYES: Denies changes in vision Resp: Denies cough, denies shortness of breath Cardiac: Denies chest pain GI: Abdominal pain, no changes in bowel, does have nausea and has had occasional emesis : Denies changes in urination Extremity: Denies swelling MSK: Generalized weakness Neuro: Denies any numbness/tingling Heme: Denies any bleeding or bruising Skin: Denies rashes Psychiatric: No complaints voiced Physical Exam Narrative General: Alert, oriented, no apparent distress HEENT: Atraumatic, normocephalic Eyes: Anicteric, normal conjunctiva, extraocular movements grossly intact Neck: Supple Respiratory: Clear to auscultation bilaterally, normal respiratory effort Cardiovascular: Regular rate and rhythm GI: Soft, mildly tender to palpation in epigastric region, no rebound, no guarding, no rigidity, nondistended Extremities: No edema Musculoskeletal: Moving all extremities Neuro: No overt focal neurological deficits Skin: No rashes appreciated Psych: Cooperative Medical Records Data Medical Nutrition Assessment Dietitian: Malnutrition Criteria Met Start: 11/09/22 14:52 Freq: Status: Active Protocol: Document 11/09/22 14:52 AG (Rec: 11/09/22 14:52 AG [id number]) Nutrition Malnutrition Evidence of Malnutrition Exists Yes Malnutrition (severe): Acute Illness/Injury Evidenced By Suboptimal Energy Intake ( Severe),Weight Loss (Severe) Clinical Problem Acute Disease or Injury Related Malnutrition Etiology severe, acute malnutrition related to inadequate energy intake w/ increased energy needs d/t metastatic disease Signs/Symptoms as evidenced by unintentional wt loss of 7.6#/4% x 1 week; estimated PO intake meeting < 50% of estimated energy needs >1 week Status Active Problem Recommendation Dietitian Recommendations/Changes recommend advance diet as tolerated to regular; consider fat and/or fiber restriction pending further GI evaluation; ensure w/ medpass as indicated when diet advanced. Lab / Micro Data Result Diagrams: 11/09/22 06:40 11/09/22 06:40 Labs: Laboratory Results - last 24 hr 11/08/22 17:35: Hemoglobin A1c 7.1 H 11/08/22 18:36: POC Glucose 221 H 11/09/22 06:40: Procalcitonin 0.18 H 11/09/22 06:40: WBC 14.0 H, RBC 4.03 L, Hgb 9.2 L, Hct 30.8 L, MCV 76.4 L, MCH 22.8 L, MCHC 29.9 L, RDW Std Deviation 62.6 H, RDW Coeff of Carlos A 23.7 H, Plt Count 597 H, MPV 8.7, Immature Gran % (Auto) 0.900, Neut % (Auto) 78.1 H, Lymph % (Auto) 12.8 L, Chilton % (Auto) 7.1, Eos % (Auto) 0.6, Baso % (Auto) 0.5, A bsolute Neuts (auto) 10.9 H, Absolute Lymphs (auto) 1.79, Nucleated RBC % 0, Differential Comment SCANNED, Hypochromasia RARE, Anisocytosis 1+, Microcytosis RARE, Macrocytosis RARE, Ovalocytes RARE 11/09/22 06:40: Sodium 138, Potassium 3.7, Chloride 105, Carbon Dioxide 26.0, Anion Gap 7, BUN 13, Creatinine 0.78, Estim Creat Clear Calc 73.00, Est GFR (MDRD) Af Amer 128, Est GFR (MDRD) Non-Af 106, BUN/Creatinine Ratio 16.8, Glucose 67 L, Calcium 8.8, Magnesium 2.1, Total Bilirubin 0.70, AST 117 H, ALT 158 H, Alkaline Phosphatase 409 H, Total Protein 7.2, Albumin 2.3 L, Globulin 4.9 H, Albumin/Globulin Ratio 0.5 L 11/09/22 06:40: PT 16.6 H, INR 1.4, APTT 36.0 11/09/22 06:40: WBC Cancelled, Corrected WBC Cancelled, RBC Cancelled, Hgb Cancelled, Hct Cancelled, MCV Cancelled, MCH Cancelled, MCHC Cancelled, RDW Std Deviation Cancelled, RDW Coeff of Carlos A Cancelled, Plt Count Cancelled, MPV Cancelled, Immature Gran % (Auto) Cancelled, Neut % (Auto) Cancelled, Lymph % (Auto) Cancelled, Chilton % (Auto) Cancelled, Eos % (Auto) Cancelled, Baso % (Auto) Cancelled, Neut # (Auto) Cancelled, Immature Gran # (Auto) Cancelled, Absolute Neuts (auto) Cancelled, Absolute Lymphs (auto) Cancelled, Absolute Monos (auto) Cancelled, Total Counted Cancelled, Neutrophils % (Manual) Cancelled, Band Neutrophils % Cancelled, Lymphocytes % (Manual) Cancelled, Monocytes % (Manual) Cancelled, Eosinophils % (Manual) Cancelled, Basophils % (Manual) Cancelled, Metamyelocytes % Cancelled, Myelocytes % Cancelled, Promyelocytes % Cancelled, Blast Cells % Cancelled, Plasma Cell % (Manual) Cancelled, Other Cells % Cancelled, Nucleated RBC % Cancelled, Lymphocytes # Cancelled, Basophils # Cancelled, Nucleated RBCs/100 WBC Cancelled, Differential Comment Cancelled, Diff Path Review Cancelled, Hypersegmented Neuts Cancelled, Atypical Lymphocytes Cancelled, Reactive Lymphocytes Cancelled, Smudge Cells Cancelled, Eosinophilia # Cancelled, Toxic Granulation Cancelled, Toxic Vacuolation Cancelled, Dohle Bodies Cancelled, Clyde Rods Cancelled, Platelet Estimate Cancelled, Plt Morphology Comment Cancelled, RBC Morphology Cancelled, Polychromasia Cancelled, Hypochromasia Cancelled, Poikilocytosis Cancelled, Basophilic Stippling Cancelled, Anisocytosis Cancelled, Microcytosis Cancelled, Macrocytosis Cancelled, Spherocytes Cancelled, Sickle Cells Cancelled, Target Cells Cancelled, Tear Drop Cells Cancelled, Ovalocytes Cancelled, Stomatocytes Cancelled, Brown-Wilkinson Bodies Cancelled, Chato Cells Cancelled, Bite Cells Cancelled, Crenated Cell Cancelled, Acanthocytes (Spur) Cancelled, Rouleaux Cancelled, Schistocytes Cancelled, ESR 116 H, Retic Count 2.63 H, Immature Retic Fraction 30.60 H, Retic Hgb Equivalent 27.5 L 11/09/22 06:40: Iron 22 L, TIBC 203 L, Iron Saturation 10.8 L, Ferritin 1690 H, C-React Prot Ext Range 40.60 H, Amylase 35, Lipase 70 L 11/09/22 09:59: POC Glucose 59 L 11/09/22 17:12: POC Glucose 77 Radiology Impression Abdomen/Pelvis CT 11/08/22 18:34 IMPRESSION: (NOT LISTED IN ORDER OF SIGNIFICANCE) Soft tissue mass surrounding the biliary stent and duodenal stent. This is likely the known pancreatic neoplasm. Duodenal invasion is likely and therefore there has been placement of the stent. Both the biliary and duodenal stent lumen is filled with debris. The degree of thickening around the stomach and duodenum has increased suggesting worsening of disease. Metastatic disease to the liver. 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 Intrahepatic ductal dilation is worse. Constipation. There is esophagitis. Other findings as above. Electronically Signed: Alejandro Braxton MD at 21:07 EDT , Assessment & Plan Assessment/Plan (1) Intractable nausea and vomiting: PLAN: Plan #Intractable nausea and vomiting -Discussed with ED and with GI, likely gastric outlet obstruction. I went over the repeat CT scan abdomen pelvis with the patient and his at the bedside. It is likely that there is an growth in the duodenal stent. The stent may have to be exchanged. -He is okay to have full liquid diet tonight. #History of VTE -Reports history of blood clots and is on Eliquis for this -With active cancer does have high risk of repeat VTE, estimates last clot was in March #Pancreatic cancer with metastases -Follows with Dr. Valencia on an outpatient basis -Is on chemotherapy but has not received this in 2 to 3 weeks due to an elevated white count of unclear origin #Leukocytosis -Recommend to continue Zosyn as I think he has elements of a sending cholangitis. #DVT ppx: Hold Eliquis tonight for ERCP. Charges/Coding Visit Charges Inpatient E&M: 84392 Init Hosp L3
--- NOTE | 2022-11-08 18:22 | HP.PCM.HOS_ITS ---
HPI - General General Date of Admission: 11/08/22 Date of Service: 11/08/22 Chief Complaint: Intractable nausea and vomiting HPI Narrative SVITLANA SOMERS, is a 67 M with a history of pancreatic cancer with metastasis and bile duct stent and previous gastric outlet obstruction with duodenal stent, VTE on Eliquis who presented to [facility] 11/08/2022 for intractable nausea and vomiting and abdominal pain. Reportedly has been having abdominal pain for 3 weeks with some nausea but it has been significantly worsening. He followed with [facility] and had MRCP today and right upper quadrant yesterday as well as recent blood work but reportedly no acute reason was found. He presented to the ED at the urging of his oncologist Dr. Valencia. Hospitalist consulted for admission. Patient evaluated with family member at bedside. He reports to sitting there and this moment he is not feeling too bad however does endorse the 3 weeks of abdominal pain and reports early satiety with only taking several bites of food before he feels full and sometimes sick, had episodes of emesis last night but prior to that had primarily been nauseous. Denies fever or chills, abdominal pain primarily in epigastric region. Denies chest pain or shortness of breath, denies other complaints today. Of note he has not had chemotherapy in 2 to 3 weeks due to an elevated white blood cell count. [facility] Medical History (Updated 11/08/22 @ 20:[address] Kinga Rowley MD) Diabetes Pancreatic cancer Home Medications amoxicillin 875 mg-potassium clavulanate 125 mg tablet 875 mg PO Q12H #20 TABLETS 10/13/22 [Rx Last Taken Unknown] apixaban 5 mg tablet (Eliquis) 5 mg PO BID 10/13/22 [History Last Taken Unknown] cholecalciferol (vitamin D3) 25 mcg (1,000 unit) tablet (Vitamin D3) 25 mcg PO DAILY 10/13/22 [History Last Taken Unknown] duloxetine 30 mg capsule,delayed release 30 mg PO DAILY 10/13/22 [History Last Taken Unknown] gabapentin 300 mg capsule 600 mg PO QHS 10/13/22 [History Last Taken Unknown] kcymno-csfmqlxt-cfeiwtg 36,000-114,000-180,000 unit capsule,delay rel (Creon) 1 cap PO 4X/DAY 10/13/22 [History Last Taken Unknown] ondansetron 8 mg disintegrating tablet 8 mg PO Q8H PRN PRN Nausea 10/13/22 [History Last Taken Unknown] Allergy/AdvReac Type Severity Reaction Status Date / Time acetaminophen [From Percocet] AdvReac Vomiting Verified 11/08/22 16:25 hydrocodone [From Vicodin] AdvReac Vomiting Verified 11/08/22 16:25 oxycodone [From Percocet] AdvReac Vomiting Verified 11/08/22 16:25 Family History no significant family his Social History Smoking Status: Never smoker ROS ROS Narrative General: Denies fever/chills HENT: Denies headache, denies stuffy nose, denies sore throat EYES: Denies changes in vision Resp: Denies cough, denies shortness of breath Cardiac: Denies chest pain GI: Abdominal pain, no changes in bowel, does have nausea and has had occasional emesis : Denies changes in urination Extremity: Denies swelling MSK: Generalized weakness Neuro: Denies any numbness/tingling Heme: Denies any bleeding or bruising Skin: Denies rashes Psychiatric: No complaints voiced Vital Signs Vital Signs Vital Signs: 11/08/22 16:26 11/08/22 17:46 Temperature 97.8 F 97.4 F L Temperature Source Temporal Oral Pulse Rate 84 96 Respiratory Rate 16 16 Blood Pressure 130/77 H 118/76 Blood Pressure Mean 94 90 Pulse Ox 98 100 Oxygen Delivery Method Room Air Room Air Weight Weight: 76.566 kg Body Mass Index (BMI) 22.8 Physical Exam Narrative General: Alert, oriented, no apparent distress HEENT: Atraumatic, normocephalic Eyes: Anicteric, normal conjunctiva, extraocular movements grossly intact Neck: Supple Respiratory: Clear to auscultation bilaterally, normal respiratory effort Cardiovascular: Regular rate and rhythm GI: Soft, mildly tender to palpation in epigastric region, no rebound, no guarding, no rigidity, nondistended Extremities: No edema Musculoskeletal: Moving all extremities Neuro: No overt focal neurological deficits Skin: No rashes appreciated Psych: Cooperative Results Lab / Micro Data Result Diagrams: 11/08/22 17:35 11/08/22 17:35 Labs: Laboratory Results - last 24 hr 11/08/22 17:35: WBC 18.4 H, RBC 3.89 L, Hgb 9.1 L, Hct 30.2 L, MCV 77.6 L, MCH 23.4 L, MCHC 30.1 L, RDW Std Deviation 63.7 H, RDW Coeff of Carlos A 23.5 H, Plt Count 632 H, MPV 8.8, Immature Gran % (Auto) 1.000 H, Neut % (Auto) 82.0 H, Lymph % (Auto) 10.9 L, Bryan % (Auto) 5.6, Eos % (Auto) 0.1, Baso % (Auto) 0.4, Absolute Neuts (auto) 15.1 H, Absolute Lymphs (auto) 2.01, Nucleated RBC % 0, Differential Comment SCANNED, Polychromasia RARE, Anisocytosis 2+, Microcytosis 1+, Target Cells RARE, Ovalocytes RARE 11/08/22 17:35: Sodium 134 L, Potassium 3.9, Chloride 98, Carbon Dioxide 29.0, Anion Gap 7, BUN 21 H, Creatinine 1.06, Estim Creat Clear Calc 72.23, Est GFR ( MDRD) Af Amer 89, Est GFR (MDRD) Non-Af 74, BUN/Creatinine Ratio 19.8, Glucose 285 H, Calcium 9.1, Total Bilirubin 0.40, Direct Bilirubin 0.26, AST 103 H, ALT 144 H, Alkaline Phosphatase 401 H, Total Protein 7.7, Albumin 2.3 L, Globulin 5.4 H, Lipase 95 Assessment & Plan Assessment/Plan (1) Intractable nausea and vomiting: PLAN: Plan #Intractable nausea and vomiting -Discussed with ED and with GI, possible repeat gastric outlet obstruction -We will make n.p.o. and hydrate -Zofran as needed -I's and O's -GI consult -CT abd/pelvis with PO and IV contrast ordered -Physical records of labs and scans have been reviewed in the ED, will attempt to get these and are on his chart, there is some confusion as he is to chart open at our institution as well #History of VTE -Reports history of blood clots and is on Eliquis for this -With active cancer does have high risk of repeat VTE, estimates last clot was in March #Pancreatic cancer with metastases -Follows with Dr. Valencia on an outpatient basis -Is on chemotherapy but has not received this in 2 to 3 weeks due to an elevated white count of unclear origin #Leukocytosis -No signs or symptoms of infection, reports he has been having normal bowel movements and no diarrhea, no fever or chills, no other complaints -Does have high risk for decompensation and white count increased to 18 from 14 on outside [facility] labs, was started on Zosyn #DVT ppx: Is on Eliquis chronically, this may need to be held as well add SCDs Kinga Rowley MD Time spent in the patient's overall evaluation,decision-making process, review of diagnostic data, adjustment of management, discussion with other providers, nursing nursing and ancillary staff involved in patient's care documentation, 60 Minutes Charges/Coding Visit Charges Inpatient E&M: 81891 Init Hosp L2
--- NOTE | 2022-11-08 18:34 | CT_ITS ---
STUDY: CT Abdomen And Pelvis W/ Contrast Injection 11/08/2022 8:58 PM REASON FOR EXAM: Male, 67 years old. Metastatic pancreatic cancer, nausea, vomiting.pain abdominal pain Individualized dose optimization techniques were used for this CT. COMPARISON: 10.13.22. TECHNIQUE: CT Abdomen And Pelvis W/ Contrast Injection Oral and amp; IV Gastrografin and amp; 100mL [id number] FINDINGS: There are atherosclerotic calcifications of visualized coronary arteries. The visualized portions of the heart are within normal limits. There is intrahepatic ductal dilation. Scattered metastatic foci in the liver. Biliary stent in place. There is non-visualization of the gallbladder, which may be secondary to either contraction or a prior cholecystectomy. Normal spleen. Dilation and pancreatic duct. Soft tissue mass surrounding the biliary stent and duodenal stent. This is likely known pancreatic neoplasm. Normal bilateral adrenal glands. Non obstructive 2 mm right renal parenchymal stones. Non obstructive 2 mm left renal parenchymal stones. There are hypodensities in both kidneys. These are consistent for cysts. No follow up required. Duodenal stent in place. Normal small intestine. Stool throughout the colon. There are surgical clips in the region of the appendix consistent with a prior appendectomy. There is a small hiatal hernia. Esophageal wall thickening may suggest an esophagitis. There are calcifications of the abdominal aorta. This is consistent for atherosclerotic disease. There is NO abdominal aortic aneurysm. Vascular workup can be obtained based on clinical correlation. Normal inferior vena cava. Subcentimeter mesenteric lymph nodes. 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 Normal urinary bladder. There is enlargement of the prostate gland. There are bilateral inguinal hernias containing fat. There is no bowel involvement. There is no incarceration. There is no findings suggesting that this is causing a bowel obstruction. There is an umbilical hernia containing fat. There are diffuse degenerative changes of the visualized lumbar spine. Total right hip arthroplasty. Degenerative findings of the left hip. CT/Abdomen/Pelvis WITH Contrast IMPRESSION: (NOT LISTED IN ORDER OF SIGNIFICANCE) Soft tissue mass surrounding the biliary stent and duodenal stent. This is likely the known pancreatic neoplasm. Duodenal invasion is likely and therefore there has been placement of the stent. Both the biliary and duodenal stent lumen is filled with debris. The degree of thickening around the stomach and duodenum has increased suggesting worsening of disease. Metastatic disease to the liver. 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 Intrahepatic ductal dilation is worse. Constipation. There is esophagitis. Other findings as above. Electronically Signed: Alejandro Braxton MD at 21:07 EDT ,
[2022-11-08] MEDS: Ondansetron 4 MG/2 ML Vial IV (18:50)
[2022-11-08 18:55] LABS: Bedside Glucose 221 mg/dL (74-106)
[2022-11-08 19:41] VITALS: BP 107/80; PULSE 68; O2SAT 98
[2022-11-08 20:48] VITALS: BMI 24.1
[2022-11-08 20:49] VITALS: BP 133/86; PULSE 71; RESP 17; TEMP 36.6; O2SAT 98
[2022-11-08] MEDS: 0.9% Normal Saline 1,000 ML 75 ML IV (21:51)
[2022-11-08] MEDS: Creon 12,000 unit DR CapSULE 6 CAP PO (22:46)
[2022-11-08] MEDS: Enoxaparin 40 MG/0.4 ML Syringe SC (22:47)
[2022-11-08] MEDS: Gabapentin 600 MG Tablet PO (22:47)
[2022-11-08 23:42] LABS: Hemoglobin A1c 7.1 % (3.8-5.6)
[2022-11-09 04:57] VITALS: BP 128/74; PULSE 70; RESP 15; TEMP 36.6; O2SAT 98
--- NOTE | 2022-11-09 06:00 | EKG12_ITS ---
Test Reason : PRE-OP Blood Pressure : / mmHG Vent. Rate : 070 BPM Atrial Rate : 070 BPM P-R Int : 118 ms QRS Dur : 108 ms QT Int : 408 ms P-R-T Axes : 046 007 046 degrees QTc Int : 440 ms Sinus rhythm with occasional Premature ventricular complexes Otherwise normal ECG When compared with ECG of 31-MAY-2022 12:51, Premature ventricular complexes are now Present Confirmed by MARIAM NICKERSON, POP ([id number]), editor sound [place] [employer] ([id number]) on 11/10/2022 2:06:55 PM Referred By: EMILIA Confirmed By:NICHO BECERRA MD
--- NOTE | 2022-11-09 07:03 | PCM.PN.HOSP ---
Reason for Visit Reason for Visit: Intractable nausea and vomiting Subjective Subjective Mr. Lawrence is a 67-year-old white male who presented to the emergency department at [facility] on 11/08/2022 with intractable nausea vomiting. Patient has a history of pancreatic cancer with metastasis and a bile duct stent with previous gastric outlet obstruction and duodenal stent. He reported he been having abdominal pain for 3 weeks with some nausea but it had been significantly worsening. He follows with the [facility] and had an MRCP performed on the day of admission and the right upper quadrant ultrasound yesterday as well as recent blood work but no acute reason for his symptoms were identified. He was urged to come to the emergency department by his oncologist Dr. Valencia. Upon evaluation he did report some early satiety and has only been able to take several bites of his food before he feels full and his pain was predominantly epigastric. He had not had chemotherapy in 2 to 3 weeks due to an elevated white count. Vital signs on presentation were underwhelming. His CBC did show a leukocytosis with a white count of 18.4 a chronic stable anemia, and thrombocytosis. It appears that his white count has been elevated at least since mid September per our documentation in the labs we have available. His chemistry showed an LONI with a creatinine of 1.06 (baseline 0.6-0.7). His glucose was markedly elevated at 287. Hemoglobin A1c was obtained and found to be 7.1. He does have elevated transaminases which appear to be new with an AST of 103 and an ALT of 144 and his alk phos was 401. His lipase was normal. He was admitted to the medical floor and GI was consulted for consideration for EGD to rule out new gastric outlet obstruction versus other pathology. The CT of his abdomen pelvis done on admission did show some soft tissue mass surrounding the biliary and duodenal stent that was suspected to be his pancreatic neoplasm and duodenal invasion was suspected. Both the biliary and duodenal stent lumen were filled with debris and he had a degree of thickening around the stomach and duodenum that had increased since previous. He also was noted to have metastatic disease to the liver and L2 and L4 metastatic disease as well as intrahepatic duct dilation that was worsening. No pain or significant nausea at this point. Patient remains n.p.o. awaiting studies to be done by Dr. Kelsey. Blood sugars have been quite labile at home per family. Objective Data Objective Data Vital Signs: Vital Signs Temp Pulse Resp BP Pulse Ox O2 Del Method 97.9 F 70 15 128/74 H 98 Room Air 11/09/22 04:57 11/09/22 04:57 11/09/22 04:57 11/09/22 04:57 11/09/22 04:57 11/09/22 04:57 Oxygen Delivery Method Room Air Weight: 76.4 kg Body Mass Index (BMI) 24.1 Intake & Output: Intake and Output for Last 24 Hours 11/07/22 11/08/22 11/09/22 23:59 23:59 23:59 Intake Total 1000 / 1000 50 / 50 Balance 1000 / 1000 50 / 50 Lab / Micro Data Result Diagrams: 11/09/22 06:40 11/09/22 06:40 Labs: Laboratory Results - last 24 hr 11/08/22 17:35: WBC 18.4 H, RBC 3.89 L, Hgb 9.1 L, Hct 30.2 L, MCV 77.6 L, MCH 23.4 L, MCHC 30.1 L, RDW Std Deviation 63.7 H, RDW Coeff of Carlos A 23.5 H, Plt Count 632 H, MPV 8.8, Immature Gran % (Auto) 1.000 H, Neut % (Auto) 82.0 H, Lymph % (Auto) 10.9 L, [place] % (Auto) 5.6, Eos % (Auto) 0.1, Baso % (Auto) 0.4, Absolute Neuts (auto) 15.1 H, Absolute Lymphs (auto) 2.01, Nucleated RBC % 0, Differential Comment SCANNED, Polychromasia RARE, Anisocytosis 2+, Microcytosis 1+, Target Cells RARE, Ovalocytes RARE 11/08/22 17:35: Sodium 134 L, Potassium 3.9, Chloride 98, Carbon Dioxide 29.0, Anion Gap 7, BUN 21 H, Creatinine 1.06, Estim Creat Clear Calc 72.23, Est GFR (MDRD) Af Amer 89, Est GFR (MDRD) Non-Af 74, BUN/Creatinine Ratio 19.8, Glucose 285 H, Calcium 9.1, Total Bilirubin 0.40, Direct Bilirubin 0.26, AST 103 H, ALT 144 H, Alkaline Phosphatase 401 H, Total Protein 7.7, Albumin 2.3 L, Globulin 5.4 H, Lipase 95 11/08/22 17:35: Hemoglobin A1c 7.1 H 11/08/22 18:36: POC Glucose 221 H Radiography Diagnostic Testing: Radiology Impression Abdomen/Pelvis CT 11/08/22 18:34 IMPRESSION: (NOT LISTED IN ORDER OF SIGNIFICANCE) Soft tissue mass surrounding the biliary stent and duodenal stent. This is likely the known pancreatic neoplasm. Duodenal invasion is likely and therefore there has been placement of the stent. Both the biliary and duodenal stent lumen is filled with debris. The degree of thickening around the stomach and duodenum has increased suggesting worsening of disease. Metastatic disease to the liver. 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 Intrahepatic ductal dilation is worse. Constipation. There is esophagitis. Other findings as above. Electronically Signed: Alejandro Braxton MD at 21:07 EDT , Physical Exam Const alert and oriented x3 Constitutional Narrative: Abnormal age white male lying in bed, at bedside, patient appears comfortable at this time, very pleasant, nontoxic-appearing HEENT head/scalp atraumatic HEENT Narrative: Mallampati 2-3, no thrush, moist mucous membranes Head and Scalp: normocephalic Resp normal respiratory effort, no retractions, no use of accessory muscles and clear to auscultation bilaterally Auscultation: Negative for rales, rhonchi or wheezes Cardio regular rate, regular rhythm, S1 normal heart sound, S2 normal heart sound, no murmurs, no rub and no gallops GI normal to inspection, nondistended, normoactive bowel sounds and soft to palpation GI Narrative: Mild tenderness in the epigastric area Extremity no clubbing, cyanosis or edema Extremity Narrative: 2+ pedal pulses Neuro oriented x3, moves all extremities and no focal motor deficits Speech: speech normal Psych Psych Narrative: Affect seems somewhat flat Assessment & Plan Assessment/Plan (1) Intractable nausea and vomiting: (2) Leukocytosis: (3) Microcytic anemia: PLAN: Plan Abdominal pain/intractable nausea and vomiting -It appears on CT that both the duodenal and biliary stent are filled with debris and I suspect they are obstructed -GI consultation to have this reexamined as well as possible EGD to rule out gastric outlet obstruction -Continue n.p.o. okay for p.o. meds -Continue IV fluids at 75 cc/h -Start Protonix 40 mg IV twice daily -Continue Zosyn -Continue antiemetics Metastatic pancreatic cancer -Primary oncologist is Dr. Valencia and case was discussed with him this morning -Patient with metastatic disease to the liver and lumbar spine at L2 and L4 -Last chemo was 2 to 3 weeks ago and has been on hold secondary to leukocytosis -Continue outpatient follow-up after discharge -Continue home Creon DM-2 -Blood sugars are markedly elevated and yesterday was 276 -Hemoglobin A1c was 7.1 -We will add some low-dose Lantus at 10 units daily -SSI -Accu-Cheks Q6 until able to start p.o. diet -Once p.o. diet initiated will utilize carb control cardiac diet Leukocytosis -Etiology is unclear -No signs or symptoms of infection -May be stress response -Continue Zosyn as ordered -Chest x-ray and UA are unremarkable -We will obtain blood cultures -Check procalcitonin Chronic anemia -Counts are stable -Microcytic in nature -Check iron studies and if low will start oral versus IV iron depending on saturation levels -Dose oral iron with vitamin C -Patient is chronically anticoagulated with apixaban History of DVT -Continue Eliquis -Last known clot was in March Diabetic neuropathy -Continue home gabapentin Vitamin D deficiency -Continue home cholecalciferol Depression -Continue home duloxetine DVT prophylaxis -Eliquis as noted above -SCDs on board as well in case Eliquis needs to be held CODE STATUS -Full code Charges/Coding Visit Charges Inpatient E&M: 17545 Subs Hosp L2
[2022-11-09 07:10] LABS: Absolute Lymphocyte Count 1.79 X10^3/uL (0.83-4.51); Absolute Neutrophil Count 10.9 X10^3/uL (2.0-7.7); Basophil# 0.07 X10^3/uL; Basophil% 0.5 % (0-1); Eosinophil# 0.08 X10^3/uL; Eosinophils% 0.6 % (0-5); Hematocrit 30.8 % (40-54); Hemoglobin 9.2 g/dL (13.0-16.5); Lymphocyte # 1.79 X10^3/ul (0.83-4.51); Lymphocyte % 12.8 % (19-41); Mean Corp Hgb Conc 29.9 g/dL (32-36); Mean Corpuscular Hgb 22.8 pg (27.0-32.0); Mean Corpuscular Volume 76.4 fL (80-94); Mean Platelet Vol. 8.7 fl (6.2-12.0); Monocyte# 0.99 X10^3/uL; Monocyte% 7.1 % (0-10); NRBC Flagged by Analyzer 0 % (0-5); Neutrophil # 10.92 X10^3/uL (2.7-7.7); Neutrophil % 78.1 % (47-70); POSITIVE MORPHOLOGY YES; Platelet Count 597 K/mm3 (150-450); RBC Distribution Width CV 23.7 % (11.6-14.6); RBC Distribution Width SD 62.6 fl (35.1-43.9); Red Blood Count 4.03 M/mm3 (4.6-6.2)
[2022-11-09 07:18] LABS: International Normalized Ratio 1.4; Prothrombin Time (Protime)PT. 16.6 SECONDS (11.7-14.9)
[2022-11-09 07:22] LABS: Differential Indicated SCAN CRITERIA MET
[2022-11-09 07:29] LABS: Anisocytosis 1+; Differential Comment SCANNED; Hypochromasia RARE; Macrocytosis RARE; Microcytosis RARE; Ovalocyte RARE
[2022-11-09 07:46] LABS: Erythrocyte Sedimentation Rate 116 mm/hr (0-20)
[2022-11-09 07:50] LABS: ALB/GLOB Ratio 0.5 RATIO (0.9-2.4); AST(SGOT) 117 U/L (15-37); Alanine Aminotransfer ALT/SGPT 158 U/L (16-61); Albumin, Serum 2.3 g/dL (3.2-5.0); Alkaline Phosphatase 409 U/L (45-117); Anion Gap 7 (5-15); BUN 13 mg/dL (7-18); BUN/Creat Ratio 16.8 RATIO (10-20); Calcium,Total 8.8 mg/dL (8.5-10.1); Chloride 105 mmol/L (98-107); Creatinine, Serum 0.78 mg/dL (0.70-1.30); EST Glomerular Filtration Rate 106 mL/min (>60); Est Glom Filt Rate - Afr Amer 128 mL/min (>60); Globulin 4.9 g/dL (2.2-4.2); Glucose 67 mg/dL (74-106); Magnesium 2.1 mg/dL (1.6-2.6); Platelet Count 662 K/mm3 (150-450); Potassium 3.7 mmol/L (3.5-5.1); Protein, Total 7.2 g/dL (6.4-8.2); RET-HE 27.5 pg (30-35); Reticulocyte Count 2.63 % (0.5-1.5); Sodium Level 138 mmol/L (136-145)
[2022-11-09 07:54] LABS: Amylase 35 U/L (25-115); Ferritin 1690 ng/mL (26-388); Iron 22 ug/dL (65-175); Iron Binding Capacity,Total 203 ug/dL (250-450); Lipase 70 U/L (73-393); PERCENT IRON SATURATION 10.8 % (15.0-55.0)
[2022-11-09 08:26] LABS: Procalcitonin 0.18 ng/mL (0.00-0.09)
[2022-11-09 08:49] VITALS: BP 106/68; PULSE 69; RESP 16; TEMP 36.8
[2022-11-09 09:00] VITALS: RESP 16
[2022-11-09] MEDS: DULoxetine Hcl 30 MG Capsule PO (09:00)
--- NOTE | 2022-11-09 10:50 | CASEMGMT ---
KEVON GUILLEN Assessment: Face to Face with pt for initial transition planning/care coordination assessment. RN WILMER introduced self and role at [facility], pt voices understanding and consents to assessment. Pt is O x4 and answers all questions appropriately at this time. Pt lying in bed and defers most questions to . Care providers, pharmacy, and demographics verified/updated. Admitting Dx: intractable n/v PCP:Rodger Specialists:Annie, onc; Friend, GI Preferred [facility]acy: [facility] Insurance: [facility] Prescription Benefit: yes LNOK: Adri Lawrence, Living Arrangements: Pt lives with in a two story home (bedroom is on main level) with 2 steps to enter with a rail. Pt reports he needs some assistance with ADL's and helps. Pt denies concerns at home. Transportation: Pt provides transportation to medical appts. DME/HHC/SNF: Pt has a bed rail at home and a 4ww/rollator. Pt has had [facility] HHC in the past and denies SNF stays. Pt states no concerns with going home at time of dc. Pt has been going to [facility] for outpt therapy and plans to continue after hospitalization. Pt states no further concerns/needs. CM to follow. Advised pt to ask CM if any further question/concerns/needs arise, voices understanding. Pt Goal: Home with outpt therapy resuming Plan: Home with outpt therapy resuming, therapy eval pending.
[2022-11-09] MEDS: Dextrose 5%/0.9% NaCl 1,000 ML 75 ML IV (11:21)
[2022-11-09 11:35] LABS: Bedside Glucose 59 mg/dL (74-106)
--- NOTE | 2022-11-09 13:17 | CHAPLAIN ---
Type of Pastoral Visit _x__ Initial Visit ___ Follow-up Visit ___ On-call Visit ___ General Patient Visit ___ Spiritual Assessment ___ Family Conference ___ Bereavement ___ Rapid Response ___ Code Blue ___ Other (describe below) Pastoral Care Referral From _x__ Patient _x__ Family ___ Nurse ___ Physician ___ Braid Maker ___ Forestry Hunter ___ Other (describe below) Sacrament/Intervention _x__ Active listening ___ Anointing ___ Rastafari ___ Bereavement ___ Communion _x__ Sun exploration ___ ___ Life review _x__ Prayer ___ Reconciliation ___ Sacrament of Sick _x__ Supportive presence ___ Wedding ___ Other (describe below) Pastoral Comments 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
[2022-11-09 13:45] VITALS: BP 127/79; PULSE 66; RESP 14; TEMP 36.9; O2SAT 96
[2022-11-09 15:15] VITALS: RESP 16; O2SAT 96
[2022-11-09 17:30] LABS: Bedside Glucose 77 mg/dL (74-106)
--- NOTE | 2022-11-09 18:18 | PCM.PROGNOTE ---
Subjective Subjective Patient states that he is hungry and he wants to eat. He denies any abdominal pain or fever. Objective Data Objective Data Vital Signs: Vital Signs Temp Pulse Resp BP Pulse Ox O2 Del Method 98.5 F 66 16 127/79 H 96 Room Air 11/09/22 13:45 11/09/22 13:45 11/09/22 15:15 11/09/22 13:45 11/09/22 16:00 11/09/22 16:00 Oxygen Delivery Method Room Air Weight: 168 lb 6.931 oz Body Mass Index (BMI) 24.1 Intake & Output: Intake and Output for Last 24 Hours 11/07/22 11/08/22 11/09/22 23:59 23:59 23:59 Intake Total 1000 / 1000 1372.25 / 1372.25 Balance 1000 / 1000 1372.25 / 1372.25 Medical Nutrition Assessment Dietitian: Malnutrition Criteria Met Start: 11/09/22 14:52 Freq: Status: Active Protocol: Document 11/09/22 14:52 AG (Rec: 11/09/22 14:52 AG [id number]) Nutrition Malnutrition Evidence of Malnutrition Exists Yes Malnutrition (severe): Acute Illness/Injury Evidenced By Suboptimal Energy Intake ( Severe),Weight Loss (Severe) Clinical Problem Acute Disease or Injury Related Malnutrition Etiology severe, acute malnutrition related to inadequate energy intake w/ increased energy needs d/t metastatic disease Signs/Symptoms as evidenced by unintentional wt loss of 7.6#/4% x 1 week; estimated PO intake meeting < 50% of estimated energy needs >1 week Status Active Problem Recommendation Dietitian Recommendations/Changes recommend advance diet as tolerated to regular; consider fat and/or fiber restriction pending further GI evaluation; ensure w/ medpass as indicated when diet advanced. Lab / Micro Data Result Diagrams: 11/09/22 06:40 11/09/22 06:40 Labs: Laboratory Results - last 24 hr 11/08/22 17:35: Hemoglobin A1c 7.1 H 11/08/22 18:36: POC Glucose 221 H 11/09/22 06:40: Procalcitonin 0.18 H 11/09/22 06:40: WBC 14.0 H, RBC 4.03 L, Hgb 9.2 L, Hct 30.8 L, MCV 76.4 L, MCH 22.8 L, MCHC 29.9 L, RDW Std Deviation 62.6 H, RDW Coeff of Carlos A 23.7 H, Plt Count 597 H, MPV 8.7, Immature Gran % (Auto) 0.900, Neut % (Auto) 78.1 H, Lymph % (Auto) 12.8 L, [place] % (Auto) 7.1, Eos % (Auto) 0.6, Baso % (Auto) 0.5, Absolute Neuts (auto) 10.9 H, Absolute Lymphs (auto) 1.79, Nucleated RBC % 0, Differential Comment SCANNED, Hypochromasia RARE, Anisocytosis 1+, Microcytosis RARE, Macrocytosis RARE, Ovalocytes RARE 11/09/22 06:40: Sodium 138, Potassium 3.7, Chloride 105, Carbon Dioxide 26.0, Anion Gap 7, BUN 13, Creatinine 0.78, Estim Creat Clear Calc 73.00, Est GFR (MDRD) Af Amer 128, Est GFR (MDRD) Non-Af 106, BUN/Creatinine Ratio 16.8, Glucose 67 L, Calcium 8.8, Magnesium 2.1, Total Bilirubin 0.70, AST 117 H, ALT 158 H, Alkaline Phosphatase 409 H, Total Protein 7.2, Albumin 2.3 L, Globulin 4.9 H, Albumin/Globulin Ratio 0.5 L 11/09/22 06:40: PT 16.6 H, INR 1.4, APTT 36.0 11/09/22 06:40: WBC Cancelled, Corrected WBC Cancelled, RBC Cancelled, Hgb Cancelled, Hct Cancelled, MCV Cancelled, MCH Cancelled, MCHC Cancelled, RDW Std Deviation Cancelled, RDW Coeff of Carlos A Cancelled, Plt Count Cancelled, MPV Cancelled, Immature Gran % (Auto) Cancelled, Neut % (Auto) Cancelled, Lymph % (Auto) Cancelled, [place] % (Auto) Cancelled, Eos % (Auto) Cancelled, Baso % (Auto) Cancelled, Neut # (Auto) Cancelled, Immature Gran # (Auto) Cancelled, Absolute Neuts (auto) Cancelled, Absolute Lymphs (auto) Cancelled, Absolute Monos (auto) Cancelled, Total Counted Cancelled, Neutrophils % (Manual) Cancelled, Band Neutrophils % Cancelled, Lymphocytes % (Manual) Cancelled, Monocytes % (Manual) Cancelled, Eosinophils % (Manual) Cancelled, Basophils % (Manual) Cancelled, Metamyelocytes % Cancelled, Myelocytes % Cancelled, Promyelocytes % Cancelled, Blast Cells % Cancelled, Plasma Cell % (Manual) Cancelled, Other Cells % Cancelled, Nucleated RBC % Cancelled, Lymphocytes # Cancelled, Basophils # Cancelled, Nucleated RBCs/100 WBC Cancelled, Differential Comment Cancelled, Diff Path Review Cancelled, Hypersegmented Neuts Cancelled, Atypical Lymphocytes Cancelled, Reactive Lymphocytes Cancelled, Smudge Cells Cancelled, Eosinophilia # Cancelled, Toxic Granulation Cancelled, Toxic Vacuolation Cancelled, Dohle Bodies Cancelled, Clyde Rods Cancelled, Platelet Estimate Cancelled, Plt Morphology Comment Cancelled, RBC Morphology Cancelled, Polychromasia Cancelled, Hypochromasia Cancelled, Poikilocytosis Cancelled, Basophilic Stippling Cancelled, Anisocytosis Cancelled, Microcytosis Cancelled, Macrocytosis Cancelled, Spherocytes Cancelled, Sickle Cells Cancelled, Target Cells Cancelled, Tear Drop Cells Cancelled, Ovalocytes Cancelled, Stomatocytes Cancelled, Brown-[place] Bodies Cancelled, Chato Cells Cancelled, Bite Cells Cancelled, Crenated Cell Cancelled, Acanthocytes (Spur) Cancelled, Rouleaux Cancelled, Schistocytes Cancelled, ESR 116 H, Retic Count 2.63 H, Immature Retic Fraction 30.60 H, Retic Hgb Equivalent 27.5 L 11/09/22 06:40: Iron 22 L, TIBC 203 L, Iron Saturation 10.8 L, Ferritin 1690 H, C-React Prot Ext Range 40.60 H, Amylase 35, Lipase 70 L 11/09/22 09:59: POC Glucose 59 L 11/09/22 17:12: POC Glucose 77 Radiography Diagnostic Testing: Radiology Impression Abdomen/Pelvis CT 11/08/22 18:34 IMPRESSION: (NOT LISTED IN ORDER OF SIGNIFICANCE) Soft tissue mass surrounding the biliary stent and duodenal stent. This is likely the known pancreatic neoplasm. Duodenal invasion is likely and therefore there has been placement of the stent. Both the biliary and duodenal stent lumen is filled with debris. The degree of thickening around the stomach and duodenum has increased suggesting worsening of disease. Metastatic disease to the liver. 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 Intrahepatic ductal dilation is worse. Constipation. There is esophagitis. Other findings as above. Electronically Signed: Alejandro Braxton MD at 21:07 EDT , Physical Exam Narrative General: Alert, oriented, no apparent distress HEENT: Atraumatic, normocephalic Eyes: Anicteric, normal conjunctiva, extraocular movements grossly intact Neck: Supple Respiratory: Clear to auscultation bilaterally, normal respiratory effort Cardiovascular: Regular rate and rhythm GI: Soft, mildly tender to palpation in epigastric region, no rebound, no guarding, no rigidity, nondistended Extremities: No edema Musculoskeletal: Moving all extremities Neuro: No overt focal neurological deficits Skin: No rashes appreciated Psych: Cooperative Assessment & Plan Assessment/Plan (1) Intractable nausea and vomiting: PLAN: Plan #Intractable nausea and vomiting -Discussed with ED and with GI, likely gastric outlet obstruction. I went over the repeat CT scan abdomen pelvis with the patient and his at the bedside. It is likely that there is an growth in the duodenal stent. The stent may have to be exchanged. I will know more doing the procedure tomorrow. -He is okay to have full liquid diet tonight. #History of VTE -Reports history of blood clots and is on Eliquis for this -With active cancer does have high risk of repeat VTE, estimates last clot was in March #Pancreatic cancer with metastases -Follows with Dr. Valencia on an outpatient basis -Is on chemotherapy but has not received this in 2 to 3 weeks due to an elevated white count of unclear origin #Leukocytosis -Recommend to continue Zosyn as I think he has elements of a sending cholangitis. #DVT ppx: Hold Eliquis tonight for ERCP tomorrow. Charges/Coding Visit Charges Inpatient E&M: 18323 Subs Hosp L3
[2022-11-09 21:15] VITALS: BP 120/74; PULSE 74; RESP 15; TEMP 37.2; O2SAT 97
[2022-11-09] MEDS: Gabapentin 600 MG Tablet PO (21:18)
[2022-11-10] VITALS (11 sets, daily range): BP systolic 92–128; BP diastolic 68–94; PULSE 62–80; RESP 16–18; TEMP 36.3–37.1; O2SAT 94–100; BMI 24.1
[2022-11-10] MEDS: Dextrose 5%/0.9% NaCl 1,000 ML 75 ML IV ×3 (00:32→18:47)
[2022-11-10 00:56] LABS: Bedside Glucose 168 mg/dL (74-106)
[2022-11-10 06:08] LABS: Absolute Lymphocyte Count 1.87 X10^3/uL (0.83-4.51); Absolute Neutrophil Count 6.7 X10^3/uL (2.0-7.7); Basophil# 0.08 X10^3/uL; Basophil% 0.8 % (0-1); Eosinophil# 0.08 X10^3/uL; Eosinophils% 0.8 % (0-5); Hematocrit 27.7 % (40-54); Hemoglobin 8.4 g/dL (13.0-16.5); Lymphocyte # 1.87 X10^3/ul (0.83-4.51); Lymphocyte % 19.4 % (19-41); Mean Corp Hgb Conc 30.3 g/dL (32-36); Mean Corpuscular Hgb 23.5 pg (27.0-32.0); Mean Corpuscular Volume 77.6 fL (80-94); Mean Platelet Vol. 9.4 fl (6.2-12.0); Monocyte# 0.82 X10^3/uL; Monocyte% 8.5 % (0-10); NRBC Flagged by Analyzer 0 % (0-5); Neutrophil # 6.69 X10^3/uL (2.7-7.7); Neutrophil % 69.3 % (47-70); POSITIVE MORPHOLOGY YES; Platelet Count 524 K/mm3 (150-450); RBC Distribution Width CV 23.6 % (11.6-14.6); Red Blood Count 3.57 M/mm3 (4.6-6.2); White Blood Count 9.7 K/mm3 (4.4-11.0)
[2022-11-10 06:10] LABS: Bedside Glucose 132 mg/dL (74-106)
[2022-11-10 06:13] LABS: Differential Indicated SCAN CRITERIA MET
[2022-11-10 06:52] LABS: Anisocytosis 2+
[2022-11-10 06:54] LABS: ALB/GLOB Ratio 0.4 RATIO (0.9-2.4); AST(SGOT) 97 U/L (15-37); Alanine Aminotransfer ALT/SGPT 134 U/L (16-61); Albumin, Serum 2.1 g/dL (3.2-5.0); Alkaline Phosphatase 447 U/L (45-117); Anion Gap 9 (5-15); BUN 14 mg/dL (7-18); BUN/Creat Ratio 15.6 RATIO (10-20); Calcium,Total 8.9 mg/dL (8.5-10.1); Chloride 108 mmol/L (98-107); EST Glomerular Filtration Rate 90 mL/min (>60); Est Glom Filt Rate - Afr Amer 108 mL/min (>60); Estimated Creatinine Clearance 81.11 ml/min; Globulin 4.8 g/dL (2.2-4.2); Glucose 139 mg/dL (74-106); Magnesium 2.1 mg/dL (1.6-2.6); Phosphorus 3.5 mg/dL (2.5-4.9); Potassium 4.3 mmol/L (3.5-5.1); Protein, Total 6.9 g/dL (6.4-8.2); Sodium Level 140 mmol/L (136-145)
[2022-11-10 09:39] LABS: Bedside Glucose 67 mg/dL (74-106)
--- NOTE | 2022-11-10 11:44 | PCM.PN.HOSP ---
Reason for Visit Reason for Visit: Abdominal pain/intractable nausea and vomiting Subjective Subjective Scope support deferred until today. Plan is for scopes today at 2 PM. Was able to trial full liquid diet last night and did okay with no nausea or vomiting. No abdominal pain this morning. Patient states he slept okay. Objective Data Objective Data Vital Signs: Vital Signs Temp Pulse Resp BP Pulse Ox O2 Del Method 98.6 F 65 18 123/77 H 95 Room Air 11/10/22 08:32 11/10/22 08:32 11/10/22 08:32 11/10/22 08:32 11/10/22 09:17 11/10/22 09:17 Oxygen Delivery Method Room Air Weight: 76.4 kg Body Mass Index (BMI) 24.1 Intake & Output: Intake and Output for Last 24 Hours 11/08/22 11/09/22 11/10/22 23:59 23:59 23:59 Intake Total 1000 / 1000 1832.25 / 2031. 1548.75 / 1548.75 Balance 1000 / 1000 1832. / 2031. 1548.75 / 1548.75 Medical Nutrition Assessment Dietitian: Malnutrition Criteria Met Start: 11/09/22 14:52 Freq: Status: Active Protocol: Document 11/09/22 14:52 AG (Rec: 11/09/22 14:52 [id number]) Nutrition Malnutrition Evidence of Malnutrition Exists Yes Malnutrition (severe): Acute Illness/Injury Evidenced By Suboptimal Energy Intake ( Severe),Weight Loss (Severe) Clinical Problem Acute Disease or Injury Related Malnutrition Etiology severe, acute malnutrition related to inadequate energy intake w/ increased energy needs d/t metastatic disease Signs/Symptoms as evidenced by unintentional wt loss of 7.6#/4% x 1 week; estimated PO intake meeting < 50% of estimated energy needs >1 week Status Active Problem Recommendation Dietitian Recommendations/Changes recommend advance diet as tolerated to regular; consider fat and/or fiber restriction pending further GI evaluation; ensure w/ medpass as indicated when diet advanced. Lab / Micro Data Result Diagrams: 11/10/22 05:20 11/10/22 05:20 Labs: Laboratory Results - last 24 hr 11/09/22 12:08: POC Glucose 67 L 11/09/22 17:12: POC Glucose 77 11/10/22 00:27: POC Glucose 168 H 11/10/22 05:20: WBC 9.7, RBC 3.57 L, Hgb 8.4 L, Hct 27.7 L, MCV 77.6 L, MCH 23.5 L, MCHC 30.3 L, RDW Std Deviation 65.0 H, RDW Coeff of Carlos A 23.6 H, Plt Count 524 H, MPV 9.4, Immature Gran % (Auto) 1.200 H, Neut % (Auto) 69.3, Lymph % (Auto) 19.4, [place] % (Auto) 8.5, Eos % (Auto) 0.8, Baso % (Auto) 0.8, Absolute Neuts (auto) 6.7, Absolute Lymphs (auto) 1.87, Nucleated RBC % 0, Anisocytosis 2+ 11/10/22 05:20: Sodium 140, Potassium 4.3, Chloride 108 H, Carbon Dioxide 23.0, Anion Gap 9, BUN 14, Creatinine 0.90, Estim Creat Clear Calc 81.11, Est GFR (MDRD) Af Amer 108, Est GFR (MDRD) Non-Af 90, BUN/Creatinine Ratio 15.6, Glucose 139 H, Calcium 8.9, Phosphorus 3.5, Magnesium 2.1, Total Bilirubin 1.00, AST 97 H, ALT 134 H, Alkaline Phosphatase 447 H, Total Protein 6.9, Albumin 2.1 L, Globulin 4.8 H, Albumin/Globulin Ratio 0.4 L 11/10/22 05:50: POC Glucose 132 H Radiography Diagnostic Testing: Radiology Impression Abdomen/Pelvis CT 11/08/22 18:34 IMPRESSION: (NOT LISTED IN ORDER OF SIGNIFICANCE) Soft tissue mass surrounding the biliary stent and duodenal stent. This is likely the known pancreatic neoplasm. Duodenal invasion is likely and therefore there has been placement of the stent. Both the biliary and duodenal stent lumen is filled with debris. The degree of thickening around the stomach and duodenum has increased suggesting worsening of disease. Metastatic disease to the liver. 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 Intrahepatic ductal dilation is worse. Constipation. There is esophagitis. Other findings as above. Electronically Signed: Alejandro Braxton MD at 21:07 EDT , Physical Exam Const alert, oriented x3 and no apparent distress Constitutional Narrative: Upper middle-aged age white male lying in bed, patient was dozing on my arrival but awakened easily, patient appears comfortable at this time, very pleasant, nontoxic-appearing HEENT head/scalp atraumatic and moist oral mucous membranes HEENT Narrative: Mallampati 2-3, no thrush Head and Scalp: normocephalic Resp normal respiratory effort, no retractions, no use of accessory muscles and clear to auscultation bilaterally Auscultation: Negative for rales, rhonchi or wheezes Cardio regular rate, regular rhythm, S1 normal heart sound, S2 normal heart sound, no murmurs, no rub and no gallops GI normal to inspection, nondistended, normoactive bowel sounds, soft to palpation and non-tender GI Narrative: No tenderness Extremity no clubbing, cyanosis or edema Extremity Narrative: 2+ pedal pulses Neuro oriented x3, moves all extremities and no focal motor deficits Speech: speech normal Psych Psych Narrative: Affect remains flat and mood somewhat depressed Assessment & Plan Assessment/Plan (1) Calculus of kidney and ureter: (2) Left inguinal hernia: (3) Superficial thrombophlebitis of right leg: PLAN: Plan Abdominal pain/intractable nausea and vomiting -It appears on CT that both the duodenal and biliary stent are filled with debris and I suspect they are obstructed -GI consultation to have this reexamined as well as possible EGD to rule out gastric outlet obstruction -Continue n.p.o. okay for p.o. meds -Did okay with a full liquid diet last evening -Continue IV fluids at 75 cc/h with D5 normal saline -Continue Protonix 40 mg IV twice daily -Continue Zosyn -Continue antiemetics Metastatic pancreatic cancer -Primary oncologist is Dr. Valencia and case was discussed with him this morning -Patient with metastatic disease to the liver and lumbar spine at L2 and L4 -Last chemo was 2 to 3 weeks ago and has been on hold secondary to leukocytosis -Continue outpatient follow-up after discharge -Continue home Creon DM-2 -Blood sugars 139 this morning -Hemoglobin A1c was 7.1 -Discontinue Lantus -Continue SSI -Accu-Cheks Q6 until able to start p.o. diet -Once p.o. diet initiated will utilize carb control cardiac diet Leukocytosis -Etiology is unclear -No signs or symptoms of infection -May be stress response -Continue Zosyn as ordered -Chest x-ray and UA are unremarkable -Blood cultures are pending -Pro-Gerson was slightly elevated at 0.18 -Count has now resolved -We will plan on discharging home with at least 7 to 10 days of antibiotics depending on blood cultures however I am unclear at this time what we are treating Chronic anemia -Counts are stable -Microcytic in nature -Reticulocyte count is elevated -Iron studies are more consistent with anemia of chronic disease having a low TIBC therefore we will hold off any iron supplementation at this time -Patient is chronically anticoagulated with apixaban History of DVT -Continue Eliquis -Last known clot was in March Diabetic neuropathy -Continue home gabapentin Vitamin D deficiency -Continue home cholecalciferol Depression -Continue home duloxetine DVT prophylaxis -Eliquis as noted above -SCDs on board as well in case Eliquis needs to be held CODE STATUS -Full code Disposition: -EGD today per Dr. Kelsey with possible repeat stent placement. If patient is able to take in p.o. diet without any difficulties to include abdominal pain nausea or vomiting possible discharge tomorrow and ongoing outpatient follow-up. Discussed with patient Charges/Coding Visit Charges Inpatient E&M: 32292 Subs Hosp L2
--- NOTE | 2022-11-10 14:48 | RAD_ITS ---
EXAM: INTRAOPERATIVE CHOLANGIOGRAM FLUOROSCOPY TIME: 265 seconds RADIATION DOSE: 52.56 mGy TOTAL NUMBER OF IMAGES: 1 COMPARISON: None. PROVIDED CLINICAL HISTORY: STONES PAIN TECHNIQUE: The examination was performed with physician in attendance. Under fluoroscopic observation, fluoroscopic images were obtained in the operating room. FINDINGS: First image demonstrates surgical instruments overlying the [id number]. Contrast is identified in a cannulated common bile duct. The cbd stent fills with contrast but appears to be occluded. Retrograde contrast is notseen in the pancreatic duct. Contrast is noted in the proximal duodenum. Contrast is not seen in the intrahepatic ducts. RAD/ERCP Biliary Only IMPRESSION: Fluoroscopic assistance images were obtained. Pertinent findings noted above. Electronically Signed: Alejandro Braxton MD at 16:39 EDT ,
[2022-11-10] MEDS: Gabapentin 600 MG Tablet PO (21:44)
[2022-11-10] MEDS: Creon 12,000 unit DR CapSULE 6 CAP PO (21:45)
[2022-11-10] MEDS: APIXABAN 5 MG TABLET PO (23:00)
[2022-11-11] MEDS: Insulin Lispro 100 UNIT/ML INSULN.PEN SC ×3 (00:21→12:36)
[2022-11-11 02:52] VITALS: BP 115/76; PULSE 71; RESP 16; TEMP 36.8; O2SAT 98
[2022-11-11 06:58] VITALS: BP 116/74; PULSE 72; RESP 18; TEMP 36.6; O2SAT 95
[2022-11-11 07:45] LABS: Absolute Lymphocyte Count 1.51 X10^3/uL (0.83-4.51); Absolute Neutrophil Count 8.4 X10^3/uL (2.0-7.7); Basophil# 0.03 X10^3/uL; Basophil% 0.3 % (0-1); Hematocrit 29.3 % (40-54); Hemoglobin 8.5 g/dL (13.0-16.5); Lymphocyte # 1.51 X10^3/ul (0.83-4.51); Lymphocyte % 14.1 % (19-41); Mean Corpuscular Hgb 23.2 pg (27.0-32.0); Mean Corpuscular Volume 80.1 fL (80-94); Mean Platelet Vol. 9.6 fl (6.2-12.0); Monocyte# 0.64 X10^3/uL; NRBC Flagged by Analyzer 0.2 % (0-5); Neutrophil # 8.44 X10^3/uL (2.7-7.7); POSITIVE MORPHOLOGY YES; Platelet Count 522 K/mm3 (150-450); RBC Distribution Width CV 23.9 % (11.6-14.6); RBC Distribution Width SD 67.9 fl (35.1-43.9); Red Blood Count 3.66 M/mm3 (4.6-6.2); White Blood Count 10.7 K/mm3 (4.4-11.0)
[2022-11-11 07:48] LABS: Differential Indicated SCAN CRITERIA MET
[2022-11-11 08:00] LABS: ALB/GLOB Ratio 0.4 RATIO (0.9-2.4); AST(SGOT) 38 U/L (15-37); Alanine Aminotransfer ALT/SGPT 97 U/L (16-61); Alkaline Phosphatase 393 U/L (45-117); Anion Gap 8 (5-15); BUN 12 mg/dL (7-18); Calcium,Total 8.5 mg/dL (8.5-10.1); Chloride 107 mmol/L (98-107); Creatinine, Serum 0.92 mg/dL (0.70-1.30); EST Glomerular Filtration Rate 87 mL/min (>60); Est Glom Filt Rate - Afr Amer 105 mL/min (>60); Estimated Creatinine Clearance 79.35 ml/min; Globulin 4.8 g/dL (2.2-4.2); Glucose 229 mg/dL (74-106); Phosphorus 2.5 mg/dL (2.5-4.9); Protein, Total 6.8 g/dL (6.4-8.2); Sodium Level 139 mmol/L (136-145)
[2022-11-11 09:11] LABS: Anisocytosis 1+; Hypochromasia 1+; Ovalocyte 1+; Platelet Estimate SLT INC (ADEQ); Poikilocytosis 1+
[2022-11-11] MEDS: DULoxetine Hcl 30 MG Capsule PO (09:37)
[2022-11-11] MEDS: APIXABAN 5 MG TABLET PO (09:37)
[2022-11-11] MEDS: Creon 12,000 unit DR CapSULE 6 CAP PO (09:37)
[2022-11-11 10:00] VITALS: BP 130/90; PULSE 77; RESP 18; TEMP 36.6; O2SAT 97
--- NOTE | 2022-11-11 11:17 | CASEMGMT ---
Social Work Referral made to hospice, SW called [facility], they have a meeting set up at home tomorrow between 1:30-2pm. SW let charge master analyst know, she actually also just heard back and let physician know. If physician keeps pt until tomorrow, hospice would need to be notified to meet w/pt here. MARIA T Fried
--- NOTE | 2022-11-11 11:48 | DS.PCM_ITS ---
Providers Date of Admission: 11/08/22 Date of Discharge: 11/11/22 Primary Care Physician: Dr. Linette Soares, DO Consultations 11/08/22 21:16 Consult: Gastroenterology Routine Consulting Provider: [facility] Reason for Consult: possible duodenal stent obstruction EMERGENT Consult: No Notified: Yes Date Notified: 11/08/22 Time Notified: 18:30 Method of Notification: ED Physician Initiated 11/11/22 07:36 Consult: Hospice / Palliative Care Routine Consulting Provider: [facility] Reason for Consult: hospice EMERGENT Consult: No MD Notified: Yes Date Notified: 11/11/22 Time Notified: 10:22 Method of Notification: Answering Service Reason For Visit: INTRACTABLE N/V Diagnosis Discharge Diagnosis (1) Intractable nausea and vomiting: Status: Acute Code(s): R11.2 - Nausea with vomiting, unspecified (2) Leukocytosis: Status: Acute Code(s): D72.829 - Elevated white blood cell count, unspecified (3) Microcytic anemia: Status: Acute Code(s): D50.9 - Iron deficiency anemia, unspecified Medications at Discharge Home Medications lorazepam 0.5 mg tablet 0.5 mg PO BID PRN Anxiety 09/05/21 olanzapine 10 mg tablet 10 mg PO QHS 09/05/21 apixaban 5 mg tablet 5 mg PO BID blood thinner 02/21/22 cholecalciferol (vitamin D3) 25 mcg (1,000 unit) chewable tablet 25 mcg PO BID supplement 02/21/22 citalopram 20 mg tablet 20 mg PO DAILY depression 02/21/22 insulin detemir U-100 100 unit/mL subcutaneous solution 0 unit subcut BID dm 02/21/22 lidocaine-prilocaine 2.5 %-2.5 % topical cream 1 applic topical PRN PRN port access 02/21/22 [id number] 24,000-76,000-120,000 unit capsule,delayed rel (Creon) 1 cap PO TID supplement 02/21/22 loperamide 2 mg capsule (Imodium A-D) 2 mg PO Q4H PRN Diarrhea 02/21/22 loratadine 10 mg capsule 10 mg PO DAILY PRN Allergy Symptoms 02/21/22 magnesium oxide 400 mg PO BID supplement 02/21/22 megestrol 400 mg/10 mL (40 mg/mL) oral suspension 20 mg PO DAILY increase apatite 02/21/22 apixaban 5 mg tablet (Eliquis) 5 mg PO BID Check with primary doctor 10/13/22 cholecalciferol (vitamin D3) 25 mcg (1,000 unit) tablet (Vitamin D3) 25 mcg PO DAILY Check with primary doctor 10/13/22 duloxetine 30 mg capsule,delayed release 30 mg PO DAILY Check with primary doctor 10/13/22 gabapentin 300 mg capsule 600 mg PO QHS Check with primary doctor 10/13/22 [id number]-[id number] 36,000-114,000-180,000 unit capsule,delay rel (Creon) 2 cap PO TID Check with primary doctor 10/13/22 ondansetron 8 mg disintegrating tablet 8 mg PO Q8H PRN PRN Nausea 10/13/22 magnesium oxide 400 mg (241.3 mg magnesium) tablet 400 mg PO BID Check with primary doctor 11/08/22 levofloxacin 750 mg tablet 750 mg PO DAILY #5 tabs 11/11/22 ondansetron 8 mg disintegrating tablet 8 mg PO Q8H PRN Nausea #30 tabs 11/11/22 Hospital Course Operations None Procedures - (ERCP/CT of the abdomen and pelvis) Summary of Care Provided Minutes Spent on Discharge: 38 Hospital Course: Mr. Lawrence is a 67-year-old white male who presented to the emergency department at [facility] on 11/08/2022 with intractable nausea vomiting.? Patient has a history of pancreatic cancer with metastasis and a bile duct stent with previous gastric outlet obstruction and duodenal stent.? He reported he been having abdominal pain for 3 weeks with some nausea but it had been significantly worsening.? He follows with the [facility] and had an MRCP performed on the day of admission and the right upper quadrant ultrasound yesterday as well as recent blood work but no acute reason for his symptoms were identified.? He was urged to come to the emergency department by his oncologist Dr. Valencia.? Upon evaluation, he did report some early satiety and has only been able to take several bites of his food before he feels full and his pain was predominantly epigastric.? He had not had chemotherapy in 2 to 3 weeks due to an elevated white count.? Vital signs on presentation were underwhelming.? His CBC did show a leukocytosis with a white count of 18.4 a chronic stable anemia, and thrombocytosis.? It appears that his white count has been elevated at least since mid September per our documentation in the labs we have available.? His chemistry showed an LONI with a creatinine of 1.06 (baseline 0.6-0.7).? His glucose was markedly elevated at 287.? Hemoglobin A1c was obtained and found to be 7.1.? He does have elevated transaminases which appear to be new with an AST of 103 and an ALT of 144 and his alk phos was 401.? His lipase was normal.? He was admitted to the medical floor and GI was consulted for consideration for EGD to rule out new gastric outlet obstruction versus other pathology.? The CT of his abdomen pelvis done on admission did show some soft tissue mass surrounding the biliary and duodenal stent that was suspected to be his pancreatic neoplasm and duodenal invasion was suspected.? Both the biliary and duodenal stent lumen were filled with debris and he had a degree of thickening around the stomach and duodenum that had increased since previous.? He also was noted to have metastatic disease to the liver and L2 and L4 metastatic disease as well as intrahepatic duct dilation that was worsening. He was admitted to the medical floor and placed on IV fluids, antiemetics, and pain medication. He was evaluated by GI and taken for an ERCP on 11/10/2022. 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 The common bile duct was dilated successfully and the biliary tree was swept for mucus and debris/sludge and clots were found. It appears that his pancreatic disease has progressed significantly and I did have a conversation with his oncologist, Dr. Valencia, reviewed his previous chemotherapy and he unfortunately did not feel that there were any other options for chemotherapy and recommended hospice. I discussed the overall findings and recommendations by Dr. Kelsey and Dr. Valencia with the and the patient on 11/11/2022. I discussed that the recommendations were for hospice and they did agree. Hospice consultation was performed and they denisse l evaluate the patient tomorrow at home for ongoing care. He will be discharged on oral Levaquin for 5 more days per discussion with Dr. Kelsey there was some pus identified in the GI tract on the ERCP and he suspect this is where his leukocytosis was originating from. Prescription was sent to the pharmacy. We recommended a clear and full liquid diet/soft foods with hopeful transit through the narrowing in the duodenum which was still patent but much more narrow than it had been prior to stent placement as tumor had invaded the stent. We did renew his prescription for Zofran as well and this was faxed to his pharmacy as well. He was discharged home in stable condition on 11/11/2022. No other medication changes were made at this time primary care physician was notified prior to discharge. Discharge diagnoses: Abdominal pain/nausea/vomiting due to worsening pancreatic cancer Metastatic pancreatic cancer DM-2 Leukocytosis-resolved Chronic anemia History of DVT Diabetic neuropathy Vitamin D deficiency Depression Physical Exam Const alert, oriented x3 and no apparent distress Constitutional Narrative: Upper middle-aged age white male lying in bed, patient awake and at bedside at the time of my arrival, patient appears comfortable at this time, very pleasant, nontoxic-appearing General Appearance: cooperative, comfortable, well kempt and well developed Orientation / Consciousness: awake, oriented to person, oriented to place and oriented to time Exam Limitations: no limitations HEENT normocephalic, head/scalp atraumatic, hearing grossly normal bilaterally and moist oral mucous membranes HEENT Narrative: Mallampati 2-3, no thrush, dentition is good Eyes PERRL and EOMs intact bilaterally Eyes Narrative: Pale conjunctiva bilaterally, no scleral icterus Neck no lymphadenopathy and supple Neck Narrative: Trachea midline, no thyroid enlargement Resp normal respiratory effort, no retractions, no use of accessory muscles and clear to auscultation bilaterally Auscultation: Negative for rales, rhonchi or wheezes Cardio regular rate, regular rhythm, S1 normal heart sound, S2 normal heart sound, no murmurs, no rub and no gallops GI normal to inspection, nondistended, normoactive bowel sounds, soft to palpation and non-tender Extremity no clubbing, cyanosis or edema Extremity Narrative: 2+ pedal pulses Skin no rashes or lesions noted, no wounds, skin turgor normal and no jaundice Skin Narrative: Skin is pale Neuro oriented x3, CN's II-XII intact bilaterally, moves all extremities and no focal motor deficits Speech: speech normal Psych Psych Narrative: Affect remains flat and mood somewhat depressed but appropriate for situation Medical Records Data Medical Nutrition Assessment Dietitian: Malnutrition Criteria Met Start: 03/16/23 14:52 Freq: Status: Active Protocol: Document 11/09/22 14:52 AG (Rec: 11/09/22 14:52 [id number]) Nutrition Malnutrition Evidence of Malnutrition Exists Yes Malnutrition (severe): Acute Illness/Injury Evidenced By Suboptimal Energy Intake ( Severe),Weight Loss (Severe) Clinical Problem Acute Disease or Injury Related Malnutrition Etiology severe, acute malnutrition related to inadequate energy intake w/ increased energy needs d/t metastatic disease Signs/Symptoms as evidenced by unintentional wt loss of 7.6#/4% x 1 week; estimated PO intake meeting < 50% of estimated energy needs >1 week Status Active Problem Recommendation Dietitian Recommendations/Changes recommend advance diet as tolerated to regular; consider fat and/or fiber restriction pending further GI evaluation; ensure w/ medpass as indicated when diet advanced. Weight / BMI Weight Weight: 76.4 kg Body Mass Index (BMI) 24.1 ABG / Lab / Microbiology Data Result Diagrams: 11/11/22 06:46 11/11/22 06:46 Laboratory: Laboratory Results - last 24 hr 11/11/22 06:46: WBC 10.7, RBC 3.66 L, Hgb 8.5 L, Hct 29.3 L, MCV 80.1, MCH 23.2 L, MCHC 29.0 L, RDW Std Deviation 67.9 H, RDW Coeff of Carlos A 23.9 H, Plt Count 522 H, MPV 9.6, Immature Gran % (Auto) 0.600, Neut % (Auto) 79.0 H, Lymph % (Auto) 14.1 L, [place] % (Auto) 6.0, Eos % (Auto) 0.0, Baso % (Auto) 0.3, Absolute Neuts (auto) 8.4 H, Absolute Lymphs (auto) 1.51, Nucleated RBC % 0.2, Platelet Estimate SLT INC, Hypochromasia 1+, Poikilocytosis 1+, Anisocytosis 1+, Ovalocytes 1+ 11/11/22 06:46: Sodium 139, Potassium 4.0, Chloride 107, Carbon Dioxide 24.0, Anion Gap 8, BUN 12, Creatinine 0.92, Estim Creat Clear Calc 79.35, Est GFR (MDRD) Af Amer 105, Est GFR (MDRD) Non-Af 87, BUN/Creatinine Ratio 13.0, Glucose 229 H, Calcium 8.5, Phosphorus 2.5, Magnesium 2.0, Total Bilirubin 0.30, AST 38 H, ALT 97 H, Alkaline Phosphatase 393 H, Total Protein 6.8, Albumin 2.0 L, Globulin 4.8 H, Albumin/Globulin Ratio 0.4 L Microbiology: Microbiology 11/09/22 07:50 Blood Culture (Wb) - Right Hand Blood Culture - Preliminary No growth in 48 hours. 11/09/22 07:45 Blood Culture (Wb) - Anticubital Right Blood Culture - Preliminary No growth in 48 hours. Radiography Diagnostic Testing: Radiology Impression ERCP X-Ray 11/10/22 14:48 IMPRESSION: Fluoroscopic assistance images were obtained. Pertinent findings noted above. Electronically Signed: Alejandro Braxton MD at 16:39 EDT Reading Location ID and State: [facility] / [place] , Service support , D/C Instructions Discharge Diet: Soft diet (Recommend clear and full liquids predominantly) Discharge Activity: Return to Normal Activity (As able) Meaningful Use Info Meaningful Use Diagnoses (Choose all that apply): None applicable Discharge Plan Admission Admit Date/Time: 11/08/22 18:21 Primary Reason for Your Visit: Intractable nausea and vomiting Attending Provider: Ama Yuen Primary Care Provider: Linette Soares Consulting Providers: Kinga Rowley ; Lara Vogt ; Israel Burton ; Daina Tripp ; Astrid Brownlee ; Cathleen Perry WAREHOUSING TECHNICIAN Discharge Orders/Prescriptions Prescriptions: New levofloxacin 750 mg tablet 750 mg PO DAILY Qty: 5 0RF Continued olanzapine 10 mg tablet 10 mg PO QHS Label Comments: TAKE 1 TABLET BY MOUTH ONCE DAILY AT BEDTIME lorazepam 0.5 mg Tablet 0.5 mg PO BID PRN (Reason: Anxiety) megestrol 400 mg/10 mL (40 mg/mL) Suspension 20 mg PO DAILY loperamide [Imodium A-D] 2 mg Capsule 2 mg PO Q4H PRN (Reason: Diarrhea) Rx Instructions: administer after each loose stool until symptoms controlled; do not exceed 8 mg per 24 hrs lidocaine-prilocaine 2.5-2.5 % Cream 1 applic topical PRN PRN (Reason: port access) citalopram 20 mg Tablet 20 mg PO DAILY insulin detemir U-100 100 unit/mL Solution 0 unit SUBCUT BID Rx Instructions: sliding scale, ppt txt dr daily to fine out how much insulin to give Creon 24,000-76,000 -120,000 unit Capsule,Delayed Release(Dr/Ec) 1 cap PO TID Rx Instructions: administer with meals and/or snacks cholecalciferol (vitamin D3) 25 mcg (1,000 unit) Tablet,Chewable 25 mcg PO BID loratadine 10 mg Capsule 10 mg PO DAILY PRN (Reason: Allergy Symptoms) magnesium oxide 400 mg magnesium Capsule 400 mg PO BID apixaban 5 mg Tablet 5 mg PO BID ondansetron 8 mg tablet,disintegrating 8 mg PO Q8H PRN PRN (Reason: Nausea) Label Comments: DISSOLVE 1 TABLET IN MOUTH EVERY 8 HOURS NEEDED FOR NAUSEA AND VOMITING gabapentin 300 mg capsule 600 mg PO QHS Label Comments: TAKE 2 CAPSULES BY MOUTH ONCE DAILY AT BEDTIME duloxetine 30 mg capsule,delayed release(DR/EC) 30 mg PO DAILY Label Comments: TAKE 1 CAPSULE BY MOUTH ONCE DAILY cholecalciferol (vitamin D3) [Vitamin D3] 25 mcg (1,000 unit) Tablet 25 mcg PO DAILY Eliquis 5 mg Tablet 5 mg PO BID Creon 36,000-114,000- 180,000 unit capsule,delayed release(DR/EC) 2 cap PO TID Label Comments: TAKE 2 CAPSULES BY MOUTH 4 TIMES DAILY magnesium oxide 400 mg (241.3 mg magnesium) tablet 400 mg PO BID Label Comments: TAKE 1 TABLET BY MOUTH TWICE DAILY ondansetron 8 mg Tablet,Disintegrating 8 mg PO Q8H PRN (Reason: Nausea) Qty: 30 1RF Referrals / Follow Up: Linette Soares DO [Primary Care Provider] - See Referral Note (as needed) Linette Soares DO [[facility]] - Disposition Disposition (needs filled in before D/C Order can be placed): Home, Self Care Charges/Coding Visit Charges Inpatient E&M: 41735 Disch Hosp >30min
[2022-11-11] MEDS: 0.9% Saline Lock 10 ML Syringe IV (13:19)
[2022-11-23 09:09] LABS: Bedside Glucose 148 mg/dL (74-106)
[2022-11-23 09:09] LABS: Bedside Glucose 305 mg/dL (74-106)
[2022-11-23 09:09] LABS: Bedside Glucose 123 mg/dL (74-106)
[2022-11-23 09:09] LABS: Bedside Glucose 214 mg/dL (74-106)
[2022-11-23 09:09] LABS: Bedside Glucose 287 mg/dL (74-106)
[2022-11-23 09:09] LABS: Bedside Glucose 316 mg/dL (74-106)
== END 2022-11-11 13:25 | disposition home or self-care (01) | DRG 391 ==
LOC: ED 17:47 → MS3 19:04
PROVIDERS: Anesthesiology; Internal Medicine Gastroenterology; Admitting Provider Internal Medicine; Emergency Provider Student in an Organized Health Care Education/Training Program; PCP Internal Medicine; Visit Provider Internal Medicine
PROC: BF10YZZ Fluoroscopy of Bile Ducts using Other Contrast (ICD-10-PCS; CPT 43260; principal; 2022-11-10 14:10)
DX: R11.2 Nausea with vomiting, unspecified (principal); K83.1 Obstruction of bile duct; E43 Unspecified severe protein-calorie malnutrition; C79.51 Secondary malignant neoplasm of bone; C25.9 Malignant neoplasm of pancreas, unspecified; N17.9 Acute kidney failure, unspecified; C78.7 Secondary malignant neoplasm of liver and intrahepatic bile duct; N20.2 Calculus of kidney with calculus of ureter; G62.0 Drug-induced polyneuropathy; D63.8 Anemia in other chronic diseases classified elsewhere; K83.8 Other specified diseases of biliary tract; E11.40 Type 2 diabetes mellitus with diabetic neuropathy, unspecified; E11.65 Type 2 diabetes mellitus with hyperglycemia; Z79.4 Long term (current) use of insulin; I80.01 Phlebitis and thrombophlebitis of superficial vessels of right lower extremity; D72.829 Elevated white blood cell count, unspecified; D50.9 Iron deficiency anemia, unspecified; E55.9 Vitamin D deficiency, unspecified; K40.20 Bilateral inguinal hernia, without obstruction or gangrene, not specified as recurrent; Z79.891 Long term (current) use of opiate analgesic; Z79.01 Long term (current) use of anticoagulants; F32.A Depression, unspecified; G89.3 Neoplasm related pain (acute) (chronic); Z68.22 Body mass index [BMI] 22.0-22.9, adult; R26.9 Unspecified abnormalities of gait and mobility; T45.1X5D Adverse effect of antineoplastic and immunosuppressive drugs, subsequent encounter
CPT/HCPCS: 36415; 74177; 74328; 76000; 80048; 80053; 80076; 82150; 82728; 82962; 83036; 83540; 83550; 83690; 83735; 84100; 84145; 85025; 85045; 85610; 85652; 85730; 86140; 87040; 93005; 94668; 97110; 97162; 99252; 99285; J7030; J7050; Q9967; A4216; C1726; G0463; J2405